=== PATIENT | female | born 1970 | race Caucasian/White ===

== ENCOUNTER 2022-08-21 11:44 | Emergency (ER) | payer BC, MEDICAID, SELFPAY ==
[2022-08-21 11:49] VITALS: BP 185/123; PULSE 115; RESP 14; TEMP 36.6; O2SAT 97; BMI 19.1
--- NOTE | 2022-08-21 12:29 | XRR_ITS ---
PROCEDURE INFORMATION: Exam: XR Abdomen Exam date and time: 08/21/2022 12:58 PM Age: 52 years old Clinical indication: Constipation; Additional info: Dyspepsia TECHNIQUE: Imaging protocol: Radiologic exam of the abdomen. Views: Frontal supine view of the abdomen. 1 View. COMPARISON: No relevant prior studies available. FINDINGS: Gastrointestinal tract: The bowel gas pattern is nonspecific. The examination is negative for significant colonic fecal stasis or bowel obstruction. Bones/joints: Unremarkable. XR/XR KUB portable [id number] IMPRESSION: No acute GI abnormality.
[2022-08-21 12:47] LABS: Basophils # 0.1 10^3/uL (0.0-0.1); Basophils % 0.6 %; Eosinophils # 0.1 10^3/uL (0.0-0.8); Eosinophils % 0.7 %; Hematocrit 46.6 % (37.0-47.0); Hemoglobin 15.7 g/dL (11.5-15.3); Lymphocytes # 3.1 10^3/uL (0.8-4.8); Lymphocytes % 30.5 %; Mean Corpuscular HGB Conc 33.7 g/dL (30.0-36.0); Mean Corpuscular Hemoglobin 30.5 pg (28.0-34.0); Mean Corpuscular Volume 90.5 fl (81-99); Mean Platelet Volume 9.2 fL (7.4-10.4); Monocytes # 0.9 10^3/uL (0.2-0.9); Monocytes % 9.2 %; Neutrophils # 5.93 10^3/uL (1.8-7.7); Neutrophils % 58.7 %; Nucleated Red Blood Cells % 0 %; Platelet Count 332 10^3/cmm (130-400); Red Blood Count 5.15 10^6/uL (4.1-5.3); Red Cell Distribution Width 13.1 % (12.1-15.1); White Blood Count 10.1 10^3/uL (4.0-10.0)
[2022-08-21] MEDS: lidocaine 2% viscous 15 ML, aluminum-mag hydrox-simethicon 30 ML, sucralfate oral liq 1 GM PO (12:53)
[2022-08-21] MEDS: pantoprazole 40 mg SDV 80 MG IVP (12:53)
[2022-08-21] MEDS: sodium chloride 0.9% 500 ML IV (12:54)
[2022-08-21 12:57] VITALS: BP 131/67; O2SAT 99
[2022-08-21 13:00] VITALS: BP 176/103; O2SAT 98
[2022-08-21 13:06] LABS: Alanine Aminotransferase 19 U/L (0-33); Albumin Level 4.5 g/dL (3.5-5.2); Alkaline Phosphatase 120 U/L (35-105); Anion Gap 17.6 (5-19); Aspartate Amino Transferase 21 U/L (0-32); Blood Urea Nitrogen 9 mg/dL (6-20); C Reactive Protein 4.9 mg/L (0.0-4.9); Calcium 9.8 mg/dL (8.5-10.5); Carbon Dioxide 26 mmol/L (22-29); Chloride 92 mmol/L (98-107); Globulin 2.9 g/dL (1.3-4.6); Glucose 84 mg/dL (65-115); Osmolality Calculated 272 mOsm/kg (285-295); Potassium 3.6 mmol/L (3.5-5.1); Sodium 132 mmol/L (136-145); Total Bilirubin 0.6 mg/dL (0.15-1.2); Total Protein 7.4 g/dL (6.6-8.7)
--- NOTE | 2022-08-21 13:10 | ED_ITS ---
HPI - Abdominal Pain General: Chief Complaint: Abdominal Pain Stated Complaint: Stomach problems Time Seen by Provider: 08/21/22 12:20 History of Present Illness: 52-year-old female presents to the emergency department chief complaint of ongoing dyspepsia and gas in her upper abdomen relieved with burping or passing gas patient reports been ongoing chronic issues been progressive getting worse over the last several months. Patient does report she had recently had her upper teeth pulled which she has had some dietary changes since that time. Patient does not recall any prior history of any obvious food allergies she reports no recent infections no illnesses reports no blood in her stools patient reports however she does not see the doctor very often. Patient presents the ER for further assessment and management Associated Symptoms: Reports belching, bloating, GI cramping, excessive flatus and nausea; Denies chills and fever(s) Review of Systems General: Reports: 10 or more systems reviewed and unremarkable except in HPI and below Const: Denies: fever(s), chills, fatigue or malaise Eyes: Denies: change in vision or blurry vision Card: Denies: chest pain or palpitations Resp: Denies: dyspnea or productive cough GI: Reports: abdominal pain, nausea, bloating, GI cramping, belching and excessive flatus : Denies: flank pain Musc: Denies: extremity pain or extremity swelling Skin/Breast: Denies: rash or pruritus Neuro: Denies: headache(s) Psych: Denies: anxiety or depression Brandon/Lymph: Denies: easy bleeding All/Imm: Denies: urticaria, throat swelling or facial swelling Physical Exam Const: COMMON NORMALS: no acute distress, patient oriented x3 and healthy appearing HENMT: COMMON NORMALS: normocephalic and atraumatic HEAD & SCALP: normocephalic and atraumatic Eye: COMMON NORMALS: Equal, round and reactive pupils present and EOMs intact bilaterally PUPIL: Yes Equal, round and reactive pupils present Neck/C-Spine: COMMON NORMALS: full ROM, supple and no JVD Lymph: LYMPHATIC: no lymphadenopathy noted Chest: COMMONS NORMALS: normal inspection of the chest and normal palpation of entire chest wall Resp: COMMON NORMALS: normal respiratory effort, No retractions and clear to auscultation bilaterally EFFORT & INSPECTION: Yes able to speak in complete sentences and Yes symmetric chest movement AUSCULTATION: clear to auscultation bilaterally Cardio: COMMON NORMALS: no JVD, regular rate and regular rhythm RATE: regular rate RHYTHM: regular rhythm GI: COMMON NORMALS: Soft to palpation and non-tender INSPECTION: Yes normal to inspection PALPATION: Yes Soft to palpation OTHER: Mild distention appreciated no obvious tenderness noted : COMMON NORMALS: Yes no CVA tenderness BLADDER/KIDNEY EXAM: Yes no CVA tenderness Back/Pelvis: COMMON NORMALS: no CVA tenderness Extremity: COMMON NORMALS: normal to inspection and full ROM Neuro: COMMON NORMALS: patient oriented x3, CN's II-XII intact bilaterally, moves all extremities and no focal motor deficits Psych: COMMON NORMALS: mental status grossly normal, Normal thought process present, cooperative and normal affect THOUGHT PROCESS: Normal thought process present Skin: COMMON NORMALS: no rashes or lesions noted GENERAL SKIN EXAM: no rashes or lesions noted Course Vital Signs: Vital signs: Vital Signs Temperature 97.8 F 08/21/22 11:49 Pulse Rate 115 H 08/21/22 11:49 Respiratory Rate 14 08/21/22 11:49 Blood Pressure 162/94 08/21/22 14:00 Pulse Oximetry 98 08/21/22 13:30 Oxygen Delivery Me thod 08/21/22 11:49 MDM - Abdominal Pain Medical Decision Making Due to the patient's symptoms and condition IV will be will be established lab work and imaging will be obtained we will continue to follow. Patient's lab work and imaging came back reassuring patient appears has some dyspepsia as well as bloating we will be treating her accordingly with medications as well as diet modification advised patient further follow-up with primary care in 3 to 5 days which patient was advised to return the interim if any of her symptoms persist or worse. Lab Data 08/21/22 12:40 08/21/22 12:40 Labs/Radiology: Radiology Impressions KUB X-Ray 08/21/22 12:29 IMPRESSION: No acute GI abnormality. Laboratory Results WBC 10.1 10^3/uL (4.0-10.0) H 08/21/22 12:40 RBC 5.15 10^6/uL (4.1-5.3) 08/21/22 12:40 Hgb 15.7 g/dL (11.5-15.3) H 08/21/22 12:40 Hct 46.6 % (37.0-47.0) 08/21/22 12:40 MCV 90.5 fl (81-99) 08/21/22 12:40 MCH 30.5 pg (28.0-34.0) 08/21/22 12:40 MCHC 33.7 g/dL (30.0-36.0) 08/21/22 12:40 RDW 13.1 % (12.1-15.1) 08/21/22 12:40 Plt Count 332 10^3/cmm (130-400) 08/21/22 12:40 MPV 9.2 fL (7.4-10.4) 08/21/22 12:40 Neut % (Auto) 58.7 % 08/21/22 12:40 Lymph % (Auto) 30.5 % 08/21/22 12:40 [place] % (Auto) 9.2 % 08/21/22 12:40 Eos % (Auto) 0.7 % 08/21/22 12:40 Baso % (Auto) 0.6 % 08/21/22 12:40 Neut # (Auto) 5.93 10^3/uL (1.8-7.7) 08/21/22 12:40 Lymph # (Auto) 3.1 10^3/uL (0.8-4.8) 08/21/22 12:40 [place] # (Auto) 0.9 10^3/uL (0.2-0.9) 08/21/22 12:40 Eos # (Auto) 0.1 10^3/uL (0.0-0.8) 08/21/22 12:40 Baso # (Auto) 0.1 10^3/uL (0.0-0.1) 08/21/22 12:40 Nucleated RBC % (auto) 0 % 08/21/22 12:40 Nucleated RBCs # 0.0 /100WBC 08/21/22 12:40 Sodium 132 mmol/L (136-145) L 08/21/22 12:40 Potassium 3.6 mmol/L (3.5-5.1) 08/21/22 12:40 Chloride 92 mmol/L (98-107) L 08/21/22 12:40 Carbon Dioxide 26 mmol/L (22-29) 08/21/22 12:40 Anion Gap 17.6 (5-19) 08/21/22 12:40 BUN 9 mg/dL (6-20) 08/21/22 12:40 Creatinine 0.8 mg/dL (0.5-0.9) 08/21/22 12:40 GFR Calculation 75.0 mL/min (90-130) L 08/21/22 12:40 Glucose 84 mg/dL (65-115) 08/21/22 12:40 Calculated Osmolality 272 mOsm/kg (285-295) L 08/21/22 12:40 Calcium 9.8 mg/dL (8.5-10.5) 08/21/22 12:40 Total Bilirubin 0.6 mg/dL (0.15-1.2) 08/21/22 12:40 AST 21 U/L (0-32) 08/21/22 12:40 ALT 19 U/L (0-33) 08/21/22 12:40 Alkaline Phosphatase 120 U/L (35-105) H 08/21/22 12:40 C-Reactive Protein 4.9 mg/L (0.0-4.9) 08/21/22 12:40 Total Protein 7.4 g/dL (6.6-8.7) 08/21/22 12:40 Albumin 4.5 g/dL (3.5-5.2) 08/21/22 12:40 Globulin 2.9 g/dL (1.3-4.6) 08/21/22 12:40 Urine Color Straw (Yellow) 08/21/22 13:35 Urine Appearance Clear (CLEAR) 08/21/22 13:35 Urine pH 7 (5-7) 08/21/22 13:35 Ur Specific [place] 1.005 (1.005-1.030) 08/21/22 13:35 Urine Protein Neg (Negative) 08/21/22 13:35 Urine Glucose (UA) Norm (Normal) 08/21/22 13:35 Urine Ketones 1+ (Negative) H 08/21/22 13:35 Urine Blood 2+ (Negative) H 08/21/22 13:35 Urine Nitrate Negative (Negative) 08/21/22 13:35 Urine Bilirubin Neg (Negative) 08/21/22 13:35 Urine Urobilinogen Norm mg/dL (Negative) 08/21/22 13:35 Ur Leukocyte Esterase Negative (Negative) 08/21/22 13:35 Urine RBC 0-4 /hpf (0-2) H 08/21/22 13:35 Urine WBC None /hpf (0-5) 08/21/22 13:35 Ur Squamous Epith Cells Rare /hpf (0-5) 08/21/22 13:35 Amorphous Sediment Not Reportable 08/21/22 13:35 Urine Bacteria Trace /hpf (NONE) 08/21/22 13:35 Discharge Plan Discharge Patient Disposition: Home Clinical Impression: Dyspepsia, Colicky abdominal pain, Abdominal bloating Condition: Stable Prescriptions: New Protonix 40 mg tablet,delayed release (DR/EC) 40 mg PO Q12H 14 Days Qty: 28 0RF Gas Relief (simethicone) 180 mg capsule 180 mg PO BID PRN (Reason: abdominal distention) Qty: 30 0RF ondansetron HCl 4 mg tablet 4 mg PO Q8H PRN (Reason: nausea and vomiting) Qty: 14 0RF Discharge Orders: Discharge ED (Routine); Ordered 08/21/22 Ordered By: Salvador Mckeon Referrals: [facility], [Staff Physician] - 4-7 days Discharge Diet: Low Cholesterol and Low Fat Discharge Activity: Increase activity as tolerated Patient Instructions: Indigestion (ED), Gas and Bloating (ED), Abdominal Pain (ED) Activity Restrictions/Additional Instructions: Please follow-up with your primary care doctor in 3 to 5 days, take medications as prescribed please refrain from eating a high fat content or high protein content diet that would contribute to your bloating type symptoms. Drink lots of water please return the interim if any of her symptoms persist or worse Coding Level of Care Code ED Worksite Wellness Practitioner for Chg Fwd Exam Comprehensive
[2022-08-21 13:30] VITALS: BP 166/110; O2SAT 98
[2022-08-21 14:00] VITALS: BP 162/94
[2022-08-21 14:08] LABS: Add Urine Microscopic? YES; Bilirubin Urine Neg (Negative); Blood Urine 2+ (Negative); Glucose Urine UA Norm (Normal); Ketones Urine 1+ (Negative); Leukocyte Esterase Urine Negative (Negative); Nitrate Urine Negative (Negative); Protein Urine Neg (Negative); Specific Gravity, Urine 1.005 (1.005-1.030); Urine Appearance Clear (CLEAR); Urine Color Straw (Yellow); Urobilinogen Urine Norm (Negative); pH Urine 7 (5-7)
[2022-08-21 14:09] LABS: Add Urine Culture? No; Bacteria Urine TRACE /hpf; RBC Urine 0-4 /hpf (0-2); Squamous Epithelial Cell Urine RARE /hpf (0-5)
== END 2022-08-21 14:55 | disposition home or self-care (01) ==
PROVIDERS: Emergency Provider Emergency Medicine
DX: R10.13 Epigastric pain (principal); R14.0 Abdominal distension (gaseous); R10.84 Generalized abdominal pain
CPT/HCPCS: 74018; 80053; 81001; 85025; 86140; 96361; 96374; 99284; C9113; J7040

== ENCOUNTER 2022-09-13 08:55 | Inpatient (IN) | payer BC, SELFPAY ==
[2022-09-13] VITALS (10 sets, daily range): BP systolic 148–165; BP diastolic 84–130; PULSE 67–114; RESP 14–20; TEMP 36.4–36.9; O2SAT 94–100; BMI 19.1
[2022-09-13] MEDS: ondansetron 2 mg/ML SDV 2 mL 4 MG IVP ×2 (09:33→10:47)
[2022-09-13] MEDS: sodium chloride 0.9% 1,000 ML 999 ML IV ×2 (09:33→10:47)
[2022-09-13 09:39] LABS: Basophils % 0.3 %; Eosinophils % 0.1 %; Hematocrit 48.2 % (37.0-47.0); Hemoglobin 16.2 g/dL (11.5-15.3); Lymphocytes # 1.7 10^3/uL (0.8-4.8); Lymphocytes % 15.6 %; Mean Corpuscular HGB Conc 33.6 g/dL (30.0-36.0); Mean Corpuscular Hemoglobin 29.6 pg (28.0-34.0); Mean Corpuscular Volume 88.1 fl (81-99); Mean Platelet Volume 9.2 fL (7.4-10.4); Neutrophils % 74.5 %; Nucleated Red Blood Cells % 0 %; Platelet Count 372 10^3/cmm (130-400); Red Blood Count 5.47 10^6/uL (4.1-5.3); Red Cell Distribution Width 13.1 % (12.1-15.1); White Blood Count 10.9 10^3/uL (4.0-10.0)
--- NOTE | 2022-09-13 09:40 | CTR_ITS ---
PROCEDURE INFORMATION: Exam: CT Abdomen And Pelvis With Contrast Exam date and time: 09/13/2022 9:59 AM Age: 52 years old Clinical indication: Nausea and vomiting; Abdominal pain; Localized; Patient HX: Lower abd pain x 2 months, n/v x 3 days TECHNIQUE: Imaging protocol: Computed tomography of the abdomen and pelvis with contrast. Radiation optimization: All CT scans at this facility use at least one of these dose optimization techniques: automated exposure control; mA and/or kV adjustment per patient size (includes targeted exams where dose is matched to clinical indication); or iterative reconstruction. Contrast material: OMNI 350; Contrast volume: 75 ml; Contrast route: INTRAVENOUS (IV); COMPARISON: CR (ABDOMEN, ) 08/21/2022 12:58 PM RADIATION DOSE METRICS: Total DLP (mGy-cm): 307.1 FINDINGS: Lungs: The visualized portions of the lung bases are normal. Anterior right middle lobe 0.8 x 0.8 cm subpleural calcified granuloma is seen. Liver: There is normal enhancement of the right liver. Multiple right and left hepatic lobe low attenuation lesions are seen, ranging from 0.5 to 4.4 cm in size (right hepatic lobe greater than left)-at least 10. This is consistent with liver metastatic disease. Gallbladder and bile ducts: No calcified stones. No biliary ductal dilatation. Pancreas: Unremarkable CT appearance of the pancreatic parenchyma. No ductal dilatation. Spleen: Normal splenic parenchymal attenuation. No splenomegaly. Adrenal glands: Prominent bilateral adrenal glands are seen with maintenance of the adrenoform shape. This is suggestive of adrenal hyperplasia. Kidneys and ureters: Normal renal contour. No mass seen. No hydronephrosis. Stomach and bowel: The non-contrast opacified stomach is not well distended with relative gastric fold prominence. Assessment is limited. The noncontrast opacified loops of small bowel in the abdomen and pelvis show moderately dilated fluid-filled loops of distal small bowel. Moderately distended fluid-filled cecum is seen. Moderately distended fluid-filled ascending and transverse colon is seen with abrupt transition in the region of the splenic flexure of the colon. There is a heterogeneous attenuation masslike region with some calcifications seen in this area (series 3, image 20, series 5, image 23 and series 6, image 17). This is consistent with a colonic obstructing malignancy. Decompressed descending colon, sigmoid colon and rectum are seen. Mild descending and sigmoid colonic diverticula are seen, without CT evidence of diverticulitis. Appendix: No evidence of appendicitis. Intraperitoneal space: No abdominal ascites. No free air. No abdominal or pelvic ascites or pneumoperitoneum. Some benign phleboliths seen in the pelvis. Vasculature: No abdominal aortic aneurysm. [id number] lower abdominal aortic atherosclerotic vascular calcifications are seen. [id number] common iliac atherosclerotic vascular calcifications are seen. Inferior vena cava and portal vein appear unremarkable. Lymph nodes: No para-aortic, aortocaval or periportal lymphadenopathy. Urinary bladder: No bladder wall thickening or debris. Reproductive: Unremarkable as visualized. Bones/joints: Severe degenerative disc disease changes with vacuum phenomenon are seen at the L4-L5 and L5-S1 levels. Mild bilateral hip degenerative changes are seen. Soft tissues: Unremarkable. CT/CT abdomen pelvis w con* [id number] IMPRESSION: 1. 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 Moderately distended fluid-filled cecum. Moderately distended fluid-filled ascending and transverse colon with abrupt transition in the region of the splenic flexure of the colon. Heterogeneous attenuation masslike region with some calcifications seen in this area (series 3, image 20, series 5, image 23 and series 6, image 17). 2. Liver metastases: Multiple right and left hepatic lobe low attenuation lesions, ranging from 0.5 to 4.4 cm in size (right hepatic lobe greater than left)-at least 10.
[2022-09-13] MEDS: iohexol 350 mg/mL 500 mL Btl (per mL) IV (10:04)
--- NOTE | 2022-09-13 10:20 | W.ED.NAVMDI ---
HPI - Nausea/Vomiting/Diarrhea General: Chief complaint: Nausea/Vomiting/Diarrhea Stated complaint: N/V Time Seen by Provider: 09/13/22 09:07 Source: patient Mode of arrival: ambulatory History of Present Illness: 52-year-old female [facility] emergency room with complaints of lower abdominal abdominal pain for months. She is here on 1210 and she has some constipation and she denies hematochezia melena hematemesis cough crampiness no dysuria urgency or frequency. MD elicited complaint: nausea and vomiting Onset (ago): minute(s) Description of vomiting: food contents and watery Associated nausea: Yes Associated abdominal pain: Yes Location of pain: Suprapubic Severity: moderate Quality: cramping Exacerbating factors: none Relieving factors: none Associated symtoms: Reports nausea; Denies altered mental status, anxiety, bloating, change in vision, chest pain, cough, diaphoresis, decreased urine output, dizziness, dysuria, epistaxis, fatigue, fecal incontinence, fevers/chills, headache(s), anorexia, malaise, myalgias, numbness, palpitations, rash, short of breath, syncope, tenesmus, tinnitus or weakness Review of Systems Const: Denies: fever(s), chills, fatigue, malaise or diaphoresis Eyes: Denies: change in vision ENMT: Denies: tinnitus or epistaxis Card: Denies: chest pain, palpitations or syncope Resp: Denies: dyspnea, productive cough or non-productive cough GI: Reports: abdominal pain, nausea and vomiting; Denies: hematemesis, coffee ground emesis, bloating, fecal incontinence or hematochezia : Denies: dysuria, urinary frequency or urinary urgency Skin/Breast: Denies: rash or pruritus Neuro: Denies: headache(s) or dizziness Psych: Denies: anxiety PFSH ED PFSH: Medical History Constipation Tobacco dependency Family History Other CAD (coronary artery disease) Social History Smoking and tobacco status: current every day smoker Alcohol intake: never Substance/Drug Use: never Physical Exam Const: EXAM LIMITATIONS: no altered mental status GENERAL APPEARANCE: cooperative and comfortable ORIENTATION/CONSCIOUSNESS: Yes awake, Yes oriented to person, Yes oriented to place and Yes oriented to time HENMT: COMMON NORMALS: normocephalic, atraumatic and hearing grossly normal bilaterally HEAD & SCALP: normocephalic and atraumatic Resp: COMMON NORMALS: normal respiratory effort, No retractions, No use of accessory muscles and clear to auscultation bilaterally AUSCULTATION: clear to auscultation bilaterally Cardio: COMMON NORMALS: regular rate, regular rhythm and No murmurs present (Cardio) RATE: regular rate RHYTHM: regular rhythm GI: COMMON NORMALS: No hepatosplenomegaly present INSPECTION: Yes abdominal distension AUSCULTATION: Yes Absent bowel sounds PALPATION: Yes Tenderness to palpation present (GI), No Guarding due to palpation present (GI) and Yes No hepatosplenomegaly present Extremity: COMMON NORMALS: normal to inspection, capillary refill normal, no clubbing, cyanosis or edema, no calf tenderness and no pedal edema Neuro: SENSORIUM/ORIENTATION: Yes oriented to person, Yes oriented to place and Yes oriented to time Skin: COMMON NORMALS: no rashes or lesions noted GENERAL SKIN EXAM: no rashes or lesions noted Course Vital Signs: Vital signs: Vital Signs Temperature 97.6 F 09/13/22 09:04 Pulse Rate 87 09/13/22 12:47 Respiratory Rate 16 09/13/22 12:47 Blood Pressure 160/130 09/13/22 10:30 Pulse Oximetry 94 09/13/22 12:47 Oxygen Delivery Me thod 09/13/22 10:30 MDM - Nausea/Vomiting/Diarrhea Medical Decision Making CT shows mass at the splenic flexure causing obstruction and dilation of the small bowel. NG placed. Surgery to admit hospitalist consulted. Medical Records I reviewed the patient's medical records. Lab Data I reviewed the patient's lab results. 09/13/22 09:30 09/13/22 09:30 Radiology Impressions Abdomen/Pelvis CT 09/13/22 09:40 IMPRESSION: 1. 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 Moderately distended fluid-filled cecum. Moderately distended fluid-filled ascending and transverse colon with abrupt transition in the region of the splenic flexure of the colon. Heterogeneous attenuation masslike region with some calcifications seen in this area (series 3, image 20, series 5, image 23 and series 6, image 17). 2. Liver metastases: Multiple right and left hepatic lobe low attenuation lesions, ranging from 0.5 to 4.4 cm in size (right hepatic lobe greater than left)-at least 10. ADDENDUM: 09/13/22 1038 THIS REPORT CONTAINS FINDINGS THAT MAY BE CRITICAL TO PATIENT CARE. The findings were verbally communicated via telephone conference at 10:36 AM DESKTOP SUPPORT ASSOCIATE on 09/13/2022 with SJ SAWYER. The findings were acknowledged and understood. Chest X-Ray 09/13/22 10:53 IMPRESSION: No significant cardiopulmonary abnormality. Laboratory Results WBC 10.9 10^3/uL (4.0-10.0) H 09/13/22 09:30 RBC 5.47 10^6/uL (4.1-5.3) H 09/13/22 09:30 Hgb 16.2 g/dL (11.5-15.3) H 09/13/22 09:30 Hct 48.2 % (37.0-47.0) H 09/13/22 09:30 MCV 88.1 fl (81-99) 09/13/22 09:30 MCH 29.6 pg (28.0-34.0) 09/13/22 09:30 MCHC 33.6 g/dL (30.0-36.0) 09/13/22 09:30 RDW 13.1 % (12.1-15.1) 09/13/22 09:30 Plt Count 372 10^3/cmm (130-400) 09/13/22 09:30 MPV 9.2 fL (7.4-10.4) 09/13/22 09:30 Neut % (Auto) 74.5 % 09/13/22 09:30 Lymph % (Auto) 15.6 % 09/13/22 09:30 [place] % (Auto) 9.0 % 09/13/22 09:30 Eos % (Auto) 0.1 % 09/13/22 09:30 Baso % (Auto) 0.3 % 09/13/22 09:30 Neut # (Auto) 8.10 10^3/uL (1.8-7.7) H 09/13/22 09:30 Lymph # (Auto) 1.7 10^3/uL (0.8-4.8) 09/13/22 09:30 [place] # (Auto) 1.0 10^3/uL (0.2-0.9) H 09/13/22 09:30 Eos # (Auto) 0.0 10^3/uL (0.0-0.8) 09/13/22 09:30 Baso # (Auto) 0.0 10^3/uL (0.0-0.1) 09/13/22 09:30 Nucleated RBC % (auto) 0 % 09/13/22 09:30 Nucleated RBCs # 0.0 /100WBC 09/13/22 09:30 PT 13.60 SECONDS (12.1-14.9) 09/13/22 09:30 INR 1.01 (0.8-1.2) 09/13/22 09:30 APTT 25.7 SECONDS (23.9-36.7) 09/13/22 09:30 Sodium 133 mmol/L (136-145) L 09/13/22 09:30 Potassium 4.7 mmol/L (3.5-5.1) 09/13/22 09:30 Chloride 94 mmol/L (98-107) L 09/13/22 09:30 Carbon Dioxide 24 mmol/L (22-29) 09/13/22 09:30 Anion Gap 19.7 (5-19) H 09/13/22 09:30 BUN 22 mg/dL (6-20) H 09/13/22 09:30 Creatinine 0.8 mg/dL (0.5-0.9) 09/13/22 09:30 GFR Calculation 75.0 mL/min (90-130) L 09/13/22 09:30 Glucose 105 mg/dL (65-115) 09/13/22 09:30 Calculated Osmolality 280 mOsm/kg (285-295) L 09/13/22 09:30 Calcium 10.1 mg/dL (8.5-10.5) 09/13/22 09:30 Total Bilirubin 0.6 mg/dL (0.15-1.2) 09/13/22 09:30 AST 18 U/L (0-32) 09/13/22 09:30 ALT 12 U/L (0-33) 09/13/22 09:30 Alkaline Phosphatase 94 U/L (35-105) 09/13/22 09:30 Total Protein 7.5 g/dL (6.6-8.7) 09/13/22 09:30 Albumin 4.7 g/dL (3.5-5.2) 09/13/22 09:30 Globulin 2.8 g/dL (1.3-4.6) 09/13/22 09:30 Carcinoembryonic Ag 487.2 ng/mL (0.0-4.7) H 09/13/22 09:30 Urine Color Yellow (Yellow) 09/13/22 10:17 Urine Appearance Clear (CLEAR) 09/13/22 10:17 Urine pH 6.5 (5-7) 09/13/22 10:17 Ur Specific [place] 1.010 (1.005-1.030) 09/13/22 10:17 Urine Protein Trace (Negative) 09/13/22 10:17 Urine Glucose (UA) Norm (Normal) 09/13/22 10:17 Urine Ketones 1+ (Negative) H 09/13/22 10:17 Urine Blood 2+ (Negative) H 09/13/22 10:17 Urine Nitrate Negative (Negative) 09/13/22 10:17 Urine Bilirubin 1+ (Negative) H 09/13/22 10:17 Urine Urobilinogen Norm mg/dL (Negative) 09/13/22 10:17 Ur Leukocyte Esterase Negative (Negative) 09/13/22 10:17 Urine RBC 0-4 /hpf (0-2) H 09/13/22 10:17 Urine WBC Rare /hpf (0-5) 09/13/22 10:17 Ur Squamous Epith Cells 0-4 /hpf (0-5) H 09/13/22 10:17 Amorphous Sediment Not Reportable 09/13/22 10:17 Urine Bacteria Trace /hpf (NONE) 09/13/22 10:17 Hyaline Casts 0-4 /lpf H 09/13/22 10:17 Urine Mucus 1+ /hpf 09/13/22 10:17 Discharge Plan Discharge Patient Disposition: Admitted As Inpatient Clinical Impression: Mass of colon, Liver nodule Condition: Stable Coding Level of Care Code ED Right Of Way Manager for Chg Fwd Exam Detailed
[2022-09-13 10:28] LABS: Alanine Aminotransferase 12 U/L (0-33); Albumin Level 4.7 g/dL (3.5-5.2); Alkaline Phosphatase 94 U/L (35-105); Anion Gap 19.7 (5-19); Aspartate Amino Transferase 18 U/L (0-32); Blood Urea Nitrogen 22 mg/dL (6-20); Calcium 10.1 mg/dL (8.5-10.5); Carbon Dioxide 24 mmol/L (22-29); Chloride 94 mmol/L (98-107); Globulin 2.8 g/dL (1.3-4.6); Glucose 105 mg/dL (65-115); Osmolality Calculated 280 mOsm/kg (285-295); Potassium 4.7 mmol/L (3.5-5.1); Sodium 133 mmol/L (136-145); Total Bilirubin 0.6 mg/dL (0.15-1.2); Total Protein 7.5 g/dL (6.6-8.7)
[2022-09-13 10:32] LABS: Add Urine Microscopic? YES; Bilirubin Urine 1+ (Negative); Blood Urine 2+ (Negative); Glucose Urine UA Norm (Normal); Ketones Urine 1+ (Negative); Leukocyte Esterase Urine Negative (Negative); Nitrate Urine Negative (Negative); Protein Urine Trace (Negative); Urine Appearance Clear (CLEAR); Urine Color Yellow (Yellow); Urobilinogen Urine Norm (Negative); pH Urine 6.5 (5-7)
[2022-09-13 10:33] LABS: Add Urine Culture? No; Bacteria Urine TRACE /hpf; Hyaline Casts Urine 0-4 /lpf; Mucus Urine 1+ /hpf; RBC Urine 0-4 /hpf (0-2); Squamous Epithelial Cell Urine 0-4 /hpf (0-5); WBC Urine RARE /hpf (0-5)
--- NOTE | 2022-09-13 10:35 | ECG_ITS ---
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 Measurements Intervals [place] Rate: 93 P: 73 MA: 150 QRS: 78 QRSD: 61 T: 69 QT: 323 QTc: 402 Interpretive Statements SINUS RHYTHM ANTEROSEPTAL MYOCARDIAL INFARCTION , OF INDETERMINATE AGE [40+ ms Q WAVE IN V1-V4] No previous ECG available for comparison Electronically Signed On 09-14-2022 9:23:17 CITY COLLECTOR by Davidson Su M.D. [id number]
[2022-09-13] MEDS: morphine 4 mg/mL SDV 1 mL IVP ×2 (10:47→18:25)
[2022-09-13 10:52] LABS: INR 1.01 (0.8-1.2); Partial Thromboplastin Time 25.7 SECONDS (23.9-36.7)
--- NOTE | 2022-09-13 10:53 | XRR_ITS ---
PROCEDURE INFORMATION: Exam: XR Chest Exam date and time: 09/13/2022 11:01 AM Age: 52 years old Clinical indication: Cough and dyspnea; Additional info: Dyspnea/cough TECHNIQUE: Imaging protocol: Radiologic exam of the chest. Views: 1 view. COMPARISON: CT abdomen pelvis w con* [id number] 09/13/2022 9:59 AM FINDINGS: Tubes, catheters and devices: A nasogastric tube is present with the tip projecting in the stomach. Lungs: Unremarkable. No consolidation. Pleural spaces: Unremarkable. No pleural effusion. No pneumothorax. Heart/Mediastinum: Unremarkable. No cardiomegaly. Bones/joints: Unremarkable. XR/XR chest 1V portable [id number] IMPRESSION: No significant cardiopulmonary abnormality.
--- NOTE | 2022-09-13 11:15 | PM.HP ---
Providers/Chief Complaint Chief Complaint: N/V History of Present Illness Chantale Wright is a 52 year old female who presented to the hospital with a 4-month history of left lower quadrant abdominal pain. The pain is dull and constant. Pain does not radiate. Palpation makes the pain worse. Nothing makes pain better. She reports that she does not go to the doctor and has never had a colonoscopy. She denies any weight loss. She reports that she gets some night sweats but has been getting them because she is going through menopause. She is passing flatus and having small nonbloody bowel movements. She has been having nausea and vomiting for the past 3 days. Her father of cancer which she thinks might of been colon cancer. She is unsure of how old he was because they were not very close. CT of the abdomen pelvis shows an obstructing splenic flexure mass with proximal colon and small bowel dilatation and distal colon decompression. CT also shows multiple masses in the liver consistent with metastases. Review of Systems General: Reports: 10 or more systems reviewed and unremarkable except in HPI and below Medications/Allergies Home Medications Medication Instructions Recorded Confirmed Last Taken Type ondansetron HCl 4 mg tablet 4 mg PO Q8H PRN nausea and 08/21/22 09/13/22 09/13/22 03:30 Rx vomiting #14 tabs THREW UP AFTER TAKIN simethicone 180 mg capsule (Gas 180 mg PO BID PRN abdominal 08/21/22 09/13/22 Unknown Rx Relief (simethicone)) distention #30 caps bisacodyl 5 mg tablet 10 mg PO .ONE TIME DOSE 09/13/22 09/13/22 09/11/22 History ibuprofen 200 mg tablet 200 mg PO Q6H PRN Pain 09/13/22 09/13/22 09/13/22 History threw up after takin pantoprazole 40 mg tablet,delayed 40 mg PO DAILY 09/13/22 09/13/22 09/09/22 History release Allergies Allergy/AdvReac Type Severity Reaction Status Date / Time No Known Allergies Allergy Verified 09/13/22 10:45 Vitals/I&O/Wt Last Vital Signs Temp 97.6 F 09/13/22 09:04 Pulse 104 H 09/13/22 10:30 Resp 19 H 09/13/22 10:47 BP 160/130 09/13/22 10:30 Pulse Ox 100 09/13/22 10:47 O2 Del Method 09/13/22 10:30 Weight last 48 hrs Weight 115 lb Physical Exam Narrative: General : Patient is well developed , no acute distress, oriented x3 Head : Normal cephalic, a-traumatic. Ears : Pinnae and external canal are normal. Hearing is normal. Eyes : PERRLA, Sclera and injection are normal. No conjunctival discharge. Nose : Mucous membranes are without erythema. Throat : buccal mucosa is normal, gums are without significant recession or hypertrophy. Lungs : Equal chest rise bilaterally, no use of accessory muscles, trachea is midline. Cor : Rate and rhythm are normal. Abdomen : Soft, mildly distended, mild left lower quadrant tenderness to palpation, no guarding rebound or masses Extremities : No edema, no cyanosis or clubbing, dorsalis pedis pulses are present bilaterally, non-tender to palpation of calves. Upper extremities are normal bilaterally. Back : non-tender to palpation, no CVA tenderness. Neuro : CN II - XII intact, Upper and lower extremities have equal and full strength Data 09/13/22 09:30 09/13/22 09:30 A&P Assessment and plan (1) Mass of colon: (2) Liver nodule: Plan IV fluids N.p.o./NG tube to low intermittent suction AM abdominal x-rays If we are able to decompress her proximal bowel, we will proceed with bowel prep and a single-stage procedure with left hemicolectomy and reconnection. I believe this is unlike Daryn however, and she will likely end up with an exploratory laparotomy with left hemicolectomy and colostomy formation. She will need an oncology consult. I explained all this to her and she is understanding. Attestations Medical Necessity Statement*: Patient requires multiple more nights in the hospital for eventual left hemicolectomy for obstructing colon mass Coding Level of Care Code Acute Acute Care Physician for Chg Fwd Diagnoses Mass of colon K63.89 Liver nodule K76.89
--- NOTE | 2022-09-13 11:46 | P.CONIM_ITS ---
Providers/Reason For Consult Consulting Physician/Specialty*: Petar Parish MD, hospitalist Reason for Consult*: Medical management Requesting Physician: Dr. Aguilar History of Present Illness History of Present Illness Had Leo Wright is a 52 year old female presenting to the emergency department with abdominal discomfort. She reports for the last 3 months she has had some abdominal pain, and some slight weight loss. She states it is mainly been around her abdomen. Improve constipation. January Millan tainted where she visited the emergency department on 21 August. She tried laxatives after this, and reports that they upset her stomach and cause vomiting and nausea. She states the pain has been rather intense and she has been vomiting for the last 3 days. She reports previously she would occasionally pass a bowel movement, and there was a little bit of blood when she wiped which she attributed to hemorrhoids. No blood in emesis. No history of colonoscopy. Father of cancer but unknown type. She reports she can exercise without chest discomfort, go up more than 2 flights of steps without difficulty. Review of Systems Const: Reports: fatigue; Denies: fever(s) or chills Eyes: Denies: change in vision ENMT: Denies: throat pain Card: Denies: chest pain or swelling of feet/ankles Resp: Denies: dyspnea GI: Reports: abdominal pain, nausea, vomiting and hematochezia : Denies: flank pain Musc: Denies: neck pain Skin/Breast: Denies: rash Neuro: Denies: headache(s) Psych: Denies: anxiety or depression Endo: Denies: polyuria Brandon/Lymph: Denies: easy bruising All/Imm: Denies: urticaria Medications/Allergies Home Medications Medication Instructions Recorded Confirmed Last Taken Type ondansetron HCl 4 mg tablet 4 mg PO Q8H PRN nausea and 08/21/22 09/13/2211/04 03:30 Rx vomiting #14 tabs THREW UP AFTER TAKIN simethicone 180 mg capsule (Gas 180 mg PO BID PRN abdominal 08/21/22 09/13/22 Unknown Rx Relief (simethicone)) distention #30 caps bisacodyl 5 mg tablet 10 mg PO .ONE TIME DOSE 09/13/22 09/13/22 09/11/22 History ibuprofen 200 mg tablet 200 mg PO Q6H PRN Pain 09/13/22 09/13/22 09/13/22 History threw up after takin pantoprazole 40 mg tablet,delayed 40 mg PO DAILY 09/13/22 09/13/22 09/09/22 History release Allergies Allergy/AdvReac Type Severity Reaction Status Date / Time No Known Allergies Allergy Verified 09/13/22 10:45 PFSH Acute PFSH: Medical History (Updated 09/13/22 @ 11:55 by Petar Parish MD) Constipation Tobacco dependency Family History (Updated 09/13/22 @ 11:49 by Petar Parish MD) Other CAD (coronary artery disease) Social History (Updated 09/13/22 @ 11:49 by Petar Parish MD) Smoking and tobacco status: current every day smoker Alcohol intake: never Substance/Drug Use: never Other PFSH information: Supplemental PFSH Information: Denies any significant surgical history. Vitals/I&O/Wt Last Vital Signs Temp 97.6 F 09/13/22 09:04 Pulse 104 H 09/13/22 10:30 Resp 19 H 09/13/22 10:47 BP 160/130 09/13/22 10:30 Pulse Ox 100 09/13/22 10:47 O2 Del Method 09/13/22 10:30 Weight last 48 hrs Weight 52.163 kg Physical Exam Narrative: General exam is a white female, with NG tube, slightly tearful, no distress HEENT: Atraumatic normocephalic. Pupils equally round. Oropharynx clear. Neck is supple no lymphadenopathy or thyromegaly Cardiovascular regular rate and rhythm without murmur, no S3 or S4 Lungs clear no wheezing or crackles. Diminished breath sounds are noted bilaterally Abdomen is soft currently. NG is to suction. I do not auscultate bowel sounds. No obvious organomegaly exam was deferred Extremities no cyanosis clubbing or edema, cap refill brisk Skin no rash Neuro no obvious focal deficits Data 09/13/22 09:30 09/13/22 09:30 Other Labs: PT and PTT are normal LFTs are normal Urinalysis with 0-4 reds rare whites Chest x-ray negative CT abdomen pelvis demonstrates what appears to be an obstructive colonic malignancy in the splenic flexure with resulting dilation of small bowel. Transition point is noted. Liver metastasis appear to be present as well. EKG demonstrates sinus rhythm, normal axis, poor R wave progression A&P Assessment and plan (1) Bowel obstruction: Presents with small bowel obstruction with transition point. Surgery is primary, planning on timing of resection of mass depending upon response to decompression with NG NG has been placed Check CEA level Continue hydration per surgery Pain control (2) Mass of colon: Surgery with plan for resection (3) Liver nodule: Concern of hepatic metastasis (4) Elevated blood pressure reading: Hydralazine as needed Reassess need for daily medicine. She has not been to a physician in some time and it is not known if she has hypertension or if elevation is secondary to her small bowel obstruction and pain resulting (5) Tobacco dependency: Encouraged abstinence. Offered patch. At this point she declines but can certainly readdress. DuoNeb as needed Plan Thank you for this consultation Heparin is being used for DVT prophylaxis per surgery Consult Attestations Medical Necessity Statement: As per primary Coding Level of Care Code Acute School Age Teacher for Susan Meehand Diagnoses Bowel obstruction K56.609 Mass of colon K63.89 Liver nodule K76.89 Elevated blood pressure reading R03.0 Tobacco dependency F17.200
[2022-09-13] MEDS: dextrose 5%-sod chloride 0.45% 1,000 ML 125 ML IV ×2 (12:26→19:36)
[2022-09-13 12:28] LABS: Carcinoembryonic Antigen 487.2 ng/mL (0.0-4.7)
[2022-09-13] MEDS: pantoprazole 40 mg SDV IVP (12:28)
[2022-09-13] MEDS: heparin 5,000 unit/mL INJ 1 mL 5000 UNIT SUBCUT (12:28)
[2022-09-14] VITALS (23 sets, daily range): BP systolic 95–154; BP diastolic 71–93; PULSE 64–92; RESP 11–18; TEMP 36–36.8; O2SAT 94–100
[2022-09-14] MEDS: heparin 5,000 unit/mL INJ 1 mL 5000 UNIT SUBCUT (00:19)
[2022-09-14] MEDS: dextrose 5%-sod chloride 0.45% 1,000 ML 125 ML IV (03:45)
[2022-09-14 04:40] LABS: Basophils % 0.5 %; Eosinophils # 0.1 10^3/uL (0.0-0.8); Eosinophils % 0.8 %; Hematocrit 43.8 % (37.0-47.0); Hemoglobin 14.6 g/dL (11.5-15.3); Lymphocytes # 3.1 10^3/uL (0.8-4.8); Lymphocytes % 34.5 %; Mean Corpuscular HGB Conc 33.3 g/dL (30.0-36.0); Mean Corpuscular Hemoglobin 30.2 pg (28.0-34.0); Mean Corpuscular Volume 90.7 fl (81-99); Mean Platelet Volume 9.5 fL (7.4-10.4); Monocytes # 0.9 10^3/uL (0.2-0.9); Monocytes % 10.4 %; Neutrophils # 4.73 10^3/uL (1.8-7.7); Neutrophils % 53.6 %; Nucleated Red Blood Cells % 0 %; Platelet Count 312 10^3/cmm (130-400); Red Blood Count 4.83 10^6/uL (4.1-5.3); Red Cell Distribution Width 13.1 % (12.1-15.1); White Blood Count 8.8 10^3/uL (4.0-10.0)
--- NOTE | 2022-09-14 05:00 | XRR_ITS ---
PROCEDURE INFORMATION: Exam: XR Abdomen Exam date and time: 09/14/2022 5:24 AM Age: 52 years old Clinical indication: Condition or disease; Intestinal condition; Obstruction; Additional info: Bowel obstruction TECHNIQUE: Imaging protocol: Radiologic exam of the abdomen. Views: 2 Views. Upright and supine views. COMPARISON: CT abdomen pelvis w con* [id number] 09/13/2022 9:59 AM FINDINGS: Gastrointestinal tract: There is a moderate colonic distention up to the splenic flexure consistent with colonic obstruction as demonstrated on recent CT exam. There is no free air. There is an NG tube whose tip projects within the body of the stomach. Intraperitoneal space: See Gastrointestinal tract finding. Bones/joints: Unremarkable for age. XR/XR acute abdomen series [id number] IMPRESSION: Bowel gas pattern consistent with colonic obstruction at the level of the splenic flexure.
[2022-09-14 05:09] LABS: Alanine Aminotransferase 9 U/L (0-33); Alkaline Phosphatase 75 U/L (35-105); Anion Gap 12.8 (5-19); Aspartate Amino Transferase 15 U/L (0-32); Blood Urea Nitrogen 8 mg/dL (6-20); Calcium 8.7 mg/dL (8.5-10.5); Carbon Dioxide 27 mmol/L (22-29); Chloride 100 mmol/L (98-107); Globulin 2.2 g/dL (1.3-4.6); Glomerular Filtration Rate 87.5 mL/min (90-130); Glucose 116 mg/dL (65-115); Magnesium 2.1 mg/dL (1.7-2.3); Osmolality Calculated 281 mOsm/kg (285-295); Phosphorus 2.9 mg/dL (2.5-4.5); Potassium 3.8 mmol/L (3.5-5.1); Sodium 136 mmol/L (136-145); Total Bilirubin 0.4 mg/dL (0.15-1.2); Total Protein 6.2 g/dL (6.6-8.7)
--- NOTE | 2022-09-14 07:47 | P.PN_ITS ---
Subjective Subjective: Chantale reports she feels quite anxious. Abdomen still hurts but perhaps is a little bit better. Has passed some air but no bowel movement. No vomiting with the NG. Medications: Reviewed: Yes Vitals/I&O/Wt Last Vital Signs Temp 96.8 F L 09/14/22 04:00 Pulse 69 09/14/22 04:00 Resp 18 09/14/22 04:00 BP 154/93 09/14/22 04:00 Pulse Ox 98 09/14/22 04:00 O2 Del Method 09/13/22 21:50 09/13/22 09/14/22 09/14/22 22:59 06:59 14:59 Intake Total 895.833 / 2895.833 1000 / 3895.833 Output Total 200 / 500 800 / 1300 Balance 695.833 / 2395.833 200 / 2595.833 Weight last 48 hrs Weight 52.163 kg Physical Exam Narrative: General exam no distress Neck is supple no lymphadenopathy or thyromegaly Cardiovascular regular rate and rhythm without murmur, no S3 or S4 Lungs clear no wheezing or crackles. Diminished breath sounds are noted bilaterally Abdomen soft. A few bowel sounds are heard. Extremities no cyanosis clubbing or edema, cap refill brisk Skin no rash Data 09/14/22 04:22 09/14/22 04:22 A&P Assessment and plan (1) Bowel obstruction: Presents with small bowel obstruction with transition point. Surgery is primary, planning on timing of resection of mass depending upon response to decompression with NG NG has been placed. 500 out the last 24 hours CEA level was checked and significantly elevated Continue hydration per surgery Pain control Secondary to situational anxiety add Ativan IV as needed (2) Mass of colon: Surgery with plan for resection (3) Liver nodule: Concern of hepatic metastasis (4) Elevated blood pressure reading: Hydralazine as needed Reassess need for daily medicine. She has not been to a physician in some time and it is not known if she has hypertension or if elevation is secondary to her small bowel obstruction and pain resulting Blood pressure has drifted down (5) Tobacco dependency: Encouraged abstinence. Offered patch. At this point she declines but can certainly readdress. DuoNeb as needed Plan Thank you for this consultation Heparin is being used for DVT prophylaxis per surgery Attestations Medical Necessity Statement*: As per primary Coding Level of Care Code Acute Inspector And Hand Packager for Chg Fwd Diagnoses Bowel obstruction K56.609 Mass of colon K63.89 Liver nodule K76.89 Elevated blood pressure reading R03.0 Tobacco dependency F17.200
[2022-09-14] MEDS: LORazepam 2 mg/mL INJ 1 mL 0.5 MG IVP (08:23)
--- NOTE | 2022-09-14 11:11 | PM.PN ---
Subjective Subjective: Patient seen and examined. She reports no new symptoms. She still having some left upper quadrant abdominal pain and nausea. She reports that she is passing gas but has not had a bowel movement Vitals/I&O/Wt Last Vital Signs Temp 97.9 F 09/14/22 07:59 Pulse 64 09/14/22 08:03 Resp 18 09/14/22 08:03 BP 144/92 09/14/22 07:59 Pulse Ox 96 09/14/22 08:03 O2 Del Method 09/14/22 08:03 09/13/22 09/14/22 09/14/22 22:59 06:59 14:59 Intake Total 895.833 / 2895.833 1000 / 3895.833 Output Total 200 / 500 800 / 1300 750 / 750 Balance 695.833 / 2395.833 200 / 2595.833 -750 / -750 Weight last 48 hrs Weight 115 lb Physical Exam Narrative: General: No acute distress, awake alert and oriented x3 Abdomen: Soft, mild distention, mild tenderness to palpation left upper quadrant, no guarding rebound or masses Data 09/14/22 04:22 09/14/22 04:22 A&P Assessment and plan (1) Mass of colon: (2) Bowel obstruction: Plan Exploratory laparotomy with left hemicolectomy and colostomy formation The risks and benefits of the procedure, including but not limited to, scar, numbness, pain, bleeding, infection, damage to surrounding structures, colostomy dysfunction, inability to ever reverse the colostomy, were explained to the patient. She is understanding of the risks and wishes to proceed Attestations Medical Necessity Statement*: Patient is going to require several more nights in the hospital as she is undergoing a laparotomy with left hemicolectomy today Coding Level of Care Code Acute Range Management Specialist for Susan Mccarthy Diagnoses Mass of colon K63.89 Bowel obstruction K56.609
--- NOTE | 2022-09-14 11:30 | PC.NURSE ---
PT TO THE OR AT APPROX. 1120
[2022-09-14] MEDS: sodium chloride 0.9% 1,000 ML 30 ML IV (11:45)
[2022-09-14] MEDS: clindamycin 600 MG/50 ML PREMIX 100 MG IV (13:02)
--- NOTE | 2022-09-14 13:04 | P.ANESASSM_ITS ---
Pre-Anesthetic Assessment Height/Weight: Height 1.65 m Weight 52.163 kg Temp Pulse Resp BP Pulse Ox O2 Del Method 97.9 F 72 16 147/90 97 09/14/22 11:36 09/14/22 11:36 09/14/22 11:36 09/14/22 11:36 09/14/22 11:36 09/14/22 11:36 Operation Date: 09/14/22 12:15 Proposed Procedures p Exploratory Laparotomy(Not Applicable) - DO jaymie Torres Hemicolectomy(Not Applicable) - DO jaymie Torres Colostomy(Not Applicable) - Mau Aguilar DO Familial anesthetic complications: none Was Beta Venessa taken within 24 hours: N/A Was Clonidine taken within 24 hours: N/A Last intake: Intake Last Liquid Date 09/13/22 Last Solid Date 09/10/22 Social Tobacco and No alcohol Exam alert, oriented x 3 and regular rate & rhythm Airway Submandibular: within normal limits Cervical ROM: within normal limits Mallampati: Class II Dentition: false Pulmonary Chronic Obstructive Pulmonary Disease GI colon mass, bowel obstruction Anesthetic Plan ASA status: 3 Anesthesia: General and Regional (specify below) (Epidural for postop pain) Medications/Allergies Home Medications Medication Instructions Recorded Confirmed Last Taken Type ondansetron HCl 4 mg tablet 4 mg PO Q8H PRN nausea and 08/21/22 09/13/22 09/13/22 03:30 Rx vomiting #14 tabs THREW UP AFTER TAKIN simethicone 180 mg capsule (Gas 180 mg PO BID PRN abdominal 08/21/22 09/13/22 Unknown Rx Relief (simethicone)) distention #30 caps bisacodyl 5 mg tablet 10 mg PO .ONE TIME DOSE 09/13/22 09/13/22 09/11/22 History ibuprofen 200 mg tablet 200 mg PO Q6H PRN Pain 09/13/22 09/13/22 09/13/22 History threw up after takin pantoprazole 40 mg tablet,delayed 40 mg PO DAILY 09/13/22 09/13/22 09/09/22 History release Allergies Allergy/AdvReac Type Severity Reaction Status Date / Time No Known Allergies Allergy Verified 09/13/22 10:45 Current Medications Generic Name Dose Route Start Last Admin Trade Name Freq PRN Reason Stop Dose Admin Heparin Sodium (Porcine) 5,000 unit 09/13/22 12:00 09/14/22 00:19 Heparin 5,000 Unit/Ml Inj 1 Ml SUBCUT 5,000 unit Q12H YURI Administration Dextrose/Sodium Chloride 1,000 mls @ 125 mls/hr 09/13/22 12:00 09/14/22 03:45 Dextrose 5%-Sod Chloride 0.45% IV 125 mls/hr .Q8H YURI Administration Sodium Chloride 1,000 mls @ 30 mls/hr 09/14/22 11:45 09/14/22 11:45 Sodium Chloride 0.9% IV 09/15/22 11:44 30 mls/hr .Q24H YURI Administration Lorazepam 0.5 mg 09/14/22 07:46 09/14/22 08:23 Lorazepam 2 Mg/Ml Inj 1 Ml IVP 0.5 mg Q4H PRN Administration ANXIETY Morphine Sulfate 4 mg 09/13/22 14:00 09/13/22 18:25 Morphine 4 Mg/Ml Sdv 1 Ml IVP 4 mg Q4H PRN Administration SEVERE PAIN Pantoprazole Sodium 40 mg 09/13/22 12:00 09/13/22 12:28 Pantoprazole 40 Mg Sdv IVP 40 mg Q24H YURI Administration [facility] Anesthesia Medical History Constipation Tobacco dependency Family History Other CAD (coronary artery disease) Social History Smoking and tobacco status: current every day smoker Alcohol intake: never Substance/Drug Use: never Supplemental [facility] Information Denies any significant surgical history. Data Anesthesia 09/14/22 04:22 09/14/22 04:22 Short CBC 09/13/22 09/14/22 Range/Units 09:30 04:22 WBC 10.9 H 8.8 (4.0-10.0) 10^3/uL Hgb 16.2 H 14.6 (11.5-15.3) g/dL Hct 48.2 H 43.8 (37.0-47.0) % MCV 88.1 90.7 (81-99) fl Plt Count 372 312 (130-400) 10^3/cmm Neut % (Auto) 74.5 53.6 % Neut # (Auto) 8.10 H 4.73 (1.8-7.7) 10^3/uL BMP 09/13/22 09/14/22 09:30 04:22 Sodium 133 L 136 Potassium 4.7 3.8 Chloride 94 L 100 Carbon Dioxide 24 27 BUN 22 H 8 Creatinine 0.8 0.7 Glucose 105 116 H Calcium 10.1 8.7 Liver Function 09/13/22 09/14/22 Range/Units 09:30 04:22 Total Bilirubin 0.6 0.4 (0.15-1.2) mg/dL AST 18 15 (0-32) U/L ALT 12 9 (0-33) U/L Alkaline Phosphatase 94 75 (35-105) U/L Albumin 4.7 4.0 (3.5-5.2) g/dL Urine 09/13/22 Range/Units 10:17 Urine Color Yellow (Yellow) Urine Appearance Clear (CLEAR) Urine pH 6.5 (5-7) Ur Specific [place] 1.010 (1.005-1.030) Urine Protein Trace (Negative) Urine Glucose (UA) Norm (Normal) Urine Ketones 1+ H (Negative) Urine Nitrate Negative (Negative) Urine Bilirubin 1+ H (Negative) Ur Leukocyte Esterase Negative (Negative) Urine RBC 0-4 H (0-2) /hpf Urine WBC Rare (0-5) /hpf Blood Bank 09/13/22 12:50 Blood Type O Positive Rho(D) Type Positive Antibody Screen Negative [place] 09/13/22 09:30 PT 13.60 INR 1.01 APTT 25.7 Cardiac Studies: No Data to Display Anesthesia Procedures Epidural Time Out Performed: Yes Consents Signed: Procedure Consent Consent: requested by attending/covering physician, from patient, risks and be nefits reviewed and patient agrees to proceed Lumbar Level: L1-L2 Epidural position: sitting Epidural procedure: sterile prep of area, 1% lidocaine to numb the area, 18 g needle, neg for paresthesia, test dose given, no systemic response and sterile dressing applied
[2022-09-14 14:22] LABS: Carcinoembryonic Antigen 352.5 ng/mL (0.0-4.7)
--- NOTE | 2022-09-14 14:44 | PM.OP ---
Operative Report Date of procedure: September 14, 2022 Pre-op diagnosis: Obstructing colon mass Post-op diagnosis: same Procedure done: Exploratory laparotomy Left hemicolectomy Colostomy formation Implants: None Specimens removed/disposition: Left colon Surgeon: Dr. Mau Aguilar DO Anesthesia: General Estimated blood loss (mL): 50 Complications: None apparent Brief History: This is a very pleasant 52-year-old female who presented to the emergency room with obstructive symptoms. CT of the abdomen pelvis revealed a splenic flexure colon mass which was obstructing the colon. It also revealed liver metastases. Exploratory laparotomy with left hemicolectomy and colostomy formation was indicated. The risks and benefits were explained and documented. Procedure: Patient was wheeled in operative room and placed on the OR table in supine position. The abdomen was inspected prepped and draped in the usual sterile fashion. A timeout was performed. All present were in agreement. A 10 blade scalpel was then used to make a midline laparotomy incision going to the right of the umbilicus. Dissection was carried down to the fascia with electrocautery. The fascia was opened with electrocautery and the peritoneum was clamped with hemostats x2. Metzenbaum scissors was then used to make a small opening in the peritoneum. Electrocautery was then used to carry this incision cephalad and caudad. There is obvious distended bowel from the right colon through the transverse colon with an abrupt transition point at the splenic flexure. There was a palpable mass here. The left white line of Toldt was taken down bluntly and with electrocautery. A small window was made in the mesentery at the rectosigmoid junction. A contour was then used to transect the colon at this location. Omentum was then from the transverse colon and stomach. There was minimal bleeding. A LUIS with a 100 mm blue load was then used to transect the transverse colon approximately 7 or 8 cm proximal to the mass. The vent was then used to transect the mesentery, ligating the left colic artery and vein. The left colon along with a portion of the transverse colon and the colon mass were then passed off. Alveolar tissue was freed using electrocautery and there was appropriate length of transverse colon to make a left lower quadrant colostomy. A kenaitze of skin was removed using Bovie cautery on cut. Bovie was then used to make a cross incision in the anterior fascia and a horizontal incision in the posterior fascia. The transverse colon was then brought up through the abdominal wall taking care not to twist it. The abdomen was then inspected. The NG tube was in the appropriate position. There was no bleeding. There were obvious masses in the liver. Attention was then brought to closing the abdomen. The laparotomy incision was closed using #1 PDS in a running fashion. Skin was closed using aroldo. The colostomy was then matured in the typical fashion and a colostomy bag was applied. Sterile dressings were applied. Patient tolerated procedure well.
--- NOTE | 2022-09-14 15:54 | ANE.PACU2 ---
Inpatient post-anesthesia follow up: Airway intact: Yes Vital signs: Temperature 97.3 F Pulse Rate 72 Respiratory Rate 16 Blood Pressure 112/75 Pulse Oximetry 97 Oxygen Delivery Me thod Room Air Oxygen Flow Rate 1 Fraction of Inspir ed Oxygen Hydration adequate: Yes Nausea and vomiting: No Pain level: 1 Mental status: Baseline
[2022-09-14] MEDS: sodium chlor 0.45% +KCl 20 mEq 20 MEQ/1,000 ML BAG 125 MEQ IV (17:19)
[2022-09-15] VITALS (13 sets, daily range): BP systolic 80–160; BP diastolic 55–88; PULSE 71–115; RESP 15–24; TEMP 36.4–37.2; O2SAT 92–98
[2022-09-15] MEDS: sodium chlor 0.45% +KCl 20 mEq 20 MEQ/1,000 ML BAG 125 MEQ IV (00:01)
[2022-09-15] MEDS: heparin 5,000 unit/mL INJ 1 mL 5000 UNIT SUBCUT ×3 (00:02→22:25)
[2022-09-15] MEDS: LORazepam 2 mg/mL INJ 1 mL 0.5 MG IVP ×3 (00:02→23:28)
[2022-09-15] MEDS: ondansetron 2 mg/ML SDV 2 mL 4 MG IVP ×2 (04:44→19:36)
[2022-09-15] MEDS: morphine 4 mg/mL SDV 1 mL IVP ×3 (04:52→23:29)
[2022-09-15 05:27] LABS: Basophils % 0.1 %; Lymphocytes # 1.7 10^3/uL (0.8-4.8); Lymphocytes % 16.3 %; Mean Corpuscular HGB Conc 33.3 g/dL (30.0-36.0); Mean Corpuscular Volume 90.1 fl (81-99); Mean Platelet Volume 10.5 fL (7.4-10.4); Monocytes # 0.7 10^3/uL (0.2-0.9); Monocytes % 6.3 %; Neutrophils # 8.15 10^3/uL (1.8-7.7); Neutrophils % 76.8 %; Nucleated Red Blood Cells % 0 %; Platelet Count 250 10^3/cmm (130-400); Red Blood Count 4.33 10^6/uL (4.1-5.3); Red Cell Distribution Width 12.5 % (12.1-15.1); White Blood Count 10.6 10^3/uL (4.0-10.0)
[2022-09-15 06:19] LABS: Blood Urea Nitrogen 6 mg/dL (6-20); Calcium 8.7 mg/dL (8.5-10.5); Carbon Dioxide 27 mmol/L (22-29); Chloride 93 mmol/L (98-107); Glomerular Filtration Rate 104.6 mL/min (90-130); Glucose 94 mg/dL (65-115); Magnesium 1.6 mg/dL (1.7-2.3); Osmolality Calculated 267 mOsm/kg (285-295); Phosphorus 3.6 mg/dL (2.5-4.5); Sodium 130 mmol/L (136-145)
[2022-09-15 06:23] LABS: Anion Gap 15.2 (5-19); Potassium 5.2 mmol/L (3.5-5.1)
[2022-09-15] MEDS: magnesium sulfate premix 4 GM/100 ML PREMIX IV (08:24)
--- NOTE | 2022-09-15 09:01 | ANE.PACU2 ---
Inpatient post-anesthesia follow up: Airway intact: Yes Vital signs: Temperature 98.8 F Pulse Rate 105 Respiratory Rate 18 Blood Pressure 113/78 Pulse Oximetry 95 Oxygen Delivery Me thod Room Air Oxygen Flow Rate 1 Fraction of Inspir ed Oxygen Hydration adequate: Yes Nausea and vomiting: No Pain level: 4 Mental status: Baseline Additional Comments: Some discomfort overnight (morphine given), epidural looks good position C/D/I, encouraged bolus use (none overnight)
--- NOTE | 2022-09-15 09:45 | P.PN_ITS ---
Subjective Subjective: Reports NG bothers her a lot. Pain under fair control. Having stool in her ostomy. Medications: Reviewed: Yes Vitals/I&O/Wt Last Vital Signs Temp 98.8 F 09/15/22 07:49 Pulse 105 H 09/15/22 08:13 Resp 18 09/15/22 08:13 BP 113/78 09/15/22 07:49 Pulse Ox 95 09/15/22 08:13 O2 Del Method 09/15/22 08:13 O2 Flow Rate 1 09/14/22 15:35 09/14/22 09/15/22 09/15/22 22:59 06:59 14:59 Intake Total 1050 / 1700 937.5 / 2637.5 Output Total 480 / 1480 1975 / 3455 500 / 500 Balance 570 / 220 -1037.5 / -817.5 -500 / -500 Physical Exam Narrative: General exam no distress Neck is supple no lymphadenopathy or thyromegaly Cardiovascular regular rate and rhythm without murmur, no S3 or S4 Lungs clear no wheezing or crackles. Diminished breath sounds are noted bilaterally Abdomen soft. Ostomy noted. Stool in bag. Extremities no cyanosis clubbing or edema, cap refill brisk Urinary Catheter Management: Marino: Cath Placed During This Visit: yes Reason for Continuing Indwelling Catheter: Perioperative Use in Selected Surgeries Urinary Catheter Date of Insertion: 09/14/22 Urinary Catheter Time of Insertion: 12:55 Data 09/15/22 04:40 09/15/22 05:58 A&P Assessment and plan (1) Bowel obstruction: Presents with small bowel obstruction with transition point. Postoperative day #1 status post left hemicolectomy with colostomy formation CEA level was checked and significantly elevated Continue hydration Continue NG per surgery Pain control Ativan as needed secondary to situational anxiety. (2) Mass of colon: Surgery with plan for resection (3) Liver nodule: Concern of hepatic metastasis (4) Elevated blood pressure reading: Hydralazine as needed Reassess need for daily medicine. She has not been to a physician in some time and it is not known if she has hypertension or if elevation is secondary to her small bowel obstruction and pain resulting Blood pressure has drifted down (5) Tobacco dependency: Encouraged abstinence. Offered patch. At this point she declines but can certainly readdress. DuoNeb as needed Plan Mild hyperkalemia. Mild hyponatremia. Fluids now normal saline with no potassium. Recheck potassium tomorrow. I have ensured the other fluids will be stopped. Hypomagnesemia, supplemented by surgery. Recheck planned for tomorrow. Thank you for this consultation Heparin is being used for DVT prophylaxis per surgery Attestations Medical Necessity Statement*: As per primary Coding Level of Care Code Acute Inpatient Care Manager Rn for [facility] Fwd Diagnoses Bowel obstruction K56.609 Mass of colon K63.89 Liver nodule K76.89 Elevated blood pressure reading R03.0 Tobacco dependency F17.200
[2022-09-15] MEDS: sodium chloride 0.9% 1,000 ML 125 ML IV ×2 (10:51→19:37)
[2022-09-15] MEDS: pantoprazole 40 mg SDV IVP (13:36)
--- NOTE | 2022-09-15 14:08 | P.PN_ITS ---
Subjective Subjective: Patient seen and examined. She is having an appropriate amount abdominal pain that is well managed by IV pain medicine and her epidural. Her colostomy bag has been emptied 3 times. NG tube still in place. Vitals/I&O/Wt Last Vital Signs Temp 97.5 F L 09/15/22 12:00 Pulse 84 09/15/22 12:00 Resp 15 09/15/22 12:00 BP 80/55 09/15/22 12:00 Pulse Ox 94 09/15/22 12:00 O2 Del Method 09/15/22 12:00 O2 Flow Rate 1 09/14/22 15:35 09/14/22 09/15/22 09/15/22 22:59 06:59 14:59 Intake Total 1050 / 1700 937.5 / 2637.5 1200 / 1200 Output Total 480 / 1480 1975 / 3455 500 / 500 Balance 570 / 220 -1037.5 / -817.5 700 / 700 Physical Exam Narrative: General: No acute distress, awake alert and oriented x3 Abdomen: Soft, nondistended, appropriately tender to palpation, no guarding rebound or masses dressings clean dry and intact Ostomy pink patent and producing Urinary Catheter Management: Marino: Cath Placed During This Visit: yes Reason for Continuing Indwelling Catheter: Perioperative Use in Selected Surgeries Urinary Catheter Date of Insertion: 09/14/22 Urinary Catheter Time of Insertion: 12:55 Data 09/15/22 04:40 09/15/22 05:58 A&P Assessment and plan (1) S/P left hemicolectomy: (2) Colostomy in place: (3) Metastatic cancer to liver: (4) Hyponatremia: (5) Hypochloremia: (6) Hypomagnesemia: Plan Pain control, including epidural management IV fluids changed to normal saline Magnesium replaced N.p.o./NG tube Likely DC NG tube tomorrow I-S use Ambulate She will need an oncology appointment upon discharge Attestations Medical Necessity Statement*: Patient requires multiple more nights in the hospital as she just underwent exploratory laparotomy with hemicolectomy and colostomy formation yesterday Coding Level of Care Code 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
[2022-09-16] VITALS (8 sets, daily range): BP systolic 126–158; BP diastolic 78–96; PULSE 87–130; RESP 15–103; TEMP 36.4–38.1; O2SAT 89–97
[2022-09-16 01:27] LABS: Basophils % 0.2 %; Eosinophils % 0.1 %; Hematocrit 37.1 % (37.0-47.0); Hemoglobin 12.3 g/dL (11.5-15.3); Lymphocytes # 0.9 10^3/uL (0.8-4.8); Lymphocytes % 7.6 %; Mean Corpuscular HGB Conc 33.2 g/dL (30.0-36.0); Mean Corpuscular Volume 90.5 fl (81-99); Mean Platelet Volume 9.8 fL (7.4-10.4); Monocytes # 0.8 10^3/uL (0.2-0.9); Monocytes % 7.1 %; Neutrophils # 9.83 10^3/uL (1.8-7.7); Neutrophils % 84.3 %; Nucleated Red Blood Cells % 0 %; Platelet Count 197 10^3/cmm (130-400); Red Cell Distribution Width 13.2 % (12.1-15.1); White Blood Count 11.7 10^3/uL (4.0-10.0)
[2022-09-16 01:54] LABS: Blood Urea Nitrogen 10 mg/dL (6-20); Calcium 8.1 mg/dL (8.5-10.5); Carbon Dioxide 23 mmol/L (22-29); Chloride 97 mmol/L (98-107); Glomerular Filtration Rate 87.5 mL/min (90-130); Glucose 87 mg/dL (65-115); Osmolality Calculated 272 mOsm/kg (285-295); Phosphorus 2.7 mg/dL (2.5-4.5); Sodium 132 mmol/L (136-145)
[2022-09-16] MEDS: sodium chloride 0.9% 1,000 ML 125 ML IV ×3 (03:00→19:51)
--- NOTE | 2022-09-16 03:51 | PC.NURSE ---
Addendum entered by Rox Lezama RN 09/16/22 04:28: 500 drained from gaffney after repositioned and advancing. Original Note: Only 250 ml from gaffney from full shift. Bladder scan shows 486 ml. Gaffney advanced.
--- NOTE | 2022-09-16 09:11 | ANE.PACU2 ---
Inpatient post-anesthesia follow up: Airway intact: Yes Vital signs: Temperature 100.6 F Pulse Rate 109 Respiratory Rate 16 Blood Pressure 138/88 Pulse Oximetry 94 Oxygen Delivery Me thod Room Air Oxygen Flow Rate 1 Fraction of Inspir ed Oxygen Hydration adequate: Yes Nausea and vomiting: No Pain level: 1 Mental status: Baseline Additional Comments: POD#2, looks much better this morning, sitting up, NG in place--will wait for PO intake and NG removal to DC epidural
--- NOTE | 2022-09-16 10:48 | PM.PN ---
Subjective Subjective: Chantale would like her NG removed. She reports her abdomen is doing okay. Pain under fair control. Medications: Reviewed: Yes Vitals/I&O/Wt Last Vital Signs Temp 100.6 F H 09/16/22 08:00 Pulse 87 09/16/22 08:00 Resp 16 09/16/22 08:00 BP 138/88 09/16/22 08:00 Pulse Ox 96 09/16/22 08:00 O2 Del Method 09/16/22 08:00 O2 Flow Rate 0 09/16/22 08:00 09/15/22 09/16/22 09/16/22 22:59 06:59 14:59 Intake Total 1100 / 2300 922.917 / 3222.917 Output Total 750 / 1250 Balance 1100 / 1800 172.917 / 1972.917 Physical Exam Narrative: General exam no distress Neck is supple no lymphadenopathy or thyromegaly Cardiovascular regular rate and rhythm without murmur, no S3 or S4 Lungs clear no wheezing or crackles. Diminished breath sounds are noted bilaterally Abdomen soft. Ostomy noted. Stool in bag. Extremities no cyanosis clubbing or edema, cap refill brisk Urinary Catheter Management: Marino: Cath Placed During This Visit: yes Reason for Continuing Indwelling Catheter: Other Urinary Catheter Date of Insertion: 09/14/22 Urinary Catheter Time of Insertion: 12:55 Data 09/16/22 01:02 09/16/22 01:02 A&P Assessment and plan (1) Bowel obstruction: Presents with small bowel obstruction with transition point. Postoperative day #2 status post left hemicolectomy with colostomy formation Probable discontinuation of NG today per surgery CEA level was checked and significantly elevated Continue hydration Pain control Ativan as needed secondary to situational anxiety. Slight temperature elevation of 100.6 likely secondary to atelectasis. Encourage incentive spirometry. (2) Mass of colon: Surgery with plan for resection (3) Liver nodule: Concern of hepatic metastasis (4) Elevated blood pressure reading: Hydralazine as needed Reassess need for daily medicine. She has not been to a physician in some time and it is not known if she has hypertension or if elevation is secondary to her small bowel obstruction and pain resulting Blood pressure has drifted down (5) Tobacco dependency: Encouraged abstinence. Offered patch. At this point she declines but can certainly readdress. DuoNeb as needed Plan Mild hyperkalemia. Mild hyponatremia. Potassium now normal. Sodium increased slightly. Hypomagnesemia, supplemented by surgery. Normal today Thank you for this consultation Heparin is being used for DVT prophylaxis per surgery Attestations Medical Necessity Statement*: Needs continued hospitalization, with close monitoring awaiting return of bowel function Coding Level of Care Code Acute Impregnator Helper for [facility] Fwd Diagnoses Bowel obstruction K56.609 Mass of colon K63.89 Liver nodule K76.89 Elevated blood pressure reading R03.0 Tobacco dependency F17.200
[2022-09-16] MEDS: pantoprazole 40 mg SDV IVP (12:08)
[2022-09-16] MEDS: heparin 5,000 unit/mL INJ 1 mL 5000 UNIT SUBCUT (12:10)
[2022-09-16] MEDS: ondansetron 2 mg/ML SDV 2 mL 4 MG IVP (12:27)
--- NOTE | 2022-09-16 13:22 | PM.PN ---
Subjective Subjective: Patient seen and examined. She is having an appropriate amount abdominal pain that is well managed by IV pain medicine and her epidural. Colostomy has significant output. Temp of 100.6 and tachycardia overnight. Vitals/I&O/Wt Last Vital Signs Temp 99.3 F 09/16/22 12:00 Pulse 103 H 09/16/22 12:00 Resp 16 09/16/22 12:00 BP 156/96 09/16/22 12:00 Pulse Ox 97 09/16/22 12:00 O2 Del Method 09/16/22 12:00 O2 Flow Rate 0 09/16/22 08:00 09/15/22 09/16/22 09/16/22 22:59 06:59 14:59 Intake Total 1100 / 2300 922.917 / 3222.917 1100 / 1100 Output Total 750 / 1250 Balance 1100 / 1800 172.917 / 5203.572 0319 / 1100 Physical Exam Narrative: General: No acute distress, awake alert and oriented x3 Abdomen: Soft, nondistended, appropriately tender to palpation, no guarding rebound or masses Incision without erythema/exudate Ostomy is producing but is dark, congested and warm Urinary Catheter Management: Marino: Cath Placed During This Visit: yes Reason for Continuing Indwelling Catheter: Other Urinary Catheter Date of Insertion: 09/14/22 Urinary Catheter Time of Insertion: 12:55 Data 09/16/22 01:02 09/16/22 01:02 A&P Assessment and plan (1) S/P left hemicolectomy: (2) Colostomy in place: (3) Metastatic cancer to liver: Plan Pain control, including epidural management IV fluids NGT removed Clear liquid diet IS use Close ostomy monitoring as it is dark and congested. 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
[2022-09-16] MEDS: morphine 4 mg/mL SDV 1 mL IVP (14:12)
[2022-09-17] VITALS (10 sets, daily range): BP systolic 129–166; BP diastolic 78–94; PULSE 77–100; RESP 16–95; TEMP 36.4–37.3; O2SAT 91–96
[2022-09-17] MEDS: heparin 5,000 unit/mL INJ 1 mL 5000 UNIT SUBCUT ×2 (00:32→13:15)
[2022-09-17] MEDS: morphine 4 mg/mL SDV 1 mL 2 MG IVP (00:40)
[2022-09-17] MEDS: LORazepam 2 mg/mL INJ 1 mL 0.5 MG IVP ×2 (00:43→13:13)
[2022-09-17] MEDS: sodium chloride 0.9% 1,000 ML 125 ML IV (03:39)
[2022-09-17 05:19] LABS: Basophils % 0.2 %; Eosinophils # 0.1 10^3/uL (0.0-0.8); Hematocrit 33.7 % (37.0-47.0); Hemoglobin 10.9 g/dL (11.5-15.3); Lymphocytes # 1.9 10^3/uL (0.8-4.8); Lymphocytes % 17.5 %; Mean Corpuscular HGB Conc 32.3 g/dL (30.0-36.0); Mean Corpuscular Hemoglobin 29.1 pg (28.0-34.0); Mean Corpuscular Volume 89.9 fl (81-99); Mean Platelet Volume 10.4 fL (7.4-10.4); Monocytes # 0.9 10^3/uL (0.2-0.9); Monocytes % 8.3 %; Neutrophils # 7.75 10^3/uL (1.8-7.7); Neutrophils % 72.6 %; Nucleated Red Blood Cells % 0 %; Platelet Count 175 10^3/cmm (130-400); Red Blood Count 3.75 10^6/uL (4.1-5.3); White Blood Count 10.7 10^3/uL (4.0-10.0)
[2022-09-17 05:41] LABS: Anion Gap 13.6 (5-19); Blood Urea Nitrogen 7 mg/dL (6-20); Carbon Dioxide 22 mmol/L (22-29); Chloride 98 mmol/L (98-107); Glomerular Filtration Rate 129.1 mL/min (90-130); Glucose 74 mg/dL (65-115); Magnesium 1.7 mg/dL (1.7-2.3); Osmolality Calculated 267 mOsm/kg (285-295); Potassium 3.6 mmol/L (3.5-5.1); Sodium 130 mmol/L (136-145)
--- NOTE | 2022-09-17 07:17 | ANE.PACU2 ---
Inpatient post-anesthesia follow up: Airway intact: Yes Vital signs: Temperature 98.3 F Pulse Rate 96 Respiratory Rate 19 Blood Pressure 129/78 Pulse Oximetry 95 Oxygen Delivery Me thod Nasal Cannula Oxygen Flow Rate 0 Fraction of Inspir ed Oxygen Hydration adequate: Yes Nausea and vomiting: No Pain level: 2 Mental status: Baseline Additional Comments: Up at bedside this morning, good pain control, NG tube out and taking clears--plan to D/C epidural at noon (spacing out for heparin inj)
--- NOTE | 2022-09-17 08:30 | PC.NURSE ---
Stoma color black, physician aware.
--- NOTE | 2022-09-17 09:40 | P.PN_ITS ---
Subjective Subjective: Chantale feels like she is doing better. Less congested. Happy to get the NG out. No vomiting. Medications: Reviewed: Yes Vitals/I&O/Wt Last Vital Signs Temp 98.3 F 09/17/22 04:00 Pulse 96 09/17/22 04:00 Resp 19 H 09/17/22 04:00 BP 129/78 09/17/22 04:00 Pulse Ox 95 09/17/22 04:00 O2 Del Method 09/17/22 04:00 O2 Flow Rate 0 09/16/22 20:00 09/16/22 09/17/22 09/17/22 22:59 06:59 14:59 Intake Total 1150 / 2250 1250 / 3500 Output Total 1825 / 1825 1400 / 3225 Balance -675 / 425 -150 / 275 Physical Exam Narrative: General exam no distress. Appears like spirits have lifted. Neck is supple no lymphadenopathy or thyromegaly Cardiovascular regular rate and rhythm without murmur, no S3 or S4 Lungs clear no wheezing or crackles. Diminished breath sounds are noted bilaterally Abdomen soft. Ostomy noted. Stool in bag. Extremities no cyanosis clubbing or edema, cap refill brisk Urinary Catheter Management: Marino: Cath Placed During This Visit: yes Reason for Continuing Indwelling Catheter: Other Urinary Catheter Date of Insertion: 09/14/22 Urinary Catheter Time of Insertion: 12:55 Data 09/17/22 04:38 09/17/22 04:38 A&P Assessment and plan (1) Bowel obstruction: Presents with small bowel obstruction with transition point. Postoperative day #3 status post left hemicolectomy with colostomy formation NG was discontinued yesterday. Clear liquid diet started. CEA level was checked and significantly elevated Continue hydration Pain control Ativan as needed secondary to situational anxiety. She is working hard with incentive spirometry to reduce atelectasis. No further temperature elevations have been noted. (2) Mass of colon: Surgery with plan for resection (3) Liver nodule: Concern of hepatic metastasis (4) Elevated blood pressure reading: Hydralazine as needed Reassess need for daily medicine. She has not been to a physician in some time and it is not known if she has hypertension or if elevation is secondary to her small bowel obstruction and pain resulting Blood pressure has drifted down (5) Tobacco dependency: Encouraged abstinence. Offered patch. At this point she declines but can certainly readdress. DuoNeb as needed Plan Mild hyperkalemia. Mild hyponatremia. Potassium now normal. Continue to follow sodium Hypomagnesemia, supplemented by surgery. Normal today Thank you for this consultation Heparin is being used for DVT prophylaxis per surgery Discontinue Marino, after epidural has been discontinued for at least 4 hours. Attestations Medical Necessity Statement*: Needs continued hospitalization for close follow-up following colon mass resection and treatment of obstruction. Coding Level of Care Code Acute Design Printer Balloon for Susan Meehand Diagnoses Bowel obstruction K56.609 Mass of colon K63.89 Liver nodule K76.89 Elevated blood pressure reading R03.0 Tobacco dependency F17.200
[2022-09-17] MEDS: oxyCODONE 5 mg IR Tab/Cap PO ×2 (09:49→15:20)
--- NOTE | 2022-09-17 10:15 | PM.PN ---
Subjective Subjective: Patient seen and examined. She is having an appropriate amount abdominal pain that is well managed by IV pain medicine and her epidural. Colostomy has significant output. Tolerating clear liquids. Now pulling 1000cc on IS (500cc yesterday). Vitals/I&O/Wt Last Vital Signs Temp 98.3 F 09/17/22 04:00 Pulse 98 09/17/22 08:00 Resp 17 09/17/22 09:49 BP 129/78 09/17/22 04:00 Pulse Ox 94 09/17/22 08:00 O2 Del Method 09/17/22 08:00 O2 Flow Rate 0 09/16/22 20:00 09/16/22 09/17/22 09/17/22 22:59 06:59 14:59 Intake Total 1150 / 2250 1250 / 3500 Output Total 1825 / 1825 1400 / 3225 Balance -675 / 425 -150 / 275 Physical Exam Narrative: General: No acute distress, awake alert and oriented x3 Abdomen: Soft, nondistended, appropriately tender to palpation, no guarding rebound or masses Incision without erythema/exudate Ostomy is producing but is dark, congested and warm- improved from yesterday Urinary Catheter Management: Marino: Cath Placed During This Visit: yes Reason for Continuing Indwelling Catheter: Other Urinary Catheter Date of Insertion: 09/14/22 Urinary Catheter Time of Insertion: 12:55 Data 09/17/22 04:38 09/17/22 04:38 A&P Assessment and plan (1) S/P left hemicolectomy: (2) Colostomy in place: (3) Metastatic cancer to liver: Plan Pain control, including epidural management IV fluids Regular diet IS use Close ostomy monitoring as it is dark and congested. 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
--- NOTE | 2022-09-17 10:35 | PC.NURSE ---
Epidural discontinued per order by Dr. Archer, catheter tip intact on removal. gauze and transparent dressing applied. No drainage noted. Orders given to remove gaffney catheter five hours post removal of epidural.
[2022-09-17] MEDS: pantoprazole 40 mg SDV IVP (13:13)
--- NOTE | 2022-09-17 14:45 | PC.NURSE ---
Education provided on colostomy care, emptying colostomy, and stoma care.
[2022-09-17] MEDS: sodium chloride 0.9% 1,000 ML 75 ML IV (17:48)
[2022-09-18] VITALS (7 sets, daily range): BP systolic 154–160; BP diastolic 84–88; PULSE 75–82; RESP 16–18; TEMP 36.3–36.9; O2SAT 94–98
[2022-09-18] MEDS: heparin 5,000 unit/mL INJ 1 mL 5000 UNIT SUBCUT (01:35)
[2022-09-18] MEDS: oxyCODONE 5 mg IR Tab/Cap PO ×2 (01:45→10:01)
[2022-09-18 05:19] LABS: Basophils % 0.4 %; Eosinophils # 0.2 10^3/uL (0.0-0.8); Eosinophils % 2.4 %; Hemoglobin 11.7 g/dL (11.5-15.3); Lymphocytes # 1.5 10^3/uL (0.8-4.8); Lymphocytes % 15.5 %; Mean Corpuscular HGB Conc 32.5 g/dL (30.0-36.0); Mean Corpuscular Hemoglobin 29.9 pg (28.0-34.0); Mean Corpuscular Volume 92.1 fl (81-99); Mean Platelet Volume 9.7 fL (7.4-10.4); Monocytes # 0.9 10^3/uL (0.2-0.9); Monocytes % 9.9 %; Neutrophils # 6.82 10^3/uL (1.8-7.7); Neutrophils % 71.5 %; Nucleated Red Blood Cells % 0 %; Platelet Count 202 10^3/cmm (130-400); Red Blood Count 3.91 10^6/uL (4.1-5.3); Red Cell Distribution Width 12.8 % (12.1-15.1); White Blood Count 9.5 10^3/uL (4.0-10.0)
[2022-09-18 05:40] LABS: Anion Gap 14.2 (5-19); Blood Urea Nitrogen 6 mg/dL (6-20); Calcium 8.4 mg/dL (8.5-10.5); Carbon Dioxide 23 mmol/L (22-29); Chloride 95 mmol/L (98-107); Glucose 96 mg/dL (65-115); Magnesium 1.6 mg/dL (1.7-2.3); Osmolality Calculated 265 mOsm/kg (285-295); Potassium 3.2 mmol/L (3.5-5.1); Sodium 129 mmol/L (136-145)
[2022-09-18] MEDS: sodium chloride 0.9% 1,000 ML 75 ML IV (06:07)
--- NOTE | 2022-09-18 08:29 | P.PN_ITS ---
Subjective Subjective: Patient seen and examined. She is having an appropriate amount abdominal pain that is well managed by pain medication despite increase overnight following ambulation. Colostomy has output. Tolerating diet without nausea. IS improved, not requiring supplemental O2. Medications: Reviewed: Yes Vitals/I&O/Wt Last Vital Signs Temp 97.4 F L 09/18/22 07:51 Pulse 75 09/18/22 07:51 Resp 16 09/18/22 07:51 BP 156/84 09/18/22 07:51 Pulse Ox 96 09/18/22 07:51 O2 Del Method 09/18/22 07:51 O2 Flow Rate 0 09/17/22 20:00 09/17/22 09/18/22 09/18/22 22:59 06:59 14:59 Intake Total 295 / 1610 1480 / 3090 Balance 295 / 1610 1480 / 3090 Physical Exam Narrative: General: No acute distress, awake alert and oriented x3 Abdomen: Soft, nondistended, appropriately tender to palpation, no guarding rebound or masses Incision without erythema/exudate Ostomy is producing but is dark, congested and warm Urinary Catheter Management: Marino: Cath Placed During This Visit: yes, but has since been removed by the nurse Reason for Continuing Indwelling Catheter: Perioperative Use in Selected Surgeries Urinary Catheter Date of Insertion: 09/14/22 Urinary Catheter Time of Insertion: 12:55 Date Urinary Catheter Removed: 09/17/22 Time Urinary Catheter Discontinued: 13:39 Data 09/18/22 05:16 09/18/22 05:16 A&P Assessment and plan (1) S/P left hemicolectomy: (2) Colostomy in place: (3) Metastatic cancer to liver: Plan Pain control PO Regular diet IS use Ostomy stable Ambulate Stable for and agreeable to discharge today She will need an oncology appointment upon discharge Attestations Medical Necessity Statement*: Plan for discharge today Coding Level of Care Code Acute Freight Team Associate for Susan Mccarthy Diagnoses S/P left hemicolectomy Z90.[address] Z93.3 Metastatic cancer to liver C78.7
--- NOTE | 2022-09-18 08:34 | P.DS_ITS ---
Discharge Providers Date of Admission: 09/13/22 13:32 Date of Discharge: September 18, 2022 Attending Provider at Admission: Mau Aguilar DO Attending Provider at Discharge: Kennedy Cárdenas MD Diagnoses at Discharge Discharge Diagnosis (1) S/P left hemicolectomy: Status: Acute (2) Colostomy in place: Status: Acute (3) Metastatic cancer to liver: Status: Acute Reason for Visit Reason for Visit: N/V Hospital Course Hospital Course Presented via ED with N/V, found by CT to have obstructing colonic mass, underwent exploratory laparotomy with left hemicolectomy and end colostomy formation. Metastatic lesions to liver. Gradual recovery postop as expected, now with productive ostomy, adequately controlled pain, and tolerating diet. Stable for discharge to home with postoperative followup with Dr. Aguilar and referral to oncology. Physical Exam Urinary Catheter Management: Marino: Cath Placed During This Visit: yes, but has since been removed by the nurse Reason for Continuing Indwelling Catheter: Perioperative Use in Selected Surgeries Urinary Catheter Date of Insertion: 09/14/22 Urinary Catheter Time of Insertion: 12:55 Date Urinary Catheter Removed: 09/17/22 Time Urinary Catheter Discontinued: 13:39 Discharge Data Studies Completed and Pending Completed Studies During Hospitalization Category Date Time Status CT abdomen pelvis w con* [id number] Stat Cat Scan 09/13/22 09:40 Completed XR acute abdomen series [id number] Routine Exams 09/14/22 05:00 Completed XR chest 1V portable [id number] Stat Exams 09/13/22 10:53 Completed Pending at discharge Category Date Time Status Pathology: Surgical [PTH] Routine Pth 09/14/22 14:12 Received Radiology Impressions Abdomen/Pelvis CT 09/13/22 09:40 IMPRESSION: 1. 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 Moderately distended fluid-filled cecum. Moderately distended fluid-filled ascending and transverse colon with abrupt transition in the region of the splenic flexure of the colon. Heterogeneous attenuation masslike region with some calcifications seen in this area (series 3, image 20, series 5, image 23 and series 6, image 17). 2. Liver metastases: Multiple right and left hepatic lobe low attenuation lesions, ranging from 0.5 to 4.4 cm in size (right hepatic lobe greater than left)-at least 10. ADDENDUM: 09/13/22 1038 THIS REPORT CONTAINS FINDINGS THAT MAY BE CRITICAL TO PATIENT CARE. The findings were verbally communicated via telephone conference at 10:36 AM DELIVERY ANALYST on 09/13/2022 with EMILEE SAWYER. The findings were acknowledged and understood. Chest X-Ray 09/13/22 10:53 IMPRESSION: No significant cardiopulmonary abnormality. Chest/Abdomen X-ray 09/14/22 05:00 IMPRESSION: Bowel gas pattern consistent with colonic obstruction at the level of the splenic flexure. Laboratory Results WBC 9.5 10^3/uL (4.0-10.0) 09/18/22 05:16 RBC 3.91 10^6/uL (4.1-5.3) L 09/18/22 05:16 Hgb 11.7 g/dL (11.5-15.3) 09/18/22 05:16 Hct 36.0 % (37.0-47.0) L 09/18/22 05:16 MCV 92.1 fl (81-99) 09/18/22 05:16 MCH 29.9 pg (28.0-34.0) 09/18/22 05:16 MCHC 32.5 g/dL (30.0-36.0) 09/18/22 05:16 RDW 12.8 % (12.1-15.1) 09/18/22 05:16 Plt Count 202 10^3/cmm (130-400) 09/18/22 05:16 MPV 9.7 fL (7.4-10.4) 09/18/22 05:16 Neut % (Auto) 71.5 % 09/18/22 05:16 Lymph % (Auto) 15.5 % 09/18/22 05:16 [place] % (Auto) 9.9 % 09/18/22 05:16 Eos % (Auto) 2.4 % 09/18/22 05:16 Baso % (Auto) 0.4 % 09/18/22 05:16 Neut # (Auto) 6.82 10^3/uL (1.8-7.7) 09/18/22 05:16 Lymph # (Auto) 1.5 10^3/uL (0.8-4.8) 09/18/22 05:16 [place] # (Auto) 0.9 10^3/uL (0.2-0.9) 09/18/22 05:16 Eos # (Auto) 0.2 10^3/uL (0.0-0.8) 09/18/22 05:16 Baso # (Auto) 0.0 10^3/uL (0.0-0.1) 09/18/22 05:16 Nucleated RBC % (auto) 0 % 09/18/22 05:16 Nucleated RBCs # 0.0 /100WBC 09/18/22 05:16 PT 13.60 SECONDS (12.1-14.9) 09/13/22 09:30 INR 1.01 (0.8-1.2) 09/13/22 09:30 APTT 25.7 SECONDS (23.9-36.7) 09/13/22 09:30 Sodium 129 mmol/L (136-145) L 09/18/22 05:16 Potassium 3.2 mmol/L (3.5-5.1) L 09/18/22 05:16 Chloride 95 mmol/L (98-107) L 09/18/22 05:16 Carbon Dioxide 23 mmol/L (22-29) 09/18/22 05:16 Anion Gap 14.2 (5-19) 09/18/22 05:16 BUN 6 mg/dL (6-20) 09/18/22 05:16 Creatinine 0.4 mg/dL (0.5-0.9) L 09/18/22 05:16 GFR Calculation 167.0 mL/min (90-130) H 09/18/22 05:16 Glucose 96 mg/dL (65-115) 09/18/22 05:16 Calculated Osmolality 265 mOsm/kg (285-295) L 09/18/22 05:16 Calcium 8.4 mg/dL (8.5-10.5) L 09/18/22 05:16 Phosphorus 2.7 mg/dL (2.5-4.5) 09/16/22 01:02 Magnesium 1.6 mg/dL (1.7-2.3) L 09/18/22 05:16 Total Bilirubin 0.4 mg/dL (0.15-1.2) 09/14/22 04:22 AST 15 U/L (0-32) 09/14/22 04:22 ALT 9 U/L (0-33) 09/14/22 04:22 Alkaline Phosphatase 75 U/L (35-105) 09/14/22 04:22 Total Protein 6.2 g/dL (6.6-8.7) L 09/14/22 04:22 Albumin 4.0 g/dL (3.5-5.2) 09/14/22 04:22 Globulin 2.2 g/dL (1.3-4.6) 09/14/22 04:22 Carcinoembryonic Ag 352.5 ng/mL (0.0-4.7) H 09/14/22 13:20 Urine Color Yellow (Yellow) 09/13/22 10:17 Urine Appearance Clear (CLEAR) 09/13/22 10:17 Urine pH 6.5 (5-7) 09/13/22 10:17 Ur Specific [place] 1.010 (1.005-1.030) 09/13/22 10:17 Urine Protein Trace (Negative) 09/13/22 10:17 Urine Glucose (UA) Norm (Normal) 09/13/22 10:17 Urine Ketones 1+ (Negative) H 09/13/22 10:17 Urine Blood 2+ (Negative) H 09/13/22 10:17 Urine Nitrate Negative (Negative) 09/13/22 10:17 Urine Bilirubin 1+ (Negative) H 09/13/22 10:17 Urine Urobilinogen Norm mg/dL (Negative) 09/13/22 10:17 Ur Leukocyte Esterase Negative (Negative) 09/13/22 10:17 Urine RBC 0-4 /hpf (0-2) H 09/13/22 10:17 Urine WBC Rare /hpf (0-5) 09/13/22 10:17 Ur Squamous Epith Cells 0-4 /hpf (0-5) H 09/13/22 10:17 Amorphous Sediment Not Reportable 09/13/22 10:17 Urine Bacteria Trace /hpf (NONE) 09/13/22 10:17 Hyaline Casts 0-4 /lpf H 09/13/22 10:17 Urine Mucus 1+ /hpf 09/13/22 10:17 Blood Type O Positive 09/13/22 12:50 Rho(D) Type Positive 09/13/22 12:50 Antibody Screen Negative 09/13/22 12:50 Vitals Last Vital Signs Temp 97.4 F L 09/18/22 07:51 Pulse 75 09/18/22 07:51 Resp 16 09/18/22 07:51 BP 156/84 09/18/22 07:51 Pulse Ox 96 09/18/22 07:51 O2 Del Method 09/18/22 07:51 O2 Flow Rate 0 09/17/22 20:00 Discharge Plan Discharge Patient Disposition: Home Condition: Stable Prescriptions: New hydrocodone-acetaminophen 7.5-325 mg tablet 1 tab PO Q6H PRN (Reason: pain) Qty: 20 0RF Continued simethicone [Gas Relief (simethicone)] 180 mg capsule 180 mg PO BID PRN (Reason: abdominal distention) Qty: 30 0RF ondansetron HCl 4 mg tablet 4 mg PO Q8H PRN (Reason: nausea and vomiting) Qty: 14 0RF pantoprazole 40 mg tablet,delayed release (DR/EC) 40 mg PO DAILY ibuprofen 200 mg Tablet 200 mg PO Q6H PRN (Reason: Pain) bisacodyl 5 mg Tablet 10 mg PO .ONE TIME DOSE Discharge Orders: Discharge Order (Routine); Ordered 09/18/22 Ordered By: Kennedy Cárdenas Other Ambulatory Orders: DME: Walker (Order) Location: None Selected Ordered By: Mau Aguilar Referrals: Mau Aguilar DO [Physician] - 2 weeks Freya Larson MD [Staff Physician] - 2 weeks Discharge Diet: Usual diet Discharge Activity: Increase activity as tolerated, Limit activity as instructed and Use walker/crutches as instructed Patient Instructions: Opioid Safety Activity Restrictions/Additional Instructions: No lifting, pushing or pulling over 15 pounds for 6 weeks. Do not soak incisions underwater for 2 weeks. Shower daily. Let the glue fall off on its own. Discharge Attestations Time Spent in Discharge Care*: greater than 30 min Specific Discharge Activities: educating patient, documenting/other paperwork and evaluating patient/reviewing data Status at Discharge: Cognitive status at discharge: cognitively intact , Behavioral status at discharge: cooperative , Functional status at discharge: uses cane/walker , Overall status at discharge: patient is progressing back to baseline Quality Metrics Clinical Quality Measures [ No reported AMI, CVA or VTE this stay] Coding Level of Care Code Acute Chg FW DC note Diagnoses S/P left hemicolectomy Z90.[address] Z93.3 Metastatic cancer to liver C78.7
[2022-11-12 08:01] LABS: Mismatch Repari Proteins-IHC See Report
[2022-11-19 10:00] LABS: BRAF V600E (BBPL) See Report; HER2 FISH/IHC (Non-Gastric) See Report
[2022-11-23 14:37] LABS: Miscellaneous Test See Scanned Lab Rpt
== END 2022-09-18 10:35 | disposition home or self-care (01) | DRG 330 ==
LOC: ER 12:47 → MEDSURG 13:33
PROVIDERS: Internal Medicine; Admitting Provider Surgery; Emergency Provider Family Medicine; Visit Provider Surgery
PROC: 0DTG0ZZ Resection of Left Large Intestine, Open Approach (ICD-10-PCS; CPT 49000; principal; 2022-09-14 12:15)
PROC: 0DTG0ZZ Resection of Left Large Intestine, Open Approach (ICD-10-PCS; 2022-09-14 12:15)
PROC: 0DTG0ZZ Resection of Left Large Intestine, Open Approach (ICD-10-PCS; CPT 44320; 2022-09-14 12:15)
DX: C18.5 Malignant neoplasm of splenic flexure (principal); C77.2 Secondary and unspecified malignant neoplasm of intra-abdominal lymph nodes; C78.7 Secondary malignant neoplasm of liver and intrahepatic bile duct; E87.1 Hypo-osmolality and hyponatremia; Z80.0 Family history of malignant neoplasm of digestive organs; F17.210 Nicotine dependence, cigarettes, uncomplicated; F41.8 Other specified anxiety disorders; E87.5 Hyperkalemia; E83.42 Hypomagnesemia; I10 Essential (primary) hypertension
CPT/HCPCS: 12345; 36415; 51702; 71045; 74022; 74177; 80048; 80053; 81001; 81210; 82378; 83735; 84100; 85025; 85610; 85730; 86850; 86900; 88104; 88309; 88341; 88342; 93005; 96361; 96372; 96374; 96375; 96376; 97161; 97530; 99285; C9113; J0330; J1100; J1170; J1200; J1644; J2060; J2250; J2270; J2370; J2405; J2704; J2710; J2795; J3010; J3475; J3480; J3490; J7030; J7799; Q9967

== ENCOUNTER → 2022-09-21 10:24 | Outpatient (BNVA) | payer BC, MEDICAID, SELFPAY | PROVIDERS: Visit Provider Family Medicine | DX: E87.1 Hypo-osmolality and hyponatremia (principal); F41.1 Generalized anxiety disorder; Z90.49 Acquired absence of other specified parts of digestive tract; B37.0 Candidal stomatitis | CPT/HCPCS: 80053 ==

== ENCOUNTER 2022-09-27 12:58 | Inpatient (IN) | payer BC, SELFPAY ==
[2022-09-27] VITALS (79 sets, daily range): BP systolic 124–175; BP diastolic 74–111; PULSE 73–106; RESP 15–19; TEMP 36.4; O2SAT 91–99; BMI 17.2
--- NOTE | 2022-09-27 13:08 | W.ED.ABDPA2 ---
Documented by User: EBONY Rios 09/27/22 16:52 HPI - Abdominal Pain General: Chief Complaint: Abdominal Pain Stated Complaint: ABDOMINAL PAIN Time Seen by Provider: 09/27/22 13:07 Source: patient and family Mode of arrival: ambulatory Limitations: no limitations History of Present Illness: Patient is a 52-year-old female who presents to ED today with a complaint of abdominal pain, nausea, vomiting. Patient was seen in our facility on 09/13/2022 and found to have a colonic mass near her splenic flexure. He was also found to have multiple masses in her liver consistent with metastasis. She underwent left hemicolectomy and colostomy by Dr. Aguilar. Patient states she was doing okay until approximately 2 to 3 days ago when she began developing fairly significant abdominal pains as well as nausea and vomiting. Has not been able to eat hardly anything. She is not running fevers. Reports output in her colostomy bag is decreased but feels this is most likely secondary to her not eating. MD elicited complaint: abdominal pain Pertinent past history: other (colon mass) Radiation: none Migration to: no migration Relieving factors: nothing Associated Symptoms: Reports nausea and vomiting; Denies chills, dysuria, fever(s) and hematemesis Review of Systems Const: Denies: fever(s), chills, body aches, fatigue or malaise Card: Denies: chest pain Resp: Denies: dyspnea GI: Reports: abdominal pain, nausea and vomiting; Denies: hematemesis : Denies: flank pain, difficulty voiding, dysuria, urinary frequency, urinary urgency or urinary hesitancy Musc: Reports: back pain (reports pain where she had her epidural); Denies: neck pain, extremity pain, extremity swelling or joint pain Skin/Breast: Denies: rash Neuro: Denies: headache(s), numbness in extremities, weakness in extremities, sensory changes or dizziness PFSH ED PFSH: Medical History Constipation Tobacco dependency Surgical History S/P left hemicolectomy Family History Other CAD (coronary artery disease) Social History Smoking and tobacco status: current every day smoker Alcohol intake: never Physical Exam Const: COMMON NORMALS: patient oriented x3, no limitations and alert GENERAL APPEARANCE: cooperative, in distress (looks uncomfortable secondary to pain) and ill appearing ORIENTATION/CONSCIOUSNESS: Yes awake, Yes oriented to person, Yes oriented to place and Yes oriented to time HENMT: COMMON NORMALS: normocephalic and atraumatic HEAD & SCALP: normal to inspection, normocephalic and atraumatic Resp: COMMON NORMALS: normal respiratory effort and clear to auscultation bilaterally AUSCULTATION: clear to auscultation bilaterally Cardio: COMMON NORMALS: regular rate and regular rhythm RATE: regular rate RHYTHM: regular rhythm GI: INSPECTION: Yes incision (large vertical stapled incision from open surgery) and Yes GI ostomy present (small amount of loose brown stool in bag) AUSCULTATION: Yes Hypoactive bowel sounds present PALPATION: Yes Tenderness to palpation present (GI) (diffuse) and Yes Guarding due to palpation present (GI) : COMMON NORMALS: Yes no CVA tenderness BLADDER/KIDNEY EXAM: Yes no CVA tenderness Back/Pelvis: COMMON NORMALS: no CVA tenderness THORACIC SPINE/UPPER BACK: Yes normal to inspection and No thoracic spinal tenderness LUMBAR SPINE/LOWER BACK: Yes normal to inspection, Yes lumbar ROM normal, Yes lumbar spinal tenderness (at side of epidural), No paraspinal muscle tenderness, No paraspinal muscle spasm and Yes straight leg raise negative bilaterally PELVIS: Yes buttocks normal SACROILIAC JOINTS: Yes SI joints normal SACRUM: no tenderness COCCYX: no tenderness Extremity: COMMON NORMALS: normal to inspection GENERAL: Yes normal exam except as noted Neuro: COMMON NORMALS: patient oriented x3, moves all extremities, no focal motor deficits and no sensory deficits noted SENSORIUM/ORIENTATION: Yes alert, Yes oriented to person, Yes oriented to place and Yes oriented to time Skin: COMMON NORMALS: no rashes or lesions noted GENERAL SKIN EXAM: no rashes or lesions noted Course Consultations: Consultation #1: Dr. Aguilar-will come assess patient in ED Vital Signs: Vital signs: Vital Signs Temperature 97.6 F 09/27/22 12:59 Pulse Rate 106 H 09/27/22 12:59 Respiratory Rate 19 H 09/27/22 12:59 Blood Pressure 136/84 09/27/22 19:30 Pulse Oximetry 95 09/27/22 19:30 Oxygen Delivery Me thod 09/27/22 12:59 MDM - Abdominal Pain Medical Decision Making Patient here for complaints of abdominal pain, nausea, vomiting. She recently underwent left hemicolectomy with colostomy by Dr. Aguilar. CT scan today showing a high-grade bowel obstruction with transition point being in her distal small bowel. She had marked luminal narrowing involving the hepatic flexure and transverse colon. CT findings were discussed with Dr. Aguilar who will come evaluate patient in the emergency department. He requested NG tube which has been placed. He did not recommend anything further at this time. Care will be discussed and transferred to Dr. Murcia at shift change. Lab Data 09/27/22 13:29 09/27/22 13:29 Labs/Radiology: Radiology Impressions Abdomen/Pelvis CT 09/27/22 13:24 IMPRESSION: 1. High-grade small bowel obstruction. Transition point distal small bowel. 2. There is marked luminal narrowing and wall thickening involving the hepatic flexure and transverse colon to the LEFT lower quadrant ostomy site. These changes can be seen with ischemic disease or infection. 3. No free air. 4. Small amount of free fluid in the pelvis and along the RIGHT paracolic gutter. 5. Patient has known numerous hepatic metastatic lesions. 6. Sigmoid sutures, unremarkable. Notified EBONY Rios at 09/27/2022 3:02 PM. Laboratory Results WBC 14.1 10^3/uL (4.0-10.0) H 09/27/22 13:29 RBC 5.26 10^6/uL (4.1-5.3) 09/27/22 13:29 Hgb 15.8 g/dL (11.5-15.3) H 09/27/22 13:29 Hct 46.1 % (37.0-47.0) 09/27/22 13:29 MCV 87.6 fl (81-99) 09/27/22 13:29 MCH 30.0 pg (28.0-34.0) 09/27/22 13:29 MCHC 34.3 g/dL (30.0-36.0) 09/27/22 13:29 RDW 12.9 % (12.1-15.1) 09/27/22 13:29 Plt Count 656 10^3/cmm (130-400) H 09/27/22 13: MPV 8.8 fL (7.4-10.4) 09/27/22 13: Neut % (Auto) 79.4 % 09/27/22 13:29 Lymph % (Auto) 11.5 % 09/27/22 13:29 [place] % (Auto) 7.8 % 09/27/22 13: Eos % (Auto) 0.1 % 09/27/22 13: Baso % (Auto) 0.4 % 09/27/22 13: Neut # (Auto) 11.21 10^3/uL (1.8-7.7) H 09/27/22 13: Lymph # (Auto) 1.6 10^3/uL (0.8-4.8) 09/27/22 13: [place] # (Auto) 1.1 10^3/uL (0.2-0.9) H 09/27/22 13: Eos # (Auto) 0.0 10^3/uL (0.0-0.8) 09/27/22 13: Baso # (Auto) 0.1 10^3/uL (0.0-0.1) 09/27/22 13: Nucleated RBC % (auto) 0 % 09/27/22 13: Nucleated RBCs # 0.0 /100WBC 09/27/22 13: Sodium 133 mmol/L (136-145) L 09/27/22 13: Potassium 4.2 mmol/L (3.5-5.1) 09/27/22 13: Chloride 89 mmol/L (98-107) L 09/27/22 13:29 Carbon Dioxide 29 mmol/L (22-29) 09/27/22 13:29 Anion Gap 19.2 (5-19) H 09/27/22 13:29 BUN 22 mg/dL (6-20) H 09/27/22 13:29 Creatinine 0.8 mg/dL (0.5-0.9) 09/27/22 13:29 GFR Calculation 75.0 mL/min (90-130) L 09/27/22 13:29 Glucose 110 mg/dL (65-115) 09/27/22 13:29 Calculated Osmolality 280 mOsm/kg (285-295) L 09/27/22 13:29 Lactic Acid 1.4 mmol/L (0.5-2.2) 09/27/22 13:29 Calcium 9.6 mg/dL (8.5-10.5) 09/27/22 13:29 Total Bilirubin 0.4 mg/dL (0.15-1.2) 09/27/22 13:29 AST 15 U/L (0-32) 09/27/22 13:29 ALT 13 U/L (0-33) 09/27/22 13:29 Alkaline Phosphatase 96 U/L (35-105) 09/27/22 13:29 Total Protein 7.0 g/dL (6.6-8.7) 09/27/22 13:29 Albumin 4.1 g/dL (3.5-5.2) 09/27/22 13:29 Globulin 2.9 g/dL (1.3-4.6) 09/27/22 13:29 Lipase 58 U/L (13-60) 09/27/22 13:29 Urine Color Yellow (Yellow) 09/27/22 14:32 Urine Appearance Hazy (CLEAR) A 09/27/22 14:32 Urine pH 6 (5-7) 09/27/22 14:32 Ur Specific [place] 1.020 (1.005-1.030) 09/27/22 14:32 Urine Protein Neg (Negative) 09/27/22 14:32 Urine Glucose (UA) Norm (Normal) 09/27/22 14:32 Urine Ketones 1+ (Negative) H 09/27/22 14:32 Urine Blood 2+ (Negative) H 09/27/22 14:32 Urine Nitrate Negative (Negative) 09/27/22 14:32 Urine Bilirubin Neg (Negative) 09/27/22 14:32 Urine Urobilinogen Norm mg/dL (Negative) 09/27/22 14:32 Ur Leukocyte Esterase Trace (Negative) H 09/27/22 14:32 Urine RBC 0-4 /hpf (0-2) H 09/27/22 14:32 Urine WBC 15-25 /hpf (0-5) H 09/27/22 14:32 Ur Squamous Epith Cells 0-4 /hpf (0-5) H 09/27/22 14:32 Amorphous Sediment 1+ /hpf 09/27/22 14:32 Urine Bacteria 3+ /hpf (NONE) H 09/27/22 14:32 Discharge Plan Discharge Patient Disposition: Admitted As Inpatient Clinical Impression: Small bowel obstruction Condition: Stable Coding Level of Care Code 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[employer] 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 Fwd 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 Comprehensive Documented by User: James Murcia MD 09/27/22 22:13 HPI - Abdominal Pain General: Chief Complaint: Abdominal Pain Stated Complaint: ABDOMINAL PAIN Time Seen by Provider: 09/27/22 13:07 [facility] ED PFSH: Medical History Constipation Tobacco dependency Surgical History S/P left hemicolectomy Family History Other CAD (coronary artery disease) Social History Smoking and tobacco status: current every day smoker Alcohol intake: never Course Vital Signs: Vital signs: Vital Signs Temperature 97.6 F 09/27/22 12:59 Pulse Rate 106 H 09/27/22 12:59 Respiratory Rate 19 H 09/27/22 12:59 Blood Pressure 136/84 09/27/22 19:30 Pulse Oximetry 95 09/27/22 19:30 Oxygen Delivery Me thod 09/27/22 12:59 MDM - Abdominal Pain Medical Decision Making Patient here for complaints of abdominal pain, nausea, vomiting. She recently underwent left hemicolectomy with colostomy by Dr. Aguilar. CT scan today showing a high-grade bowel obstruction with transition point being in her distal small bowel. She had marked luminal narrowing involving the hepatic flexure and transverse colon. CT findings were discussed with Dr. Aguilar who will come evaluate patient in the emergency department. He requested NG tube which has been placed. He did not recommend anything further at this time. Care will be discussed and transferred to Dr. Murcia at shift change. 1750hrs; Medical decision making: Dr Murcia I assumed patient care from Maria M BECK, at shift change. Dr. Aguilar evaluated patient in the ER and recommended that she be admitted for further management. Lab Data 09/27/22 13:29 09/27/22 13:29 Labs/Radiology: Radiology Impressions Abdomen/Pelvis CT 09/27/22 13:24 IMPRESSION: 1. High-grade small bowel obstruction. Transition point distal small bowel. 2. There is marked luminal narrowing and wall thickening involving the hepatic flexure and transverse colon to the LEFT lower quadrant ostomy site. These changes can be seen with ischemic disease or infection. 3. No free air. 4. Small amount of free fluid in the pelvis and along the RIGHT paracolic gutter. 5. Patient has known numerous hepatic metastatic lesions. 6. Sigmoid sutures, unremarkable. Notified EBONY Rios at 09/27/2022 3:02 PM. Laboratory Results WBC 14.1 10^3/uL (4.0-10.0) H 09/27/22 13:29 RBC 5.26 10^6/uL (4.1-5.3) 09/27/22 13:29 Hgb 15.8 g/dL (11.5-15.3) H 09/27/22 13:29 Hct 46.1 % (37.0-47.0) 09/27/22 13:29 MCV 87.6 fl (81-99) 09/27/22 13:29 MCH 30.0 pg (28.0-34.0) 09/27/22 13:29 MCHC 34.3 g/dL (30.0-36.0) 09/27/22 13:29 RDW 12.9 % (12.1-15.1) 09/27/22 13:29 Plt Count 656 10^3/cmm (130-400) H 09/27/22 13:29 MPV 8.8 fL (7.4-10.4) 09/27/22 13:29 Neut % (Auto) 79.4 % 09/27/22 13:29 Lymph % (Auto) 11.5 % 09/27/22 13:29 [place] % (Auto) 7.8 % 09/27/22 13: Eos % (Auto) 0.1 % 09/27/22 13: Baso % (Auto) 0.4 % 09/27/22 13: Neut # (Auto) 11.21 10^3/uL (1.8-7.7) H 09/27/22 13: Lymph # (Auto) 1.6 10^3/uL (0.8-4.8) 09/27/22 13: [place] # (Auto) 1.1 10^3/uL (0.2-0.9) H 09/27/22 13: Eos # (Auto) 0.0 10^3/uL (0.0-0.8) 09/27/22 13: Baso # (Auto) 0.1 10^3/uL (0.0-0.1) 09/27/22 13: Nucleated RBC % (auto) 0 % 09/27/22 13: Nucleated RBCs # 0.0 /100WBC 09/27/22 13:29 Sodium 133 mmol/L (136-145) L 09/27/22 13:29 Potassium 4.2 mmol/L (3.5-5.1) 09/27/22 13: Chloride 89 mmol/L (98-107) L 09/27/22 13:29 Carbon Dioxide 29 mmol/L (22-29) 09/27/22 13:29 Anion Gap 19.2 (5-19) H 09/27/22 13:29 BUN 22 mg/dL (6-20) H 09/27/22 13:29 Creatinine 0.8 mg/dL (0.5-0.9) 09/27/22 13:29 GFR Calculation 75.0 mL/min (90-130) L 09/27/22 13:29 Glucose 110 mg/dL (65-115) 09/27/22 13:29 Calculated Osmolality 280 mOsm/kg (285-295) L 09/27/22 13:29 Lactic Acid 1.4 mmol/L (0.5-2.2) 09/27/22 13:29 Calcium 9.6 mg/dL (8.5-10.5) 09/27/22 13:29 Total Bilirubin 0.4 mg/dL (0.15-1.2) 09/27/22 13:29 AST 15 U/L (0-32) 09/27/22 13:29 ALT 13 U/L (0-33) 09/27/22 13:29 Alkaline Phosphatase 96 U/L (35-105) 09/27/22 13:29 Total Protein 7.0 g/dL (6.6-8.7) 09/27/22 13:29 Albumin 4.1 g/dL (3.5-5.2) 09/27/22 13:29 Globulin 2.9 g/dL (1.3-4.6) 09/27/22 13:29 Lipase 58 U/L (13-60) 09/27/22 13:29 Urine Color Yellow (Yellow) 09/27/22 14:32 Urine Appearance Hazy (CLEAR) A 09/27/22 14:32 Urine pH 6 (5-7) 09/27/22 14:32 Ur Specific [place] 1.020 (1.005-1.030) 09/27/22 14:32 Urine Protein Neg (Negative) 09/27/22 14:32 Urine Glucose (UA) Norm (Normal) 09/27/22 14:32 Urine Ketones 1+ (Negative) H 09/27/22 14:32 Urine Blood 2+ (Negative) H 09/27/22 14:32 Urine Nitrate Negative (Negative) 09/27/22 14:32 Urine Bilirubin Neg (Negative) 09/27/22 14:32 Urine Urobilinogen Norm mg/dL (Negative) 09/27/22 14:32 Ur Leukocyte Esterase Trace (Negative) H 09/27/22 14:32 Urine RBC 0-4 /hpf (0-2) H 09/27/22 14:32 Urine WBC 15-25 /hpf (0-5) H 09/27/22 14:32 Ur Squamous Epith Cells 0-4 /hpf (0-5) H 09/27/22 14:32 Amorphous Sediment 1+ /hpf 09/27/22 14:32 Urine Bacteria 3+ /hpf (NONE) H 09/27/22 14:32 Discharge Plan Discharge Patient Disposition: Admitted As Inpatient Clinical Impression: Small bowel obstruction Condition: Stable Coding Level of Care Code ED 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 Fwd Exam Comprehensive
--- NOTE | 2022-09-27 13:24 | CT_ITS ---
WS: [id number] CT ABDOMEN AND PELVIS WITH CONTRAST HISTORY: Abdominal pain with nausea and vomiting., Recent LEFT hemicolectomy for cancer. TECHNIQUE: Imaging performed of the abdomen and pelvis with IV contrast. Single phase imaging of the abdomen. Coronal and sagittal reformats are submitted. All CT scans at [facility] use at [address] one of these dose optimization techniques: automated exposure control; mA and/or kV adjustment per patient size (includes targeted exams where dose is matched to clinical indication); or iterative re construction. IV CONTRAST: Omnipaque 350; 95 mL IV. Oral contrast: No DLP: 314.46 mGy.cm COMPARISON: 09/13/2022 Lower thorax: Lung bases are clear. Heart is normal size. Small hiatal hernia. Liver/biliary system: As seen on the prior study there are multiple low-attenuation masses within bot h the LEFT and RIGHT lobes of the liver consistent with metastatic disease. Most significant involvem ent in the RIGHT lobe. Portal vein remains patent. Gallbladder: Normal. No gallstones or wall thickening. No pericholecystic fluid. Pancreas: Normal size pancreas and pancreatic duct. No adjacent inflammation. Spleen: Normal size spleen. No mass or infarct. Adrenal glands: Normal. Right kidney: Normal. Left kidney: Normal. Aorta: Normal. There is extensive fluid dilatation of the stomach and small bowel. Patient is status post LEFT hemic olectomy with LEFT ostomy site. There is marked narrowing and wall thickening of the lumen proximal t o the ostomy site. Extending over a long length is luminal narrowing extending back to the hepatic fl exure. Additional enhancement within the visualized transverse colon and hepatic flexure. No pneumato sis or free air is identified. Anastomotic site in the LEFT lower quadrant and appears unremarkable. The distal colon is collapsed. Sutures extend along the anterior abdominal wall. There is a small amount of free fluid in the pelvis . Mild soft tissue anasarca and omental edema. Bones: No osteoblastic or osteolytic bone disease. There are a few small bone islands in the RIGHT pe lvis. CT/CT abdomen pelvis w con* [id number] IMPRESSION: 1. High-grade small bowel obstruction. Transition point distal small bowel. 2. There is marked luminal narrowing and wall thickening involving the hepatic flexure and transverse colon to the LEFT lower quadrant ostomy site. These florencio nges can be seen with ischemic disease or infection. 3. No free air. 4. Small amount of free fluid in the pelvis and along the RIGHT paracolic gutt er. 5. Patient has known numerous hepatic metastatic lesions. 6. Sigmoid sutures, unremarkable. Notified EBONY Rios at 09/27/2022 3:02 PM.
[2022-09-27] MEDS: morphine 4 mg/mL SDV 1 mL IVP ×3 (13:36→23:46)
[2022-09-27] MEDS: ondansetron 2 mg/ML SDV 2 mL 4 MG IVP ×3 (13:36→23:47)
[2022-09-27] MEDS: sodium chloride 0.9% 1,000 ML 999 ML IV (13:36)
[2022-09-27 13:38] LABS: Basophils # 0.1 10^3/uL (0.0-0.1); Basophils % 0.4 %; Eosinophils % 0.1 %; Hematocrit 46.1 % (37.0-47.0); Hemoglobin 15.8 g/dL (11.5-15.3); Lymphocytes # 1.6 10^3/uL (0.8-4.8); Lymphocytes % 11.5 %; Mean Corpuscular HGB Conc 34.3 g/dL (30.0-36.0); Mean Corpuscular Volume 87.6 fl (81-99); Mean Platelet Volume 8.8 fL (7.4-10.4); Monocytes # 1.1 10^3/uL (0.2-0.9); Monocytes % 7.8 %; Neutrophils # 11.21 10^3/uL (1.8-7.7); Neutrophils % 79.4 %; Nucleated Red Blood Cells % 0 %; Platelet Count 656 10^3/cmm (130-400); Red Blood Count 5.26 10^6/uL (4.1-5.3); Red Cell Distribution Width 12.9 % (12.1-15.1); White Blood Count 14.1 10^3/uL (4.0-10.0)
[2022-09-27 14:06] LABS: Lactic Sepsis W/Reflex 1.4 mmol/L (0.5-2.2)
[2022-09-27 14:07] LABS: Alanine Aminotransferase 13 U/L (0-33); Albumin Level 4.1 g/dL (3.5-5.2); Alkaline Phosphatase 96 U/L (35-105); Anion Gap 19.2 (5-19); Aspartate Amino Transferase 15 U/L (0-32); Blood Urea Nitrogen 22 mg/dL (6-20); Calcium 9.6 mg/dL (8.5-10.5); Carbon Dioxide 29 mmol/L (22-29); Chloride 89 mmol/L (98-107); Globulin 2.9 g/dL (1.3-4.6); Glucose 110 mg/dL (65-115); Lipase 58 U/L (13-60); Osmolality Calculated 280 mOsm/kg (285-295); Potassium 4.2 mmol/L (3.5-5.1); Sodium 133 mmol/L (136-145); Total Bilirubin 0.4 mg/dL (0.15-1.2)
[2022-09-27] MEDS: iohexol 350 mg/mL 500 mL Btl (per mL) IV (14:38)
[2022-09-27 14:50] LABS: Add Urine Microscopic? YES; Bilirubin Urine Neg (Negative); Blood Urine 2+ (Negative); Glucose Urine UA Norm (Normal); Ketones Urine 1+ (Negative); Leukocyte Esterase Urine Trace (Negative); Nitrate Urine Negative (Negative); Protein Urine Neg (Negative); Urine Appearance Hazy (CLEAR); Urine Color Yellow (Yellow); Urobilinogen Urine Norm (Negative); pH Urine 6 (5-7)
[2022-09-27 14:51] LABS: Add Urine Culture? Yes; Amorphous Sediment Urine 1+ /hpf; Bacteria Urine 3+ /hpf; RBC Urine 0-4 /hpf (0-2); Squamous Epithelial Cell Urine 0-4 /hpf (0-5); WBC Urine 15-25 /hpf (0-5)
[2022-09-27] MEDS: HYDROmorphone 1 mg/mL INJ 1 mL 0.5 MG IVP (15:34)
[2022-09-27] MEDS: piperacillin-tazobactam 3.375 GM in sodium chloride 0.9% (plus) 50 ML IV (19:25)
[2022-09-27] MEDS: pantoprazole 40 mg SDV IVP (19:26)
[2022-09-27] MEDS: sodium chloride 0.9% 1,000 ML 150 ML IV (19:27)
[2022-09-27] MEDS: heparin 5,000 unit/mL INJ 1 mL 5000 UNIT SUBCUT (19:27)
--- NOTE | 2022-09-27 20:33 | P.HP_ITS ---
Providers/Chief Complaint Chief Complaint: ABDOMINAL PAIN History of Present Illness This very pleasant 52-year-old female who recently underwent left hemicolectomy with end colostomy formation for obstructing stage IV colon cancer. She had been doing well at home postoperatively until she developed nausea and vomiting along with some abdominal pain. She came to the emergency room and was found to have a small bowel obstruction with transition point. CT also shows possible colitis versus ischemia of the distal colon. She reports she is having some mild diffuse abdominal pain. Nothing makes pain better or worse. She mostly has nausea and emesis. An NG tube was placed in the emergency room. She reports that she has not had any colostomy output for the last few days. Review of Systems General: Reports: 10 or more systems reviewed and unremarkable except in HPI and below Medications/Allergies Home Medications Medication Instructions Recorded Confirmed Last Taken Type ibuprofen 200 mg tablet 200 mg PO Q6H PRN Pain 09/13/22 09/27/22 09/27/22 07:00 History hydrocodone 7.5 mg-acetaminophen 1 tab PO Q6H PRN pain #20 tabs 09/17/22 09/27/22 Unknown Rx 325 mg tablet albuterol sulfate 90 mcg/actuation 2 puff inhalation 6XD PRN 09/21/22 09/27/22 Unknown Rx aerosol inhaler (Ventolin HFA) shortness of breath or wheezing #8.5 grams ondansetron HCl 8 mg tablet 8 mg PO Q8H PRN nausea and 09/24/22 09/27/22 0 09/27/22 07:00 Rx vomiting #40 tabs acetaminophen 300 mg-codeine 30 mg 0.5 - 1 tab PO BID PRN pain 09/27/22 09/27/22 Unknown History tablet citalopram 10 mg tablet 10 mg PO BEDTIME 09/27/22 09/27/22 09/21/22 History nystatin 100,000 unit/mL oral 5 ml PO Q6H 09/27/22 09/27/22 Unknown History suspension Allergies Allergy/AdvReac Type Severity Reaction Status Date / Time acetaminophen [From [place]] Allergy ADR-Nausea Verified 09/27/22 14:16 hydrocodone [From [place]] Allergy ADR-Nausea Verified 09/27/22 14:16 PFSH Acute PFSH: Medical History Constipation Tobacco dependency Surgical History S/P left hemicolectomy Family History Other CAD (coronary artery disease) Social History Smoking and tobacco status: current every day smoker Alcohol intake: never Vitals/I&O/Wt Last Vital Signs Temp 97.6 F 09/27/22 12:59 Pulse 106 H 09/27/22 12:59 Resp 19 H 09/27/22 12:59 BP 136/84 09/27/22 19:30 Pulse Ox 95 09/27/22 19:30 O2 Del Method 09/27/22 12:59 09/27/22 09/27/22 09/27/22 06:59 14:59 22:59 Intake Total 1000 / 1000 Balance 1000 / 1000 Weight last 48 hrs Weight 100 lb Physical Exam Narrative: General : Patient is well developed , no acute distress, oriented x3 Head : Normal cephalic, a-traumatic. Ears : Pinnae and external canal are normal. Hearing is normal. Eyes : PERRLA, Sclera and injection are normal. No conjunctival discharge. Nose : Mucous membranes are without erythema. Throat : buccal mucosa is normal, gums are without significant recession or hypertrophy. Lungs : Equal chest rise bilaterally, no use of accessory muscles, trachea is midline. Cor : Rate and rhythm are normal. Abdomen : Soft, ND, NT, no g/r/m, colostomy pink and patent but not producing Extremities : No edema, no cyanosis or clubbing, dorsalis pedis pulses are present bilaterally, non-tender to palpation of calves. Upper extremities are normal bilaterally. Back : non-tender to palpation, no CVA tenderness. Neuro : CN II - XII intact, Upper and lower extremities have equal and full str ength Data 09/27/22 13:29 09/27/22 13:29 A&P Assessment and plan (1) Small bowel obstruction: (2) Colitis: (3) S/P left hemicolectomy: (4) Metastatic cancer to liver: Plan Antibiotics IV fluids N.p.o./NG tube to low intermittent wall suction Ambulate Conservative management for now Attestations Medical Necessity Statement*: Patient requests and nasogastric suctioning for small bowel obstruction Coding Level of Care Code Acute Code for Chg Fwd Diagnoses Small bowel obstruction K56.609 Colitis K52.9 S/P left hemicolectomy Z90.49 Metastatic cancer to liver C78.7
--- NOTE | 2022-09-27 22:41 | PC.NURSE ---
Report called to Erlinda VALENZUELA
[2022-09-28] VITALS (10 sets, daily range): BP systolic 144–184; BP diastolic 82–103; PULSE 69–90; RESP 15–20; TEMP 36.3–37.3; O2SAT 94–96
[2022-09-28 02:40] LABS: Basophils # 0.1 10^3/uL (0.0-0.1); Basophils % 0.6 %; Eosinophils # 0.1 10^3/uL (0.0-0.8); Eosinophils % 0.5 %; Hematocrit 39.8 % (37.0-47.0); Hemoglobin 12.7 g/dL (11.5-15.3); Lymphocytes # 1.6 10^3/uL (0.8-4.8); Lymphocytes % 13.7 %; Mean Corpuscular HGB Conc 31.9 g/dL (30.0-36.0); Mean Corpuscular Hemoglobin 28.9 pg (28.0-34.0); Mean Corpuscular Volume 90.7 fl (81-99); Mean Platelet Volume 9.3 fL (7.4-10.4); Monocytes # 0.9 10^3/uL (0.2-0.9); Monocytes % 7.7 %; Neutrophils # 9.16 10^3/uL (1.8-7.7); Neutrophils % 76.7 %; Nucleated Red Blood Cells % 0 %; Platelet Count 536 10^3/cmm (130-400); Red Blood Count 4.39 10^6/uL (4.1-5.3); White Blood Count 11.9 10^3/uL (4.0-10.0)
[2022-09-28] MEDS: sodium chloride 0.9% 1,000 ML 150 ML IV ×3 (02:49→18:45)
[2022-09-28 03:03] LABS: Anion Gap 12.4 (5-19); Blood Urea Nitrogen 19 mg/dL (6-20); Calcium 8.6 mg/dL (8.5-10.5); Carbon Dioxide 30 mmol/L (22-29); Chloride 97 mmol/L (98-107); Glucose 86 mg/dL (65-115); Magnesium 2.1 mg/dL (1.7-2.3); Osmolality Calculated 284 mOsm/kg (285-295); Potassium 3.4 mmol/L (3.5-5.1); Sodium 136 mmol/L (136-145)
[2022-09-28] MEDS: heparin 5,000 unit/mL INJ 1 mL 5000 UNIT SUBCUT ×2 (05:44→18:45)
[2022-09-28] MEDS: ondansetron 2 mg/ML SDV 2 mL 4 MG IVP ×3 (06:49→19:19)
[2022-09-28] MEDS: morphine 4 mg/mL SDV 1 mL IVP ×3 (06:49→19:20)
[2022-09-28] MEDS: LORazepam 0.5 mg Tablet 0.25 MG PO (11:39)
--- NOTE | 2022-09-28 13:07 | PC.NUTR ---
Consult for TPN received. Recommend starting Clinimix 5% amino acids/20%dextrose @ 12 mls/hr and increasing 10 mls Q8H or per MD discretion until goal rate of 42 mls/hr is reached; to also include standard electrolytes, MV 10 mls/day, trace elements 5 mls/day, and fat emulsion of 25 grams/[address] Details in [address] assessment.
--- NOTE | 2022-09-28 18:38 | PM.PN ---
Subjective Subjective: Patient seen and examined. She reports some nausea and abdominal pain. Vitals/I&O/Wt Last Vital Signs Temp 99.1 F 09/28/22 16:00 Pulse 76 09/28/22 16:00 Resp 17 09/28/22 16:00 BP 162/93 09/28/22 16:00 Pulse Ox 96 09/28/22 16:00 O2 Del Method 09/28/22 16:00 09/28/22 09/28/22 09/28/22 06:59 14:59 22:59 Intake Total 1000 / 0 1000 / 1000 Output Total 150 / 150 Balance 850 / 1900 1000 / 1000 Weight last 48 hrs Weight 100 lb Physical Exam Narrative: General: No acute distress, awake alert and oriented x3 Abdomen soft, minimally tender, mildly distended, no guarding rebound or masses Incisions intact without erythema or exudate Ostomy pink and patent but no production Data 09/28/22 01:41 09/28/22 01:41 Micro: Microbiology 09/27/22 14:32 Urine Culture - Preliminary Urine,Clean Catch Gram Negative Rods A&P Assessment and plan (1) Small bowel obstruction: (2) Colitis: (3) S/P left hemicolectomy: (4) Metastatic cancer to liver: Plan Antibiotics IV fluids N.p.o./NG tube to low intermittent wall suction PICC line for TPN as she has not had a real meal since 09/20/2022 Ambulate Conservative management for now Attestations Medical Necessity Statement*: Patient requires further nights in the hospital for IV fluids and nasogastric suctioning until resolution of small bowel obstruction Coding Level of Care Code Acute Code for Chg Fwd Diagnoses Small bowel obstruction K56.609 Colitis K52.9 S/P left hemicolectomy Z90.49 Metastatic cancer to liver C78.7
[2022-09-28] MEDS: pantoprazole 40 mg SDV IVP (18:45)
[2022-09-29] VITALS (7 sets, daily range): BP systolic 142–174; BP diastolic 84–100; PULSE 74–89; RESP 16–19; TEMP 36.4–36.9; O2SAT 96–98
[2022-09-29] MEDS: sodium chloride 0.9% 1,000 ML 150 ML IV ×3 (01:23→14:15)
[2022-09-29] MEDS: morphine 4 mg/mL SDV 1 mL IVP ×2 (02:14→08:20)
[2022-09-29] MEDS: ondansetron 2 mg/ML SDV 2 mL 4 MG IVP ×3 (02:15→18:05)
[2022-09-29] MEDS: heparin 5,000 unit/mL INJ 1 mL 5000 UNIT SUBCUT ×2 (05:22→18:05)
[2022-09-29 06:24] LABS: Basophils # 0.1 10^3/uL (0.0-0.1); Basophils % 0.5 %; Eosinophils # 0.1 10^3/uL (0.0-0.8); Eosinophils % 0.5 %; Hematocrit 40.1 % (37.0-47.0); Lymphocytes # 1.5 10^3/uL (0.8-4.8); Mean Corpuscular HGB Conc 32.4 g/dL (30.0-36.0); Mean Corpuscular Hemoglobin 29.4 pg (28.0-34.0); Mean Corpuscular Volume 90.7 fl (81-99); Monocytes # 0.5 10^3/uL (0.2-0.9); Monocytes % 4.7 %; Neutrophils # 7.49 10^3/uL (1.8-7.7); Neutrophils % 77.8 %; Nucleated Red Blood Cells % 0 %; Platelet Count 483 10^3/cmm (130-400); Red Blood Count 4.42 10^6/uL (4.1-5.3); Red Cell Distribution Width 12.8 % (12.1-15.1); White Blood Count 9.6 10^3/uL (4.0-10.0)
[2022-09-29 06:43] LABS: Anion Gap 18.6 (5-19); Blood Urea Nitrogen 13 mg/dL (6-20); Calcium 8.6 mg/dL (8.5-10.5); Carbon Dioxide 25 mmol/L (22-29); Chloride 99 mmol/L (98-107); Glomerular Filtration Rate 87.5 mL/min (90-130); Glucose 82 mg/dL (65-115); Magnesium 1.9 mg/dL (1.7-2.3); Osmolality Calculated 287 mOsm/kg (285-295); Potassium 3.6 mmol/L (3.5-5.1); Sodium 139 mmol/L (136-145)
--- NOTE | 2022-09-29 14:08 | XR_ITS ---
WS: [id number] XR chest 1V portable [id number] REASON FOR EXAM: Post PICC FINDINGS: Right arm PICC line placement. The tip of the catheter is in the superior vena cava at the level of t he earl. Position is appropriate. The catheter could be advanced another 1 to 2 cm. XR/XR chest 1V portable [id number] IMPRESSION: Right arm PICC line placement as above. Position of the right arm PICC line described above was discussed over the phon e with the fastener technologist at the time of the dictation. Technologist flavio centeno that report.
[2022-09-29] MEDS: piperacillin-tazobactam 3.375 GM in sodium chloride 0.9% (plus) 50 ML IV ×2 (14:16→21:33)
--- NOTE | 2022-09-29 15:00 | PC.NURSE ---
Double lumen PICC to right brachial vein inserted without difficulty. Length of catheter inserted noted at 30 cm with external length 3 cm. Mid arm circumference noted at 21.5 cm measured 10 cm from right AC. Cath tip noted in SVC and appropriate to use per radiologist. Dressing due to be changed tomorrow 09/30/22. Report given to bedside nurse.
[2022-09-29] MEDS: AA-Dex 5%-20% w/Lytes 1,000 ML with multivitamin inj 10 ML 42 ML IV (16:11)
--- NOTE | 2022-09-29 17:22 | PM.PN ---
Subjective Subjective: Patient seen and examined. She reports no nausea or emesis and some abdominal pain. Vitals/I&O/Wt Last Vital Signs Temp 98.4 F 09/29/22 16:00 Pulse 74 09/29/22 16:00 Resp 18 09/29/22 16:00 BP 169/84 09/29/22 16:00 Pulse Ox 97 09/29/22 16:00 O2 Del Method 09/29/22 16:00 09/29/22 09/29/22 09/29/22 06:59 14:59 22:59 Intake Total 1235 / 3595 1852.5 / 1852.5 Output Total 200 / 200 600 / 600 Balance 1035 / 3395 1252.5 / 1252.5 Physical Exam Narrative: General: No acute distress, awake alert and oriented x3 Abdomen soft, minimally tender, mildly distended, no guarding rebound or masses Incisions intact without erythema or exudate Ostomy pink and patent but no production Data 09/29/22 06:07 09/29/22 06:07 Micro: Microbiology 09/27/22 14:32 Urine Culture - Final Urine,Clean Catch Escherichia coli A&P Assessment and plan (1) Small bowel obstruction: (2) Colitis: (3) S/P left hemicolectomy: (4) Metastatic cancer to liver: Plan Antibiotics IV fluids N.p.o./NG tube to Ambulate Conservative management for now Attestations Medical Necessity Statement*: Patient requires multiple more nights in the hospital for parenteral nutrition and nasogastric suctioning for small bowel obstruction Coding Level of Care Code Acute Code for [facility] Fwd Diagnoses Small bowel obstruction K56.609 Colitis K52.9 S/P left hemicolectomy Z90.49 Metastatic cancer to liver C78.7
[2022-09-29] MEDS: pantoprazole 40 mg SDV IVP (18:05)
[2022-09-29] MEDS: sodium chloride 0.9% 1,000 ML 80 ML IV (21:55)
[2022-09-30 00:03] VITALS: BP 145/77; PULSE 80; RESP 19; TEMP 36.4; O2SAT 98
[2022-09-30] MEDS: sodium chloride 0.9% 1,000 ML 80 ML IV ×3 (01:01→17:53)
[2022-09-30 01:50] LABS: Basophils % 0.2 %; Eosinophils # 0.1 10^3/uL (0.0-0.8); Eosinophils % 0.4 %; Hematocrit 37.4 % (37.0-47.0); Hemoglobin 12.7 g/dL (11.5-15.3); Lymphocytes # 1.4 10^3/uL (0.8-4.8); Lymphocytes % 12.6 %; Mean Corpuscular Hemoglobin 29.4 pg (28.0-34.0); Mean Corpuscular Volume 86.6 fl (81-99); Mean Platelet Volume 8.9 fL (7.4-10.4); Monocytes # 0.7 10^3/uL (0.2-0.9); Monocytes % 6.2 %; Neutrophils # 9.07 10^3/uL (1.8-7.7); Neutrophils % 80.2 %; Nucleated Red Blood Cells % 0 %; Platelet Count 432 10^3/cmm (130-400); Red Blood Count 4.32 10^6/uL (4.1-5.3); Red Cell Distribution Width 12.3 % (12.1-15.1); White Blood Count 11.3 10^3/uL (4.0-10.0)
[2022-09-30 02:08] LABS: Anion Gap 11.8 (5-19); Blood Urea Nitrogen 8 mg/dL (6-20); Calcium 8.2 mg/dL (8.5-10.5); Carbon Dioxide 29 mmol/L (22-29); Chloride 93 mmol/L (98-107); Glomerular Filtration Rate 129.1 mL/min (90-130); Glucose 185 mg/dL (65-115); Magnesium 1.6 mg/dL (1.7-2.3); Osmolality Calculated 275 mOsm/kg (285-295); Sodium 131 mmol/L (136-145)
[2022-09-30 02:19] LABS: Potassium 2.8 mmol/L (3.5-5.1)
[2022-09-30] MEDS: lidocaine 1% 5 ML in potassium chloride premix 100 ML 26.25 ML IV (02:40)
[2022-09-30 03:46] VITALS: BP 145/92; PULSE 80; RESP 20; TEMP 36.5; O2SAT 98
[2022-09-30] MEDS: piperacillin-tazobactam 3.375 GM in sodium chloride 0.9% (plus) 50 ML IV ×3 (05:39→22:28)
[2022-09-30] MEDS: heparin 5,000 unit/mL INJ 1 mL 5000 UNIT SUBCUT ×2 (05:39→17:47)
[2022-09-30 08:23] VITALS: BP 152/89; PULSE 83; RESP 15; TEMP 36.4
[2022-09-30] MEDS: magnesium sulfate premix 4 GM/100 ML PREMIX IV (09:05)
[2022-09-30] MEDS: ondansetron 2 mg/ML SDV 2 mL 4 MG IVP ×3 (09:05→17:47)
[2022-09-30] MEDS: potassium chloride premix 100 ML 25 MEQ IV ×2 (09:06→13:00)
[2022-09-30 12:36] VITALS: BP 158/96; PULSE 85; RESP 15; TEMP 36.4; O2SAT 98
[2022-09-30] MEDS: AA-Dex 5%-20% w/Lytes 1,000 ML with multivitamin inj 10 ML 42 ML IV (14:59)
--- NOTE | 2022-09-30 15:57 | PM.PN ---
Subjective Subjective: Patient seen and examined. She reports some abdominal pain nausea and 1 bout of emesis. Ostomy is still not feeling. Vitals/I&O/Wt Last Vital Signs Temp 97.5 F L 09/30/22 12:36 Pulse 85 09/30/22 12:36 Resp 15 09/30/22 12:36 BP 158/96 09/30/22 12:36 Pulse Ox 98 09/30/22 12:36 O2 Del Method 09/30/22 12:36 09/30/22 09/30/22 09/30/22 06:59 14:59 22:59 Intake Total 653 / 3675.5 1870.433 / 1870.433 224.27 / 2094.703 Output Total 250 / 2000 Balance 403 / 1675.5 1870.433 / 1870.433 224.27 / 2094.703 Physical Exam Narrative: General: No acute distress, awake alert and oriented x3 Abdomen soft, minimally tender, mildly distended, no guarding rebound or masses Incisions intact without erythema or exudate Ostomy pink and patent but no production Data 09/30/22 01:38 09/30/22 01:38 Micro: Microbiology 09/27/22 14:32 Urine Culture - Final Urine,Clean Catch Escherichia coli A&P Assessment and plan (1) Small bowel obstruction: (2) Colitis: (3) S/P left hemicolectomy: (4) Metastatic cancer to liver: Plan Antibiotics IV fluids N.p.o./NG tube to Ambulate Conservative management for now. Will consider surgery if bowel function does not return within the next 1 to 2 days Attestations Medical Necessity Statement*: Patient requires multiple more nights in the hospital for parenteral nutrition and nasogastric suctioning for small bowel obstruction Coding Level of Care Code Acute Code for Chg Fwd Diagnoses Small bowel obstruction K56.609 Colitis K52.9 S/P left hemicolectomy Z90.49 Metastatic cancer to liver C78.7
--- NOTE | 2022-09-30 16:22 | XRR_ITS ---
PROCEDURE INFORMATION: Exam: XR Complete Acute Abdomen Series Including Chest Exam date and time: 09/30/2022 4:48 PM Age: 52 years old Clinical indication: Device placement; Gi device; Nasogastric tube; Additional info: Ng tube placement, n/v TECHNIQUE: Imaging protocol: Radiologic exam. Complete acute abdomen series, including 2 or more views of the abdomen and a single view chest. COMPARISON: CT abdomen pelvis w con* [id number] 09/27/2022 2:33 PM FINDINGS: Lungs: Normal. No consolidation. Pleural spaces: Normal. No pleural effusions. No pneumothorax. Heart/Mediastinum: Normal. No cardiomegaly. Gastrointestinal tract: NG tube terminates in the stomach. Dilated loops of small bowel noted in the central abdomen. Intraperitoneal space: Question focal linear area of air adjacent to the inferior border of the right hepatic lobe, unclear if this is intraperitoneal. Bones/joints: Normal. No acute fracture. Soft tissues: Normal. Other findings: Right mid axillary line terminates in the distal SVC. XR/XR acute abdomen series [id number] IMPRESSION: 1. NG tube in proper positioning. Redemonstrated dilated loops of small bowel within the central abdomen. 2. There is question of some focal air adjacent to the inferior border of the right hepatic lobe, unclear if this is intraperitoneal. This can be further evaluated with CT.
[2022-09-30 16:26] VITALS: BP 163/96; PULSE 78; RESP 14; TEMP 36.4; O2SAT 98
[2022-09-30] MEDS: pantoprazole 40 mg SDV IVP (17:47)
[2022-09-30 17:59] LABS: Glucose Point of Care 129 mg/dL (70-110)
[2022-09-30 20:00] VITALS: BP 158/95; PULSE 84; RESP 18; TEMP 36.5; O2SAT 98
[2022-09-30 21:02] LABS: Glucose Point of Care 149 mg/dL (70-110)
[2022-10-01] VITALS (21 sets, daily range): BP systolic 133–181; BP diastolic 85–110; PULSE 77–109; RESP 10–22; TEMP 36.2–36.8; O2SAT 93–100
[2022-10-01] MEDS: sodium chloride 0.9% 1,000 ML 80 ML IV (00:57)
[2022-10-01] MEDS: piperacillin-tazobactam 3.375 GM in sodium chloride 0.9% (plus) 50 ML IV ×2 (05:04→21:41)
[2022-10-01] MEDS: heparin 5,000 unit/mL INJ 1 mL 5000 UNIT SUBCUT ×2 (05:04→17:20)
[2022-10-01 06:40] LABS: Glucose Point of Care 126 mg/dL (70-110)
[2022-10-01 07:23] LABS: Basophils % 0.3 %; Eosinophils # 0.2 10^3/uL (0.0-0.8); Eosinophils % 1.5 %; Hematocrit 43.6 % (37.0-47.0); Hemoglobin 14.4 g/dL (11.5-15.3); Lymphocytes # 2.2 10^3/uL (0.8-4.8); Mean Corpuscular Volume 87.9 fl (81-99); Mean Platelet Volume 9.2 fL (7.4-10.4); Monocytes # 0.8 10^3/uL (0.2-0.9); Monocytes % 6.3 %; Neutrophils # 9.56 10^3/uL (1.8-7.7); Neutrophils % 74.4 %; Nucleated Red Blood Cells % 0 %; Platelet Count 410 10^3/cmm (130-400); Red Blood Count 4.96 10^6/uL (4.1-5.3); Red Cell Distribution Width 12.4 % (12.1-15.1); White Blood Count 12.9 10^3/uL (4.0-10.0)
[2022-10-01 07:37] LABS: Anion Gap 14.3 (5-19); Blood Urea Nitrogen 6 mg/dL (6-20); Calcium 9.2 mg/dL (8.5-10.5); Carbon Dioxide 29 mmol/L (22-29); Chloride 93 mmol/L (98-107); Creatinine Clr Calc Pharmacy 77.6458; Glomerular Filtration Rate 104.6 mL/min (90-130); Glucose 122 mg/dL (65-115); Osmolality Calculated 275 mOsm/kg (285-295); Phosphorus 2.3 mg/dL (2.5-4.5); Potassium 3.3 mmol/L (3.5-5.1); Sodium 133 mmol/L (136-145)
--- NOTE | 2022-10-01 08:41 | PM.PN ---
Subjective Subjective: Still no output from her ostomy Vitals/I&O/Wt Last Vital Signs Temp 97.7 F 10/01/22 04:00 Pulse 83 10/01/22 04:00 Resp 16 10/01/22 04:00 BP 159/85 10/01/22 04:00 Pulse Ox 98 10/01/22 04:00 O2 Del Method 10/01/22 04:00 09/30/22 10/01/22 10/01/22 22:59 06:59 14:59 Intake Total 1058.27 / 2928.703 865.333 / 3794.036 Output Total 1300 / 1300 1175 / 2475 Balance -241.73 / 1628.703 -309.667 / 1319.036 Physical Exam Narrative: General: No acute distress, awake alert and oriented x3 Abdomen: Soft, mildly distended, nontender to palpation Ostomy pink and patent but not producing Data 10/01/22 07:09 10/01/22 07:09 A&P Assessment and plan (1) Small bowel obstruction: Plan To OR for diagnostic laparoscopy, possible exploratory laparotomy, possible bowel resection, possible ostomy revision The risks and benefits of the procedure, including but not limited to, bleeding, infection, scar, numbness, pain, damage to surrounding structures, anastomotic leak, need for further surgery, were explained to the patient. She is understanding the risks and wishes to proceed Attestations Medical Necessity Statement*: Patient quires multiple more nights in the hospital for recovery after diagnostic laparoscopy versus exploratory laparotomy Coding Level of Care Code Acute Code for g Fwd Diagnoses Small bowel obstruction K56.609
--- NOTE | 2022-10-01 09:13 | P.ANESASSM_ITS ---
Pre-Anesthetic Assessment Height/Weight: Height 1.63 m Weight 45.359 kg Temp Pulse Resp BP Pulse Ox O2 Del Method 97.2 F L 77 18 162/92 98 10/01/22 08:29 10/01/22 08:29 10/01/22 08:29 10/01/22 08:29 10/01/22 08:29 10/01/22 08:29 Operation Date: 10/01/22 10:10 Proposed Procedures p Laparoscopy(Not Applicable) - DO jaymie Torres Exploratory Laparotomy(Not Applicable) - DO jaymie Torres Colon Resection(Not Applicable) - DO jaymie Torres Colostomy Revision(Not Applicable) - Mau Aguilar DO Familial anesthetic complications: none Was Beta Venessa taken within 24 hours: N/A Was Clonidine taken within 24 hours: N/A Social Tobacco and No alcohol Exam alert, oriented x 3 and regular rate & rhythm NG tube Airway Submandibular: within normal limits Cervical ROM: within normal limits Mallampati: Class II Dentition: false Pulmonary Chronic Obstructive Pulmonary Disease GI SBO Neuropsych Anxiety and Depression Anesthetic Plan ASA status: 3 Anesthesia: General Medications/Allergies Home Medications Medication Instructions Recorded Confirmed Last Taken Type ibuprofen 200 mg tablet 200 mg PO Q6H PRN Pain 09/13/22 09/27/22 09/27/22 07:00 History hydrocodone 7.5 mg-acetaminophen 1 tab PO Q6H PRN pain #20 tabs 09/17/22 09/27/22 Unknown Rx 325 mg tablet albuterol sulfate 90 mcg/actuation 2 puff inhalation 6XD PRN 09/21/22 09/27/22 Unknown Rx aerosol inhaler (Ventolin HFA) shortness of breath or wheezing #8.5 grams ondansetron HCl 8 mg tablet 8 mg PO Q8H PRN nausea and 09/24/22 09/27/22 09/27/22 07:00 Rx vomiting #40 tabs acetaminophen 300 mg-codeine 30 mg 0.5 - 1 tab PO BID PRN pain 09/27/22 09/27/22 Unknown History tablet citalopram 10 mg tablet 10 mg PO BEDTIME 09/27/22 09/27/22 09/21/22 History nystatin 100,000 unit/mL oral 5 ml PO Q6H 09/27/22 09/27/22 Unknown History suspension Allergies Allergy/AdvReac Type Severity Reaction Status Date / Time acetaminophen [From [place]] Allergy ADR-Nausea Verified 09/27/22 14:16 hydrocodone [From [place]] Allergy ADR-Nausea Verified 09/27/22 14:16 Current Medications Generic Name Dose Route Start Last Admin Trade Name Freq PRN Reason Stop Dose Admin Heparin Sodium (Porcine) 5,000 unit 09/27/22 17:45 10/01/22 05:04 Heparin 5,000 Unit/Ml Inj 1 Ml SUBCUT 5,000 unit Q12H YURI Administration Sodium Chloride 1,000 mls @ 150 mls/hr 09/27/22 17:45 10/01/22 00:57 Sodium Chloride 0.9% IV 80 mls/hr .Q6H40M YURI Administration Piperacillin Sod/Tazobactam 50 mls @ 12.5 mls/hr 09/29/22 14:00 10/01/22 05:04 Sod 3.375 gm/ Sodium Chloride IV 12.5 mls/hr Q8H YURI Administration Protocol Fat Emulsion Intravenous 250 mls @ 20.833 mls/hr 09/29/22 16:00 10/01/22 03:46 Intralipid 20% IV Infused Q24H YURI Infusion Multivitamins 10 ml/ Amino 1,010 mls @ 42 mls/hr 09/29/22 15:00 09/30/22 14:59 Acids/Electrolytes IV 42 mls/hr .Q24H YURI Administration Lorazepam 0.25 mg 09/28/22 10:58 09/28/22 11:39 Lorazepam 0.5 Mg Tablet PO 0.25 mg BID PRN Administration ANXIETY Morphine Sulfate 4 mg 09/27/22 17:42 09/29/22 08:20 Morphine 4 Mg/Ml Sdv 1 Ml IVP 4 mg Q4H PRN Administration SEVERE PAIN Ondansetron HCl 4 mg 09/27/22 17:42 09/30/22 17:47 Ondansetron 2 Mg/Ml Sdv 2 Ml IVP 4 mg Q6H PRN Administration vomiting, or N/V if npo Pantoprazole Sodium 40 mg 09/27/22 17:45 09/30/22 17:47 Pantoprazole 40 Mg Sdv IVP 40 mg Q24H YURI Administration [facility] Anesthesia Medical History Constipation Tobacco dependency Surgical History S/P left hemicolectomy Family History Other CAD (coronary artery disease) Social History Smoking and tobacco status: current every day smoker Alcohol intake: never Data Anesthesia 10/01/22 07:09 10/01/22 07:09 Short CBC 09/30/22 10/01/22 Range/Units 01:38 07:09 WBC 11.3 H 12.9 H (4.0-10.0) 10^3/uL Hgb 12.7 14.4 (11.5-15.3) g/dL Hct 37.4 43.6 (37.0-47.0) % MCV 86.6 87.9 (81-99) fl Plt Count 432 H 410 H (130-400) 10^3/cmm Neut % (Auto) 80.2 74.4 % Neut # (Auto) 9.07 H 9.56 H (1.8-7.7) 10^3/uL BMP 09/30/22 10/01/22 01:38 07:09 Sodium 131 L 133 L Potassium 2.8 L* D 3.3 L Chloride 93 L 93 L Carbon Dioxide 29 29 BUN 8 6 Creatinine 0.5 0.6 Glucose 185 H 122 H Calcium 8.2 L 9.2 Cardiac Studies: No Data to Display
[2022-10-01] MEDS: diphenhydrAMINE 50 mg/mL SDV 1mL 12.5 MG IVP (09:27)
[2022-10-01] MEDS: sodium chloride 0.9% 1,000 ML 30 ML IV (09:28)
[2022-10-01] MEDS: HYDROmorphone 1 mg/mL INJ 1 mL 0.5 MG IVP ×2 (09:28→16:19)
--- NOTE | 2022-10-01 13:15 | XR_ITS ---
WS: [id number] PORTABLE CHEST HISTORY: subcutaneous emphysema COMPARISON: None available. Lungs are clear and well expanded. No pleural effusion or pneumothorax. Bilateral subcutaneous emphys eliseo over the thorax extending into the LEFT neck. There are a few very tiny lucencies over each lung which is probably subcutaneous emphysema over the lung. No definite pneumothorax is identified on thi s radiograph. There is no significant pneumothorax. Cardiac size: Normal. Mediastinum/Aorta: Normal mediastinum. No osseous abnormality seen. Nasogastric tube is present with the tip extending into the proximal duodenum. RIGHT subclavian centr al line with tip in the distal SVC. XR/XR chest 1V portable [id number] IMPRESSION: 1. New bilateral subcutaneous emphysema extending also into the LEFT neck. 2. No definite pneumothorax identified. 3. Good position of the RIGHT subclavian line. 4. Nasogastric tube with tip extending into the duodenum.
[2022-10-01] MEDS: metoprolol tartrate 1 mg/1 mL SDV 5 mL 5 MG (13:25)
--- NOTE | 2022-10-01 13:47 | PM.OP ---
Operative Report Date of procedure: October 01, 2022 Pre-op diagnosis: Small bowel obstruction Status post exploratory laparotomy and left hemicolectomy with end colostomy formation for obstructing colon cancer Post-op diagnosis: other (Small bowel obstruction due to adhesions) Procedure done: Diagnostic laparoscopy Extensive lysis of adhesions Conversion to exploratory laparotomy Implants: None Specimens removed/disposition: None Surgeon: Dr. Mau Aguilar, DO Anesthesia: General Complications: None apparent Findings: Extensive small bowel adhesions Brief History: This a very pleasant 52-year-old female who originally came into the hospital with obstructing colon cancer at the splenic flexure. She had obvious masses in her liver as well. She underwent exploratory laparotomy with left hemicolectomy and end colostomy formation. She did well postoperatively and was discharged home. She began having nausea and vomiting while at home and came back to the hospital and was diagnosed with a small bowel obstruction. Diagnostic laparoscopy, possible exploratory laparotomy was indicated. The risks and benefits were explained and documented. Procedure: Patient was wheeled in the operative room placed on the OR table in the supine position abdomen was inspected prepped and draped in usual sterile fashion. The ostomy was covered with a Tegaderm. A timeout was performed. All present were in agreement. General endotracheal intubation was achieved by department of anesthesia. A 5 mm incision was made in the left upper quadrant after localizing with lidocaine a Veress needle was used to bring intra-abdominal insufflation to 15 mmHg. A 5 mm trocar was then placed into this incision using Optiview. There was extensive adhesions throughout the abdomen. I used the camera to gently break several adhesions and make room for a second port. Ports were then placed 2 in the right lower quadrant and 2 in the left lower quadrant, for a total of 5 5 mm ports. There was extensive adhesions once again throughout the small bowel. A combination of sharp and blunt dissection was used to lyse these adhesions. Lysis was performed for over 1 hour. There was a notable area suprapubically where the small bowel was adhesed to the anterior abdominal wall. Small bowel was dilated proximally to this and decompressed distally. In order to fully run the small bowel, I converted to an exploratory laparotomy. Her previous incision was opened from the umbilicus down to just above the pubis. A 10 blade scalpel was used to do this. The fascia was then opened with electrocautery. The peritoneum was opened bluntly. I then ran the entire small bowel and confirmed that I had freed up the area of obstruction. There were 2 areas of small serosal tears that I repaired with 3-0 silk for good measure. Small bowel was then placed back into the abdomen. The abdomen was closed with #1 PDS in a running fashion. Skin was closed with aroldo. Sterile dressings were applied. Patient tolerated the procedure well.
--- NOTE | 2022-10-01 14:19 | ANE.PACU2 ---
Inpatient post-anesthesia follow up: Airway intact: Yes Vital signs: Temperature 97.1 F Pulse Rate 91 Respiratory Rate 18 Blood Pressure 151/98 Pulse Oximetry 95 Oxygen Delivery Me thod [ Room Air Current Rate & Del rodney] Oxygen Delivery Me thod Room Air Oxygen Flow Rate 6 Fraction of Inspir ed Oxygen Hydration adequate: Yes Nausea and vomiting: No Pain level: 4 Mental status: Baseline
[2022-10-01] MEDS: sodium chloride 0.9% 1,000 ML 100 ML IV (15:09)
[2022-10-01] MEDS: AA-Dex 5%-20% w/Lytes 1,000 ML with multivitamin inj 10 ML 42 ML IV (15:58)
[2022-10-01] MEDS: ondansetron 2 mg/ML SDV 2 mL 4 MG IVP ×2 (16:19→20:16)
[2022-10-01] MEDS: pantoprazole 40 mg SDV IVP (17:20)
[2022-10-01 17:34] LABS: Glucose Point of Care 136 mg/dL (70-110)
[2022-10-01] MEDS: morphine 4 mg/mL SDV 1 mL IVP (20:16)
[2022-10-01] MEDS: sodium chloride 0.9% 1,000 ML 150 ML IV (21:41)
[2022-10-01 22:24] LABS: Glucose Point of Care 119 mg/dL (70-110)
[2022-10-02] VITALS (12 sets, daily range): BP systolic 148–179; BP diastolic 84–98; PULSE 78–120; RESP 16–22; TEMP 36.6–37.1; O2SAT 95–99
--- NOTE | 2022-10-02 00:48 | PC.NURSE ---
Patient asking for Demerol by name. Patient states the Morphine doesn't help very much. Dr. Bishop notified. PRN Lynnetteid ordered.
[2022-10-02] MEDS: sodium chloride 0.9% 1,000 ML 150 ML IV ×2 (00:55→10:48)
[2022-10-02] MEDS: ondansetron 2 mg/ML SDV 2 mL 4 MG IVP (00:55)
[2022-10-02] MEDS: HYDROmorphone 1 mg/mL INJ 1 mL IVP ×3 (00:55→16:09)
[2022-10-02] MEDS: heparin 5,000 unit/mL INJ 1 mL 5000 UNIT SUBCUT ×2 (05:52→17:26)
[2022-10-02] MEDS: piperacillin-tazobactam 3.375 GM in sodium chloride 0.9% (plus) 50 ML IV ×3 (05:52→21:01)
[2022-10-02 06:37] LABS: Glucose Point of Care 106 mg/dL (70-110)
[2022-10-02 13:40] LABS: Glucose Point of Care 111 mg/dL (70-110)
[2022-10-02] MEDS: AA-Dex 5%-20% w/Lytes 1,000 ML with multivitamin inj 10 ML 42 ML IV (16:04)
[2022-10-02 16:27] LABS: Basophils # 0.1 10^3/uL (0.0-0.1); Basophils % 0.5 %; Eosinophils # 0.3 10^3/uL (0.0-0.8); Eosinophils % 2.5 %; Hematocrit 37.2 % (37.0-47.0); Hemoglobin 12.2 g/dL (11.5-15.3); Lymphocytes # 1.9 10^3/uL (0.8-4.8); Lymphocytes % 14.8 %; Mean Corpuscular HGB Conc 32.8 g/dL (30.0-36.0); Mean Corpuscular Hemoglobin 28.8 pg (28.0-34.0); Mean Corpuscular Volume 87.7 fl (81-99); Mean Platelet Volume 9.6 fL (7.4-10.4); Monocytes # 0.9 10^3/uL (0.2-0.9); Monocytes % 6.9 %; Neutrophils # 9.65 10^3/uL (1.8-7.7); Neutrophils % 74.3 %; Nucleated Red Blood Cells % 0 %; Platelet Count 286 10^3/cmm (130-400); Red Blood Count 4.24 10^6/uL (4.1-5.3); Red Cell Distribution Width 12.9 % (12.1-15.1)
[2022-10-02 16:37] LABS: Glucose Point of Care 111 mg/dL (70-110)
[2022-10-02 16:56] LABS: Blood Urea Nitrogen 9 mg/dL (6-20); Calcium 7.7 mg/dL (8.5-10.5); Carbon Dioxide 28 mmol/L (22-29); Chloride 97 mmol/L (98-107); Glomerular Filtration Rate 129.1 mL/min (90-130); Glucose 104 mg/dL (65-115); Magnesium 1.7 mg/dL (1.7-2.3); Osmolality Calculated 275 mOsm/kg (285-295); Phosphorus 2.3 mg/dL (2.5-4.5); Sodium 133 mmol/L (136-145)
[2022-10-02 17:17] LABS: Anion Gap 11.7 (5-19); Potassium 3.7 mmol/L (3.5-5.1)
--- NOTE | 2022-10-02 17:18 | PM.PN ---
Subjective Subjective: Patient seen and examined. Denies any nausea or emesis. Colostomy bag not yet producing Vitals/I&O/Wt Last Vital Signs Temp 97.9 F 10/02/22 16:00 Pulse 102 H 10/02/22 16:00 Resp 20 H 10/02/22 16:09 BP 164/98 10/02/22 16:00 Pulse Ox 99 10/02/22 16:00 O2 Del Method 10/02/22 16:00 O2 Flow Rate 6 10/01/22 13:25 10/02/22 10/02/22 10/02/22 06:59 14:59 22:59 Intake Total 894.0909 / 5047.5909 1165 / 1165 1010 / 2175 Output Total 1000 / 2075 950 / 950 Balance -105.9091 / 2972.5909 215 / 215 1010 / 1225 Physical Exam Narrative: General: No acute distress, awake alert and oriented x3 Abdomen: Soft, mildly distended, appropriately tender to palpation, no guarding rebound or masses Incisions intact without erythema or exudate Ostomy pink patent and not producing Urinary Catheter Management: Marino: Cath Placed During This Visit: yes, but has since been removed by the nurse Reason for Continuing Indwelling Catheter: Decision to DC Catheter Urinary Catheter Date of Insertion: 10/01/22 Urinary Catheter Time of Insertion: 11:10 Date Urinary Catheter Removed: 10/02/22 Time Urinary Catheter Discontinued: 12:15 Data 10/02/22 16:14 10/02/22 16:14 A&P Assessment and plan (1) Small bowel obstruction: Plan Postop day #1 status post diagnostic laparoscopy with extensive lysis of adhesions for small bowel obstruction TPN/IV fluids Electrolyte replacements Await return of bowel function Attestations Medical Necessity Statement*: Patient requires multiple more nights in the hospital for return of bowel function following diagnostic laparoscopy Coding Level of Care Code Acute Code for Chg Fwd Diagnoses Small bowel obstruction K56.609
[2022-10-02] MEDS: pantoprazole 40 mg SDV IVP (17:26)
[2022-10-02] MEDS: sodium chloride 0.9% 1,000 ML 108 ML IV (19:25)
[2022-10-02 21:16] LABS: Glucose Point of Care 111 mg/dL (70-110)
--- NOTE | 2022-10-02 22:58 | PC.NURSE ---
Unable to hang IV Mag at this time due to incompatibility of multiple IVs currently running. Will run when IV potassium is completed.
[2022-10-03] VITALS (11 sets, daily range): BP systolic 147–168; BP diastolic 80–90; PULSE 64–90; RESP 17–18; TEMP 36.4–36.8; O2SAT 97–99
[2022-10-03] MEDS: magnesium sulfate premix 4 GM/100 ML PREMIX IV (01:02)
[2022-10-03 03:57] LABS: Basophils # 0.1 10^3/uL (0.0-0.1); Basophils % 0.5 %; Eosinophils # 0.4 10^3/uL (0.0-0.8); Hematocrit 36.7 % (37.0-47.0); Hemoglobin 12.3 g/dL (11.5-15.3); Lymphocytes # 1.6 10^3/uL (0.8-4.8); Lymphocytes % 13.4 %; Mean Corpuscular HGB Conc 33.5 g/dL (30.0-36.0); Mean Corpuscular Hemoglobin 29.5 pg (28.0-34.0); Mean Platelet Volume 9.5 fL (7.4-10.4); Monocytes # 0.9 10^3/uL (0.2-0.9); Monocytes % 7.3 %; Neutrophils # 9.08 10^3/uL (1.8-7.7); Neutrophils % 74.9 %; Nucleated Red Blood Cells % 0 %; Platelet Count 269 10^3/cmm (130-400); Red Blood Count 4.17 10^6/uL (4.1-5.3); Red Cell Distribution Width 12.9 % (12.1-15.1); White Blood Count 12.1 10^3/uL (4.0-10.0)
[2022-10-03 04:18] LABS: Anion Gap 11.1 (5-19); Blood Urea Nitrogen 7 mg/dL (6-20); Calcium 8.2 mg/dL (8.5-10.5); Carbon Dioxide 28 mmol/L (22-29); Chloride 95 mmol/L (98-107); Glomerular Filtration Rate 129.1 mL/min (90-130); Glucose 138 mg/dL (65-115); Magnesium 2.6 mg/dL (1.7-2.3); Osmolality Calculated 272 mOsm/kg (285-295); Phosphorus 2.8 mg/dL (2.5-4.5); Potassium 3.1 mmol/L (3.5-5.1); Sodium 131 mmol/L (136-145)
[2022-10-03] MEDS: heparin 5,000 unit/mL INJ 1 mL 5000 UNIT SUBCUT ×2 (05:02→16:45)
[2022-10-03] MEDS: piperacillin-tazobactam 3.375 GM in sodium chloride 0.9% (plus) 50 ML IV ×3 (05:02→21:20)
[2022-10-03] MEDS: HYDROmorphone 1 mg/mL INJ 1 mL IVP (05:03)
[2022-10-03 06:47] LABS: Glucose Point of Care 137 mg/dL (70-110)
[2022-10-03] MEDS: sodium chloride 0.9% 1,000 ML 108 ML IV (08:05)
[2022-10-03 12:07] LABS: Glucose Point of Care 100 mg/dL (70-110)
[2022-10-03] MEDS: morphine 4 mg/mL SDV 1 mL IVP (15:02)
[2022-10-03] MEDS: LORazepam 0.5 mg Tablet 0.25 MG PO ×2 (15:19→23:30)
[2022-10-03] MEDS: pantoprazole 40 mg SDV IVP (16:45)
[2022-10-03 17:04] LABS: Glucose Point of Care 97 mg/dL (70-110)
--- NOTE | 2022-10-03 17:09 | P.PN_ITS ---
Subjective Subjective: Patient seen and examined. Denies any nausea or emesis. Colostomy bag producing Vitals/I&O/Wt Last Vital Signs Temp 97.5 F L 10/03/22 12:00 Pulse 90 10/03/22 14:00 Resp 18 10/03/22 15:02 BP 155/90 10/03/22 12:00 Pulse Ox 98 10/03/22 12:00 O2 Del Method 10/03/22 12:00 O2 Flow Rate 6 10/01/22 13:25 10/03/22 10/03/22 10/03/22 06:59 14:59 22:59 Intake Total 1509.0909 / 4581.8909 50 / 50 1010 / 1060 Output Total 1400 / 2750 150 / 150 Balance 109.0909 / 1831.8909 -100 / -100 1010 / 910 Physical Exam Narrative: General: No acute distress, awake alert and oriented x3 Abdomen: Soft, mildly distended, appropriately tender to palpation, no guarding rebound or masses Incisions intact without erythema or exudate Ostomy pink patent and producing Urinary Catheter Management: Marino: Cath Placed During This Visit: yes, but has since been removed by the nurse Reason for Continuing Indwelling Catheter: Decision to DC Catheter Urinary Catheter Date of Insertion: 10/01/22 Urinary Catheter Time of Insertion: 11:10 Date Urinary Catheter Removed: 10/02/22 Time Urinary Catheter Discontinued: 12:15 Data 10/03/22 03:30 10/03/22 03:30 A&P Assessment and plan (1) Small bowel obstruction: Plan Postop day #2 status post diagnostic laparoscopy with extensive lysis of adhesions for small bowel obstruction Previously tolerated clear liquids, advance to full liquids Electrolyte replacements Anticipate discharge home tomorrow Attestations Medical Necessity Statement*: Anticipate discharge home tomorrow following diagnostic laparoscopy and extensive lysis of adhesions for small bowel obstru ction 2 days ago Coding Level of Care Code Acute Code for Chg Fwd Diagnoses Small bowel obstruction K56.609
[2022-10-03] MEDS: potassium chloride premix 100 ML 25 MEQ IV ×2 (18:15→22:25)
[2022-10-03 21:06] LABS: Glucose Point of Care 90 mg/dL (70-110)
[2022-10-03] MEDS: TRAMadol 50 mg Tablet 100 MG PO (21:21)
[2022-10-04] VITALS: BP 133/85; PULSE 79; RESP 17; TEMP 36.7; O2SAT 97
[2022-10-04 04:00] VITALS: BP 149/89; PULSE 82; RESP 17; TEMP 36.6; O2SAT 98
[2022-10-04 05:50] LABS: Basophils # 0.1 10^3/uL (0.0-0.1); Basophils % 0.8 %; Eosinophils # 0.6 10^3/uL (0.0-0.8); Hematocrit 34.8 % (37.0-47.0); Hemoglobin 11.5 g/dL (11.5-15.3); Lymphocytes # 2.2 10^3/uL (0.8-4.8); Lymphocytes % 25.6 %; Mean Corpuscular Hemoglobin 29.8 pg (28.0-34.0); Mean Corpuscular Volume 90.2 fl (81-99); Monocytes # 0.9 10^3/uL (0.2-0.9); Monocytes % 10.5 %; Neutrophils # 4.73 10^3/uL (1.8-7.7); Neutrophils % 54.7 %; Nucleated Red Blood Cells % 0 %; Platelet Count 269 10^3/cmm (130-400); Red Blood Count 3.86 10^6/uL (4.1-5.3); Red Cell Distribution Width 13.2 % (12.1-15.1); White Blood Count 8.7 10^3/uL (4.0-10.0)
[2022-10-04 06:10] LABS: Anion Gap 12.8 (5-19); Blood Urea Nitrogen 5 mg/dL (6-20); Calcium 8.6 mg/dL (8.5-10.5); Carbon Dioxide 25 mmol/L (22-29); Chloride 98 mmol/L (98-107); Glomerular Filtration Rate 129.1 mL/min (90-130); Glucose 89 mg/dL (65-115); Osmolality Calculated 271 mOsm/kg (285-295); Phosphorus 3.1 mg/dL (2.5-4.5); Potassium 3.8 mmol/L (3.5-5.1); Sodium 132 mmol/L (136-145)
[2022-10-04] MEDS: piperacillin-tazobactam 3.375 GM in sodium chloride 0.9% (plus) 50 ML IV (06:10)
[2022-10-04] MEDS: heparin 5,000 unit/mL INJ 1 mL 5000 UNIT SUBCUT (06:11)
[2022-10-04 06:48] LABS: Glucose Point of Care 91 mg/dL (70-110)
[2022-10-04 07:23] VITALS: BP 152/86; PULSE 81; RESP 16; TEMP 36.7; O2SAT 98
[2022-10-04 08:32] VITALS: PULSE 87; O2SAT 97
--- NOTE | 2022-10-04 12:39 | P.DS_ITS ---
Discharge Providers Date of Admission: 09/27/22 22:33 Date of Discharge: October 04, 2022 Attending Provider at Admission: Mua Aguilar DO Attending Provider at Discharge: Mau Aguilar DO Diagnoses at Discharge Discharge Diagnosis (1) Small bowel obstruction: Status: Acute Reason for Visit Reason for Visit: ABDOMINAL PAIN Hospital Course Hospital Course This very pleasant 52-year-old female who had previously undergone exploratory laparotomy with left hemicolectomy and colostomy formation for obstructing colon cancer. During surgery she was found to have multiple liver masses. Postoperatively she was discharged home in good condition. She came back to the hospital with a small bowel obstruction which required diagnostic laparoscopy and extensive lysis of adhesions. She is tolerating a diet and having good ostomy output before discharge home. Physical Exam Narrative: General : Patient is well developed , no acute distress, oriented x3 Head : Normal cephalic, a-traumatic. Ears : Pinnae and external canal are normal. Hearing is normal. Eyes : PERRLA, Sclera and injection are normal. No conjunctival discharge. Nose : Mucous membranes are without erythema. Throat : buccal mucosa is normal, gums are without significant recession or hypertrophy. Lungs : Equal chest rise bilaterally, no use of accessory muscles, trachea is midline. Cor : Rate and rhythm are normal. Abdomen : Soft, ND, appropriately tender, no g/r/m Incisions intact without erythema or exudate Ostomy pink patent and producing Extremities : No edema, no cyanosis or clubbing, dorsalis pedis pulses are present bilaterally, non-tender to palpation of calves. Upper extremities are normal bilaterally. Back : non-tender to palpation, no CVA tenderness. Neuro : CN II - XII intact, Upper and lower extremities have equal and full strength Urinary Catheter Management: Marino: Cath Placed During This Visit: yes, but has since been removed by the nurse Reason for Continuing Indwelling Catheter: Decision to DC Catheter Urinary Catheter Date of Insertion: 10/01/22 Urinary Catheter Time of Insertion: 11:10 Date Urinary Catheter Removed: 10/02/22 Time Urinary Catheter Discontinued: 12:15 Discharge Data Studies Completed and Pending Completed Studies During Hospitalization Category Date Time Status CT abdomen pelvis w con* [id number] Stat Cat Scan 09/27/22 13:24 Completed XR acute abdomen series [id number] Routine Exams 09/30/22 16:22 Completed XR chest 1V portable [id number] Routine Exams 09/29/22 14:08 Completed XR chest 1V portable [id number] Urgent Exams 10/01/22 13:15 Completed Radiology Impressions Abdomen/Pelvis CT 09/27/22 13:24 IMPRESSION: 1. High-grade small bowel obstruction. Transition point distal small bowel. 2. There is marked luminal narrowing and wall thickening involving the hepatic flexure and transverse colon to the LEFT lower quadrant ostomy site. These changes can be seen with ischemic disease or infection. 3. No free air. 4. Small amount of free fluid in the pelvis and along the RIGHT paracolic gutter. 5. Patient has known numerous hepatic metastatic lesions. 6. Sigmoid sutures, unremarkable. Notified EBONY Rios at 09/27/2022 3:02 PM. Chest/Abdomen X-ray 09/30/22 16:22 IMPRESSION: 1. NG tube in proper positioning. Redemonstrated dilated loops of small bowel within the central abdomen. 2. There is question of some focal air adjacent to the inferior border of the right hepatic lobe, unclear if this is intraperitoneal. This can be further evaluated with CT. Chest X-Ray 10/01/22 13:15 IMPRESSION: 1. New bilateral subcutaneous emphysema extending also into the LEFT neck. 2. No definite pneumothorax identified. 3. Good position of the RIGHT subclavian line. 4. Nasogastric tube with tip extending into the duodenum. Laboratory Results WBC 8.7 10^3/uL (4.0-10.0) 10/04/22 05:38 RBC 3.86 10^6/uL (4.1-5.3) L 10/04/22 05:38 Hgb 11.5 g/dL (11.5-15.3) 10/04/22 05:38 Hct 34.8 % (37.0-47.0) L 10/04/22 05:38 MCV 90.2 fl (81-99) 10/04/22 05:38 MCH 29.8 pg (28.0-34.0) 10/04/22 05:38 MCHC 33.0 g/dL (30.0-36.0) 10/04/22 05:38 RDW 13.2 % (12.1-15.1) 10/04/22 05:38 Plt Count 269 10^3/cmm (130-400) 10/04/22 05:38 MPV 10.0 fL (7.4-10.4) 10/04/22 05:38 Neut % (Auto) 54.7 % 10/04/22 05:38 Lymph % (Auto) 25.6 % 10/04/22 05:38 [place] % (Auto) 10.5 % 10/04/22 05:38 Eos % (Auto) 7.0 % 10/04/22 05:38 Baso % (Auto) 0.8 % 10/04/22 05:38 Neut # (Auto) 4.73 10^3/uL (1.8-7.7) 10/04/22 05:38 Lymph # (Auto) 2.2 10^3/uL (0.8-4.8) 10/04/22 05:38 [place] # (Auto) 0.9 10^3/uL (0.2-0.9) 10/04/22 05:38 Eos # (Auto) 0.6 10^3/uL (0.0-0.8) 10/04/22 05:38 Baso # (Auto) 0.1 10^3/uL (0.0-0.1) 10/04/22 05:38 Nucleated RBC % (auto) 0 % 10/04/22 05:38 Nucleated RBCs # 0.0 /100WBC 10/04/22 05:38 Sodium 132 mmol/L (136-145) L 10/04/22 05:38 Potassium 3.8 mmol/L (3.5-5.1) 10/04/22 05:38 Chloride 98 mmol/L (98-107) 10/04/22 05:38 Carbon Dioxide 25 mmol/L (22-29) 10/04/22 05:38 Anion Gap 12.8 (5-19) 10/04/22 05:38 BUN 5 mg/dL (6-20) L 10/04/22 05:38 Creatinine 0.5 mg/dL (0.5-0.9) 10/04/22 05:38 GFR Calculation 129.1 mL/min (90-130) 10/04/22 05:38 Glucose 89 mg/dL (65-115) 10/04/22 05:38 POC Glucose 91 mg/dL (70-110) 10/04/22 06:24 Calculated Osmolality 271 mOsm/kg (285-295) L 10/04/22 05:38 Lactic Acid 1.4 mmol/L (0.5-2.2) 09/27/22 13:29 Calcium 8.6 mg/dL (8.5-10.5) 10/04/22 05:38 Phosphorus 3.1 mg/dL (2.5-4.5) 10/04/22 05:38 Magnesium 2.0 mg/dL (1.7-2.3) 10/04/22 05:38 Total Bilirubin 0.4 mg/dL (0.15-1.2) 09/27/22 13:29 AST 15 U/L (0-32) 09/27/22 13:29 ALT 13 U/L (0-33) 09/27/22 13:29 Alkaline Phosphatase 96 U/L (35-105) 09/27/22 13:29 Total Protein 7.0 g/dL (6.6-8.7) 09/27/22 13:29 Albumin 4.1 g/dL (3.5-5.2) 09/27/22 13:29 Globulin 2.9 g/dL (1.3-4.6) 09/27/22 13:29 Lipase 58 U/L (13-60) 09/27/22 13:29 Urine Color Yellow (Yellow) 09/27/22 14:32 Urine Appearance Hazy (CLEAR) A 09/27/22 14:32 Urine pH 6 (5-7) 09/27/22 14:32 Ur Specific [place] 1.020 (1.005-1.030) 09/27/22 14:32 Urine Protein Neg (Negative) 09/27/22 14:32 Urine Glucose (UA) Norm (Normal) 09/27/22 14:32 Urine Ketones 1+ (Negative) H 09/27/22 14:32 Urine Blood 2+ (Negative) H 09/27/22 14:32 Urine Nitrate Negative (Negative) 09/27/22 14:32 Urine Bilirubin Neg (Negative) 09/27/22 14:32 Urine Urobilinogen Norm mg/dL (Negative) 09/27/22 14:32 Ur Leukocyte Esterase Trace (Negative) H 09/27/22 14:32 Urine RBC 0-4 /hpf (0-2) H 09/27/22 14:32 Urine WBC 15-25 /hpf (0-5) H 09/27/22 14:32 Ur Squamous Epith Cells 0-4 /hpf (0-5) H 09/27/22 14:32 Amorphous Sediment 1+ /hpf 09/27/22 14:32 Urine Bacteria 3+ /hpf (NONE) H 09/27/22 14:32 Procedures Performed Diagnostic laparoscopy with extensive lysis of adhesions Vitals Last Vital Signs Temp 98.0 F 10/04/22 07:23 Pulse 87 10/04/22 08:32 Resp 16 10/04/22 07:23 BP 152/86 10/04/22 07:23 Pulse Ox 97 10/04/22 08:32 O2 Del Method 10/04/22 08:32 O2 Flow Rate 6 10/01/22 13:25 Discharge Plan Discharge Patient Disposition: Home Condition: Stable Prescriptions: Continued albuterol sulfate [Ventolin HFA] 90 mcg/actuation HFA aerosol inhaler 2 puff inhalation 6XD PRN (Reason: shortness of breath or wheezing) Qty: 8.5 0RF ondansetron HCl 8 mg tablet 8 mg PO Q8H PRN (Reason: nausea and vomiting) Qty: 40 1RF nystatin 100,000 unit/mL suspension 5 ml PO Q6H Rx Instructions: administer 1/2 of dose in each side of the mouth citalopram 10 mg tablet 10 mg PO BEDTIME acetaminophen-codeine 300-30 mg tablet 0.5 - 1 tab PO BID PRN (Reason: pain) ibuprofen 200 mg Tablet 200 mg PO Q6H PRN (Reason: Pain) hydrocodone-acetaminophen 7.5-325 mg tablet 1 tab PO Q6H PRN (Reason: pain) Qty: 20 0RF Discharge Orders: Discharge Order (Routine); Ordered 10/04/22 Ordered By: Mau Aguilar Referrals: Mau Aguilar DO [Physician] - 10/19/22 8:15 am Discharge Diet: Advance as tolerated Discharge Activity: Limit activity as instructed Patient Instructions: Bowel Obstruction (GEN), Colitis (ED), Opioid Safety Activity Restrictions/Additional Instructions: No lifting, pushing or pulling over 15 pounds for 6 weeks. Do not soak incisions underwater for 2 weeks. Shower daily. Let the glue fall off on its own. Discharge Attestations Time Spent in Discharge Care*: less than 30 min Status at Discharge: Cognitive status at discharge: cognitively intact , Behavioral status at discharge: cooperative , Quality Metrics Clinical Quality Measures [ No reported AMI, CVA or VTE this stay] Coding Level of Care Code Acute Chg [facility] note Diagnoses Small bowel obstruction K56.609
== END 2022-10-04 12:08 | disposition home or self-care (01) | DRG 336 ==
LOC: ER 22:17 → MEDSURG 22:34
PROVIDERS: Physician Assistant; Admitting Provider Surgery; Emergency Provider Family Medicine; Visit Provider Surgery
PROC: 0DN80ZZ Release Small Intestine, Open Approach (ICD-10-PCS; CPT 49320; principal; 2022-10-01 10:10)
PROC: 0DN80ZZ Release Small Intestine, Open Approach (ICD-10-PCS; CPT 49000; 2022-10-01 10:10)
PROC: 0DN80ZZ Release Small Intestine, Open Approach (ICD-10-PCS; CPT 44140; 2022-10-01 10:10)
DX: K56.50 Intestinal adhesions [bands], unspecified as to partial versus complete obstruction (principal); C18.5 Malignant neoplasm of splenic flexure; C78.7 Secondary malignant neoplasm of liver and intrahepatic bile duct; Z90.49 Acquired absence of other specified parts of digestive tract; Z93.3 Colostomy status; Z79.51 Long term (current) use of inhaled steroids; Z79.891 Long term (current) use of opiate analgesic; F17.200 Nicotine dependence, unspecified, uncomplicated; K52.9 Noninfective gastroenteritis and colitis, unspecified
CPT/HCPCS: 36415; 36416; 36569; 36592; 51702; 71045; 74022; 74177; 80048; 80053; 81001; 82962; 83605; 83690; 83735; 84100; 85025; 87077; 87086; 87186; 96365; 96372; 96375; 99285; C9113; J1100; J1170; J1200; J1644; J2270; J2405; J2543; J2704; J3010; J3475; J3480; J3490; J7030; Q9967

== ENCOUNTER 2022-10-05 12:50 | Oncology outpatient (recurring) (ONCR) | payer BC, MEDICAID, SELFPAY | END 2022-10-12 23:59 | disposition home or self-care (01) | PROVIDERS: PCP Family Medicine; Visit Provider Internal Medicine Hematology & Oncology | DX: C18.5 Malignant neoplasm of splenic flexure (principal) ==

== ENCOUNTER 2022-11-17 10:20 | Day surgery (SDC) | payer BC, MEDICAID, SELFPAY ==
[2022-11-16 10:46] VITALS: BMI 16.6
[2022-11-17] VITALS (10 sets, daily range): BP systolic 107–154; BP diastolic 63–115; PULSE 89–120; RESP 15–20; TEMP 36.6–37; O2SAT 95–100
[2022-11-17] MEDS: sodium chloride 0.9% 1,000 ML 30 ML IV (11:01)
--- NOTE | 2022-11-17 12:03 | ANES.PREANE2 ---
Pre-Anesthetic Assessment Height/Weight: Height 1.65 m Weight 45.359 kg Temp Pulse Resp BP Pulse Ox O2 Del Method 98.6 F 120 H 18 154/115 98 11/17/22 10:38 11/17/22 10:38 11/17/22 10:38 11/17/22 10:38 11/17/22 10:38 11/17/22 10:38 Preop Diagnosis: Colon cancer Operation Date: 11/17/22 12:00 Proposed Procedures p Portacath Placement 85192 C 18.9(Not Applicable) - Mau Aguilar DO Familial anesthetic complications: None Was Beta Venessa taken within 24 hours: N/A Was Clonidine taken within 24 hours: N/A Last intake: Intake Last Liquid Date 11/16/22 Last Solid Date 11/16/22 Social No alcohol and No tobacco Exam alert, oriented x 3, clear to auscultation bilaterally and regular rate & rhythm Airway Mallampati: Class II Dentition: false Pulmonary COPD GI Colostomy Anesthetic Plan ASA status: 3 Anesthesia: MAC Risk of > 500 ml blood loss (7ml/kg in children): No Medications/Allergies Home Medications Medication Instructions Recorded Confirmed Last Taken Type albuterol sulfate 90 mcg/actuation 2 puff inhalation 6XD PRN 09/21/22 11/16/22 11/16/22 Rx aerosol inhaler (Ventolin HFA) shortness of breath or wheezing #8.5 grams ondansetron HCl 8 mg tablet 8 mg PO Q8H PRN nausea and 09/24/22 11/16/22 09/27/22 07:00 Rx vomiting #40 tabs nystatin 100,000 unit/mL oral 5 ml PO Q6H 10/05/22 11/16/22 Unknown History suspension acetaminophen 500 mg tablet 500 mg PO DAILY PRN Pain 11/16/22 11/16/22 11/16/22 History Allergies Allergy/AdvReac Type Severity Reaction Status Date / Time hydrocodone [From [place]] Allergy ADR-Nausea Verified 11/09/22 08:04 Current Medications Generic Name Dose Route Start Last Admin Trade Name Freq PRN Reason Stop Dose Admin Sodium Chloride 1,000 mls @ 30 mls/hr 11/17/22 10:45 11/17/22 11:01 Sodium Chloride 0.9% IV 11/18/22 10:44 30 mls/hr .Q24H YURI Administration PFSH Anesthesia Medical History Colon cancer Constipation Metastatic cancer to liver Tobacco dependency Surgical History History of colostomy S/P left hemicolectomy Family History Other CAD (coronary artery disease) Social History (Updated 11/09/22 @ 08:07 by Breanna Villegas LPN) Smoking and tobacco status: former smoker Quit status (tobacco): has quit using tobacco Year quit tobacco: 09/2022 Former quit date comment: Smoked x 39 years Alcohol intake: never Data Anesthesia Cardiac Studies: No Data to Display
[2022-11-17] MEDS: midazolam 1 mg/mL INJ 2 mL 2 MG IVP (12:15)
--- NOTE | 2022-11-17 12:26 | W.PM.OPSUD ---
Surgery/Procedure H&P Update DATE OF PROCEDURE: November 17, 2022 DATE H&P PERFORMED: 10/19/22 H&P UPDATE INFORMATION: I have reviewed H&P completed within last 30 days, I have examined patient prior to procedure and Changes to prior documentation as noted here (Mediport insertion -risks and benefits of the procedure, including but not limited to, bleeding, infection, infection requiring Mediport removal antibiotic therapy and repeat surgery, damage to surrounding structures, scar, numbness, pain, pneumothorax requiring thoracostomy tube, were explained ) PREOP DIAGNOSIS: Colon cancer PLANNED PROCEDURE: Operation Date: 11/17/22 12:00 Proposed Procedures p Portacath Placement 08863 C 18.9(Not Applicable) - Mau Aguilar DO
[2022-11-17] MEDS: ceFAZolin 2,000 MG in sodium chloride 0.9% (plus) 50 ML 100 MG IV (13:53)
[2022-11-17] MEDS: sodium chloride 0.9% 100 mL Bag XX (14:09)
[2022-11-17] MEDS: heparin, porcine 1,000 unit/mL INJ 10 mL 10000 UNIT INJECTION (14:09)
[2022-11-17] MEDS: lidocaine-epi 2% 20 mL INJ INJECTION (14:10)
--- NOTE | 2022-11-17 14:28 | PM.OP ---
Operative Report Date of procedure: November 17, 2022 Pre-op diagnosis: Preop Diagnosis Colon cancer Post-op diagnosis: same Procedure done: Mediport insertion Implants: PowerPort Surgeon: Dr. Mau Aguilar, DO Anesthesia: MAC Estimated blood loss (mL): 5 Complications: None apparent Brief History: Is a very pleasant 52-year-old female with metastatic colon cancer. Mediport access was requested for chemotherapy. The risks and benefits were explained and documented. Procedure: They put another order I will do right now things the patient was taken to the operating room and placed supine on the operating room table. All bony prominences were padded. She was given IV sedation and monitored throughout the case by the anesthesia personnel. SCDs were placed and turned on. The arms were tucked to the side. Patient received Ancef 2 g preoperatively IV. The bilateral chest wall was prepped and draped in usual sterile fashion using chlorhexidine base prep. Sterile drapes were applied. We did procedure pause prior to beginning. An 18 gauge needle was placed in the left subclavian vein. Dark, nonpulsatile blood was aspirated. A guidewire was placed through the needle centrally toward the atrial/vena caval junction. Fluoroscopy visualized good placement. The needle was removed and the guidewire was clipped to the drape with a hemostat. Further local anesthetic was infiltrated in the soft tissues of the left chest wall and a #15 blade was used to make a horizontal skin incision. A subcutaneous Mediport pocket was created using Bovie cautery, dissecting down through the skin and subcutaneous tissues. Meticulous hemostasis was achieved. The Mediport was sutured in position using 3-0 vicryl suture x2 stitches. A #15 blade was used to make a small skin mary around the guidewire insertion area. The Mediport tubing was tunneled through the subcutaneous tissues up to the needle insertion location. A dilator with a peel-away sheath was placed over the guidewire and placed centrally. After measuring the Mediport tubing was cut to length so that the tip would end at the atrial/vena caval junction. The inner cannula and the guidewire were removed, leaving the dilator sheath in place. The Mediport was flushed. The tip of the catheter was inserted through the peel-away sheath and the peel-away sheath removed in the standard fashion. The Mediport was accessed with a straight [place] needle and dark, nonpulsatile blood was aspirated and flushed using heparinized saline to hep-lock the Mediport. Final fluoroscopy visualization showed no kink in the catheter and the tip of the Mediport tubing near the atrial/vena caval junction. Both skin incisions were thoroughly irrigated and suctioned dry. Meticulous hemostasis noted. The dermis was approximated with 3-0 Vicryl in an interrupted fashion. Skin was closed with Dermabond. Patient was awakened from anesthesia and transferred via her cart to the recovery room in stable condition. All needle, sponge, and instrument counts were correct per the operating personnel x2 counts.
--- NOTE | 2022-11-17 14:47 | PC.NURSE ---
Ice to incision
--- NOTE | 2022-11-17 14:52 | ANE.PACU2 ---
Inpatient post-anesthesia follow up: Airway intact: Yes Vital signs: Temperature 98 F Pulse Rate 98 Respiratory Rate 20 Blood Pressure 116/77 Pulse Oximetry 95 Oxygen Delivery Me thod Room Air Oxygen Flow Rate Fraction of Inspir ed Oxygen Hydration adequate: Yes Nausea and vomiting: No Pain level: 1 Mental status: Baseline
--- NOTE | 2022-11-17 14:53 | XR_ITS ---
WS: [id number] Portable AP upright chest, 11/17/2022 Clinical Data: port placement Comparison: Portable chest, 10/01/2022 Findings: No nodules, masses or effusions are seen. The heart is normal. The pulmonary vascularity is not increased. No pneumonia or pneumothorax is seen. There is a left infusion catheter which enters the subclavian vein and ends in the superior vena cava. Monitor leads are on the chest wall. XR/XR chest 1V portable [id number] Impression: Satisfactory placement of left infusion catheter.
== END 2022-11-17 15:35 | disposition home or self-care (01) ==
PROVIDERS: PCP Family Medicine; Visit Provider Surgery
PROC: (CPT 36561; principal; 2022-11-17 11:50)
DX: C18.9 Malignant neoplasm of colon, unspecified (principal); C78.7 Secondary malignant neoplasm of liver and intrahepatic bile duct; J44.9 Chronic obstructive pulmonary disease, unspecified; Z87.891 Personal history of nicotine dependence; Z93.3 Colostomy status
CPT/HCPCS: 36561; 96416; 71045; 76000; C1788; J0690; J1644; J2250; J2704; J3010; J7030

== ENCOUNTER 2022-11-27 05:38 | Outpatient (CLI) | payer BC, MEDICAID, SELFPAY ==
--- NOTE | 2022-11-27 | PETR_ITS ---
PROCEDURE INFORMATION: Exam: PET/CT Skull Base to Mid-thigh Exam date and time: 11/27/2022 9:30 AM Age: 52 years old Clinical indication: Condition or disease; Primary cancer: Malignant neoplasm of colon; Initial oncological staging assessment; Patient HX: Secondary malignant neoplasm of liver and intrahepatic bile duct LABS AND CLINICAL REPORTS: Glucose: 116 mg/dl Treatment strategy for malignancy (PET staging): Initial Staging (PI) TECHNIQUE: Imaging protocol: Following at least four-hour fasting and following the injection of F-18-FDG, low dose CT images were obtained. Then, PET images were obtained. Attenuation corrected images were constructed using the CT scan. Fused images of PET and CT were reviewed. The standardized uptake values (SUV) reported below are maximum values within a region of interest, expressed in gm/ml. Exam includes orbital meatal line to mid-thigh. Radiopharmaceutical: 14.7 mCi F-18 FDG (Fluorodeoxyglucose), IV. Time of imaging post radiopharmaceutical administration: 54.6 minutes. Injection site: Left antecubital vein. COMPARISON: 1. CT abdomen pelvis with contrast 09/27/2022. 2. CT abdomen pelvis with contrast 09/13/2022. FINDINGS: Tubes, catheters and devices: A left chest port is in good position with its tip near the SVC/RA junction. Brain: Visualized brain has normal physiologic uptake. Pharynx: No abnormal uptake. Larynx: No abnormal uptake. Lungs, pleura and trachea: The lung bases are clear. Mild centrilobular emphysema. No pulmonary nodules. There is a 6 mm calcified granuloma in the right middle lobe. Heart: Heart size is normal. Mediastinal space: No abnormal uptake. Diaphragm: There is a small hiatal hernia. Liver: 10 hepatic metastases throughout the liver have increased in size, number and FDG avidity since the last CT on 09/27/2022. The largest metastasis, in hepatic segment 7, is 4.1 x 3.4 cm (previously 3.6 x 2.8 cm). Its SUVmax is 6.9 (image 82). A metastasis in hepatic segment 4b is 3.7 x 2.1 cm (previously 2.9 x 1.9 cm). Its SUVmax is 7.8 (image 90). A metastasis in the lateral aspect of hepatic segment 3 is 2.3 x 1.7 cm (previously 1.9 x 0.8 cm. Its SUVmax is 5.1 (image 88). Most of the hepatic metastases have increasing central calcifications due to tumor necrosis. Gallbladder and bile ducts: No abnormal uptake. Pancreas: No abnormal uptake. Spleen: No abnormal uptake. Adrenal glands: No abnormal uptake. Kidneys and ureters: Normal physiologic uptake. Stomach and bowel: Status post left hemicolectomy. The left lower quadrant ostomy is uncomplicated. Small-bowel obstruction has resolved since the last CT. Intraperitoneal and retroperitoneal spaces: No free air or free fluid in the abdomen or pelvis. Vasculature: There is severe calcific atherosclerosis of the abdominal aorta and iliac arteries. There is no aneurysm. Lymph nodes: No abnormal uptake. No lymphadenopathy in the head, neck, chest, abdomen, pelvis or extremities. Bones/joints: No osteolytic or osteoblastic bone lesions. Soft tissues: No metabolically active areas. Worsening cachexia. [facility] [id number] IMPRESSION: 1. 10 hepatic metastases throughout the liver have increased in size, number and FDG avidity since the last CT on 09/27/2022. See measurements above. 2. Status post left hemicolectomy. 3. The left lower quadrant ostomy is uncomplicated. 4. The small-bowel obstruction has resolved since the last CT.
== END 2022-11-27 05:39 | disposition home or self-care (01) ==
LOC: RAD 11-29 05:39
PROVIDERS: PCP Family Medicine; Visit Provider Internal Medicine Hematology & Oncology
DX: C18.9 Malignant neoplasm of colon, unspecified (principal)
CPT/HCPCS: 78815; A9552

== ENCOUNTER 2022-12-03 07:03 | Oncology outpatient (recurring) (ONCR) | payer BC, MEDICAID, SELFPAY ==
[2022-12-03 07:35] LABS: Basophils # 0.1 10^3/uL (0.0-0.1); Basophils % 0.5 %; Eosinophils # 0.1 10^3/uL (0.0-0.8); Eosinophils % 1.2 %; Hematocrit 41.8 % (37.0-47.0); Hemoglobin 13.5 g/dL (11.5-15.3); Lymphocytes # 2.1 10^3/uL (0.8-4.8); Lymphocytes % 22.2 %; Mean Corpuscular HGB Conc 32.3 g/dL (30.0-36.0); Mean Corpuscular Hemoglobin 29.6 pg (28.0-34.0); Mean Corpuscular Volume 91.7 fl (81-99); Mean Platelet Volume 9.2 fL (7.4-10.4); Monocytes # 0.7 10^3/uL (0.2-0.9); Monocytes % 7.1 %; Neutrophils # 6.33 10^3/uL (1.8-7.7); Neutrophils % 68.5 %; Nucleated Red Blood Cells % 0 %; Platelet Count 371 10^3/cmm (130-400); Red Blood Count 4.56 10^6/uL (4.1-5.3); Red Cell Distribution Width 13.6 % (12.1-15.1); White Blood Count 9.3 10^3/uL (4.0-10.0)
[2022-12-03 08:02] LABS: Carcinoembryonic Antigen 498.3 ng/mL (0.0-4.7)
[2022-12-03 08:13] LABS: Alanine Aminotransferase 25 U/L (0-33); Albumin Level 3.8 g/dL (3.5-5.2); Alkaline Phosphatase 144 U/L (35-105); Anion Gap 16.4 (5-19); Aspartate Amino Transferase 29 U/L (0-32); Blood Urea Nitrogen 9 mg/dL (6-20); Calcium 9.6 mg/dL (8.5-10.5); Carbon Dioxide 27 mmol/L (22-29); Chloride 97 mmol/L (98-107); Globulin 3.2 g/dL (1.3-4.6); Glomerular Filtration Rate 104.6 mL/min (90-130); Glucose 93 mg/dL (65-115); Osmolality Calculated 280 mOsm/kg (285-295); Potassium 4.4 mmol/L (3.5-5.1); Sodium 136 mmol/L (136-145); Total Bilirubin 0.4 mg/dL (0.15-1.2)
== END 2022-12-10 23:59 | disposition home or self-care (01) ==
PROVIDERS: PCP Family Medicine; Visit Provider Internal Medicine Hematology & Oncology
DX: C18.5 Malignant neoplasm of splenic flexure (principal); C78.7 Secondary malignant neoplasm of liver and intrahepatic bile duct
CPT/HCPCS: 36415; 80053; 82378; 85025

== ENCOUNTER 2022-12-29 12:00 | Oncology outpatient (recurring) (ONCR) | payer BC, MEDICAID, SELFPAY ==
[2022-12-13 08:29] VITALS: BP 115/83; PULSE 107; RESP 18; TEMP 36.6; O2SAT 99
[2022-12-13 08:32] LABS: Basophils % 0.5 %; Eosinophils # 0.1 10^3/uL (0.0-0.8); Hematocrit 42.8 % (37.0-47.0); Hemoglobin 13.8 g/dL (11.5-15.3); Lymphocytes # 2.1 10^3/uL (0.8-4.8); Lymphocytes % 26.1 %; Mean Corpuscular HGB Conc 32.2 g/dL (30.0-36.0); Mean Corpuscular Volume 89.9 fl (81-99); Monocytes # 0.5 10^3/uL (0.2-0.9); Neutrophils # 5.36 10^3/uL (1.8-7.7); Nucleated Red Blood Cells % 0 %; Platelet Count 407 10^3/cmm (130-400); Red Blood Count 4.76 10^6/uL (4.1-5.3); Red Cell Distribution Width 13.3 % (12.1-15.1); White Blood Count 8.1 10^3/uL (4.0-10.0)
[2022-12-13 09:17] LABS: Alanine Aminotransferase 24 U/L (0-33); Albumin Level 4.2 g/dL (3.5-5.2); Alkaline Phosphatase 156 U/L (35-105); Anion Gap 14.9 (5-19); Aspartate Amino Transferase 28 U/L (0-32); Blood Urea Nitrogen 11 mg/dL (6-20); Calcium 9.7 mg/dL (8.5-10.5); Carbon Dioxide 26 mmol/L (22-29); Carcinoembryonic Antigen 384.9 ng/mL (0.0-4.7); Chloride 95 mmol/L (98-107); Globulin 2.8 g/dL (1.3-4.6); Glomerular Filtration Rate 104.6 mL/min (90-130); Glucose 129 mg/dL (65-115); Immunoglobulin IGG 794 mg/dL (700-1600); Osmolality Calculated 275 mOsm/kg (285-295); Potassium 3.9 mmol/L (3.5-5.1); Sodium 132 mmol/L (136-145); Total Bilirubin 0.2 mg/dL (0.15-1.2)
[2022-12-13 09:51] LABS: Hepatitis A Antibody IgM Non-Reactive (Nonreactive); Hepatitis B Core AB, Total Non-Reactive (Nonreactive); Hepatitis B Surface Antigen Non-Reactive (Nonreactive); Hepatitis C Virus Antibody Non-Reactive (Nonreactive)
[2022-12-13 09:52] LABS: Hepatitis B Surface AB < 3.5 (11.5-1000)
[2022-12-13] MEDS: sodium chloride 0.9% 250 ML 75 ML IV (10:12)
[2022-12-13] MEDS: palonosetron 0.25 mg/5 mL SDV IVP (10:12)
[2022-12-13] MEDS: dextrose 5% 250 ML 75 ML IV (12:27)
[2022-12-13] MEDS: oxaliplatin 100 MG, oxaliplatin 30 MG in dextrose 5% 250 ML 69 MG IV (12:29)
[2022-12-13] MEDS: fluorouraciL 3,550 MG, elastomeric pump 1 PUMP in sodium chloride 0.9% (100 ml) 21 ML IV (15:44)
[2022-12-13 15:53] VITALS: BP 122/88; PULSE 83; RESP 18; TEMP 36.6; O2SAT 97
[2022-12-15 13:26] VITALS: BP 131/88; PULSE 97; RESP 18; TEMP 36.8; O2SAT 100
[2022-12-21 08:06] VITALS: BP 134/87; PULSE 96; RESP 16; TEMP 36.6; O2SAT 99
[2022-12-21 08:22] LABS: Basophils # 0.1 10^3/uL (0.0-0.1); Basophils % 0.8 %; Eosinophils # 0.2 10^3/uL (0.0-0.8); Eosinophils % 3.5 %; Hemoglobin 14.2 g/dL (11.5-15.3); Lymphocytes # 2.1 10^3/uL (0.8-4.8); Lymphocytes % 33.9 %; Mean Corpuscular Hemoglobin 29.6 pg (28.0-34.0); Mean Corpuscular Volume 89.8 fl (81-99); Mean Platelet Volume 9.3 fL (7.4-10.4); Monocytes # 0.4 10^3/uL (0.2-0.9); Monocytes % 5.8 %; Neutrophils # 3.48 10^3/uL (1.8-7.7); Neutrophils % 55.7 %; Nucleated Red Blood Cells % 0 %; Platelet Count 270 10^3/cmm (130-400); Red Blood Count 4.79 10^6/uL (4.1-5.3); Red Cell Distribution Width 13.1 % (12.1-15.1); White Blood Count 6.3 10^3/uL (4.0-10.0)
[2022-12-21 08:46] LABS: Alanine Aminotransferase 19 U/L (0-33); Albumin Level 4.2 g/dL (3.5-5.2); Alkaline Phosphatase 141 U/L (35-105); Anion Gap 15.2 (5-19); Aspartate Amino Transferase 27 U/L (0-32); Blood Urea Nitrogen 8 mg/dL (6-20); Calcium 9.4 mg/dL (8.5-10.5); Carbon Dioxide 26 mmol/L (22-29); Chloride 98 mmol/L (98-107); Globulin 2.8 g/dL (1.3-4.6); Glomerular Filtration Rate 129.1 mL/min (90-130); Glucose 124 mg/dL (65-115); Osmolality Calculated 280 mOsm/kg (285-295); Potassium 4.2 mmol/L (3.5-5.1); Sodium 135 mmol/L (136-145); Total Bilirubin 0.2 mg/dL (0.15-1.2)
[2022-12-27 08:23] LABS: Add Urine Microscopic? NO; Charge for UA Resulting for Rev
[2022-12-27 08:27] LABS: Basophils % 0.7 %; Eosinophils # 0.1 10^3/uL (0.0-0.8); Eosinophils % 1.5 %; Hematocrit 43.8 % (37.0-47.0); Hemoglobin 14.2 g/dL (11.5-15.3); Lymphocytes # 2.3 10^3/uL (0.8-4.8); Lymphocytes % 39.2 %; Mean Corpuscular HGB Conc 32.4 g/dL (30.0-36.0); Mean Corpuscular Hemoglobin 29.2 pg (28.0-34.0); Mean Corpuscular Volume 90.1 fl (81-99); Mean Platelet Volume 9.4 fL (7.4-10.4); Monocytes # 0.5 10^3/uL (0.2-0.9); Monocytes % 7.7 %; Neutrophils # 2.97 10^3/uL (1.8-7.7); Neutrophils % 50.7 %; Nucleated Red Blood Cells % 0 %; Platelet Count 236 10^3/cmm (130-400); Red Blood Count 4.86 10^6/uL (4.1-5.3); Red Cell Distribution Width 13.9 % (12.1-15.1); White Blood Count 5.9 10^3/uL (4.0-10.0)
[2022-12-27 08:30] LABS: Bilirubin Urine Neg (Negative); Blood Urine Neg (Negative); Glucose Urine UA Norm (Normal); Ketones Urine Negative (Negative); Leukocyte Esterase Urine Negative (Negative); Nitrate Urine Negative (Negative); Protein Urine Neg (Negative); Urine Appearance Clear (CLEAR); Urine Color Yellow (Yellow); Urobilinogen Urine Norm (Negative); pH Urine 7 (5-7)
[2022-12-27 08:31] VITALS: BMI 16.2
[2022-12-27 08:41] LABS: Alanine Aminotransferase 11 U/L (0-33); Albumin Level 4.4 g/dL (3.5-5.2); Alkaline Phosphatase 123 U/L (35-105); Anion Gap 17.3 (5-19); Aspartate Amino Transferase 23 U/L (0-32); Blood Urea Nitrogen 7 mg/dL (6-20); Calcium 9.5 mg/dL (8.5-10.5); Carbon Dioxide 25 mmol/L (22-29); Chloride 93 mmol/L (98-107); Creatinine Clr Calc Pharmacy 75.5591; Globulin 2.9 g/dL (1.3-4.6); Glomerular Filtration Rate 104.6 mL/min (90-130); Glucose 102 mg/dL (65-115); Osmolality Calculated 270 mOsm/kg (285-295); Potassium 4.3 mmol/L (3.5-5.1); Sodium 131 mmol/L (136-145); Total Bilirubin 0.2 mg/dL (0.15-1.2); Total Protein 7.3 g/dL (6.6-8.7)
[2022-12-27] MEDS: palonosetron 0.25 mg/5 mL SDV IVP (11:08)
[2022-12-27] MEDS: sodium chloride 0.9% 250 ML 100 ML IV (11:08)
[2022-12-27] MEDS: dextrose 5% 250 ML 100 ML IV (12:53)
[2022-12-27] MEDS: oxaliplatin 100 MG, oxaliplatin 30 MG in dextrose 5% 250 ML 69 MG IV (12:56)
[2022-12-27] MEDS: fluorouraciL 3,550 MG, elastomeric pump 1 PUMP in sodium chloride 0.9% (100 ml) 21 ML IV (15:44)
[2022-12-27 15:58] VITALS: BP 121/83; PULSE 76; TEMP 36.8; O2SAT 99
[2022-12-29 14:15] VITALS: BP 118/78; PULSE 84; RESP 18; TEMP 36.8; O2SAT 96
== END 2023-01-09 23:59 | disposition home or self-care (01) ==
PROVIDERS: Nurse Practitioner Family; PCP Family Medicine; Visit Provider Internal Medicine Hematology & Oncology
DX: C18.5 Malignant neoplasm of splenic flexure (principal); C78.7 Secondary malignant neoplasm of liver and intrahepatic bile duct
CPT/HCPCS: 80053; 81003; 82378; 82784; 85025; 86705; 86706; 86709; 86803; 87340; 96366; 96367; 96368; 96375; 96413; 96415; 96416; 96417; 96523; J0640; J1100; J2469; J7050; J7060; J9190; J9263; Q5107

== ENCOUNTER 2023-02-09 08:00 | Oncology outpatient (recurring) (ONCR) | payer BC, MEDICAID, SELFPAY ==
[2023-01-10 08:05] VITALS: BP 123/92; PULSE 112; RESP 18; TEMP 37.1; O2SAT 98
[2023-01-10 08:21] LABS: Add Urine Microscopic? NO; Charge for UA Resulting for Rev
[2023-01-10 08:24] LABS: Basophils % 0.6 %; Eosinophils # 0.1 10^3/uL (0.0-0.8); Eosinophils % 2.2 %; Hemoglobin 14.5 g/dL (11.5-15.3); Lymphocytes # 2.1 10^3/uL (0.8-4.8); Lymphocytes % 39.2 %; Mean Corpuscular Hemoglobin 29.3 pg (28.0-34.0); Mean Corpuscular Volume 88.9 fl (81-99); Mean Platelet Volume 9.2 fL (7.4-10.4); Monocytes # 0.7 10^3/uL (0.2-0.9); Neutrophils # 2.48 10^3/uL (1.8-7.7); Neutrophils % 45.8 %; Nucleated Red Blood Cells % 0 %; Platelet Count 179 10^3/cmm (130-400); Red Blood Count 4.95 10^6/uL (4.1-5.3); Red Cell Distribution Width 14.8 % (12.1-15.1); White Blood Count 5.4 10^3/uL (4.0-10.0)
[2023-01-10 08:48] LABS: Alanine Aminotransferase 29 U/L (0-33); Albumin Level 4.3 g/dL (3.5-5.2); Alkaline Phosphatase 112 U/L (35-105); Anion Gap 15.5 (5-19); Aspartate Amino Transferase 27 U/L (0-32); Blood Urea Nitrogen 9 mg/dL (6-20); Calcium 9.5 mg/dL (8.5-10.5); Carbon Dioxide 26 mmol/L (22-29); Chloride 99 mmol/L (98-107); Globulin 2.8 g/dL (1.3-4.6); Glomerular Filtration Rate 104.6 mL/min (90-130); Glucose 103 mg/dL (65-115); Osmolality Calculated 281 mOsm/kg (285-295); Potassium 4.5 mmol/L (3.5-5.1); Sodium 136 mmol/L (136-145); Total Bilirubin 0.2 mg/dL (0.15-1.2); Total Protein 7.1 g/dL (6.6-8.7)
[2023-01-10 09:03] LABS: Bilirubin Urine Neg (Negative); Blood Urine Neg (Negative); Glucose Urine UA Norm (Normal); Ketones Urine Negative (Negative); Leukocyte Esterase Urine Negative (Negative); Nitrate Urine Negative (Negative); Protein Urine Neg (Negative); Urine Appearance Clear (CLEAR); Urine Color Yellow (Yellow); Urobilinogen Urine Norm (Negative); pH Urine 7 (5-7)
[2023-01-10] MEDS: palonosetron 0.25 mg/5 mL SDV IVP (10:20)
[2023-01-10] MEDS: sodium chloride 0.9% 250 ML 75 ML IV (10:20)
[2023-01-10] MEDS: dextrose 5% 250 ML 75 ML IV (11:34)
[2023-01-10] MEDS: oxaliplatin 100 MG, oxaliplatin 30 MG in dextrose 5% 250 ML 69 MG IV (11:34)
[2023-01-10] MEDS: fluorouraciL 3,550 MG, elastomeric pump 1 PUMP in sodium chloride 0.9% (100 ml) 21 ML IV (14:21)
[2023-01-10 14:45] VITALS: BP 137/97; PULSE 80; RESP 18; TEMP 36.4; O2SAT 98
[2023-01-12 14:32] VITALS: BP 113/81; PULSE 76; RESP 16; TEMP 37.1; O2SAT 96
[2023-01-24 08:23] LABS: Basophils % 0.7 %; Eosinophils % 0.7 %; Hematocrit 42.8 % (37.0-47.0); Hemoglobin 14.2 g/dL (11.5-15.3); Lymphocytes # 1.8 10^3/uL (0.8-4.8); Lymphocytes % 33.7 %; Mean Corpuscular HGB Conc 33.2 g/dL (30.0-36.0); Mean Corpuscular Hemoglobin 29.8 pg (28.0-34.0); Mean Corpuscular Volume 89.9 fl (81-99); Mean Platelet Volume 9.4 fL (7.4-10.4); Monocytes # 0.8 10^3/uL (0.2-0.9); Monocytes % 14.2 %; Neutrophils % 50.3 %; Nucleated Red Blood Cells % 0 %; Platelet Count 150 10^3/cmm (130-400); Red Blood Count 4.76 10^6/uL (4.1-5.3); Red Cell Distribution Width 15.2 % (12.1-15.1); White Blood Count 5.4 10^3/uL (4.0-10.0)
[2023-01-24 08:58] LABS: Carcinoembryonic Antigen 183.3 ng/mL (0.0-4.7)
[2023-01-24 09:09] LABS: Alanine Aminotransferase 19 U/L (0-33); Albumin Level 4.2 g/dL (3.5-5.2); Alkaline Phosphatase 97 U/L (35-105); Anion Gap 15.3 (5-19); Aspartate Amino Transferase 23 U/L (0-32); Blood Urea Nitrogen 8 mg/dL (6-20); Carbon Dioxide 24 mmol/L (22-29); Chloride 95 mmol/L (98-107); Globulin 2.7 g/dL (1.3-4.6); Glomerular Filtration Rate 129.1 mL/min (90-130); Glucose 106 mg/dL (65-115); Osmolality Calculated 269 mOsm/kg (285-295); Potassium 4.3 mmol/L (3.5-5.1); Sodium 130 mmol/L (136-145); Total Bilirubin 0.2 mg/dL (0.15-1.2); Total Protein 6.9 g/dL (6.6-8.7)
[2023-01-24] MEDS: dextrose 5% 250 ML 75 ML IV (11:49)
[2023-01-24] MEDS: palonosetron 0.25 mg/5 mL SDV IVP (11:50)
[2023-01-24] MEDS: sodium chloride 0.9% (100 ml) 100 ML 75 ML (12:05)
[2023-01-24] MEDS: oxaliplatin 100 MG, oxaliplatin 30 MG in dextrose 5% 250 ML 69 MG IV (12:42)
[2023-01-24 16:15] VITALS: BP 163/94; PULSE 72; RESP 16; TEMP 36.4; O2SAT 99
[2023-01-24] MEDS: fluorouraciL 3,550 MG, elastomeric pump 1 PUMP in sodium chloride 0.9% (100 ml) 21 ML IV (16:15)
[2023-01-26 13:45] VITALS: BP 139/100; PULSE 108; RESP 18; TEMP 36.5; O2SAT 99
--- NOTE | 2023-01-31 10:05 | PC.NURSE ---
LE - 01/12/23 - 5fu pump completed over 46hours. removed, disposed and PAc flushed and deaccessed per protocol.
--- NOTE | 2023-01-31 10:07 | PC.NURSE ---
LE - 01/26/23 - 46 hour 5fu pump completed and disconnected. Patient PAC flushed and removed per protocol.
[2023-02-09 08:22] VITALS: BP 139/89; PULSE 100; RESP 18; TEMP 36.9; O2SAT 98
[2023-02-09 08:34] LABS: Eosinophils # 0.1 10^3/uL (0.0-0.8); Eosinophils % 2.4 %; Hematocrit 42.4 % (37.0-47.0); Hemoglobin 13.9 g/dL (11.5-15.3); Lymphocytes # 2.1 10^3/uL (0.8-4.8); Lymphocytes % 50.5 %; Mean Corpuscular HGB Conc 32.8 g/dL (30.0-36.0); Mean Corpuscular Hemoglobin 29.4 pg (28.0-34.0); Mean Corpuscular Volume 89.6 fl (81-99); Mean Platelet Volume 9.4 fL (7.4-10.4); Monocytes # 0.7 10^3/uL (0.2-0.9); Monocytes % 16.9 %; Neutrophils # 1.21 10^3/uL (1.8-7.7); Neutrophils % 28.7 %; Nucleated Red Blood Cells % 0 %; Platelet Count 143 10^3/cmm (130-400); Red Blood Count 4.73 10^6/uL (4.1-5.3); White Blood Count 4.2 10^3/uL (4.0-10.0)
[2023-02-09 08:52] LABS: Alanine Aminotransferase 62 U/L (0-33); Albumin Level 4.2 g/dL (3.5-5.2); Alkaline Phosphatase 115 U/L (35-105); Aspartate Amino Transferase 51 U/L (0-32); Blood Urea Nitrogen 8 mg/dL (6-20); Calcium 9.1 mg/dL (8.5-10.5); Carbon Dioxide 27 mmol/L (22-29); Chloride 100 mmol/L (98-107); Creatinine Clr Calc Pharmacy 76.3363; Globulin 2.7 g/dL (1.3-4.6); Glomerular Filtration Rate 104.6 mL/min (90-130); Glucose 95 mg/dL (65-115); Osmolality Calculated 280 mOsm/kg (285-295); Sodium 136 mmol/L (136-145); Total Bilirubin 0.2 mg/dL (0.15-1.2); Total Protein 6.9 g/dL (6.6-8.7)
[2023-02-09 09:00] LABS: Anion Gap 13.3 (5-19); Potassium 4.3 mmol/L (3.5-5.1)
[2023-02-09] MEDS: sodium chloride 0.9% 250 ML 75 ML IV (10:27)
[2023-02-09] MEDS: palonosetron 0.25 mg/5 mL SDV IVP (10:27)
[2023-02-09] MEDS: oxaliplatin 100 MG, oxaliplatin 30 MG in dextrose 5% 250 ML 69 MG IV (11:43)
[2023-02-09 14:34] VITALS: BP 158/94; PULSE 65; RESP 16; TEMP 36.4; O2SAT 98
[2023-02-09] MEDS: fluorouraciL 3,500 MG, elastomeric pump 1 PUMP in sodium chloride 0.9% (100 ml) 22 ML IV (14:47)
[2023-02-09 21:56] LABS: Carcinoembryonic Antigen 88.9 ng/mL (0.0-4.7)
== END 2023-02-09 23:59 | disposition home or self-care (01) ==
PROVIDERS: Nurse Practitioner Family; PCP Family Medicine; Visit Provider Internal Medicine Hematology & Oncology
DX: Z51.11 Encounter for antineoplastic chemotherapy (principal); C18.9 Malignant neoplasm of colon, unspecified
CPT/HCPCS: 80053; 81003; 82378; 85025; 96367; 96368; 96375; 96413; 96415; 96416; 96417; 96523; J0640; J1100; J2469; J7050; J7060; J9190; J9263; Q5107

== ENCOUNTER 2023-03-11 11:30 | Oncology outpatient (recurring) (ONCR) | payer BC, MEDICAID, SELFPAY ==
[2023-02-11 11:10] VITALS: BP 134/93; PULSE 79; TEMP 37.1; O2SAT 96
[2023-02-16 11:39] VITALS: BP 134/89; PULSE 87; RESP 16; TEMP 36.7; O2SAT 98
[2023-02-16 12:00] LABS: Basophils # 0.1 10^3/uL (0.0-0.1); Basophils % 1.1 %; Eosinophils # 0.1 10^3/uL (0.0-0.8); Eosinophils % 2.2 %; Hematocrit 39.4 % (37.0-47.0); Hemoglobin 13.3 g/dL (11.5-15.3); Lymphocytes # 2.2 10^3/uL (0.8-4.8); Lymphocytes % 48.1 %; Mean Corpuscular HGB Conc 33.8 g/dL (30.0-36.0); Mean Corpuscular Hemoglobin 30.2 pg (28.0-34.0); Mean Corpuscular Volume 89.3 fl (81-99); Mean Platelet Volume 9.6 fL (7.4-10.4); Monocytes # 0.4 10^3/uL (0.2-0.9); Monocytes % 8.5 %; Neutrophils # 1.75 10^3/uL (1.8-7.7); Nucleated Red Blood Cells % 0 %; Platelet Count 148 10^3/cmm (130-400); Red Blood Count 4.41 10^6/uL (4.1-5.3); Red Cell Distribution Width 16.2 % (12.1-15.1); White Blood Count 4.5 10^3/uL (4.0-10.0)
[2023-02-16 12:26] LABS: Carcinoembryonic Antigen 65.4 ng/mL (0.0-4.7)
[2023-02-16 12:38] LABS: Alanine Aminotransferase 60 U/L (0-33); Albumin Level 4.2 g/dL (3.5-5.2); Alkaline Phosphatase 111 U/L (35-105); Anion Gap 15.9 (5-19); Aspartate Amino Transferase 35 U/L (0-32); Blood Urea Nitrogen 7 mg/dL (6-20); Calcium 9.5 mg/dL (8.5-10.5); Carbon Dioxide 24 mmol/L (22-29); Chloride 98 mmol/L (98-107); Globulin 2.5 g/dL (1.3-4.6); Glomerular Filtration Rate 129.1 mL/min (90-130); Glucose 81 mg/dL (65-115); Osmolality Calculated 275 mOsm/kg (285-295); Potassium 3.9 mmol/L (3.5-5.1); Sodium 134 mmol/L (136-145); Total Bilirubin 0.4 mg/dL (0.15-1.2); Total Protein 6.7 g/dL (6.6-8.7)
[2023-02-23 08:11] VITALS: BP 142/94; PULSE 94; RESP 18; TEMP 36.7
[2023-02-23 08:22] LABS: Basophils % 0.6 %; Eosinophils # 0.1 10^3/uL (0.0-0.8); Eosinophils % 1.9 %; Hematocrit 40.3 % (37.0-47.0); Hemoglobin 13.1 g/dL (11.5-15.3); Lymphocytes # 1.9 10^3/uL (0.8-4.8); Lymphocytes % 41.2 %; Mean Corpuscular HGB Conc 32.5 g/dL (30.0-36.0); Mean Corpuscular Hemoglobin 29.5 pg (28.0-34.0); Mean Corpuscular Volume 90.8 fl (81-99); Mean Platelet Volume 9.8 fL (7.4-10.4); Monocytes # 0.6 10^3/uL (0.2-0.9); Monocytes % 12.6 %; Neutrophils # 2.03 10^3/uL (1.8-7.7); Neutrophils % 43.5 %; Nucleated Red Blood Cells % 0 %; Platelet Count 133 10^3/cmm (130-400); Red Blood Count 4.44 10^6/uL (4.1-5.3); Red Cell Distribution Width 17.3 % (12.1-15.1); White Blood Count 4.7 10^3/uL (4.0-10.0)
[2023-02-23 08:53] LABS: Alanine Aminotransferase 48 U/L (0-33); Albumin Level 4.3 g/dL (3.5-5.2); Alkaline Phosphatase 117 U/L (35-105); Anion Gap 14.4 (5-19); Aspartate Amino Transferase 40 U/L (0-32); Blood Urea Nitrogen 8 mg/dL (6-20); Calcium 8.9 mg/dL (8.5-10.5); Carbon Dioxide 25 mmol/L (22-29); Chloride 100 mmol/L (98-107); Creatinine Clr Calc Pharmacy 77.6458; Globulin 2.5 g/dL (1.3-4.6); Glomerular Filtration Rate 104.6 mL/min (90-130); Glucose 92 mg/dL (65-115); Osmolality Calculated 278 mOsm/kg (285-295); Potassium 4.4 mmol/L (3.5-5.1); Sodium 135 mmol/L (136-145); Total Bilirubin 0.2 mg/dL (0.15-1.2); Total Protein 6.8 g/dL (6.6-8.7)
[2023-02-23] MEDS: sodium chloride 0.9% 250 ML 75 ML IV (10:14)
[2023-02-23] MEDS: palonosetron 0.25 mg/5 mL SDV IVP (10:14)
[2023-02-23] MEDS: dextrose 5% 250 ML 75 ML IV (11:24)
[2023-02-23] MEDS: oxaliplatin 100 MG, oxaliplatin 30 MG in dextrose 5% 250 ML 69 MG IV (11:25)
[2023-02-23] MEDS: fluorouraciL 3,500 MG, elastomeric pump 1 PUMP in sodium chloride 0.9% (100 ml) 22 ML IV (14:32)
[2023-02-23 14:37] VITALS: BP 149/96; PULSE 64; RESP 16; TEMP 36.6; O2SAT 98
[2023-02-25 11:20] VITALS: BP 129/82; PULSE 82; RESP 16; TEMP 37.1; O2SAT 99
[2023-03-09 09:09] VITALS: BP 171/107; PULSE 118; RESP 18; TEMP 36.4; O2SAT 98
[2023-03-09 09:40] LABS: Basophils % 0.8 %; Eosinophils # 0.1 10^3/uL (0.0-0.8); Eosinophils % 1.6 %; Hematocrit 39.6 % (37.0-47.0); Hemoglobin 12.9 g/dL (11.5-15.3); Lymphocytes % 39.2 %; Mean Corpuscular HGB Conc 32.6 g/dL (30.0-36.0); Mean Corpuscular Hemoglobin 29.5 pg (28.0-34.0); Mean Corpuscular Volume 90.6 fl (81-99); Mean Platelet Volume 10.2 fL (7.4-10.4); Monocytes # 0.8 10^3/uL (0.2-0.9); Monocytes % 15.2 %; Neutrophils # 2.18 10^3/uL (1.8-7.7); Neutrophils % 42.8 %; Nucleated Red Blood Cells % 0 %; Platelet Count 128 10^3/cmm (130-400); Red Blood Count 4.37 10^6/uL (4.1-5.3); Red Cell Distribution Width 18.7 % (12.1-15.1); White Blood Count 5.1 10^3/uL (4.0-10.0)
[2023-03-09 09:44] LABS: Alanine Aminotransferase 50 U/L (0-33); Albumin Level 4.3 g/dL (3.5-5.2); Alkaline Phosphatase 139 U/L (35-105); Anion Gap 13.3 (5-19); Aspartate Amino Transferase 41 U/L (0-32); Blood Urea Nitrogen 8 mg/dL (6-20); Calcium 9.3 mg/dL (8.5-10.5); Carbon Dioxide 25 mmol/L (22-29); Chloride 98 mmol/L (98-107); Globulin 2.8 g/dL (1.3-4.6); Glomerular Filtration Rate 129.1 mL/min (90-130); Glucose 103 mg/dL (65-115); Osmolality Calculated 273 mOsm/kg (285-295); Potassium 4.3 mmol/L (3.5-5.1); Sodium 132 mmol/L (136-145); Total Bilirubin 0.3 mg/dL (0.15-1.2); Total Protein 7.1 g/dL (6.6-8.7)
[2023-03-09] MEDS: sodium chloride 0.9% 250 ML 100 ML IV (11:35)
[2023-03-09] MEDS: palonosetron 0.25 mg/5 mL SDV IVP (11:37)
[2023-03-09] MEDS: dextrose 5% 250 ML 100 ML IV (13:05)
[2023-03-09] MEDS: oxaliplatin 100 MG, oxaliplatin 30 MG in dextrose 5% 250 ML 69 MG IV (13:06)
[2023-03-09] MEDS: fluorouraciL 3,500 MG, elastomeric pump 1 PUMP in sodium chloride 0.9% (100 ml) 22 ML IV (15:53)
[2023-03-09 16:10] VITALS: BP 168/99; PULSE 86; TEMP 36.6; O2SAT 96
[2023-03-11 11:26] VITALS: BP 158/96; PULSE 85; RESP 16; TEMP 36.7; O2SAT 98
== END 2023-03-11 23:59 | disposition home or self-care (01) ==
PROVIDERS: Nurse Practitioner Family; PCP Family Medicine; Visit Provider Internal Medicine Hematology & Oncology
DX: C18.5 Malignant neoplasm of splenic flexure (principal); Z90.49 Acquired absence of other specified parts of digestive tract; C78.7 Secondary malignant neoplasm of liver and intrahepatic bile duct; C77.8 Secondary and unspecified malignant neoplasm of lymph nodes of multiple regions
CPT/HCPCS: 36591; 80053; 82378; 85025; 96367; 96368; 96375; 96413; 96415; 96416; 96417; 96523; J0640; J1100; J1642; J2469; J7050; J7060; J9190; J9263; Q5107

== ENCOUNTER 2023-03-24 09:44 | Outpatient (CLI) | payer BC, MEDICAID, SELFPAY ==
--- NOTE | 2023-03-24 09:51 | US_ITS ---
WS: [id number] Abdomen ultrasound, 03/24/2023 Clinical Data: elevated liver enzymes Comparison: CT abdomen pelvis, 09/27/2022. Findings: The pancreas shows no cyst, pseudocyst or evidence of pancreatitis. The liver shows multiple echogenic masses consistent with metastatic disease from colon cancer. The l argest mass measured 2.17 x 2.35 x 2.38 cm. The gallbladder has no stones or sludge. The wall measures 0.1 cm with no pericholecystic fluid. The common bile duct is 0.3 cm and no intraductal abnormalities are noted. The right kidney is 9.1 cm. No cysts, masses or hydronephrosis is seen. The left kidney is 9.5 cm. No cysts, masses or hydronephrosis is seen. The abdominal aorta is not dilated and the inferior vena cava has normal flow. No vascular abnormalit ies are seen. The spleen measures 8.1 cm and there are no intrasplenic masses or capsular abnormalities. US/US abdomen complete* [id number] Impression: Multiple echogenic masses in liver consistent with metastatic disease.
== END 2023-03-24 09:45 | disposition home or self-care (01) ==
PROVIDERS: PCP Family Medicine; Visit Provider Nurse Practitioner Family
DX: C18.9 Malignant neoplasm of colon, unspecified (principal); R74.8 Abnormal levels of other serum enzymes; R16.0 Hepatomegaly, not elsewhere classified
CPT/HCPCS: 76700

== ENCOUNTER 2023-04-06 08:30 | Oncology outpatient (recurring) (ONCR) | payer BC, MEDICAID, SELFPAY ==
[2023-03-23 08:03] VITALS: BP 153/97; PULSE 95; RESP 18; TEMP 36.3; O2SAT 99
[2023-03-23 08:15] LABS: Basophils % 0.6 %; Eosinophils # 0.1 10^3/uL (0.0-0.8); Eosinophils % 1.9 %; Hematocrit 40.2 % (37.0-47.0); Hemoglobin 13.2 g/dL (11.5-15.3); Lymphocytes # 1.7 10^3/uL (0.8-4.8); Lymphocytes % 26.9 %; Mean Corpuscular HGB Conc 32.8 g/dL (30.0-36.0); Mean Corpuscular Hemoglobin 30.4 pg (28.0-34.0); Mean Corpuscular Volume 92.6 fl (81-99); Mean Platelet Volume 10.3 fL (7.4-10.4); Monocytes # 0.9 10^3/uL (0.2-0.9); Neutrophils # 3.47 10^3/uL (1.8-7.7); Neutrophils % 55.3 %; Nucleated Red Blood Cells % 0 %; Platelet Count 134 10^3/cmm (130-400); Red Blood Count 4.34 10^6/uL (4.1-5.3); Red Cell Distribution Width 19.7 % (12.1-15.1); White Blood Count 6.3 10^3/uL (4.0-10.0)
[2023-03-23 08:44] LABS: Alanine Aminotransferase 91 U/L (0-33); Albumin Level 4.3 g/dL (3.5-5.2); Alkaline Phosphatase 156 U/L (35-105); Aspartate Amino Transferase 60 U/L (0-32); Blood Urea Nitrogen 9 mg/dL (6-20); Calcium 9.2 mg/dL (8.5-10.5); Carbon Dioxide 24 mmol/L (22-29); Chloride 99 mmol/L (98-107); Globulin 2.8 g/dL (1.3-4.6); Glomerular Filtration Rate 104.6 mL/min (90-130); Glucose 100 mg/dL (65-115); Osmolality Calculated 279 mOsm/kg (285-295); Sodium 135 mmol/L (136-145); Total Bilirubin 0.3 mg/dL (0.15-1.2); Total Protein 7.1 g/dL (6.6-8.7)
[2023-03-23 08:49] LABS: Anion Gap 16.5 (5-19); Potassium 4.5 mmol/L (3.5-5.1)
[2023-03-28 08:44] VITALS: BP 159/93; PULSE 68; RESP 18; TEMP 36.6; O2SAT 97
[2023-03-28 08:55] LABS: Basophils % 1.1 %; Eosinophils # 0.1 10^3/uL (0.0-0.8); Eosinophils % 1.9 %; Hematocrit 40.7 % (37.0-47.0); Hemoglobin 13.3 g/dL (11.5-15.3); Lymphocytes # 1.6 10^3/uL (0.8-4.8); Lymphocytes % 43.2 %; Mean Corpuscular HGB Conc 32.7 g/dL (30.0-36.0); Mean Corpuscular Hemoglobin 31.1 pg (28.0-34.0); Mean Corpuscular Volume 95.1 fl (81-99); Mean Platelet Volume 9.7 fL (7.4-10.4); Monocytes # 0.9 10^3/uL (0.2-0.9); Monocytes % 23.6 %; Neutrophils # 1.09 10^3/uL (1.8-7.7); Neutrophils % 29.1 %; Nucleated Red Blood Cells % 0 %; Platelet Count 164 10^3/cmm (130-400); Red Blood Count 4.28 10^6/uL (4.1-5.3); Red Cell Distribution Width 19.9 % (12.1-15.1); White Blood Count 3.7 10^3/uL (4.0-10.0)
[2023-03-28 09:16] LABS: Alanine Aminotransferase 144 U/L (0-33); Albumin Level 4.1 g/dL (3.5-5.2); Alkaline Phosphatase 166 U/L (35-105); Aspartate Amino Transferase 99 U/L (0-32); Blood Urea Nitrogen 8 mg/dL (6-20); Calcium 9.3 mg/dL (8.5-10.5); Carbon Dioxide 25 mmol/L (22-29); Chloride 98 mmol/L (98-107); Globulin 2.8 g/dL (1.3-4.6); Glomerular Filtration Rate 129.1 mL/min (90-130); Glucose 93 mg/dL (65-115); Osmolality Calculated 272 mOsm/kg (285-295); Sodium 132 mmol/L (136-145); Total Bilirubin 0.3 mg/dL (0.15-1.2); Total Protein 6.9 g/dL (6.6-8.7)
[2023-03-28 09:21] LABS: Anion Gap 13.3 (5-19); Potassium 4.3 mmol/L (3.5-5.1)
[2023-03-28 09:45] LABS: Carcinoembryonic Antigen 19.2 ng/mL (0.0-4.7)
[2023-03-28 11:35] VITALS: BP 140/92; PULSE 96; RESP 18; TEMP 36.6; O2SAT 97
[2023-03-28 12:22] LABS: Hepatitis A Antibody IgM Non-Reactive (Nonreactive); Hepatitis B Core AB, Total Non-Reactive (Nonreactive); Hepatitis B Surface Antigen Non-Reactive (Nonreactive); Hepatitis C Virus Antibody Non-Reactive (Nonreactive)
[2023-03-28 12:27] LABS: Hepatitis B Surface AB < 3.5 (11.5-1000)
[2023-04-04 07:35] VITALS: BMI 16.6
[2023-04-04 07:36] VITALS: BP 146/93; PULSE 100; RESP 18; TEMP 36.2; O2SAT 94
[2023-04-04 07:48] LABS: Basophils % 0.7 %; Eosinophils # 0.1 10^3/uL (0.0-0.8); Eosinophils % 1.9 %; Hematocrit 41.8 % (37.0-47.0); Hemoglobin 13.8 g/dL (11.5-15.3); Lymphocytes # 2.4 10^3/uL (0.8-4.8); Lymphocytes % 41.3 %; Mean Corpuscular Hemoglobin 30.9 pg (28.0-34.0); Mean Corpuscular Volume 93.7 fl (81-99); Mean Platelet Volume 9.1 fL (7.4-10.4); Monocytes # 0.9 10^3/uL (0.2-0.9); Neutrophils # 2.26 10^3/uL (1.8-7.7); Neutrophils % 39.5 %; Nucleated Red Blood Cells % 0 %; Platelet Count 177 10^3/cmm (130-400); Red Blood Count 4.46 10^6/uL (4.1-5.3); Red Cell Distribution Width 18.6 % (12.1-15.1); White Blood Count 5.7 10^3/uL (4.0-10.0)
[2023-04-04 08:39] LABS: Alanine Aminotransferase 198 U/L (0-33); Albumin Level 4.5 g/dL (3.5-5.2); Alkaline Phosphatase 182 U/L (35-105); Anion Gap 15.5 (5-19); Aspartate Amino Transferase 114 U/L (0-32); Blood Urea Nitrogen 8 mg/dL (6-20); Calcium 9.2 mg/dL (8.5-10.5); Carbon Dioxide 25 mmol/L (22-29); Chloride 92 mmol/L (98-107); Globulin 2.4 g/dL (1.3-4.6); Glomerular Filtration Rate 129.1 mL/min (90-130); Glucose 95 mg/dL (65-115); Osmolality Calculated 264 mOsm/kg (285-295); Potassium 4.5 mmol/L (3.5-5.1); Sodium 128 mmol/L (136-145); Total Bilirubin 0.4 mg/dL (0.15-1.2); Total Protein 6.9 g/dL (6.6-8.7)
[2023-04-06 08:34] VITALS: BMI 16.5
[2023-04-06 08:35] VITALS: BP 147/96; PULSE 93; RESP 18; TEMP 36.5; O2SAT 100
[2023-04-06 09:10] LABS: Alanine Aminotransferase 193 U/L (0-33); Albumin Level 4.4 g/dL (3.5-5.2); Alkaline Phosphatase 177 U/L (35-105); Anion Gap 15.6 (5-19); Aspartate Amino Transferase 114 U/L (0-32); Blood Urea Nitrogen 9 mg/dL (6-20); Calcium 9.3 mg/dL (8.5-10.5); Carbon Dioxide 24 mmol/L (22-29); Chloride 98 mmol/L (98-107); Globulin 2.5 g/dL (1.3-4.6); Glomerular Filtration Rate 129.1 mL/min (90-130); Glucose 106 mg/dL (65-115); Osmolality Calculated 275 mOsm/kg (285-295); Potassium 4.6 mmol/L (3.5-5.1); Sodium 133 mmol/L (136-145); Total Bilirubin 0.5 mg/dL (0.15-1.2); Total Protein 6.9 g/dL (6.6-8.7)
== END 2023-04-11 23:59 | disposition home or self-care (01) ==
PROVIDERS: Nurse Practitioner Family; PCP Family Medicine; Visit Provider Internal Medicine Hematology & Oncology
DX: C18.9 Malignant neoplasm of colon, unspecified (principal)
CPT/HCPCS: 80053; 82378; 85025; 86705; 86706; 86709; 86803; 87340; J1642

== ENCOUNTER 2023-04-09 05:48 | Outpatient (CLI) | payer BC, MEDICAID, SELFPAY ==
--- NOTE | 2023-04-09 10:30 | PETR_ITS ---
PROCEDURE INFORMATION: Exam: PET/CT Skull Base to Mid-thigh Exam date and time: 04/09/2023 11:24 AM Age: 52 years old Clinical indication: Condition or disease; Primary cancer: Malignant neoplasm of colon; Additional info: Restaging LABS AND CLINICAL REPORTS: Glucose: 90 mg/dl Treatment strategy for malignancy (PET staging): Restaging (PS) TECHNIQUE: Imaging protocol: Following at least four-hour fasting and following the injection of radiopharmaceutical, low dose CT images were obtained. Then, PET images were obtained. Attenuation corrected images were constructed using the CT scan. Fused images of PET and CT were reviewed. The standardized uptake values (SUV) reported below are maximum values within a region of interest, expressed in gm/ml. Exam includes orbital meatal line to mid-thigh. Radiopharmaceutical: 11.66 mCi F-18 FDG (Fluorodeoxyglucose), IV. Time of imaging post radiopharmaceutical administration: 1 hour Injection site: Right antecubital COMPARISON: PET [facility] INITIAL [id number] 11/27/2022 9:30 AM FINDINGS: Tubes, catheters and devices: A left subclavian central venous port catheter terminates in the distal SVC. Brain: Visualized brain has normal physiologic uptake. Pharynx: No abnormal uptake. Larynx: No abnormal uptake. Lungs, pleura and trachea: No abnormal uptake. A right middle lobe calcified granuloma is noted. Mild bilateral centrilobular emphysematous changes. Heart: Normal physiologic uptake. Mediastinal space: No abnormal uptake. Liver: No abnormal uptake. There are approximately 10 rounded an ovoid calcified lesions throughout the liver corresponding to the previously noted radiotracer avid lesions on the prior PET-CT. Currently, these lesions demonstrate significantly decreased uptake. For example, a previously noted posterosuperior right liver lobe lesion currently demonstrates an SUV max 2.8 on series 3, image 83 in a region measuring approximately 1.9 cm in diameter (previous SUV max 6.9 in a region measuring approximately 4.8 x 3.6 cm). The greatest uptake is in the medial superior right liver lobe on series 3, image 81 demonstrates an SUV max 3.1 in a region measuring approximately 1.3 cm in diameter (previous SUV max 4.5 in a region measuring approximately 1.8 cm in diameter. No new radiotracer avid liver lesions are identified compared with the prior PET-CT. Gallbladder and bile ducts: No abnormal uptake. Pancreas: No abnormal uptake. Spleen: No abnormal uptake. Adrenal glands: Non radiotracer avid similar mild thickening of the bilateral adrenal glands is noted without elevated uptake. Kidneys and ureters: Normal physiologic uptake. Stomach and bowel: A colostomy site in the left lower quadrant is noted. Vasculature: No abnormal uptake. There are diffuse atherosclerotic changes, including within the coronary arteries. Lymph nodes: No abnormal uptake. No lymphadenopathy in the head, neck, chest, abdomen, pelvis, and extremities. Bones/joints: No abnormal uptake in the visualized axial and appendicular skeleton. There is mild diffuse vertebral body spondylosis. Non radiotracer avid approximately 5 mm diameter sclerotic densities in the right femoral head and the anterior right acetabulum are noted, compatible with benign bone islands. Soft tissues: No abnormal uptake in the visualized head, neck, chest, abdomen, pelvis, and extremities. METRICS: Mediastinal blood pool: SUV max 1.6 Liver uptake: SUV max 2.4 PET/PET [facility] SUBSEQ [id number] IMPRESSION: 1. Interval decrease in size of numerous partially calcified metastatic lesions in the liver, with significant interval decrease in uptake consistent with an interval response to therapy. Residual mild uptake may represent post treatment inflammatory changes or residual neoplastic involvement. 2. Additional nonurgent findings as detailed above.
== END 2023-04-09 05:49 | disposition home or self-care (01) ==
LOC: RAD 04-11 05:50
PROVIDERS: PCP Family Medicine; Visit Provider Nurse Practitioner Family
DX: C18.9 Malignant neoplasm of colon, unspecified (principal)
CPT/HCPCS: 78815; A9552

== ENCOUNTER 2023-05-06 11:00 | Oncology outpatient (recurring) (ONCR) | payer BC, MEDICAID, SELFPAY ==
[2023-04-13 08:32] VITALS: BMI 16.8
[2023-04-13 08:33] VITALS: BP 150/98; PULSE 98; RESP 17; TEMP 36.2; O2SAT 97
[2023-04-13 08:51] LABS: Basophils # 0.1 10^3/uL (0.0-0.1); Basophils % 0.7 %; Eosinophils # 0.1 10^3/uL (0.0-0.8); Eosinophils % 1.9 %; Hematocrit 42.1 % (37.0-47.0); Hemoglobin 13.9 g/dL (11.5-15.3); Lymphocytes # 2.3 10^3/uL (0.8-4.8); Lymphocytes % 33.4 %; Mean Corpuscular Hemoglobin 31.7 pg (28.0-34.0); Mean Corpuscular Volume 96.1 fl (81-99); Mean Platelet Volume 9.9 fL (7.4-10.4); Monocytes # 0.7 10^3/uL (0.2-0.9); Monocytes % 10.5 %; Neutrophils # 3.52 10^3/uL (1.8-7.7); Neutrophils % 52.3 %; Nucleated Red Blood Cells % 0 %; Platelet Count 215 10^3/cmm (130-400); Red Blood Count 4.38 10^6/uL (4.1-5.3); Red Cell Distribution Width 17.6 % (12.1-15.1); White Blood Count 6.7 10^3/uL (4.0-10.0)
[2023-04-13 09:19] LABS: Alanine Aminotransferase 122 U/L (0-33); Albumin Level 4.6 g/dL (3.5-5.2); Alkaline Phosphatase 173 U/L (35-105); Anion Gap 14.8 (5-19); Aspartate Amino Transferase 64 U/L (0-32); Blood Urea Nitrogen 13 mg/dL (6-20); Calcium 9.8 mg/dL (8.5-10.5); Carbon Dioxide 27 mmol/L (22-29); Chloride 96 mmol/L (98-107); Globulin 2.6 g/dL (1.3-4.6); Glomerular Filtration Rate 104.6 mL/min (90-130); Glucose 97 mg/dL (65-115); Osmolality Calculated 276 mOsm/kg (285-295); Potassium 4.8 mmol/L (3.5-5.1); Sodium 133 mmol/L (136-145); Total Bilirubin 0.4 mg/dL (0.15-1.2); Total Protein 7.2 g/dL (6.6-8.7)
[2023-04-13] MEDS: palonosetron 0.25 mg/5 mL SDV IVP (10:24)
[2023-04-13] MEDS: sodium chloride 0.9% 250 ML 75 ML IV (10:24)
[2023-04-13] MEDS: dextrose 5% 250 ML 75 ML IV (11:45)
[2023-04-13 15:01] VITALS: BP 145/93; PULSE 71; RESP 16; TEMP 36.2; O2SAT 100
[2023-04-13] MEDS: fluorouraciL 3,500 MG, elastomeric pump 1 PUMP in sodium chloride 0.9% (100 ml) 22 ML IV (15:02)
[2023-04-15 08:32] VITALS: BP 111/75; PULSE 76; RESP 17; TEMP 36.6; O2SAT 95
[2023-04-27 07:49] VITALS: BMI 17.1
[2023-04-27 07:50] VITALS: BP 152/92; PULSE 90; RESP 18; TEMP 36; O2SAT 100
[2023-04-27 08:01] LABS: Basophils # 0.1 10^3/uL (0.0-0.1); Basophils % 0.8 %; Eosinophils # 0.3 10^3/uL (0.0-0.8); Eosinophils % 3.5 %; Hematocrit 39.1 % (37.0-47.0); Hemoglobin 12.8 g/dL (11.5-15.3); Lymphocytes # 2.4 10^3/uL (0.8-4.8); Lymphocytes % 32.7 %; Mean Corpuscular HGB Conc 32.7 g/dL (30.0-36.0); Mean Corpuscular Hemoglobin 31.9 pg (28.0-34.0); Mean Corpuscular Volume 97.5 fl (81-99); Monocytes # 0.8 10^3/uL (0.2-0.9); Monocytes % 11.4 %; Neutrophils # 3.69 10^3/uL (1.8-7.7); Neutrophils % 51.3 %; Nucleated Red Blood Cells % 0 %; Platelet Count 216 10^3/cmm (130-400); Red Blood Count 4.01 10^6/uL (4.1-5.3); Red Cell Distribution Width 15.9 % (12.1-15.1); White Blood Count 7.2 10^3/uL (4.0-10.0)
[2023-04-27 08:23] LABS: Alanine Aminotransferase 128 U/L (0-33); Albumin Level 4.1 g/dL (3.5-5.2); Alkaline Phosphatase 197 U/L (35-105); Anion Gap 15.4 (5-19); Aspartate Amino Transferase 75 U/L (0-32); Blood Urea Nitrogen 9 mg/dL (6-20); Calcium 9.2 mg/dL (8.5-10.5); Carbon Dioxide 26 mmol/L (22-29); Chloride 96 mmol/L (98-107); Globulin 2.8 g/dL (1.3-4.6); Glomerular Filtration Rate 104.6 mL/min (90-130); Glucose 113 mg/dL (65-115); Osmolality Calculated 275 mOsm/kg (285-295); Potassium 4.4 mmol/L (3.5-5.1); Sodium 133 mmol/L (136-145); Total Bilirubin 0.3 mg/dL (0.15-1.2); Total Protein 6.9 g/dL (6.6-8.7)
[2023-05-04 08:34] VITALS: BP 145/83; PULSE 82; RESP 17; TEMP 36.2; O2SAT 97; BMI 17.3
[2023-05-04 08:45] LABS: Basophils # 0.1 10^3/uL (0.0-0.1); Basophils % 1.1 %; Eosinophils # 0.1 10^3/uL (0.0-0.8); Eosinophils % 2.5 %; Hematocrit 40.8 % (36-47); Lymphocytes # 1.9 10^3/uL (0.8-4.8); Lymphocytes % 43.7 %; Mean Corpuscular HGB Conc 32.8 g/dL (30-55); Mean Corpuscular Hemoglobin 31.9 pg (27-33); Mean Corpuscular Volume 97.1 fl (85-98); Mean Platelet Volume 8.9 fL (7.4-10.4); Monocytes # 0.6 10^3/uL (0.2-0.9); Monocytes % 14.5 %; Neutrophils # 1.59 10^3/uL (1.8-7.7); Neutrophils % 36.6 %; Nucleated Red Blood Cells % 0 %; Platelet Count 267 10^3/cmm (157-399); Red Cell Distribution Width 15.5 % (12.1-15.1); White Blood Count 4.35 10^3/uL (3.29-11.43)
[2023-05-04 08:57] LABS: Alanine Aminotransferase 58 U/L (0-33); Albumin Level 4.4 g/dL (3.5-5.2); Alkaline Phosphatase 197 U/L (35-105); Anion Gap 13.7 (5-19); Aspartate Amino Transferase 35 U/L (0-32); Blood Urea Nitrogen 9 mg/dL (6-20); Calcium 9.4 mg/dL (8.5-10.5); Carbon Dioxide 28 mmol/L (22-29); Chloride 98 mmol/L (98-107); Creatinine Clr Calc Pharmacy 96.9033; Globulin 2.8 g/dL (1.3-4.6); Glomerular Filtration Rate 129.1 mL/min (90-130); Glucose 90 mg/dL (65-115); Osmolality Calculated 278 mOsm/kg (285-295); Potassium 4.7 mmol/L (3.5-5.1); Sodium 135 mmol/L (136-145); Total Bilirubin 0.3 mg/dL (0.15-1.2); Total Protein 7.2 g/dL (6.6-8.7)
[2023-05-04] MEDS: sodium chloride 0.9% 250 ML 75 ML IV (10:36)
[2023-05-04] MEDS: palonosetron 0.25 mg/5 mL SDV IVP (10:38)
[2023-05-04] MEDS: dextrose 5% 250 ML 75 ML IV (11:54)
[2023-05-04] MEDS: fluorouraciL 2,850 MG, elastomeric pump 1 PUMP in sodium chloride 0.9% (100 ml) 35 ML IV (14:02)
[2023-05-06 10:48] VITALS: BP 136/78; PULSE 87; RESP 16; TEMP 36.8; O2SAT 98
== END 2023-05-12 23:59 | disposition home or self-care (01) ==
PROVIDERS: Internal Medicine Medical Oncology; PCP Family Medicine; Visit Provider Internal Medicine Medical Oncology
DX: Z45.2 Encounter for adjustment and management of vascular access device (principal)
CPT/HCPCS: 80053; 85025; 96367; 96368; 96375; 96413; 96415; 96416; 96417; 96523; J0640; J1100; J1642; J2469; J7050; J7060; J9190; J9263; Q5107

== ENCOUNTER 2023-06-03 11:00 | Oncology outpatient (recurring) (ONCR) | payer BC, MEDICAID, SELFPAY ==
[2023-05-18 08:25] VITALS: BP 153/100; PULSE 83; RESP 16; TEMP 36.4; O2SAT 99; BMI 17.3
[2023-05-18 08:42] LABS: Basophils # 0.1 10^3/uL (0.0-0.1); Basophils % 0.9 %; Eosinophils # 0.1 10^3/uL (0.0-0.8); Eosinophils % 2.2 %; Hematocrit 42.6 % (36-47); Lymphocytes # 2.4 10^3/uL (0.8-4.8); Lymphocytes % 40.6 %; Mean Corpuscular HGB Conc 33.3 g/dL (30-55); Mean Corpuscular Hemoglobin 32.5 pg (27-33); Mean Corpuscular Volume 97.5 fl (85-98); Mean Platelet Volume 9.4 fL (7.4-10.4); Monocytes # 0.8 10^3/uL (0.2-0.9); Neutrophils # 2.52 10^3/uL (1.8-7.7); Nucleated Red Blood Cells % 0 %; Platelet Count 167 10^3/cmm (157-399); Red Blood Count 4.37 10^6/uL (3.85-5.65); Red Cell Distribution Width 15.1 % (12.1-15.1); White Blood Count 5.86 10^3/uL (3.29-11.43)
[2023-05-18 09:05] LABS: Carcinoembryonic Antigen 18.8 ng/mL (0.0-4.7)
[2023-05-18 09:16] LABS: Alanine Aminotransferase 59 U/L (0-33); Albumin Level 4.6 g/dL (3.5-5.2); Alkaline Phosphatase 143 U/L (35-105); Blood Urea Nitrogen 10 mg/dL (6-20); Calcium 9.6 mg/dL (8.5-10.5); Carbon Dioxide 26 mmol/L (22-29); Chloride 97 mmol/L (98-107); Creatinine Clr Calc Pharmacy 96.9033; Globulin 2.6 g/dL (1.3-4.6); Glomerular Filtration Rate 129.1 mL/min (90-130); Glucose 93 mg/dL (65-115); Osmolality Calculated 275 mOsm/kg (285-295); Sodium 133 mmol/L (136-145); Total Bilirubin 0.3 mg/dL (0.15-1.2); Total Protein 7.2 g/dL (6.6-8.7)
[2023-05-18 09:20] LABS: Anion Gap 14.8 (5-19); Aspartate Amino Transferase 57 U/L (0-32); Potassium 4.8 mmol/L (3.5-5.1)
[2023-05-18] MEDS: sodium chloride 0.9% 250 ML 75 ML IV (11:02)
[2023-05-18] MEDS: palonosetron 0.25 mg/5 mL SDV IVP (11:31)
[2023-05-18] MEDS: dextrose 5% 250 ML 50 ML IV (12:40)
[2023-05-18 15:27] VITALS: BP 150/91; PULSE 71; RESP 18; TEMP 36.6; O2SAT 98
[2023-05-18] MEDS: fluorouraciL 2,850 MG, elastomeric pump 1 PUMP in sodium chloride 0.9% (100 ml) 35 ML IV (15:29)
[2023-05-20 11:07] VITALS: BP 114/81; PULSE 101; RESP 17; TEMP 36.6; O2SAT 96; O2SAT 97; BMI 17.1
[2023-06-01 08:18] VITALS: BP 137/84; PULSE 77; TEMP 36.5; O2SAT 99
[2023-06-01 08:18] LABS: Basophils # 0.1 10^3/uL (0.0-0.1); Basophils % 0.8 %; Eosinophils # 0.2 10^3/uL (0.0-0.8); Eosinophils % 2.6 %; Hematocrit 42.3 % (36-47); Lymphocytes % 32.8 %; Mean Corpuscular HGB Conc 33.3 g/dL (30-55); Mean Corpuscular Hemoglobin 32.3 pg (27-33); Mean Corpuscular Volume 96.8 fl (85-98); Mean Platelet Volume 9.2 fL (7.4-10.4); Monocytes # 0.8 10^3/uL (0.2-0.9); Monocytes % 12.9 %; Neutrophils # 3.11 10^3/uL (1.8-7.7); Neutrophils % 50.4 %; Nucleated Red Blood Cells % 0 %; Platelet Count 168 10^3/cmm (157-399); Red Blood Count 4.37 10^6/uL (3.85-5.65); White Blood Count 6.18 10^3/uL (3.29-11.43)
[2023-06-01 08:49] LABS: Alanine Aminotransferase 163 U/L (0-33); Albumin Level 4.6 g/dL (3.5-5.2); Alkaline Phosphatase 154 U/L (35-105); Anion Gap 13.4 (5-19); Aspartate Amino Transferase 136 U/L (0-32); Blood Urea Nitrogen 11 mg/dL (6-20); Calcium 9.4 mg/dL (8.5-10.5); Carbon Dioxide 27 mmol/L (22-29); Chloride 96 mmol/L (98-107); Globulin 2.5 g/dL (1.3-4.6); Glomerular Filtration Rate 104.6 mL/min (90-130); Glucose 91 mg/dL (65-115); Osmolality Calculated 273 mOsm/kg (285-295); Potassium 4.4 mmol/L (3.5-5.1); Sodium 132 mmol/L (136-145); Total Bilirubin 0.2 mg/dL (0.15-1.2); Total Protein 7.1 g/dL (6.6-8.7)
[2023-06-01] MEDS: sodium chloride 0.9% 250 ML 75 ML IV (10:19)
[2023-06-01] MEDS: palonosetron 0.25 mg/5 mL SDV IVP (10:24)
[2023-06-01] MEDS: dextrose 5% 250 ML 75 ML IV (11:58)
[2023-06-01] MEDS: leucovorin 610 MG in dextrose 5% 250 ML 62.5 MG IV (11:58)
[2023-06-01] MEDS: FLUOROURACIL IV (14:09)
[2023-06-01] MEDS: ELASTOMERIC PUMP PUMP IV (14:09)
[2023-06-01] MEDS: SODIUM CHLORIDE IV (14:09)
== END 2023-06-11 23:59 | disposition home or self-care (01) ==
PROVIDERS: PCP Family Medicine; Visit Provider Internal Medicine Medical Oncology
DX: Z45.2 Encounter for adjustment and management of vascular access device (principal)
CPT/HCPCS: 80053; 82378; 85025; 96365; 96367; 96368; 96375; 96413; 96415; 96416; 96417; 96523; J0640; J1100; J1642; J2469; J7050; J7060; J9190; J9263; Q5107

== ENCOUNTER 2023-07-01 07:38 | Outpatient (CLI) | payer BC, MEDICAID, SELFPAY ==
[2023-07-01] MEDS: iohexol 350 mg/mL 500 mL Btl (per mL) PO (08:28)
[2023-07-01] MEDS: iohexol 350 mg/mL 500 mL Btl (per mL) IV (08:28)
--- NOTE | 2023-07-01 09:00 | CT_ITS ---
WS: [id number] CT CHEST, ABDOMEN, AND PELVIS TECHNIQUE: Contrast-enhanced CT of the chest, abdomen, and pelvis with coronal and sagittal reformatt ed images. CLINICAL INFORMATION: restaging COMPARISON: PET/CT 04/09/[address] 09/27/2022 DLP: 529.[address] scans at [facility] use at least one of these dose optimization techniques: automated e xposure control; mA and/or kV adjustment per patient size (includes targeted exams where dose is matc hed to clinical indication); or iterative reconstruction. CT CHEST: Mild chronic emphysematous changes. No acute pulmonary infiltrates. No focal pneumonia or pleural flu id. Calcified granuloma RIGHT middle lobe. Normal caliber thoracic aorta. Proximal main pulmonary art eries are normal caliber. No mediastinal or hilar lymphadenopathy. No axillary lymphadenopathy. CT ABDOMEN AND PELVIS: Multiple calcified previously treated hepatic metastasis appear improved nikunj red to 09/27/2022 and unchanged compared to the recent PET/CT. No evidence of progressive metastatic d isease in the liver. Mild diffuse fatty infiltration of the liver. Normal portal vein and splenic vei n. Normal spleen. Normal GE junction. Fat-containing umbilical hernia. Adrenal glands are normal. Normal renal parenchymal enhancement. No hydronephrosis. Normal caliber abdominal aorta. No abdominal or pelvic lymphadenopathy. No inguinal lymphadenopathy. Disc space narrowing worse at L5 -S1 with vacuum disc phenomenon. Prior postoperative changes LEFT colectomy. Colostomy LEFT lower quadrant appears patent. No evidence of bowel obstruction. IMPRESSION: 1. No evidence of progressive metastatic disease in the chest. 2. Multiple previously treated and calcified hepatic lesions are unchanged in appearance since the r ecent PET/CT and improved in appearance since 09/27/2022 contrast-enhanced CT. No new or progressed le sions. 3. Diffuse fatty filtration of the liver. 4. Normal portal vein and splenic vein. 5. Normal renal parenchymal enhancement. No hydronephrosis. 6. No adenopathy in the abdomen or pelvis. 7. Prior postoperative changes of LEFT colectomy. Colostomy LEFT lower quadrant appears patent. No e vidence of bowel obstruction 8. No other significant changes.
== END 2023-07-01 07:39 | disposition home or self-care (01) ==
LOC: RAD 07:39
PROVIDERS: PCP Family Medicine; Visit Provider Nurse Practitioner Family
DX: C18.9 Malignant neoplasm of colon, unspecified (principal); K76.0 Fatty (change of) liver, not elsewhere classified
CPT/HCPCS: 71260; 74177; Q9967

== ENCOUNTER 2023-07-07 09:30 | Oncology outpatient (recurring) (ONCR) | payer BC, MEDICAID, SELFPAY ==
[2023-06-15 07:59] VITALS: BP 137/94; PULSE 97; RESP 16; TEMP 36.6; O2SAT 97
[2023-06-15 08:13] LABS: Basophils % 0.7 %; Eosinophils # 0.2 10^3/uL (0.0-0.8); Eosinophils % 3.5 %; Hematocrit 45.1 % (36-47); Lymphocytes # 2.1 10^3/uL (0.8-4.8); Lymphocytes % 39.3 %; Mean Corpuscular Hemoglobin 31.9 pg (27-33); Mean Corpuscular Volume 96.6 fl (85-98); Monocytes # 0.8 10^3/uL (0.2-0.9); Monocytes % 15.1 %; Neutrophils # 2.22 10^3/uL (1.8-7.7); Nucleated Red Blood Cells % 0 %; Platelet Count 188 10^3/cmm (157-399); Red Blood Count 4.67 10^6/uL (3.85-5.65); Red Cell Distribution Width 15.3 % (12.1-15.1); White Blood Count 5.42 10^3/uL (3.29-11.43)
[2023-06-15 08:41] LABS: Carcinoembryonic Antigen 20.5 ng/mL (0.0-4.7)
[2023-06-15 08:53] LABS: Alanine Aminotransferase 115 U/L (0-33); Albumin Level 4.4 g/dL (3.5-5.2); Alkaline Phosphatase 208 U/L (35-105); Anion Gap 16.4 (5-19); Aspartate Amino Transferase 74 U/L (0-32); Blood Urea Nitrogen 9 mg/dL (6-20); Calcium 9.6 mg/dL (8.5-10.5); Carbon Dioxide 25 mmol/L (22-29); Chloride 97 mmol/L (98-107); Globulin 2.8 g/dL (1.3-4.6); Glomerular Filtration Rate 104.6 mL/min (90-130); Glucose 92 mg/dL (65-115); Osmolality Calculated 276 mOsm/kg (285-295); Potassium 4.4 mmol/L (3.5-5.1); Sodium 134 mmol/L (136-145); Total Bilirubin 0.3 mg/dL (0.15-1.2); Total Protein 7.2 g/dL (6.6-8.7)
[2023-06-15] MEDS: palonosetron 0.25 mg/5 mL SDV IVP (10:58)
[2023-06-15] MEDS: sodium chloride 0.9% 250 ML 75 ML IV (10:58)
[2023-06-15 12:55] VITALS: BP 140/86; PULSE 89; RESP 18; TEMP 36.7; O2SAT 96
[2023-06-15 13:00] VITALS: BP 140/86; PULSE 69; RESP 18; TEMP 36.7; O2SAT 98
[2023-06-17 10:48] VITALS: BP 156/94; PULSE 77; TEMP 36.6; O2SAT 97
[2023-07-07 09:42] VITALS: BP 144/99; PULSE 106; RESP 17; TEMP 37.2; O2SAT 96
[2023-07-07 09:59] LABS: Basophils % 0.5 %; Eosinophils # 0.1 10^3/uL (0.0-0.8); Eosinophils % 1.3 %; Hematocrit 44.2 % (36-47); Lymphocytes # 1.9 10^3/uL (0.8-4.8); Lymphocytes % 24.4 %; Mean Corpuscular HGB Conc 33.7 g/dL (30-55); Mean Corpuscular Volume 94.8 fl (85-98); Mean Platelet Volume 9.3 fL (7.4-10.4); Monocytes # 1.3 10^3/uL (0.2-0.9); Neutrophils # 4.34 10^3/uL (1.8-7.7); Neutrophils % 56.2 %; Nucleated Red Blood Cells % 0 %; Platelet Count 194 10^3/cmm (157-399); Red Blood Count 4.66 10^6/uL (3.85-5.65); Red Cell Distribution Width 15.1 % (12.1-15.1); White Blood Count 7.72 10^3/uL (3.29-11.43)
[2023-07-07 10:16] LABS: Alanine Aminotransferase 64 U/L (0-33); Albumin Level 4.7 g/dL (3.5-5.2); Alkaline Phosphatase 159 U/L (35-105); Anion Gap 14.1 (5-19); Aspartate Amino Transferase 46 U/L (0-32); Blood Urea Nitrogen 9 mg/dL (6-20); Calcium 9.8 mg/dL (8.5-10.5); Carbon Dioxide 26 mmol/L (22-29); Chloride 96 mmol/L (98-107); Globulin 2.8 g/dL (1.3-4.6); Glomerular Filtration Rate 104.6 mL/min (90-130); Glucose 116 mg/dL (65-115); Osmolality Calculated 274 mOsm/kg (285-295); Potassium 4.1 mmol/L (3.5-5.1); Sodium 132 mmol/L (136-145); Total Bilirubin 0.6 mg/dL (0.15-1.2); Total Protein 7.5 g/dL (6.6-8.7)
== END 2023-07-12 23:59 | disposition home or self-care (01) ==
PROVIDERS: PCP Family Medicine; Visit Provider Internal Medicine Medical Oncology
DX: C18.9 Malignant neoplasm of colon, unspecified (principal)
CPT/HCPCS: 36591; 80053; 82378; 85025; 96367; 96375; 96413; 96416; 96417; 96523; J0640; J1100; J1642; J2469; J7050; J7060; J9190; Q5107

== ENCOUNTER 2023-08-01 07:45 | Oncology outpatient (recurring) (ONCR) | payer BC, MEDICAID, SELFPAY ==
[2023-07-18 10:05] VITALS: BP 133/94; PULSE 89; TEMP 36.9; O2SAT 98
[2023-07-18 10:16] LABS: Basophils # 0.1 10^3/uL (0.0-0.1); Basophils % 0.8 %; Eosinophils # 0.1 10^3/uL (0.0-0.8); Eosinophils % 1.6 %; Hematocrit 45.8 % (36-47); Lymphocytes % 34.2 %; Mean Corpuscular HGB Conc 33.6 g/dL (30-55); Mean Corpuscular Hemoglobin 31.8 pg (27-33); Mean Corpuscular Volume 94.4 fl (85-98); Monocytes # 0.8 10^3/uL (0.2-0.9); Monocytes % 8.9 %; Neutrophils # 4.72 10^3/uL (1.8-7.7); Neutrophils % 53.9 %; Nucleated Red Blood Cells % 0 %; Platelet Count 230 10^3/cmm (157-399); Red Blood Count 4.85 10^6/uL (3.85-5.65); Red Cell Distribution Width 14.6 % (12.1-15.1); White Blood Count 8.76 10^3/uL (3.29-11.43)
[2023-07-18 11:22] LABS: Carcinoembryonic Antigen 31.5 ng/mL (0.0-4.7)
[2023-07-18 11:34] LABS: Alanine Aminotransferase 46 U/L (0-33); Albumin Level 4.7 g/dL (3.5-5.2); Alkaline Phosphatase 141 U/L (35-105); Anion Gap 17.5 (5-19); Aspartate Amino Transferase 38 U/L (0-32); Blood Urea Nitrogen 11 mg/dL (6-20); Calcium 9.9 mg/dL (8.5-10.5); Carbon Dioxide 25 mmol/L (22-29); Chloride 96 mmol/L (98-107); Globulin 2.6 g/dL (1.3-4.6); Glomerular Filtration Rate 104.2 mL/min (90-130); Glucose 92 mg/dL (65-115); Osmolality Calculated 277 mOsm/kg (285-295); Potassium 4.5 mmol/L (3.5-5.1); Sodium 134 mmol/L (136-145); Total Bilirubin 0.3 mg/dL (0.15-1.2); Total Protein 7.3 g/dL (6.6-8.7)
[2023-07-18] MEDS: sodium chloride 0.9% 250 ML 75 ML IV (13:38)
[2023-07-18] MEDS: palonosetron 0.25 mg/5 mL SDV IVP (13:40)
[2023-07-18 14:20] VITALS: BP 146/102; PULSE 92; RESP 17; TEMP 36.6; O2SAT 95
[2023-07-18] MEDS: BEVACIZUMAB AWWB IV (14:36)
[2023-07-18] MEDS: SODIUM CHLORIDE 0.9% IV (14:36)
[2023-07-18] MEDS: leucovorin 610 MG in dextrose 5% 250 ML 62.5 MG IV (15:19)
[2023-07-18] MEDS: FLUOROURACIL IV (15:58)
[2023-07-18] MEDS: ELASTOMERIC PUMP PUMP IV (15:58)
[2023-07-18] MEDS: SODIUM CHLORIDE IV (15:58)
[2023-07-20 12:53] VITALS: BP 117/81; PULSE 92; RESP 16; TEMP 36.4; O2SAT 98
[2023-08-01 07:37] VITALS: BP 153/99; PULSE 90; RESP 16; TEMP 36.3; O2SAT 97
[2023-08-01 07:55] LABS: Add Urine Microscopic? NO; Charge for UA Resulting for Rev
[2023-08-01 07:57] LABS: Basophils # 0.1 10^3/uL (0.0-0.1); Basophils % 0.8 %; Eosinophils # 0.2 10^3/uL (0.0-0.8); Eosinophils % 2.6 %; Hematocrit 46.4 % (36-47); Lymphocytes # 2.5 10^3/uL (0.8-4.8); Lymphocytes % 34.3 %; Mean Corpuscular HGB Conc 33.4 g/dL (30-55); Mean Corpuscular Hemoglobin 31.9 pg (27-33); Mean Corpuscular Volume 95.5 fl (85-98); Mean Platelet Volume 8.9 fL (7.4-10.4); Monocytes # 0.7 10^3/uL (0.2-0.9); Monocytes % 9.2 %; Neutrophils % 52.7 %; Nucleated Red Blood Cells % 0 %; Platelet Count 217 10^3/cmm (157-399); Red Blood Count 4.86 10^6/uL (3.85-5.65); Red Cell Distribution Width 14.9 % (12.1-15.1); White Blood Count 7.21 10^3/uL (3.29-11.43)
[2023-08-01 08:14] LABS: Alanine Aminotransferase 68 U/L (0-33); Albumin Level 4.6 g/dL (3.5-5.2); Alkaline Phosphatase 129 U/L (35-105); Anion Gap 15.4 (5-19); Aspartate Amino Transferase 55 U/L (0-32); Blood Urea Nitrogen 14 mg/dL (6-20); Calcium 9.5 mg/dL (8.5-10.5); Carbon Dioxide 27 mmol/L (22-29); Chloride 97 mmol/L (98-107); Globulin 2.8 g/dL (1.3-4.6); Glomerular Filtration Rate 87.2 mL/min (90-130); Glucose 105 mg/dL (65-115); Osmolality Calculated 281 mOsm/kg (285-295); Potassium 4.4 mmol/L (3.5-5.1); Sodium 135 mmol/L (136-145); Total Bilirubin 0.6 mg/dL (0.15-1.2); Total Protein 7.4 g/dL (6.6-8.7)
[2023-08-01 08:17] LABS: Bilirubin Urine Neg (Negative); Blood Urine Neg (Negative); Glucose Urine UA Norm (Normal); Ketones Urine Negative (Negative); Leukocyte Esterase Urine Negative (Negative); Nitrate Urine Negative (Negative); Protein Urine Neg (Negative); Specific Gravity, Urine 1.015 (1.005-1.030); Urine Appearance Clear (CLEAR); Urine Color Dark Yellow (Yellow); Urobilinogen Urine Norm (Negative); pH Urine 7 (5-7)
== END 2023-08-11 23:59 | disposition home or self-care (01) ==
PROVIDERS: Internal Medicine; PCP Family Medicine; Visit Provider Specialist
DX: Z45.1 Encounter for adjustment and management of infusion pump (principal); C18.9 Malignant neoplasm of colon, unspecified; Z79.899 Other long term (current) drug therapy
CPT/HCPCS: 36591; 80053; 81003; 82378; 85025; 96367; 96375; 96413; 96416; 96417; 96523; J0640; J1100; J1642; J2469; J7050; J7060; J9190; Q5107

== ENCOUNTER 2023-08-10 08:52 | Outpatient (CLI) | payer BC, MEDICAID, SELFPAY ==
--- NOTE | 2023-08-10 10:00 | CT_ITS ---
WS: [id number] CT CHEST, ABDOMEN, AND PELVIS TECHNIQUE: Contrast-enhanced CT of the chest, abdomen, and pelvis with coronal and sagittal reformatt ed images. CLINICAL INFORMATION: restaging, increasing CEA COMPARISON: None. DLP: 442.[address] scans at [facility] use at least one of these dose optimization techniques: automated e xposure control; mA and/or kV adjustment per patient size (includes targeted exams where dose is matc hed to clinical indication); or iterative reconstruction. CT CHEST: Mild chronic emphysematous changes. No acute pulmonary infiltrates. No focal pneumonia or pleural f luid. Calcified granuloma RIGHT middle lobe. No new suspicious pulmonary parenchymal normalities. Normal caliber thoracic aorta. Proximal main pulmonary arteries are normal. No mediastinal or hilar l ymphadenopathy. No axillary lymphadenopathy. CT ABDOMEN AND PELVIS: Multiple calcified previously treated hepatic metastasis unchanged compared to 07/01/2023. No eviden ce of progressive metastatic disease in the liver. Mild diffuse fatty infiltration of the liver. Norm al portal vein and splenic vein. Normal spleen. Normal GE junction. Fat-containing umbilical hernia. Adrenal glands are normal. Normal renal parenchy mal enhancement. No hydronephrosis. Normal caliber abdominal aorta. No abdominal or pelvic lymphadeno fidel. No inguinal lymphadenopathy. Disc space narrowing worse at L5-S1 with vacuum disc phenomenon. Prior postoperative changes LEFT col ectomy. Colostomy LEFT lower quadrant appears patent. No evidence of bowel obstruction. Retroverted u terus. IMPRESSION: 1. No evidence of progressive metastatic disease in the chest abdomen or pelvis. 2. Lungs are well aerated. 3. No adenopathy in the chest abdomen or pelvis. 4. Stable calcified treated hepatic metastasis. 5. Prior postoperative changes LEFT colectomy. Stable colostomy LEFT lower quadrant. No evidence of obstruction.
[2023-08-10] MEDS: iohexol 350 mg/mL 500 mL Btl (per mL) IV (10:24)
[2023-08-10] MEDS: iohexol 350 mg/mL 500 mL Btl (per mL) PO (10:24)
== END 2023-08-10 08:53 | disposition home or self-care (01) ==
LOC: RAD 08:53
PROVIDERS: PCP Family Medicine; Visit Provider Nurse Practitioner Family
DX: C18.9 Malignant neoplasm of colon, unspecified (principal); R97.0 Elevated carcinoembryonic antigen [CEA]; C78.7 Secondary malignant neoplasm of liver and intrahepatic bile duct; Z90.49 Acquired absence of other specified parts of digestive tract; Z93.3 Colostomy status
CPT/HCPCS: 71260; 74177; Q9967

== ENCOUNTER 2023-09-02 11:00 | Oncology outpatient (recurring) (ONCR) | payer BC, MEDICAID, SELFPAY ==
[2023-08-17 08:52] LABS: Basophils # 0.1 10^3/uL (0.0-0.1); Basophils % 0.9 %; Eosinophils # 0.1 10^3/uL (0.0-0.8); Eosinophils % 1.8 %; Lymphocytes # 3.1 10^3/uL (0.8-4.8); Lymphocytes % 40.2 %; Mean Corpuscular HGB Conc 33.2 g/dL (30-55); Mean Corpuscular Hemoglobin 31.6 pg (27-33); Mean Corpuscular Volume 95.3 fl (85-98); Mean Platelet Volume 8.8 fL (7.4-10.4); Monocytes # 0.7 10^3/uL (0.2-0.9); Monocytes % 9.3 %; Neutrophils # 3.66 10^3/uL (1.8-7.7); Neutrophils % 47.3 %; Nucleated Red Blood Cells % 0 %; Platelet Count 219 10^3/cmm (157-399); Red Blood Count 4.93 10^6/uL (3.85-5.65); Red Cell Distribution Width 14.4 % (12.1-15.1); White Blood Count 7.74 10^3/uL (3.29-11.43)
[2023-08-17 09:13] LABS: Alanine Aminotransferase 28 U/L (0-33); Albumin Level 4.7 g/dL (3.5-5.2); Alkaline Phosphatase 107 U/L (35-105); Anion Gap 16.5 (5-19); Aspartate Amino Transferase 30 U/L (0-32); Blood Urea Nitrogen 10 mg/dL (6-20); Carbon Dioxide 27 mmol/L (22-29); Chloride 96 mmol/L (98-107); Globulin 2.8 g/dL (1.3-4.6); Glomerular Filtration Rate 87.2 mL/min (90-130); Glucose 100 mg/dL (65-115); Osmolality Calculated 279 mOsm/kg (285-295); Potassium 4.5 mmol/L (3.5-5.1); Sodium 135 mmol/L (136-145); Total Bilirubin 0.4 mg/dL (0.15-1.2); Total Protein 7.5 g/dL (6.6-8.7)
[2023-08-17] MEDS: palonosetron 0.25 mg/5 mL SDV IVP (11:04)
[2023-08-17] MEDS: sodium chloride 0.9% (100 ml) 100 ML 50 ML (11:04)
[2023-08-17] MEDS: leucovorin 620 MG in dextrose 5% 250 ML 62.5 MG IV (12:20)
[2023-08-17 13:11] VITALS: BP 152/103; PULSE 78; TEMP 36.3; O2SAT 98
[2023-08-19 11:21] VITALS: BP 123/80; PULSE 80; O2SAT 96
[2023-08-31 09:38] VITALS: BP 154/98; PULSE 87; RESP 16; TEMP 36.4; O2SAT 97
[2023-08-31 10:03] LABS: Add Urine Microscopic? NO; Charge for UA Resulting for Rev
[2023-08-31 10:06] LABS: Basophils # 0.1 10^3/uL (0.0-0.1); Basophils % 0.6 %; Eosinophils # 0.1 10^3/uL (0.0-0.8); Eosinophils % 1.2 %; Lymphocytes # 2.7 10^3/uL (0.8-4.8); Lymphocytes % 31.4 %; Mean Corpuscular HGB Conc 33.5 g/dL (30-55); Mean Corpuscular Volume 95.4 fl (85-98); Monocytes # 0.7 10^3/uL (0.2-0.9); Monocytes % 8.5 %; Neutrophils # 5.05 10^3/uL (1.8-7.7); Neutrophils % 58.1 %; Nucleated Red Blood Cells % 0 %; Platelet Count 241 10^3/cmm (157-399); Red Blood Count 4.82 10^6/uL (3.85-5.65); Red Cell Distribution Width 14.3 % (12.1-15.1); White Blood Count 8.69 10^3/uL (3.29-11.43)
[2023-08-31 10:20] LABS: Bilirubin Urine Neg (Negative); Blood Urine Neg (Negative); Glucose Urine UA Norm (Normal); Ketones Urine Negative (Negative); Leukocyte Esterase Urine Negative (Negative); Nitrate Urine Negative (Negative); Protein Urine Neg (Negative); Urine Appearance Clear (CLEAR); Urine Color Yellow (Yellow); Urobilinogen Urine Norm (Negative); pH Urine 7 (5-7)
[2023-08-31 10:24] LABS: Alanine Aminotransferase 33 U/L (0-33); Albumin Level 4.6 g/dL (3.5-5.2); Alkaline Phosphatase 92 U/L (35-105); Anion Gap 13.5 (5-19); Aspartate Amino Transferase 30 U/L (0-32); Blood Urea Nitrogen 10 mg/dL (6-20); Calcium 9.7 mg/dL (8.5-10.5); Carbon Dioxide 28 mmol/L (22-29); Chloride 99 mmol/L (98-107); Globulin 2.7 g/dL (1.3-4.6); Glomerular Filtration Rate 87.2 mL/min (90-130); Glucose 93 mg/dL (65-115); Osmolality Calculated 281 mOsm/kg (285-295); Potassium 4.5 mmol/L (3.5-5.1); Sodium 136 mmol/L (136-145); Total Bilirubin 0.5 mg/dL (0.15-1.2); Total Protein 7.3 g/dL (6.6-8.7)
[2023-08-31] MEDS: OLANZapine 5 mg TABLET PO (12:17)
[2023-08-31] MEDS: dextrose 5% 250 ML 75 ML IV (12:18)
[2023-08-31] MEDS: palonosetron 0.25 mg/5 mL SDV IVP (12:18)
[2023-08-31] MEDS: sodium chloride 0.9% 250 ML 75 ML IV (13:05)
[2023-08-31] MEDS: SODIUM CHLORIDE 0.9% IV (13:06)
[2023-08-31] MEDS: BEVACIZUMAB AWWB IV (13:06)
[2023-08-31 13:20] LABS: Carcinoembryonic Antigen 78.8 ng/mL (0.0-4.7)
[2023-08-31] MEDS: leucovorin 610 MG in dextrose 5% 250 ML 62.5 MG IV (13:49)
[2023-08-31] MEDS: fluorouraciL 50 mg/ml MDV 100 mL 300 MG IVP (16:06)
[2023-08-31] MEDS: SODIUM CHLORIDE IV (16:07)
[2023-08-31] MEDS: FLUOROURACIL IV (16:07)
[2023-08-31] MEDS: ELASTOMERIC PUMP PUMP IV (16:07)
[2023-08-31 16:20] VITALS: BP 134/74; PULSE 74; RESP 18; TEMP 36.4; O2SAT 98
[2023-09-02 10:50] VITALS: BP 129/86; PULSE 65; RESP 17; TEMP 36.9; O2SAT 97
== END 2023-09-11 23:59 | disposition home or self-care (01) ==
PROVIDERS: Internal Medicine; Nurse Practitioner Family; PCP Family Medicine; Visit Provider Specialist
DX: Z45.1 Encounter for adjustment and management of infusion pump (principal); Z53.9 Procedure and treatment not carried out, unspecified reason
CPT/HCPCS: 80053; 81003; 82378; 85025; 96365; 96366; 96367; 96375; 96411; 96413; 96415; 96416; 96417; 96523; J0640; J1100; J1642; J2469; J7050; J7060; J9190; J9263; Q5107

== ENCOUNTER 2023-10-12 09:30 | Oncology outpatient (recurring) (ONCR) | payer BC, MEDICAID, SELFPAY ==
[2023-09-14 09:34] VITALS: BP 134/94; PULSE 97; RESP 18; TEMP 36.4; O2SAT 98
[2023-09-14 09:56] LABS: Basophils % 0.6 %; Eosinophils # 0.1 10^3/uL (0.0-0.8); Eosinophils % 1.5 %; Hematocrit 45.9 % (36-47); Lymphocytes # 2.9 10^3/uL (0.8-4.8); Lymphocytes % 39.5 %; Mean Corpuscular Hemoglobin 32.5 pg (27-33); Mean Corpuscular Volume 95.6 fl (85-98); Mean Platelet Volume 8.7 fL (7.4-10.4); Monocytes # 0.8 10^3/uL (0.2-0.9); Monocytes % 10.6 %; Neutrophils # 3.44 10^3/uL (1.8-7.7); Neutrophils % 47.4 %; Nucleated Red Blood Cells % 0 %; Platelet Count 209 10^3/cmm (157-399); Red Cell Distribution Width 14.1 % (12.1-15.1); White Blood Count 7.26 10^3/uL (3.29-11.43)
[2023-09-14 10:14] LABS: Alanine Aminotransferase 44 U/L (0-33); Albumin Level 4.3 g/dL (3.5-5.2); Alkaline Phosphatase 111 U/L (35-105); Anion Gap 17.3 (5-19); Aspartate Amino Transferase 36 U/L (0-32); Blood Urea Nitrogen 8 mg/dL (6-20); Calcium 9.7 mg/dL (8.5-10.5); Carbon Dioxide 24 mmol/L (22-29); Chloride 97 mmol/L (98-107); Globulin 3.1 g/dL (1.3-4.6); Glomerular Filtration Rate 104.2 mL/min (90-130); Glucose 95 mg/dL (65-115); Osmolality Calculated 276 mOsm/kg (285-295); Potassium 4.3 mmol/L (3.5-5.1); Sodium 134 mmol/L (136-145); Total Bilirubin 0.7 mg/dL (0.15-1.2); Total Protein 7.4 g/dL (6.6-8.7)
[2023-09-14] MEDS: OLANZapine 5 mg TABLET PO (11:58)
[2023-09-14] MEDS: sodium chloride 0.9% 250 ML 75 ML IV (11:58)
[2023-09-14] MEDS: palonosetron 0.25 mg/5 mL SDV IVP (11:58)
[2023-09-14] MEDS: BEVACIZUMAB AWWB IV (12:32)
[2023-09-14] MEDS: SODIUM CHLORIDE 0.9% IV (12:32)
[2023-09-14] MEDS: dextrose 5% 250 ML 75 ML IV (13:40)
[2023-09-14] MEDS: leucovorin 610 MG in dextrose 5% 250 ML 77.75 MG IV (13:40)
[2023-09-14] MEDS: fluorouraciL 50 mg/ml MDV 100 mL 300 MG IVP (15:40)
[2023-09-14] MEDS: ELASTOMERIC PUMP PUMP IV (15:41)
[2023-09-14] MEDS: FLUOROURACIL IV (15:41)
[2023-09-14] MEDS: SODIUM CHLORIDE IV (15:41)
[2023-09-28 09:20] VITALS: BP 134/88; PULSE 92; RESP 17; TEMP 36.3; O2SAT 99
[2023-09-28 09:21] LABS: Basophils # 0.1 10^3/uL (0.0-0.1); Basophils % 0.6 %; Eosinophils # 0.1 10^3/uL (0.0-0.8); Lymphocytes # 2.3 10^3/uL (0.8-4.8); Lymphocytes % 30.4 %; Mean Corpuscular HGB Conc 33.8 g/dL (30-55); Mean Corpuscular Hemoglobin 32.3 pg (27-33); Mean Corpuscular Volume 95.3 fl (85-98); Mean Platelet Volume 8.9 fL (7.4-10.4); Monocytes # 0.9 10^3/uL (0.2-0.9); Monocytes % 11.8 %; Neutrophils # 4.31 10^3/uL (1.8-7.7); Neutrophils % 55.9 %; Nucleated Red Blood Cells % 0 %; Platelet Count 187 10^3/cmm (157-399); Red Blood Count 4.93 10^6/uL (3.85-5.65); Red Cell Distribution Width 14.2 % (12.1-15.1); White Blood Count 7.71 10^3/uL (3.29-11.43)
[2023-09-28 09:46] LABS: Carcinoembryonic Antigen 66.8 ng/mL (0.0-4.7)
[2023-09-28 09:57] LABS: Alanine Aminotransferase 27 U/L (0-33); Albumin Level 4.3 g/dL (3.5-5.2); Alkaline Phosphatase 96 U/L (35-105); Anion Gap 15.2 (5-19); Aspartate Amino Transferase 27 U/L (0-32); Blood Urea Nitrogen 10 mg/dL (6-20); Carbon Dioxide 27 mmol/L (22-29); Chloride 96 mmol/L (98-107); Globulin 3.1 g/dL (1.3-4.6); Glomerular Filtration Rate 104.2 mL/min (90-130); Glucose 99 mg/dL (65-115); Osmolality Calculated 277 mOsm/kg (285-295); Potassium 4.2 mmol/L (3.5-5.1); Sodium 134 mmol/L (136-145); Total Bilirubin 0.5 mg/dL (0.15-1.2); Total Protein 7.4 g/dL (6.6-8.7)
[2023-09-28] MEDS: OLANZapine 5 mg TABLET PO (11:06)
[2023-09-28] MEDS: sodium chloride 0.9% (100 ml) 100 ML 75 ML (11:11)
[2023-09-28] MEDS: palonosetron 0.25 mg/5 mL SDV IVP (11:42)
[2023-09-28] MEDS: SODIUM CHLORIDE 0.9% IV (12:00)
[2023-09-28] MEDS: BEVACIZUMAB AWWB IV (12:00)
[2023-09-28] MEDS: dextrose 5% 250 ML 75 ML IV (12:50)
[2023-09-28] MEDS: leucovorin 610 MG in dextrose 5% 250 ML 77.75 MG IV (12:51)
[2023-09-28] MEDS: fluorouraciL 50 mg/ml MDV 100 mL 300 MG IVP (13:45)
[2023-09-28] MEDS: ELASTOMERIC PUMP PUMP IV (13:46)
[2023-09-28] MEDS: FLUOROURACIL IV (13:46)
[2023-09-28] MEDS: SODIUM CHLORIDE IV (13:46)
[2023-09-28 13:51] VITALS: BP 126/90; PULSE 91; RESP 18; TEMP 36.6; O2SAT 98
[2023-09-30 11:39] VITALS: BP 123/85; PULSE 71; RESP 18; TEMP 36.6; O2SAT 99
[2023-10-12 09:52] LABS: Add Urine Microscopic? NO; Charge for UA Resulting for Rev
[2023-10-12 09:53] LABS: Basophils # 0.1 10^3/uL (0.0-0.1); Basophils % 0.9 %; Eosinophils # 0.1 10^3/uL (0.0-0.8); Eosinophils % 1.1 %; Hematocrit 48.1 % (36-47); Lymphocytes # 2.5 10^3/uL (0.8-4.8); Lymphocytes % 32.5 %; Mean Corpuscular HGB Conc 33.1 g/dL (30-55); Mean Corpuscular Hemoglobin 31.9 pg (27-33); Mean Corpuscular Volume 96.6 fl (85-98); Mean Platelet Volume 9.2 fL (7.4-10.4); Monocytes # 0.8 10^3/uL (0.2-0.9); Neutrophils % 54.2 %; Nucleated Red Blood Cells % 0 %; Platelet Count 187 10^3/cmm (157-399); Red Blood Count 4.98 10^6/uL (3.85-5.65); Red Cell Distribution Width 14.9 % (12.1-15.1); White Blood Count 7.56 10^3/uL (3.29-11.43)
[2023-10-12 10:07] LABS: Bilirubin Urine Neg (Negative); Blood Urine Neg (Negative); Glucose Urine UA Norm (Normal); Ketones Urine Negative (Negative); Leukocyte Esterase Urine Negative (Negative); Nitrate Urine Negative (Negative); Protein Urine Neg (Negative); Specific Gravity, Urine 1.015 (1.005-1.030); Urine Appearance Clear (CLEAR); Urine Color Yellow (Yellow); Urobilinogen Urine Norm (Negative); pH Urine 6 (5-7)
[2023-10-12 10:20] LABS: Carcinoembryonic Antigen 62.3 ng/mL (0.0-4.7)
[2023-10-12 10:32] LABS: Alanine Aminotransferase 34 U/L (0-33); Albumin Level 4.5 g/dL (3.5-5.2); Alkaline Phosphatase 93 U/L (35-105); Anion Gap 17.3 (5-19); Aspartate Amino Transferase 34 U/L (0-32); Blood Urea Nitrogen 11 mg/dL (6-20); Carbon Dioxide 25 mmol/L (22-29); Chloride 98 mmol/L (98-107); Glomerular Filtration Rate 87.2 mL/min (90-130); Glucose 96 mg/dL (65-115); Osmolality Calculated 281 mOsm/kg (285-295); Potassium 4.3 mmol/L (3.5-5.1); Sodium 136 mmol/L (136-145); Total Bilirubin 0.5 mg/dL (0.15-1.2); Total Protein 7.5 g/dL (6.6-8.7)
[2023-10-12] MEDS: sodium chloride 0.9% 250 ML 75 ML IV (12:13)
[2023-10-12] MEDS: OLANZapine 5 mg TABLET PO (12:13)
[2023-10-12] MEDS: palonosetron 0.25 mg/5 mL SDV IVP (12:16)
[2023-10-12] MEDS: SODIUM CHLORIDE 0.9% IV (12:51)
[2023-10-12] MEDS: BEVACIZUMAB AWWB IV (12:51)
[2023-10-12] MEDS: dextrose 5% 250 ML 75 ML IV (13:30)
[2023-10-12] MEDS: leucovorin 610 MG in dextrose 5% 250 ML 77.75 MG IV (13:35)
[2023-10-12 15:20] VITALS: BP 120/74; PULSE 78; RESP 18; TEMP 36.1; O2SAT 98
[2023-10-12] MEDS: FLUOROURACIL IV (15:20)
[2023-10-12] MEDS: ELASTOMERIC PUMP PUMP IV (15:20)
[2023-10-12] MEDS: SODIUM CHLORIDE IV (15:20)
[2023-10-12] MEDS: fluorouraciL 50 mg/ml MDV 100 mL 300 MG IVP (15:20)
== END 2023-10-12 23:59 | disposition home or self-care (01) ==
PROVIDERS: Nurse Practitioner Family; PCP Family Medicine; Visit Provider Specialist
DX: Z51.11 Encounter for antineoplastic chemotherapy (principal); Z53.9 Procedure and treatment not carried out, unspecified reason; C18.9 Malignant neoplasm of colon, unspecified
CPT/HCPCS: 80053; 81003; 82378; 85025; 96365; 96366; 96367; 96368; 96374; 96375; 96409; 96411; 96413; 96415; 96416; 96417; 96523; J0640; J1100; J1642; J2469; J7050; J7060; J9190; J9263; Q5107

== ENCOUNTER 2023-11-09 08:30 | Oncology outpatient (recurring) (ONCR) | payer BC, MEDICAID, SELFPAY ==
[2023-10-14 11:33] VITALS: BP 121/85; PULSE 17; RESP 82; TEMP 36.7; O2SAT 96
[2023-10-26 09:06] LABS: Basophils % 0.6 %; Eosinophils # 0.1 10^3/uL (0.0-0.8); Eosinophils % 1.4 %; Hematocrit 46.3 % (36-47); Lymphocytes # 2.5 10^3/uL (0.8-4.8); Lymphocytes % 38.9 %; Mean Corpuscular HGB Conc 33.9 g/dL (30-55); Mean Corpuscular Hemoglobin 32.8 pg (27-33); Mean Corpuscular Volume 96.9 fl (85-98); Mean Platelet Volume 8.6 fL (7.4-10.4); Monocytes # 0.9 10^3/uL (0.2-0.9); Monocytes % 13.3 %; Neutrophils # 2.95 10^3/uL (1.8-7.7); Neutrophils % 45.5 %; Nucleated Red Blood Cells % 0 %; Platelet Count 151 10^3/cmm (157-399); Red Blood Count 4.78 10^6/uL (3.85-5.65); Red Cell Distribution Width 14.8 % (12.1-15.1); White Blood Count 6.48 10^3/uL (3.29-11.43)
[2023-10-26 09:31] LABS: Carcinoembryonic Antigen 59.9 ng/mL (0.0-4.7)
[2023-10-26 09:42] LABS: Alanine Aminotransferase 29 U/L (0-33); Albumin Level 4.4 g/dL (3.5-5.2); Alkaline Phosphatase 83 U/L (35-105); Anion Gap 16.1 (5-19); Aspartate Amino Transferase 35 U/L (0-32); Blood Urea Nitrogen 12 mg/dL (6-20); Calcium 9.4 mg/dL (8.5-10.5); Carbon Dioxide 25 mmol/L (22-29); Chloride 99 mmol/L (98-107); Globulin 2.8 g/dL (1.3-4.6); Glomerular Filtration Rate 74.7 mL/min (90-130); Glucose 105 mg/dL (65-115); Osmolality Calculated 282 mOsm/kg (285-295); Potassium 4.1 mmol/L (3.5-5.1); Sodium 136 mmol/L (136-145); Total Bilirubin 0.3 mg/dL (0.15-1.2); Total Protein 7.2 g/dL (6.6-8.7)
[2023-10-26 11:05] VITALS: BP 126/87; PULSE 99; RESP 16; TEMP 36.7; O2SAT 97
[2023-10-26] MEDS: OLANZapine 5 mg TABLET PO (11:22)
[2023-10-26] MEDS: sodium chloride 0.9% 250 ML 75 ML IV (11:22)
[2023-10-26] MEDS: palonosetron 0.25 mg/5 mL SDV IVP (11:27)
[2023-10-26] MEDS: SODIUM CHLORIDE 0.9% IV (12:02)
[2023-10-26] MEDS: BEVACIZUMAB AWWB IV (12:02)
[2023-10-26] MEDS: dextrose 5% 250 ML 75 ML IV (12:57)
[2023-10-26] MEDS: leucovorin 610 MG in dextrose 5% 250 ML 62.5 MG IV (12:58)
[2023-10-26] MEDS: fluorouraciL 50 mg/ml MDV 100 mL 300 MG IVP (15:13)
[2023-10-26] MEDS: SODIUM CHLORIDE IV (15:14)
[2023-10-26] MEDS: ELASTOMERIC PUMP PUMP IV (15:14)
[2023-10-26] MEDS: FLUOROURACIL IV (15:14)
[2023-10-26 15:30] VITALS: BP 129/94; PULSE 90; RESP 17; O2SAT 97
[2023-10-28 11:23] VITALS: BP 130/86; PULSE 87; RESP 16; TEMP 36.8; O2SAT 95
[2023-11-09 08:24] VITALS: BP 139/93; PULSE 92; RESP 18; TEMP 36.5; O2SAT 96
[2023-11-09 09:03] LABS: Basophils % 0.9 %; Eosinophils # 0.1 10^3/uL (0.0-0.8); Eosinophils % 1.5 %; Hematocrit 43.5 % (36-47); Lymphocytes # 1.8 10^3/uL (0.8-4.8); Lymphocytes % 39.3 %; Mean Corpuscular HGB Conc 33.1 g/dL (30-55); Mean Corpuscular Hemoglobin 32.1 pg (27-33); Mean Corpuscular Volume 96.9 fl (85-98); Mean Platelet Volume 9.7 fL (7.4-10.4); Monocytes # 0.5 10^3/uL (0.2-0.9); Monocytes % 10.3 %; Neutrophils # 2.22 10^3/uL (1.8-7.7); Neutrophils % 47.6 %; Nucleated Red Blood Cells % 0 %; Platelet Count 134 10^3/cmm (157-399); Red Blood Count 4.49 10^6/uL (3.85-5.65); Red Cell Distribution Width 15.1 % (12.1-15.1); White Blood Count 4.66 10^3/uL (3.29-11.43)
[2023-11-09 09:16] LABS: Alanine Aminotransferase 31 U/L (0-33); Albumin Level 4.1 g/dL (3.5-5.2); Alkaline Phosphatase 79 U/L (35-105); Anion Gap 13.3 (5-19); Aspartate Amino Transferase 29 U/L (0-32); Blood Urea Nitrogen 12 mg/dL (6-20); Calcium 9.3 mg/dL (8.5-10.5); Carbon Dioxide 27 mmol/L (22-29); Chloride 104 mmol/L (98-107); Creatinine Clr Calc Pharmacy 67.0956; Globulin 2.3 g/dL (1.3-4.6); Glomerular Filtration Rate 74.7 mL/min (90-130); Glucose 146 mg/dL (65-115); Osmolality Calculated 292 mOsm/kg (285-295); Potassium 4.3 mmol/L (3.5-5.1); Sodium 140 mmol/L (136-145); Total Bilirubin 0.4 mg/dL (0.15-1.2); Total Protein 6.4 g/dL (6.6-8.7)
[2023-11-09] MEDS: OLANZapine 5 mg TABLET PO (11:34)
[2023-11-09] MEDS: sodium chloride 0.9% 250 ML 35 ML IV (11:34)
[2023-11-09] MEDS: palonosetron 0.25 mg/5 mL SDV IVP (11:37)
[2023-11-09] MEDS: BEVACIZUMAB AWWB IV (11:51)
[2023-11-09] MEDS: SODIUM CHLORIDE 0.9% IV (11:51)
[2023-11-09] MEDS: dextrose 5% 250 ML 45 ML IV (12:56)
[2023-11-09] MEDS: leucovorin 610 MG in dextrose 5% 250 ML 62.5 MG IV (13:39)
[2023-11-09] MEDS: SODIUM CHLORIDE IV (15:53)
[2023-11-09] MEDS: ELASTOMERIC PUMP PUMP IV (15:53)
[2023-11-09] MEDS: fluorouraciL 50 mg/ml MDV 100 mL 300 MG IVP (15:53)
[2023-11-09] MEDS: FLUOROURACIL IV (15:53)
[2023-11-09 16:06] VITALS: BP 117/81; PULSE 77; RESP 18; TEMP 36.6; O2SAT 92
== END 2023-11-10 23:59 | disposition home or self-care (01) ==
PROVIDERS: Internal Medicine Hematology & Oncology; PCP Family Medicine; Visit Provider Internal Medicine
DX: Z51.11 Encounter for antineoplastic chemotherapy (principal); Z53.9 Procedure and treatment not carried out, unspecified reason; C18.9 Malignant neoplasm of colon, unspecified
CPT/HCPCS: 80053; 82378; 85025; 96365; 96366; 96367; 96368; 96375; 96409; 96413; 96415; 96416; 96417; 96523; J0640; J1100; J1642; J2469; J7050; J7060; J9190; J9263; Q5107

== ENCOUNTER 2023-11-17 16:17 | Outpatient (CLI) | payer BC, MEDICAID, SELFPAY ==
[2023-11-17] MEDS: iohexol 350 mg/mL 500 mL Btl (per mL) PO (16:40)
[2023-11-17] MEDS: iohexol 350 mg/mL 500 mL Btl (per mL) IV (17:18)
--- NOTE | 2023-11-17 17:30 | CT_ITS ---
WS: [id number] CT CHEST, ABDOMEN AND PELVIS WITH CONTRAST HISTORY: restaging TECHNIQUE: Contiguous 5 mm axial imaging performed through the chest, abdomen and pelvis with IV cont rast, oral contrast has been provided. Coronal and sagittal reformats chest. Coronal and sagittal ref ormats through the abdomen and pelvis. All CT scans at [facility] use at least one of these d ose optimization techniques: automated exposure control; mA and/or kV adjustment per patient size (in cludes targeted exams where dose is matched to clinical indication); or iterative reconstruction. CONTRAST: Omnipaque 350; 100 mL IV. DLP: 452.78 mGy.cm COMPARISON: Prior PET/CT 04/09/2023, CT chest, abdomen and pelvis 08/10/[address]: Hyperexpanded lungs. Benign granuloma RIGHT middle lobe. No mass, nodule or pneumonia. No e vidence for metastatic disease. No pericardial or pleural effusions. No mediastinal or hilar adenopat hy. LEFT subclavian Mediport. Abdomen CT: Reidentified are multiple partially calcified hepatic masses which have been previously d escribed consistent with treated disease. Some of these nodules have decreased in size. No new noncal cified mass identified. Normal portal vein. No bile duct dilatation. Normal gallbladder and pancreas. Spleen with granulomata. No adrenal mass. Normal kidneys. Moderate calcification abdominal aorta. Stomach is markedly distended with oral contrast. There is mild thickening of the antrum but this may be due to peristalsis. No small bowel obstruction. The appendix is not identified. LEFT lower quadra nt colostomy. Prior LEFT colectomy. No adenopathy or ascites. Pelvic CT: No free fluid in the pelvis. No osteoblastic or osteolytic bone lesions are identified. IMPRESSION: 1. Stable calcified masses in the liver consistent with treated metastatic disease. No new hepatic m etastasis. 2. No pulmonary nodules or metastasis in the lungs. No adenopathy. 3. LEFT lower quadrant colostomy. 4. No abdominal or pelvic ascites. 5. Stomach is markedly distended and there is mild thickening involving the antrum which is probably due to peristalsis. No GI tract obstruction.
== END 2023-11-17 16:18 | disposition home or self-care (01) ==
LOC: RAD 16:17
PROVIDERS: PCP Family Medicine; Visit Provider Nurse Practitioner Family
DX: C18.9 Malignant neoplasm of colon, unspecified (principal); C78.7 Secondary malignant neoplasm of liver and intrahepatic bile duct; Z93.3 Colostomy status
CPT/HCPCS: 71260; 74177; Q9967

== ENCOUNTER 2023-12-09 11:00 | Oncology outpatient (recurring) (ONCR) | payer BC, MEDICAID, SELFPAY ==
[2023-11-11 10:51] VITALS: BP 146/96; PULSE 82; RESP 17; TEMP 36.9; O2SAT 97
[2023-11-23 09:23] LABS: Basophils % 0.6 %; Eosinophils # 0.1 10^3/uL (0.0-0.8); Eosinophils % 1.4 %; Hematocrit 45.8 % (36-47); Lymphocytes # 2.2 10^3/uL (0.8-4.8); Lymphocytes % 34.9 %; Mean Corpuscular HGB Conc 33.4 g/dL (30-55); Mean Corpuscular Hemoglobin 32.7 pg (27-33); Mean Corpuscular Volume 97.9 fl (85-98); Mean Platelet Volume 9.8 fL (7.4-10.4); Monocytes # 0.8 10^3/uL (0.2-0.9); Monocytes % 12.7 %; Neutrophils % 50.1 %; Nucleated Red Blood Cells % 0 %; Platelet Count 142 10^3/cmm (157-399); Red Blood Count 4.68 10^6/uL (3.85-5.65); Red Cell Distribution Width 15.9 % (12.1-15.1); White Blood Count 6.21 10^3/uL (3.29-11.43)
[2023-11-23 10:00] LABS: Carcinoembryonic Antigen 43.4 ng/mL (0.0-4.7)
[2023-11-23 10:24] LABS: Alanine Aminotransferase 101 U/L (0-33); Albumin Level 4.3 g/dL (3.5-5.2); Alkaline Phosphatase 135 U/L (35-105); Anion Gap 18.3 (5-19); Aspartate Amino Transferase 71 U/L (0-32); Blood Urea Nitrogen 11 mg/dL (6-20); Calcium 9.6 mg/dL (8.5-10.5); Carbon Dioxide 24 mmol/L (22-29); Chloride 99 mmol/L (98-107); Globulin 2.9 g/dL (1.3-4.6); Glomerular Filtration Rate 104.2 mL/min (90-130); Glucose 97 mg/dL (65-115); Osmolality Calculated 283 mOsm/kg (285-295); Potassium 4.3 mmol/L (3.5-5.1); Sodium 137 mmol/L (136-145); Total Bilirubin 0.6 mg/dL (0.15-1.2); Total Protein 7.2 g/dL (6.6-8.7)
[2023-11-23 11:14] LABS: Add Urine Microscopic? NO; Charge for UA Resulting for Rev
[2023-11-23 11:18] LABS: Bilirubin Urine Neg (Negative); Blood Urine Neg (Negative); Glucose Urine UA Norm (Normal); Ketones Urine Negative (Negative); Leukocyte Esterase Urine Negative (Negative); Nitrate Urine Negative (Negative); Protein Urine Neg (Negative); Urine Appearance Clear (CLEAR); Urine Color Yellow (Yellow); Urobilinogen Urine Norm (Negative); pH Urine 5 (5-7)
[2023-11-23] MEDS: sodium chloride 0.9% 250 ML 75 ML IV (12:29)
[2023-11-23] MEDS: palonosetron 0.25 mg/5 mL SDV IVP (12:30)
[2023-11-23] MEDS: OLANZapine 5 mg TABLET PO (12:32)
[2023-11-23] MEDS: SODIUM CHLORIDE 0.9% IV (12:55)
[2023-11-23] MEDS: BEVACIZUMAB AWWB IV (12:55)
[2023-11-23] MEDS: leucovorin 610 MG in dextrose 5% 250 ML 62.5 MG IV (14:28)
[2023-11-23] MEDS: dextrose 5% 250 ML 75 ML IV (14:28)
[2023-11-23 16:57] VITALS: BP 132/88; PULSE 83; RESP 16; TEMP 36.6; O2SAT 99
[2023-11-23] MEDS: ELASTOMERIC PUMP PUMP IV (16:59)
[2023-11-23] MEDS: FLUOROURACIL IV (16:59)
[2023-11-23] MEDS: SODIUM CHLORIDE IV (16:59)
[2023-11-25 10:46] VITALS: BP 146/94; PULSE 87; RESP 16; TEMP 36.8; O2SAT 95
[2023-12-07 09:07] LABS: Basophils % 0.7 %; Eosinophils # 0.1 10^3/uL (0.0-0.8); Eosinophils % 1.5 %; Hematocrit 44.1 % (36-47); Lymphocytes # 2.5 10^3/uL (0.8-4.8); Lymphocytes % 42.6 %; Mean Corpuscular HGB Conc 32.9 g/dL (30-55); Mean Corpuscular Hemoglobin 32.3 pg (27-33); Mean Corpuscular Volume 98.2 fl (85-98); Mean Platelet Volume 9.9 fL (7.4-10.4); Monocytes # 0.8 10^3/uL (0.2-0.9); Monocytes % 14.3 %; Neutrophils # 2.38 10^3/uL (1.8-7.7); Neutrophils % 40.9 %; Nucleated Red Blood Cells % 0 %; Platelet Count 146 10^3/cmm (157-399); Red Blood Count 4.49 10^6/uL (3.85-5.65); Red Cell Distribution Width 15.7 % (12.1-15.1); White Blood Count 5.82 10^3/uL (3.29-11.43)
[2023-12-07 09:30] LABS: Carcinoembryonic Antigen 33.9 ng/mL (0.0-4.7)
[2023-12-07 09:41] LABS: Alanine Aminotransferase 40 U/L (0-33); Albumin Level 4.4 g/dL (3.5-5.2); Alkaline Phosphatase 110 U/L (35-105); Anion Gap 15.8 (5-19); Aspartate Amino Transferase 35 U/L (0-32); Blood Urea Nitrogen 13 mg/dL (6-20); Calcium 9.4 mg/dL (8.5-10.5); Carbon Dioxide 25 mmol/L (22-29); Chloride 103 mmol/L (98-107); Globulin 2.6 g/dL (1.3-4.6); Glomerular Filtration Rate 87.2 mL/min (90-130); Glucose 96 mg/dL (65-115); Osmolality Calculated 290 mOsm/kg (285-295); Potassium 3.8 mmol/L (3.5-5.1); Sodium 140 mmol/L (136-145); Total Bilirubin 0.6 mg/dL (0.15-1.2)
[2023-12-07] MEDS: sodium chloride 0.9% 250 ML 75 ML IV (11:28)
[2023-12-07] MEDS: palonosetron 0.25 mg/5 mL SDV IVP (11:31)
[2023-12-07] MEDS: OLANZapine 5 mg TABLET PO (11:31)
[2023-12-07] MEDS: BEVACIZUMAB AWWB IV (12:10)
[2023-12-07] MEDS: SODIUM CHLORIDE 0.9% IV (12:10)
[2023-12-07] MEDS: dextrose 5% 250 ML 75 ML IV (12:57)
[2023-12-07] MEDS: leucovorin 610 MG in dextrose 5% 250 ML 62.5 MG IV (13:05)
[2023-12-07] MEDS: fluorouraciL 50 mg/ml MDV 100 mL 300 MG IVP (15:27)
[2023-12-07] MEDS: ELASTOMERIC PUMP PUMP IV (15:34)
[2023-12-07] MEDS: SODIUM CHLORIDE IV (15:34)
[2023-12-07] MEDS: FLUOROURACIL IV (15:34)
[2023-12-07 15:45] VITALS: BP 126/86; PULSE 71; RESP 16; O2SAT 95
[2023-12-09 10:46] VITALS: BP 124/84; PULSE 96; RESP 18; TEMP 37.1; O2SAT 94
== END 2023-12-11 23:59 | disposition home or self-care (01) ==
PROVIDERS: Nurse Practitioner Family; PCP Family Medicine; Visit Provider Internal Medicine
DX: Z53.9 Procedure and treatment not carried out, unspecified reason (principal); Z45.1 Encounter for adjustment and management of infusion pump
CPT/HCPCS: 80053; 81003; 82378; 85025; 96365; 96366; 96367; 96368; 96375; 96409; 96413; 96415; 96416; 96417; 96523; J0640; J1100; J1642; J2469; J7050; J7060; J9190; J9263; Q5107

== ENCOUNTER 2024-01-06 11:00 | Oncology outpatient (recurring) (ONCR) | payer BC, MEDICAID, SELFPAY ==
[2023-12-21 09:03] LABS: Add Urine Microscopic? NO; Charge for UA Resulting for Rev
[2023-12-21 09:07] LABS: Basophils # 0.1 10^3/uL (0.0-0.1); Eosinophils # 0.1 10^3/uL (0.0-0.8); Eosinophils % 1.5 %; Hematocrit 42.7 % (36-47); Lymphocytes # 2.4 10^3/uL (0.8-4.8); Lymphocytes % 41.3 %; Mean Corpuscular HGB Conc 33.7 g/dL (30-55); Mean Corpuscular Hemoglobin 33.3 pg (27-33); Mean Corpuscular Volume 98.6 fl (85-98); Monocytes # 0.9 10^3/uL (0.2-0.9); Neutrophils # 2.32 10^3/uL (1.8-7.7); Nucleated Red Blood Cells % 0 %; Platelet Count 146 10^3/cmm (157-399); Red Blood Count 4.33 10^6/uL (3.85-5.65); Red Cell Distribution Width 15.1 % (12.1-15.1); White Blood Count 5.81 10^3/uL (3.29-11.43)
[2023-12-21 09:30] LABS: Alanine Aminotransferase 84 U/L (0-33); Albumin Level 4.2 g/dL (3.5-5.2); Alkaline Phosphatase 177 U/L (35-105); Anion Gap 16.4 (5-19); Aspartate Amino Transferase 50 U/L (0-32); Blood Urea Nitrogen 11 mg/dL (6-20); Calcium 9.6 mg/dL (8.5-10.5); Carbon Dioxide 25 mmol/L (22-29); Chloride 102 mmol/L (98-107); Glomerular Filtration Rate 87.2 mL/min (90-130); Glucose 110 mg/dL (65-115); Osmolality Calculated 288 mOsm/kg (285-295); Potassium 4.4 mmol/L (3.5-5.1); Sodium 139 mmol/L (136-145); Total Bilirubin 0.5 mg/dL (0.15-1.2); Total Protein 7.2 g/dL (6.6-8.7)
[2023-12-21 09:41] LABS: Bilirubin Urine Neg (Negative); Blood Urine Neg (Negative); Glucose Urine UA Norm (Normal); Ketones Urine Negative (Negative); Leukocyte Esterase Urine Negative (Negative); Nitrate Urine Negative (Negative); Protein Urine Neg (Negative); Urine Appearance Clear (CLEAR); Urine Color Yellow (Yellow); Urobilinogen Urine Norm (Negative); pH Urine 6 (5-7)
[2023-12-21] MEDS: sodium chloride 0.9% 250 ML 75 ML IV (11:00)
[2023-12-21] MEDS: OLANZapine 5 mg TABLET PO (11:01)
[2023-12-21] MEDS: palonosetron 0.25 mg/5 mL SDV IVP (11:01)
[2023-12-21] MEDS: SODIUM CHLORIDE 0.9% IV (11:31)
[2023-12-21] MEDS: BEVACIZUMAB AWWB IV (11:31)
[2023-12-21] MEDS: dextrose 5% 250 ML 75 ML IV (12:11)
[2023-12-21] MEDS: leucovorin 610 MG in dextrose 5% 250 ML 62.5 MG IV (12:15)
[2023-12-21] MEDS: SODIUM CHLORIDE IV (14:21)
[2023-12-21] MEDS: fluorouraciL 50 mg/ml MDV 100 mL 300 MG IVP (14:21)
[2023-12-21] MEDS: FLUOROURACIL IV (14:21)
[2023-12-21] MEDS: ELASTOMERIC PUMP PUMP IV (14:21)
[2023-12-21 14:33] VITALS: BP 137/91; PULSE 92; RESP 18; TEMP 36.6; O2SAT 99
[2023-12-23 10:58] VITALS: BP 155/98; PULSE 91; RESP 16; TEMP 36.2; O2SAT 97
[2024-01-04 09:16] LABS: Basophils % 0.6 %; Eosinophils # 0.1 10^3/uL (0.0-0.8); Eosinophils % 1.6 %; Hematocrit 41.9 % (36-47); Lymphocytes # 2.7 10^3/uL (0.8-4.8); Lymphocytes % 42.9 %; Mean Corpuscular HGB Conc 33.4 g/dL (30-55); Mean Corpuscular Hemoglobin 32.9 pg (27-33); Mean Corpuscular Volume 98.4 fl (85-98); Mean Platelet Volume 10.3 fL (7.4-10.4); Monocytes # 0.8 10^3/uL (0.2-0.9); Monocytes % 12.9 %; Neutrophils # 2.67 10^3/uL (1.8-7.7); Neutrophils % 41.8 %; Nucleated Red Blood Cells % 0 %; Platelet Count 133 10^3/cmm (157-399); Red Blood Count 4.26 10^6/uL (3.85-5.65); Red Cell Distribution Width 15.3 % (12.1-15.1); White Blood Count 6.37 10^3/uL (3.29-11.43)
[2024-01-04 09:40] LABS: Carcinoembryonic Antigen 34.8 ng/mL (0.0-4.7)
[2024-01-04 09:51] LABS: Alanine Aminotransferase 45 U/L (0-33); Albumin Level 4.2 g/dL (3.5-5.2); Alkaline Phosphatase 134 U/L (35-105); Aspartate Amino Transferase 43 U/L (0-32); Blood Urea Nitrogen 15 mg/dL (6-20); Calcium 9.5 mg/dL (8.5-10.5); Carbon Dioxide 25 mmol/L (22-29); Chloride 100 mmol/L (98-107); Creatinine Clr Calc Pharmacy 71.7564; Globulin 2.8 g/dL (1.3-4.6); Glomerular Filtration Rate 87.2 mL/min (90-130); Glucose 100 mg/dL (65-115); Osmolality Calculated 285 mOsm/kg (285-295); Sodium 137 mmol/L (136-145); Total Bilirubin 0.3 mg/dL (0.15-1.2)
[2024-01-04 09:54] LABS: Anion Gap 16.2 (5-19); Potassium 4.2 mmol/L (3.5-5.1)
[2024-01-04] MEDS: sodium chloride 0.9% 250 ML 75 ML IV (12:06)
[2024-01-04] MEDS: palonosetron 0.25 mg/5 mL SDV IVP (12:07)
[2024-01-04] MEDS: OLANZapine 5 mg TABLET PO (12:08)
[2024-01-04] MEDS: BEVACIZUMAB AWWB IV (12:29)
[2024-01-04] MEDS: SODIUM CHLORIDE 0.9% IV (12:29)
[2024-01-04] MEDS: leucovorin 610 MG in dextrose 5% 250 ML 62.5 MG IV (13:02)
[2024-01-04] MEDS: dextrose 5% 250 ML 75 ML IV (13:05)
[2024-01-04] MEDS: fluorouraciL 50 mg/ml MDV 100 mL 300 MG IVP (15:19)
[2024-01-04] MEDS: SODIUM CHLORIDE IV (15:28)
[2024-01-04] MEDS: ELASTOMERIC PUMP PUMP IV (15:28)
[2024-01-04] MEDS: FLUOROURACIL IV (15:28)
[2024-01-04 15:38] VITALS: BP 121/82; PULSE 76; RESP 16; TEMP 36.3; O2SAT 98
[2024-01-06 10:40] VITALS: BP 107/70; PULSE 92; O2SAT 96
== END 2024-01-10 23:59 | disposition home or self-care (01) ==
PROVIDERS: Nurse Practitioner Family; PCP Family Medicine; Visit Provider Internal Medicine
DX: Z45.1 Encounter for adjustment and management of infusion pump (principal); Z53.9 Procedure and treatment not carried out, unspecified reason
CPT/HCPCS: 80053; 81003; 82378; 85025; 96365; 96367; 96368; 96374; 96375; 96409; 96411; 96413; 96415; 96416; 96417; 96523; J0640; J1100; J2469; J7050; J7060; J9190; J9263; Q5107

== ENCOUNTER 2024-07-10 10:11 | Oncology outpatient (recurring) (ONCR) | payer BC, MEDICAID, SELFPAY | END 2024-07-12 23:59 | disposition home or self-care (01) | PROVIDERS: PCP Family Medicine; Visit Provider Internal Medicine | DX: C18.9 Malignant neoplasm of colon, unspecified (principal); C78.7 Secondary malignant neoplasm of liver and intrahepatic bile duct ==

== ENCOUNTER 2024-07-23 09:30 | Inpatient (IN) | payer BC, SELFPAY ==
[2024-07-23] VITALS (37 sets, daily range): BP systolic 88–134; BP diastolic 51–97; PULSE 100–127; RESP 15–29; TEMP 36.6; O2SAT 95–100; BMI 17.2; BMI 16.9
--- NOTE | 2024-07-23 09:31 | XRR_ITS ---
PROCEDURE INFORMATION: Exam: XR Chest Exam date and time: 07/23/2024 9:38 AM Age: 54 years old Clinical indication: Pain; Angina pectoris; Additional info: Chest pain TECHNIQUE: Imaging protocol: Radiologic exam of the chest. Views: 1 view. COMPARISON: CT chest abdpel w/*[id number] 11/17/2023 5:13 PM FINDINGS: Tubes, catheters and devices: Left-sided central venous chest port noted with the distal tip in the mid SVC. Lungs: Calcified granuloma in the right lower lobe near the diaphragmatic margin again noted. Pleural spaces: No pneumothorax. No large pleural effusion. Heart/Mediastinum: The cardiomediastinal silhouette is within normal limits. Bones/joints: Unremarkable. Organs: Dense branching outlines in the partially visualized liver may be the within the vascular system possibly related to prior liver treatments. XR/XR chest 1V portable [id number] IMPRESSION: No acute cardiopulmonary abnormality identified.
--- NOTE | 2024-07-23 09:45 | ECG_ITS ---
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 Measurements Intervals [place] Rate: 112 P: 82 IN: 144 QRS: 241 QRSD: 92 T: 93 QT: 299 QTc: 409 Interpretive Statements SINUS TACHYCARDIA ANTEROLATERAL MYOCARDIAL INFARCTION , PROBABLY RECENT [40+ ms Q WAVE IN I/aVL/V3-V6] ACUTE CT Compared to ECG 09/13/2022 10:48:54 Sinus rhythm no longer present Myocardial infarct finding still present Electronically Signed On 07-28-2024 15:58:47 [employer] by Davidson Su M.D. [email or web address]
[2024-07-23] MEDS: aspirin 325 mg Tablet PO (09:56)
[2024-07-23] MEDS: heparin 5,000 unit/mL INJ 1 mL 4000 UNIT IVP (09:56)
[2024-07-23] MEDS: clopidogrel 300 mg Tablet 600 MG PO (09:56)
[2024-07-23 09:57] LABS: Basophils % 0.2 %; Hematocrit 45.8 % (36-47); Lymphocytes # 1.9 10^3/uL (0.8-4.8); Lymphocytes % 11.2 %; Mean Corpuscular HGB Conc 32.3 g/dL (30-55); Mean Corpuscular Hemoglobin 31.6 pg (27-33); Mean Corpuscular Volume 97.9 fl (85-98); Mean Platelet Volume 9.8 fL (7.4-10.4); Monocytes # 0.2 10^3/uL (0.2-0.9); Monocytes % 1.2 %; Neutrophils # 14.46 10^3/uL (1.8-7.7); Neutrophils % 85.9 %; Nucleated Red Blood Cells % 0 %; Platelet Count 295 10^3/cmm (157-399); Red Blood Count 4.68 10^6/uL (3.85-5.65); Red Cell Distribution Width 13.9 % (12.1-15.1); White Blood Count 16.85 10^3/uL (3.29-11.43)
--- NOTE | 2024-07-23 09:57 | XACV_ITS ---
Exam Room: [facility] Ht: 157 cm Wt: 45 kg BSA: 1.40 m2 Gender: Female : 1970 Any Known Allergies: Hydrocodone Exam Priority: Routine Procedure(s): Procedure Description: Diagnostic procedure Procedure Description: PCI procedure Procedure Description: Left Heart Catheterization Procedure Description: Left ventriculography Procedure Description: Drug Eluting Coronary Stent Procedure Description: PTCA Procedure Description: Miscellaneous Procedure Description: ACT Procedure Description: Coronary Angiography Alvin DILLARD; Diagnostic Cath Status: Emergency Diagnostic Findings * Circumflex has 100% ostial occlusion. AGNES 0 Flow. * Left Main: total occlusion, AGNES: 0 flow. * Proximal Left Anterior Descending: total occlusion, AGNES: 0 flow. * Mid Right Coronary Artery: mild 40% stenosis, AGNES: 3 flow. * Coronary angiography shows right dominance. PCI Status: Emergency PCI Indication: STEMI - Immediate PCI for STEMI Interventional Findings * Left Main: 100% stenosis treated with a Drug Eluting Stent. 0% residual stenosis, AGNES: 3 flow. Successful intervention using single VINCENT from LM into LCx.It was treated with Balloon angioplasty followed by VINCENT placed from LM into LCx. * Proximal Left Anterior Descendin% stenosis treated with a AB MINI TREK 2.00X6 RX BALLOON, and LILIAN Salazar MEÑO 2.5X12 VINCENT. 0% residual stenosis, AGNES: 3 flow. Conclusions 1. There is total occlusion coronary artery disease with three vessel disease. 2. The basal posterior, basal septum, inferobasal, mid inferior [place] are hypokinetic. 3. The apex, mid posterior, mid septum, anterolateral [place] are dyskinetic. 4. Severe left ventricular systolic dysfunction. Ejection fraction of 10%. 5. Left Main was treated with a Drug Eluting Stent. 6. Proximal Left Anterior Descending was treated with a Balloon, and Drug Eluting Stent. 7. 54-year-old female past medical history significant for continues tobacco abuse metastatic liver cancer cachexia muscle vesting presented with chest pain going on for more than 24 hours, twelve-lead EKG showed ST elevation in anteroseptal and high lateral leads, patient was taken to the Paradichlorobenzene Machine Operator noted to have 100% occluded left main LAD and circumflex. After little difficulty we were able to cross from left main into circumflex, balloon angioplasty revealed occlusion of LAD as well. Immediate direct stenting of left main into circumflex was performed to restore the flow. Good angiographic result was achieved, LAD was noted to be occluded in the ostium, we were unable to cross through the left main stent into LAD. Balloon angioplasty followed by drug-eluting stent was placed from left main into LAD. Patient being cachectic muscle wasting and underweight with BMI less than 18 with metastatic liver cancer may not be a good candidate for Impella due to high risk for bleeding and limb ischemia, since blood pressure improved therefore we decided against mechanical device. Please see for detailed drug-eluting stent from left main to circumflex and left main to LAD.. Recommendations * Continue current medical management and risk factor modification. * 1-Return to inpatient ICU for close monitoring and post STEMI PCI care. 2-Risk factor modification for secondary prevention 3-Statin and aspirin 81 mg life-long, if tolerated 4-Patient was pre-loaded with 600 mg of Plavix, continue Plavix 75mg p.o. daily for at least one year. We will assess at the end of one year again to continue if further or not 5-Continue optimal medical management 6-Follow up with Dr. Esquivel in four weeks and your primary care in 10 days. Interventional RX Recommendation: PCI w/o planned CABG Diagnostic RX Recommendation: PCI w/o planned CABG LV EDP: 29 mmHg Ventriculography Ejection Fraction: 10.0 % Pressures Phase:Rest AO : 99 / 83 ( 91 ) @ 10:21:00 AM 96 / 77 ( 86 ) @ 10:24:00 AM 83 / 49 ( 63 ) @ 10:47:00 AM 117 / 77 ( 92 ) @ 10:51:00 AM 112 / 83 ( 96 ) @ 10:57:00 AM 112 / 82 ( 95 ) @ 10:57:00 AM LV : 131 / 2 / 29 @ 10:55:00 AM 124 / 3 / 29 @ 10:57:00 AM 126 / 2 / 29 @ 10:57:00 AM Valves Phase:DefaultPhase AV : 14.0 @ 11:09:00 AM 14.0 @ 11:09:00 AM AV Mean Gradient: 10.0 @ 11:09:00 AM Clinical Evaluation EBL: 5mL-10mL Procedural Details Procedure Consent Obtained. Pre-Procedure Time Out. Identified patient by full name and date of as verbalized by the patient/guarantor. Does the consent match the physician's order: N/A Emergent. Accurate & Complete Informed Consent: N/A Emergent. Inpatient/Outpatient History & Physical on Chart: N/A Emergent. If H&P is completed, is and addenduem needed: N/A Emergent; If yes, is the addendum complete: N/A Emergent. Visualize and Verify Site with Patient/Guarantor: N/A. Relevant Radiology Images available: N/A Emergent. Pre-op teaching completed and patient verbalized understanding. The risks, benefits, and alternatives of sedation and/or procedure were discussed by physician. The patient agrees to continue. Equipment: 6F - Radial. Cardiac Cath Pack. ACIST Manifold Kit Model BT 2000. Heparinized Saline (2 units/mL), 1000 mL bag. Procedure started. [facility] Clinical Fraility Score: 6: Moderately Frail. Paradichlorobenzene Machine Operator Indications: ACS > 24 hours. Chest Pain Symptom Assessment: Atypical Angina. Cardiovascular Instability: No. Correct patient, site and procedure confirmed by cath team. PERRLA. Strong, equal hand epic cadence analyst bilaterally. Lungs clear x 5 lobes. IV Site on Arrival: 18 gauge in the right anticubital. IV Fluids: 0.9% NaCl at KVO. 0 mL infused prior to laboratory assistant. Oxygen started at 2liters/min via nasal canula. right groin was prepped with chloroprep then draped in the usual sterile fashion. right radial was prepped with chloroprep then draped in the usual sterile fashion. Baseline sample Acquired. HR: 117 BPM. Physician arrived. Physician scrubbed in. Immediate Pre-Procedure Time Out. Correct Patient: N/A Emergent; Correct Procedure: N/A Emergent; Correct Site: N/A Emergent; Correct Patient Position: N/A Emergent; Correct Supplies: N/A Emergent; Dried Flammable Prep: N/A Emergent; Blood Products Available: N/A Emergent;. Lidocaine 1% infiltrated to the right radial. Arterial access obtained. Critical trop [address] Esquivel. 6 macedonian XB 3 guide catheter was inserted over the wire. PT arrived with AP pads on. Runthrough guidewire was advanced through the guide catheter to lesion in the prox Circ. Runthrough guidewire was advanced through the guide catheter to lesion in the mid Circ. Inflation number : 1 A AB MINI TREK 2.00X12 RX BALLOON was prepped and advanced across the LMCA , then inflated to 12 KAUSHIK for 0:08 seconds. ACT drawn. Results 231 seconds. Therapeutic limits - pre-heparin administration 90-150 seconds and monitoring heparin during a vascular procedure >250 seconds. Balloon out. Results checked. Inflation Number : 2 A MDT R MEÑO 2.5X15 VINCENT -Lot Number# [id number] exp date 03/31/2026 was prepped and advanced across the LMCA. The stent was deployed at 12 KAUSHIK for 0:10 seconds. Stent balloon out over wire. Results checked. Runthrough wire out. Runthrough guidewire was advanced through the guide catheter to lesion in the prox LAD. Inflation number : 1 A AB MINI TREK 2.00X6 RX BALLOON was prepped and advanced across the Prox LAD , then inflated to 14 KAUSHIK for 0:11 seconds. Inflation number: 2 The AB MINI TREK 2.00X6 RX BALLOON was reinflated across the Prox LAD, to 12 KAUSHIK for 0:09 seconds. Balloon out. Inflation Number : 3 A MDT R MEÑO 2.5X12 VINCENT -Lot Number# [id number] exp date 08/11/2026 was prepped and advanced across the Prox LAD. The stent was deployed at 12 KAUSHIK for 0:10 seconds. Stent balloon out over wire. Results checked. Wires out. A 5 macedonian JR4 catheter in over wire. Guide catheter out. Multiple views taken of left coronary artery. Catheter removed over the exchange wire. A 5 macedonian Angled Pig catheter in over wire. EDP Sample taken: LV 131/2,29; HR: 108 BPM; SpO2: 100%. Hand [id number] for LV gram. ACT drawn. Results out of range high. seconds. Therapeutic limits - pre-heparin administration 90-150 seconds and monitoring heparin during a vascular procedure >250 seconds. EDP Sample taken: LV 124/3,29; HR: 106 BPM; SpO2: Off%. Pullback taken: LV 126/2,29; AO 112/83(96); Mean: 10mmHg, Peak to Peak: 14mmHg, SEP: 20sec/min; HR: 103 BPM; SpO2: 100%. Catheter removed over the exchange wire. Physician scrubbed out. A TR Band was successful obtaining hemostatsis at the Right Radial artery insertion site. TR band placed. Hemostasis obtained. Post Procedure: Pulses reassessed and unchanged. PERRLA. Strong, equal hand epic cadence analyst bilaterally. No VTE prophylaxis required. Current diagnosis: STEMI. ACT drawn. Results 370 seconds. Therapeutic limits - pre-heparin administration 90-150 seconds and monitoring heparin during a vascular procedure >250 seconds. Contrast type used: Omnipaque 300 mgI/mL, 500 mL bottle. Post-op diagnosis: stemi. PCI Indication: STEMI. Complications: none. Estimated blood loss: 5mL-10mL. Medication's Wasted: Lidocaine 1% = 18 mL. Medication's Wasted: Nitro = 50 mg. Medication's Wasted: Heparin = 2000 units. Medication's Wasted: Other = versed 1 mg. Medication's Wasted: Other = fentanyl 100 mcg. Total IV fluids: 65 mL. Responsiveness - Normal response to verbal stimuli; alert and oriented, PERRLA. Airway - Unaffected, no intervention required; spontaneous ventilation. Circulation: W/N/L, pulses unchanged. Nausea/Vomiting: Yes. Procedure completed. Patient transferred by bed to ICU. Access Site Site: Right Radial artery Sheath Size: 6 Fr Hemostasis Method: TR Band Hemostasis Success: Successful Procedure Medications Start: 10:21 AM Stop: 10:21 AM Medication: Versed Amount: 1 mg Route: I.V. Start: 10:33 AM Stop: 10:33 AM Medication: Levophed (norepinephrine) Amount: 8 mcg/min Route: I.V. drip Start: 10:33 AM Stop: 10:33 AM Medication: Heparin Amount: 4000 units Route: I.V. I, the attending physician, have reviewed and verified all procedure medications. Yes, all medications given per verbal order History/Risk Factors Hypertension: No Dyslipidemia: No Peripheral Arterial Disease (PAD): No Myocardial Infarction (ID): No Obesity: No Renal Disease: No Prior Interventions PCI: No CABG: No Valve Surgery: No Report Signatures Finalized by Cristin Esquivel MD on 08/10/2024 02:57 AM
--- NOTE | 2024-07-23 09:59 | ECG_ITS ---
[facility]24[facility]23 Pat Name: Chantale Wright Department: Room: Gender: Female Business Test Analyst: RICHIE: 1970 Requested By: Maria M Bryant Order Number: [id number] Blanca MD: Davidson Su M.D. Measurements Intervals [place] Rate: 113 P: 87 WV: 145 QRS: 239 QRSD: 89 T: 91 QT: 303 QTc: 416 Interpretive Statements SINUS TACHYCARDIA ANTEROLATERAL MYOCARDIAL INFARCTION , PROBABLY RECENT [40+ ms Q WAVE IN I/aVL/V3-V6] ST depressions in inferior leads, suggestive of ischemia ACUTE SC INTERPRETATION BASED ON A DEFAULT AGE OF 40 YEARS Compared to ECG 07/23/2024 09:45:51 No significant changes Electronically Signed On 07-28-2024 15:59:42 PEOPLESOFT DEVELOPER by Davidson Su M.D. [email or web address]
--- NOTE | 2024-07-23 10:01 | ED_ITS ---
HPI - Chest Pain 2 General: Chief Complaint: Chest Pain Stated Complaint: n,v,chest pain, shoulder pain Time Seen by Provider: 07/23/24 09:49 History of Present Illness: 54-year-old female who presents to the e mergency room with complaints of chest pain. States it began yesterday afternoon around 8 AM she is presenting 26 hours after onset of symptoms pain radiates to her neck and into her back initial EKG shows ST elevation anterior lateral with reciprocal changes patient is still actively having symptoms at this time Timing of current episode: constant Onset: during rest Pain location: substernal Pain radiation: left arm, neck, jaw/teeth, left shoulder and left scapula Severity: severe Associated symptoms: Reports dyspnea; Deny abdominal pain or fever(s) Related Data Previous Rx's Medication Instructions Recorded lisinopril 10 mg tablet 10 mg PO DAILY #30 tabs 02/14/24 ondansetron HCl 8 mg tablet 8 mg PO Q8H PRN nausea and 04/17/24 vomiting #30 tabs diazepam 5 mg tablet (Valium) 5 mg PO Q8H PRN anxiety #30 tabs 05/22/24 diphenoxylate-atropine 2.5 2 tab PO QID PRN diarrhea #60 tabs 07/12/24 mg-0.025 mg tablet (Lomotil) lidocaine-prilocaine 2.5 %-2.5 % 1 applic topical .COMPLEX #30 grams 07/12/24 topical cream lorazepam 1 mg tablet 0.5 - 1 mg (0.5 - 1 x 1 mg) PO Q6H 07/12/24 PRN severe nausea #30 tabs ondansetron HCl 4 mg tablet 4 mg PO Q6H PRN nausea and 07/12/24 vomiting #30 tabs prochlorperazine maleate 10 mg 10 mg PO Q4H PRN mild nausea #30 07/12/24 tablet (Compazine) tabs megestrol 400 mg/10 mL (10 mL) 400 mg (10 mL) PO DAILY #300 mL 07/18/24 oral suspension Allergies Allergy/AdvReac Type Severity Reaction Status Date / Time hydrocodone [From [place]] Allergy ADR-Nausea Verified 07/18/24 08:54 Review of Systems 2 Const: Denies: fever(s) or chills Card: Reports: chest pain Resp: Reports: dyspnea GI: Denies: abdominal pain : Denies: dysuria, urinary frequency or urinary urgency Musc: Reports: neck pain and back pain Skin/Breast: Denies: rash PFSH ED 2 PFSH: Medical History Tobacco use disorder Chemotherapy induced neutropenia Port-A-Cath in place left Colon cancer Metastatic cancer to liver Constipation Tobacco dependency Surgical History History of colostomy S/P left hemicolectomy Family History Other CAD (coronary artery disease) Social History Smoking and tobacco/nicotine status: current some day tobacco/nicotine user cigarettes Packs smoked per day: 0.05 Years cigarettes smoked: 40 Alcohol intake: never Substance/Drug Use: never Physical Exam 2 Const: GENERAL APPEARANCE: cooperative ORIENTATION/CONSCIOUSNESS: Yes awake, Yes oriented to person, Yes oriented to place and Yes oriented to time HENMT: COMMON NORMALS: normocephalic, atraumatic and hearing grossly normal bilaterally HEAD & SCALP: normocephalic and atraumatic Resp: COMMON NORMALS: normal respiratory effort, No retractions, No use of accessory muscles and clear to auscultation bilaterally AUSCULTATION: clear to auscultation bilaterally Cardio: COMMON NORMALS: regular rate, regular rhythm and No murmurs present (Cardio) RATE: regular rate RHYTHM: regular rhythm GI: COMMON NORMALS: Soft to palpation and No hepatosplenomegaly present A USCULTATION: Yes normoactive bowel sounds PALPATION: Yes Soft to palpation, No Tenderness to palpation present (GI), No Guarding due to palpation present (GI) and Yes No hepatosplenomegaly present Extremity: COMMON NORMALS: normal to inspection, capillary refill normal, no clubbing, cyanosis or edema, no calf tenderness and no pedal edema Neuro: SENSORIUM/ORIENTATION: Yes oriented to person, Yes oriented to place and Yes oriented to time Skin: COMMON NORMALS: no rashes or lesions noted GENERAL SKIN EXAM: no rashes or lesions noted Course 2 Vital Signs: Vital signs: Vital Signs Pulse Rate 125 H 07/23/24 09:51 Respiratory Rate 24 H 07/23/24 09:51 Blood Pressure 127/97 07/23/24 09:51 Pulse Oximetry 100 07/23/24 09:51 Oxygen Delivery Me thod Nasal Cannula 07/23/24 09:51 Oxygen Flow Rate 2 07/23/24 09:51 MDM - Chest Pain Medical Decision Making ST elevation IL called immediately upon presentation of EKG from triage. Patient taken to the room I evaluated her she is still actively having pain Dr. Esquivel arrived almost simultaneously. Patient does have a known history of colon cancer with metastasis that she does still wish to proceed. She has not been having any recent GI bleed issues. She was given heparin aspirin and Plavix Dr. Esquivel is taking patient directly to the Senior Billing Consultant Lab Data 07/23/24 09:47 07/23/24 09:47 Laboratory Results WBC 16.85 10^3/uL (3.29-11.43) H 07/23/24 09:47 RBC 4.68 10^6/uL (3.85-5.65) 07/23/24 09:47 Hgb 14.80 g/dL (11.27-16.99) 07/23/24 09:47 Hct 45.8 % (36-47) 07/23/24 09:47 MCV 97.9 fl (85-98) 07/23/24 09:47 MCH 31.6 pg (27-33) 07/23/24 09:47 MCHC 32.3 g/dL (30-55) 07/23/24 09:47 RDW 13.9 % (12.1-15.1) 07/23/24 09:47 Plt Count 295 10^3/cmm (157-399) 07/23/24 09:47 MPV 9.8 fL (7.4-10.4) 07/23/24 09:47 Neut % (Auto) 85.9 % 07/23/24 09:47 Lymph % (Auto) 11.2 % 07/23/24 09:47 [place] % (Auto) 1.2 % 07/23/24 09:47 Eos % (Auto) 0.0 % 07/23/24 09:47 Baso % (Auto) 0.2 % 07/23/24 09:47 Neut # (Auto) 14.46 10^3/uL (1.8-7.7) H 07/23/24 09:47 Lymph # (Auto) 1.9 10^3/uL (0.8-4.8) 07/23/24 09:47 [place] # (Auto) 0.2 10^3/uL (0.2-0.9) 07/23/24 09:47 Eos # (Auto) 0.0 10^3/uL (0.0-0.8) 07/23/24 09:47 Baso # (Auto) 0.0 10^3/uL (0.0-0.1) 07/23/24 09:47 Nucleated RBC % (auto) 0 % 07/23/24 09:47 Nucleated RBCs # 0.0 /100WBC 07/23/24 09:47 All radiology interpretation(s) finalized by discharge Discharge Plan Discharge Patient Disposition: Admitted As Inpatient Clinical Impression: ST elevation myocardial infarction (STEMI), Metastatic cancer to liver, Colostomy in place Condition: Stable Prescriptions: No Action lisinopril 10 mg tablet 10 mg PO DAILY Qty: 30 3RF diazepam [Valium] 5 mg tablet 5 mg PO Q8H PRN (Reason: anxiety) Qty: 30 0RF megestrol 400 mg/10 mL (10 mL) suspension 400 mg PO DAILY Qty: 300 2RF ondansetron HCl 8 mg tablet 8 mg PO Q8H PRN (Reason: nausea and vomiting) Qty: 30 3RF lorazepam 1 mg tablet 0.5 - 1 mg PO Q6H PRN (Reason: severe nausea) Qty: 30 3RF prochlorperazine maleate [Compazine] 10 mg tablet 10 mg PO Q4H PRN (Reason: mild nausea) Qty: 30 3RF ondansetron HCl 4 mg tablet 4 mg PO Q6H PRN (Reason: nausea and vomiting) Qty: 30 3RF diphenoxylate-atropine [Lomotil] 2.5-0.025 mg tablet 2 tab PO QID MDD 8 tab PRN (Reason: diarrhea) Qty: 60 3RF Rx Instructions: 2 tabs orally 4xdaily until control of diarrhea lidocaine-prilocaine 2.5-2.5 % cream 1 applic topical .COMPLEX Qty: 30 3RF Rx Instructions: Apply quarter size amount 30-45 minutes prior to port access, cover with cellophane Referrals: Kym Stearns DO [Primary Care Provider] - Coding Level of Care Code ED Petroleum Refinery Operator for Trenag Shari
--- NOTE | 2024-07-23 10:04 | P.HP_ITS ---
Providers/Chief Complaint 2 Admitting Physician: Cristin Esquivel MD Primary Care Provider: Kym Stearns DO Chief Complaint: n,v,chest pain, shoulder pain History of Present Illness Chantale Wright is a 54 year old female past medical history significant for continuous tobacco abuse history of colon cancer metastasis to liver patient is following up at [facility] cancer center at [facility], history of chemotherapy Port-A-Cath / colostomy in place presented with chest pain of more than 24-hour duration, since it did not get better in fact it gotten worse therefore she decided to come to the ER. Twelve-lead EKG was suggestive of sinus tachycardia left axis deviation anterolateral subtle ST elevation with high lateral lead involvement 1 and aVL with some inferior reciprocal changes suggestive of possible lesion in mid LAD. Medications/Allergies Home Medications Medication Instructions Recorded Confirmed Last Taken Type lisinopril 10 mg tablet 10 mg PO DAILY #30 tabs 02/14/24 07/18/24 Unknown Rx ondansetron HCl 8 mg tablet 8 mg PO Q8H PRN nausea and 04/17/24 07/18/24 Unknown Rx vomiting #30 tabs diazepam 5 mg tablet (Valium) 5 mg PO Q8H PRN anxiety #30 tabs 05/22/24 07/18/24 Unknown Rx diphenoxylate-atropine 2.5 2 tab PO QID PRN diarrhea #60 tabs 07/12/24 07/18/24 Unknown Rx mg-0.025 mg tablet (Lomotil) lidocaine-prilocaine 2.5 %-2.5 % 1 applic topical .COMPLEX #30 grams 07/12/24 07/18/24 Unknown Rx topical cream lorazepam 1 mg tablet 0.5 - 1 mg (0.5 - 1 x 1 mg) PO Q6H 07/12/24 07/18/24 Unknown Rx PRN severe nausea #30 tabs ondansetron HCl 4 mg tablet 4 mg PO Q6H PRN nausea and 07/12/24 07/18/24 Unknown Rx vomiting #30 tabs prochlorperazine maleate 10 mg 10 mg PO Q4H PRN mild nausea #30 07/12/24 07/18/24 Unknown Rx tablet (Compazine) tabs megestrol 400 mg/10 mL (10 mL) 400 mg (10 mL) PO DAILY #300 mL 07/18/24 07/18/24 Unknown Rx oral suspension Allergies Allergy/AdvReac Type Severity Reaction Status Date / Time hydrocodone [From [place]] Allergy ADR-Nausea Verified 07/18/24 08:54 PFSH Acute 2 PFSH: Medical History Tobacco use disorder Chemotherapy induced neutropenia Port-A-Cath in place left Colon cancer Metastatic cancer to liver Constipation Tobacco dependency Surgical History History of colostomy S/P left hemicolectomy Family History Other CAD (coronary artery disease) Social History Smoking and tobacco/nicotine status: current some day tobacco/nicotine user cigarettes Packs smoked per day: 0.05 Years cigarettes smoked: 40 Alcohol intake: never Substance/Drug Use: never Vitals/I&O/Wt Last Vital Signs Pulse 125 H 07/23/24 09:51 Resp 24 H 07/23/24 09:51 BP 127/97 07/23/24 09:51 Pulse Ox 100 07/23/24 09:51 O2 Del Method Nasal Cannula 07/23/24 09:51 O2 Flow Rate 2 07/23/24 09:51 Weight last 48 hrs Weight 100 lb Physical Exam 2 Const: OTHER: GENERAL: Patient is alert, awake and oriented x3. Mild distress HEART: Regular S1 and S2. No murmur, rub or gallop. LUNGS: Clear to auscultate bilaterally. CENTRAL NERVOUS SYSTEM: Grossly nonfocal. EXTREMITIES: Lower extremities with out edema bilaterally. Data 07/23/24 09:47 07/23/24 09:47 A&P Assessment and plan (1) ST elevation myocardial infarction (STEMI): Will proceed with urgent left heart cath/PCI if indicated patient has been loaded with 60 mg of Plavix and aspirin. Will give statin. Further plan will be devised as per progress of the patient. Qualifiers: Involved coronary artery: other anterior wall coronary artery Qualified Code(s): I21.09 - ST elevation (STEMI) myocardial infarction involving other coronary artery of anterior wall (2) Tobacco abuse counseling: Advised quitting smoking. (3) Benign essential HTN: Currently patient is mildly hypotensive (4) Metastatic cancer to liver: Status postchemotherapy and planning for surgical resection in the near future. She will follow-up with oncology. Attestations 2 Medical Necessity Statement*: I am expecting her stay to cross more than 2 midnights due to above defined problem. Coding Level of Care Code Acute Code for [facility] Fwd Diagnoses ST elevation myocardial infarction (STEMI) involving other coronary artery of anterior wall I21.09 Involved coronary artery: other anterior wall coronary artery Tobacco abuse counseling Z71.6 Benign essential HTN I10 Metastatic cancer to liver C78.7
[2024-07-23 10:19] LABS: Alanine Aminotransferase 138 U/L (0-33); Albumin Level 4.3 g/dL (3.5-5.2); Alkaline Phosphatase 183 U/L (35-105); Aspartate Amino Transferase 460 U/L (0-32); Blood Urea Nitrogen 38 mg/dL (6-20); Calcium 9.7 mg/dL (8.5-10.5); Carbon Dioxide 20 mmol/L (22-29); Chloride 91 mmol/L (98-107); Creatinine Clr Calc Pharmacy 35.0127; Globulin 1.6 g/dL (1.3-4.6); Glomerular Filtration Rate 42.5 mL/min (90-130); Glucose 124 mg/dL (65-115); Lipase 14 U/L (13-60); Osmolality Calculated 278 mOsm/kg (285-295); Sodium 129 mmol/L (136-145); Total Bilirubin 0.7 mg/dL (0.15-1.2); Total Protein 5.9 g/dL (6.6-8.7); Troponin(5th) Baseline 8410 ng/L (0-10)
[2024-07-23 10:22] LABS: Anion Gap 23.3 (5-19); Potassium 5.3 mmol/L (3.5-5.1)
--- NOTE | 2024-07-23 11:19 | USCV_ITS ---
Chantale Wright Age: 54 Gender: F : 1970 Exam Date: 07/23/2024 22:19 Ordering Phys: Cristin Esquivel MD ([email or web address]) Technologist: GOSIA Exam Location: [facility] [place] Indication: stemi s/p cardiac catheterization BP: 100 / 81 HR: 105 Rhythm: Sinus Technical Quality: Adequate MEASUREMENTS (Male / Female) Normal Values 2D ECHO LV Diastolic Diameter PLAX 4.3 cm 4.2 - 5.9 / 3.9 - 5.3 cm IVS Diastolic Thickness 0.9 cm 0.6 - 1.0 / 0.6 - 0.9 cm IVS Systolic Thickness 1.1 cm LVPW Diastolic Thickness 1.3 cm 0.6 - 1.0 / 0.6 - 0.9 cm LVPW Systolic Thickness 1.1 cm LVOT Diameter 1.6 cm LV Ejection Fraction 2D Teich 20.9 % LV Ejection Fraction MOD 4C 22.7 % LV Ejection Fraction MOD 2C 19.7 % LV Ejection Fraction 2C AL 19.3 % IVC Diameter 2.4 cm M-MODE LA Ao Ratio MM 0.9 AV Cusp Separation MM 1.5 cm DOPPLER AV Peak Velocity 55.0 cm/s LVOT Peak Velocity 38.0 cm/s AV Area Cont Eq vti 1.3 cm squared AV Area Cont Eq pk 1.4 cm squared MV Peak Velocity 87.0 cm/s MV Area PHT 6.4 cm squared Mitral E to A Ratio 1.5 TV Peak Velocity 247.0 cm/s TR Peak Velocity 251.0 cm/s TR Peak Gradient 25.2 mmHg TV Peak E Velocity 36.0 cm/s Right Atrial Pressure 3.0 mmHg Pulmonary Artery Systolic Pressu 28.2 mmHg PV Peak Velocity 66.0 cm/s FINDINGS Left Ventricle Moderately increased left ventricular cavity size. Severely decreased left ventricular systolic function. Left ventricular ejection fraction is estimated at 10-15 %. There appeared to be slight mid to distal anterior septal apical and mid to distal lateral wall akinesis, there is basal septal severe hypokinesis.Grade III/IV diastolic dysfunction (restrictive filling pattern), severely elevated filling pressures. Right Ventricle The right ventricle is normal in size and function. Right Atrium The right atrium is normal in size. Left Atrium The left atrium is normal in size. Mitral Valve Moderately thickened mitral valve. Mild mitral annular calcification. Moderate mitral valve regurgitation. Aortic Valve Mild aortic valve calcification. Mild to moderate aortic valve stenosis, mean gradient 0.59 mmHg, SALMA 1.3 cm squared. Mild aortic valve regurgitation. Cannot rule out pseudo aortic valve stenosis. Tricuspid Valve [id number] tricuspid valve regurgitation. Pulmonic Valve Structurally normal pulmonic valve without significant stenosis. There is no pulmonic regurgitation. Pericardium Normal pericardium without effusion. Aorta Normal ascending aorta dimension. IVC Dilated IVC with decreased respiratory variation. CONCLUSIONS Moderately increased left ventricular cavity size. Severely decreased left ventricular systolic function. Left ventricular ejection fraction is estimated at 10-15 %. There appeared to be slight mid to distal anterior septal apical and mid to distal lateral wall akinesis, there is basal septal severe hypokinesis.Grade III/IV diastolic dysfunction (restrictive filling pattern), severely elevated filling pressures. Moderately thickened mitral valve. Mild mitral annular calcification. Moderate mitral valve regurgitation. Mild aortic valve calcification. Mild to moderate aortic valve stenosis, mean gradient 0.59 mmHg, SALMA 1.3 cm squared. Mild aortic valve regurgitation. Cannot rule out pseudo aortic valve stenosis. [id number] tricuspid valve regurgitation. There is no pericardial effusion. Right atrial pressure is around 20 mm of mercury. Cristin Esquivel MD (Electronically Signed) Final Date: 24 July 2024 20:13 S
--- NOTE | 2024-07-23 11:31 | ECG_ITS ---
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1970 Requested By: Maria M Bryant Order Number: [id number] Reading MD: CHEYENNE MORELOS Measurements Intervals [place] Rate: 119 P: 86 MN: 134 QRS: 218 QRSD: 89 T: 105 QT: 311 QTc: 438 Interpretive Statements SINUS TACHYCARDIA INDETERMINATE AXIS LOW QRS VOLTAGE IN PRECORDIAL LEADS [QRS DEFLECTION < 1.0 mV IN CHEST LEADS] POSSIBLE RIGHT VENTRICULAR CONDUCTION DELAY [RSR (QR) IN V1/V2] ANTEROLATERAL MYOCARDIAL INFARCTION , OF INDETERMINATE AGE [40+ ms Q WAVE IN I/aVL/V3-V6] Compared to ECG 07/23/2024 09:59:20 Indeterminate axis now present Low QRS voltage now present Myocardial infarct finding still present Electronically Signed On 08-01-2024 18:19:16 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
[2024-07-23] MEDS: norepinephrine 4 MG/250 ML BAG 30 MG IV ×2 (12:00→18:13)
[2024-07-23] MEDS: morphine 4 mg/mL SDV 1 mL 1 MG IVP (12:01)
--- NOTE | 2024-07-23 12:06 | P.CONIM_ITS ---
Providers/Reason For Consult 2 Consulting Physician/Specialty*: Petar Parish MD, Hospitalist. Reason for Consult*: Medical management Requesting Physician: Dr. Esquivel Attending Physician: Cristin Esquivel MD Primary Care Provider: Kym Stearns DO History of Present Illness History of Present Illness Chantale Wright is a 54 year old female with history of metastatic colon cancer, recently receiving chemotherapy consisting of a Avastin, Camptosar, 5- fluorouracil, with leucovorin, who presented to the emergency department with chest discomfort radiating to her left neck and jaw for the last 24 hours. She was found to have an ST elevation myocardial infarction. She was taken immediately to the angiogram lab, where a stent was placed from the left main into the circumflex and then the left main into the LAD. These were drug- eluting stents. She was brought to the ICU following the procedure, hypotensive. Ejection fraction was thought to be around 10 to 15% at time of procedure. She currently reports a little bit of residual left neck discomfort, but denies any shortness of breath. She denies any recent fever. No prior history of heart disease. Recently at [place], wearing abdominal liver procedure was aborted secondary to findings of carcinomatosis in the abdomen. Review of Systems 2 General: Reports: 10 or more systems reviewed and unremarkable except in HPI and below Medications/Allergies Home Medications Medication Instructions Recorded Confirmed Last Taken Type lisinopril 10 mg tablet 10 mg PO DAILY #30 tabs 02/14/24 07/18/24 Unknown Rx ondansetron HCl 8 mg tablet 8 mg PO Q8H PRN nausea and 04/17/24 07/18/24 Unknown Rx vomiting #30 tabs diazepam 5 mg tablet (Valium) 5 mg PO Q8H PRN anxiety #30 tabs 05/22/24 07/18/24 Unknown Rx diphenoxylate-atropine 2.5 2 tab PO QID PRN diarrhea #60 tabs 07/12/24 07/18/24 Unknown Rx mg-0.025 mg tablet (Lomotil) lidocaine-prilocaine 2.5 %-2.5 % 1 applic topical .COMPLEX #30 grams 07/12/24 07/18/24 Unknown Rx topical cream lorazepam 1 mg tablet 0.5 - 1 mg (0.5 - 1 x 1 mg) PO Q6H 07/12/24 07/18/24 Unknown Rx PRN severe nausea #30 tabs ondansetron HCl 4 mg tablet 4 mg PO Q6H PRN nausea and 07/12/24 07/18/24 Unknown Rx vomiting #30 tabs prochlorperazine maleate 10 mg 10 mg PO Q4H PRN mild nausea #30 07/12/24 07/18/24 Unknown Rx tablet (Compazine) tabs megestrol 400 mg/10 mL (10 mL) 400 mg (10 mL) PO DAILY #300 mL 07/18/24 07/18/24 Unknown Rx oral suspension Allergies Allergy/AdvReac Type Severity Reaction Status Date / Time hydrocodone [From [place]] Allergy ADR-Nausea Verified 07/18/24 08:54 Current Medications Generic Name Dose Route Start Last Admin Trade Name Freq PRN Reason Stop Dose Admin Norepinephrine Bitartrate 4 mg in 250 mls @ 0 mls/hr 07/23/24 12:00 07/23/24 12:00 Levophed IV 8 mcg/min .Q0M YURI 30 mls/hr Administration Protocol Per Protocol Morphine Sulfate 1 mg 07/23/24 11:51 07/23/24 12:01 Morphine 4 Mg/Ml Sdv 1 Ml IVP 1 mg Q2H PRN Administration SEVERE PAIN PFSH Acute 2 PFSH: Medical History Tobacco use disorder Chemotherapy induced neutropenia Port-A-Cath in place left Colon cancer Metastatic cancer to liver Constipation Tobacco dependency Surgical History History of colostomy S/P left hemicolectomy Family History Other CAD (coronary artery disease) Social History Smoking and tobacco/nicotine status: current some day tobacco/nicotine user cigarettes Packs smoked per day: 0.05 Years cigarettes smoked: 40 Alcohol intake: never Substance/Drug Use: never Vitals/I&O/Wt Last Vital Signs Temp 97.8 F 07/23/24 11:20 Pulse 110 H 07/23/24 11:55 Resp 20 H 07/23/24 12:01 BP 93/51 07/23/24 11:39 Pulse Ox 100 07/23/24 12:01 O2 Del Method Nasal Cannula 07/23/24 11:45 O2 Flow Rate 1 07/23/24 11:39 Weight last 48 hrs Weight 44.906 kg Weight 45.359 kg Physical Exam 2 Narrative: General exam is a thin appearing white female, reporting she has a little residual left neck discomfort. HEENT: Atraumatic and normocephalic. Oropharynx clear Neck is supple Cardiovascular regular rate and rhythm, no murmur. No S3 or S4 Lungs clear Abdomen is soft. Ostomy is noted with stool in the bag exam is deferred Extremities no cyanosis clubbing or edema, with the exception of her right hand which has a band on the wrist following angiogram. It is slightly cyanotic and nurses following closely to arrange for reduction of air in the band to soon as possible Skin see findings above Neuro no focal deficits. Data 07/23/24 09:47 07/23/24 09:47 Other Labs: LFTs are reviewed. Total bilirubin is normal, AST 460, ALT 138, alk phos 183, troponin 8400. Albumin, calcium is normal. I have ordered a random cortisol which is 55, and a TSH was just 2.78 Urinalysis is ordered but pending Chest x-ray by my read demonstrated a left-sided port, no infiltrate, calcified nodule right lower lobe, possible COPD EKG per my read demonstrates ST elevation laterally and in the leads V2 through V5. A&P Assessment and plan (1) ST elevation myocardial infarction (STEMI): Patient received 2 drug-eluting stents, 1 left main to circumflex and 1 left main to LAD EF significantly low Placed on norepinephrine during or after procedure Wean norepinephrine off as tolerated Consider echocardiogram, will defer to cardiology timing on this whether it should be done near end of hospital course or as an outpatient Aspirin, statin, Plavix. Secondary to hypotension hold off on beta-octaviano currently. She was on an RADHA inhibitor at home, holding this secondary to hyperkalemia and hypotension. Qualifiers: Involved coronary artery: other anterior wall coronary artery Qualified Code(s): I21.09 - ST elevation (STEMI) myocardial infarction involving other coronary artery of anterior wall (2) Hypotension: Patient with hypotension, following the procedure Continue norepinephrine, titrate as possible IV fluids NS at 75 an hour CBC and BMP in the morning Associated with metabolic acidosis. (3) Hyperkalemia: Hold lisinopril Recheck potassium in the morning (4) Hyponatremia: Hyponatremia Monitor closely Fluids as noted (5) Cardiomyopathy: Patient with ischemic cardiomyopathy EF during angiogram around 15% Monitor for fluid overload Will need repeat echo in the future to see if EF improves Defer to cardiology whether external defibrillator/LifeVest would be needed at discharge. (6) Acute kidney injury: Patient with acute kidney injury IV fluids Recheck tomorrow (7) Metastatic colon cancer to liver: Patient with metastatic colon cancer, with carcinomatosis Recent chemotherapy, as noted in HPI consisting of all Avastin with Folfiri Plan Leukocytosis. Possible demargination secondary to stress. Await urinalysis. Continue to monitor closely Failure to thrive, with severe protein calorie malnutrition. Encourage nutritional supplements. Other medical problems as outlined in past medical history Thank you for this consultation. Consult Attestations 2 Medical Necessity Statement: As per primary Critical Care Time: The high probability of a clinically significant, sudden or life threatening deterioration of the patient's [cardiac, oncologic, renal] system(s) required my full and direct attention, intervention and personal management. The critical care time is as shown. This time is in addition to time spent performing any reported procedures but includes the following: [x] Data and vital sign review and interpretation [x] Patient assessment, examination and intervention [x] Documentation [x] Medication orders and management Critical Care Time (min): 65 Coding Level of Care Code Critical Care >/= 30 minutes Critical care time (in minutes): 65 The high probability of a clinically significant, sudden or life threatening deterioration, as referenced in this documentation, required my full and direct attention, intervention and personal management. The critical care time shown is in addition to time spent performing any reported separately billable procedures and includes the following: [x] Data and vital sign review and interpretation [x ] Patient assessment, examination and intervention [x] Medication orders and management [x] Patient/Family updates as able [x] Care Coordination and Documentation. Diagnoses ST elevation myocardial infarction (STEMI) involving other coronary artery of anterior wall I21.09 Involved coronary artery: other anterior wall coronary artery Hypotension I95.9 Hyperkalemia E87.5 Hyponatremia E87.1 Cardiomyopathy I42.9 Acute kidney injury N17.9 Metastatic colon cancer to liver C18.9; C78.7
--- NOTE | 2024-07-23 12:15 | PC.NURSE ---
Norepinephrine running at 8mcg/min upon arriving from [place].
[2024-07-23 12:37] LABS: Cortisol Random 54.46 ug/dL (2.47-19.5); Thyroid Stimulating Hormone 2.78 uIU/mL (0.27-4.20)
[2024-07-23] MEDS: sodium chloride 0.9% 1,000 ML 75 ML IV ×2 (12:57→23:06)
--- NOTE | 2024-07-23 13:01 | PC.PHAR ---
Addendum entered by Coretta Smith 07/23/24 13:03: Pt has a port and is currently undergoing treatment.. Original Note: Pt states only med taken today was Compazine. Pt also has lisinopril 10mg tablet last fill 05/07/24 30ds-she states still takes this medication. Pt has not started lorazepam 1mg or Megestrol 400mg/10ml.
--- NOTE | 2024-07-23 13:08 | PC.NURSE ---
Called Dr. Esquivel regarding troponin series. Verbal order to cancel.
--- NOTE | 2024-07-23 16:55 | PC.NURSE ---
1630 TR band removed, pulses present, no hemotoma, no bleeding, dressing in place is dry and intact. Patient reports her hand is feeling normal as before it was numb and tingling.
[2024-07-23 17:16] LABS: Bilirubin Urine Negative (Negative); Blood Urine 1+ (Negative); Glucose Urine UA Negative (Normal); Ketones Urine Negative (Negative); Leukocyte Esterase Urine Negative (Negative); Nitrate Urine Negative (Negative); Protein Urine 1+ (Negative); Urine Appearance Clear (CLEAR); Urine Color Yellow (Yellow); pH Urine 5.5 (5-7)
[2024-07-23 17:22] LABS: Add Urine Microscopic? YES; Bacteria Urine None Seen /hpf; RBC Urine 0-2 /hpf (0-2); Squamous Epithelial Cell Urine 0-5 /hpf (0-5); WBC Urine 0-5 /hpf (0-5)
--- NOTE | 2024-07-23 17:30 | ECG_ITS ---
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1970 Requested By: Maria M Bryant Order Number: [id number] Reading MD: CHEYENNE MORELOS Measurements Intervals [place] Rate: 116 P: 78 CO: 141 QRS: 221 QRSD: 89 T: 99 QT: 290 QTc: 403 Interpretive Statements SINUS TACHYCARDIA LOW QRS VOLTAGE IN PRECORDIAL LEADS [QRS DEFLECTION < 1.0 mV IN CHEST LEADS] POSSIBLE RIGHT VENTRICULAR CONDUCTION DELAY [RSR (QR) IN V1/V2] SEPTAL MYOCARDIAL INFARCTION , OF INDETERMINATE AGE [40+ ms Q WAVE IN V1/V2] LATERAL MYOCARDIAL INFARCTION , OF INDETERMINATE AGE [40+ ms Q WAVE AND/OR ST/T ABNORMALITY IN I/aVL/V5/V6] Compared to ECG 07/23/2024 13:31:07 Indeterminate axis no longer present Myocardial infarct finding still present Electronically Signed On 08-01-2024 18:19:12 MAINTENANCE JOB TITLES by CHEYENNE MORELOS [email or web address]
[2024-07-23 17:58] LABS: Specific Gravity, Urine >= 1.099 (1.005-1.030); UA Slide Review UA Slide Review Perf
[2024-07-23] MEDS: acetaminophen 325 mg Tablet 650 MG PO (20:08)
[2024-07-23] MEDS: atorvastatin 40 mg Tablet PO (20:09)
[2024-07-24] VITALS (58 sets, daily range): BP systolic 76–111; BP diastolic 56–91; PULSE 104–131; RESP 19–32; TEMP 36.4–37.1; O2SAT 92–100
[2024-07-24] MEDS: norepinephrine 4 MG/250 ML BAG 30 MG IV (02:13)
[2024-07-24 04:38] LABS: Basophils # 0.1 10^3/uL (0.0-0.1); Basophils % 0.3 %; Eosinophils % 0.1 %; Hematocrit 38.8 % (36-47); Lymphocytes # 2.4 10^3/uL (0.8-4.8); Lymphocytes % 14.8 %; Mean Corpuscular HGB Conc 33.5 g/dL (30-55); Mean Corpuscular Volume 95.6 fl (85-98); Monocytes # 0.3 10^3/uL (0.2-0.9); Monocytes % 1.9 %; Neutrophils # 13.16 10^3/uL (1.8-7.7); Neutrophils % 80.9 %; Nucleated Red Blood Cells % 0 %; Platelet Count 239 10^3/cmm (157-399); Red Blood Count 4.06 10^6/uL (3.85-5.65); Red Cell Distribution Width 13.9 % (12.1-15.1); White Blood Count 16.25 10^3/uL (3.29-11.43)
[2024-07-24 05:14] LABS: Alanine Aminotransferase 118 U/L (0-33); Albumin Level 3.3 g/dL (3.5-5.2); Alkaline Phosphatase 141 U/L (35-105); Anion Gap 15.6 (5-19); Aspartate Amino Transferase 373 U/L (0-32); Blood Urea Nitrogen 36 mg/dL (6-20); Calcium 8.4 mg/dL (8.5-10.5); Carbon Dioxide 22 mmol/L (22-29); Chloride 97 mmol/L (98-107); Creatinine Clr Calc Pharmacy 56.3274; Globulin 2.5 g/dL (1.3-4.6); Glomerular Filtration Rate 74.5 mL/min (90-130); Glucose 106 mg/dL (65-115); Magnesium 1.9 mg/dL (1.7-2.3); Osmolality Calculated 279 mOsm/kg (285-295); Potassium 4.6 mmol/L (3.5-5.1); Sodium 130 mmol/L (136-145); Total Bilirubin 0.6 mg/dL (0.15-1.2); Total Protein 5.8 g/dL (6.6-8.7)
--- NOTE | 2024-07-24 08:08 | P.PN_ITS ---
Documented by User: Reed De Leon 07/24/24 08:58 Subjective 2 Subjective: Patient is a 54 y.o. female admitted with STEMI and BETH. Two drug eluting stents were placed in lab rep yesterday. Her residual neck pain continues to decrease. Right wrist TR band has been replaced with a simple dressing over site of catheterization. She does endorse some nausea this morning. Has not had much of an appetite, which is consistent with her experience since surgery. Endorses some SOB. She has remained afebrile. Medications: Reviewed: Yes Vitals/I&O/Wt Last Vital Signs Temp 98.7 F 07/24/24 06:00 Pulse 120 H 07/24/24 06:00 Resp 20 H 07/24/24 06:00 BP 96/76 07/24/24 06:00 Pulse Ox 98 07/24/24 06:00 O2 Del Method Room Air 07/23/24 16:30 O2 Flow Rate 1 07/23/24 13:30 07/23/24 07/24/24 07/24/24 22:59 06:59 14:59 Intake Total 862.25 / 1062.25 547.5 / 1609.75 Output Total 100 / 100 250 / 350 Balance 762.25 / 962.25 297.5 / 1259.75 Weight last 48 hrs Weight 98 lb 1.691 oz Weight 99 lb Weight 100 lb Physical Exam 2 Narrative: General: Thin appearing. Alert and oriented. In minimal discomfort. HEENT: Atraumatic and normocephalic. Cardiovascular: RRR. No murmur. No S3 or S4. Lungs: Clear to auscultation bilaterally. Abdomen: Soft, nontender. Ostomy is noted with stool in the bag Extremities: No cyanosis. No edema. Right wrist TR band has been replaced with simple dressing which appears intact with minimal blood saturation. Data 07/24/24 04:01 07/24/24 04:01 A&P Assessment and plan (1) ST elevation myocardial infarction (STEMI): Patient received 2 drug-eluting stents, 1 left main to circumflex and 1 left main to LAD EF significantly low On norepinephrine, continue to titrate down. Maintain MAP >65 Consider echocardiogram, will defer to cardiology timing on this whether it should be done near end of hospital course or as an outpatient Aspirin, statin, Plavix. Secondary to hypotension hold off on beta-octaviano and RADHA inhibitor for now. Her residual neck pain continues to improve Qualifiers: Involved coronary artery: other anterior wall coronary artery Qualified Code(s): I21.09 - ST elevation (STEMI) myocardial infarction involving other coronary artery of anterior wall (2) Hyperkalemia: Potassium down to 4.6 today from 5.3 yesterday Will still hold lisinopril on the basis of hypotension (3) Hyponatremia: Continues to be hyponatremic on labs today. Up to 130 today from 129 yesterday. Monitor closely Fluids as noted (4) Cardiomyopathy: Patient with ischemic cardiomyopathy EF during angiogram around 15% Monitor for fluid overload Will need repeat echo in the future to see if EF improves Defer to cardiology whether external defibrillator/LifeVest would be needed at discharge. (5) Acute kidney injury: Patient with acute kidney injury Labs show notable improvement. Creatinine down to 0.8 today from 1.3 yesterday. Continue IV fluids Continue to monitor with labs (6) Metastatic colon cancer to liver: Patient with metastatic colon cancer, with carcinomatosis Recent chemotherapy, as noted in HPI Colostomy in place Plan Leukocytosis still present but improving. Possible demargination secondary to stress. Urinalysis not suggestive of infection. Will continue to monitor closely. Failure to thrive, with severe protein calorie malnutrition. Encourage nutritional supplements. Other medical problems as outlined in past medical history. Full code Coding Level of Care Code Acute Code for [facility] Diagnoses ST elevation myocardial infarction (STEMI) involving other coronary artery of anterior wall I21.09 Involved coronary artery: other anterior wall coronary artery Hyperkalemia E87.5 Hyponatremia E87.1 Cardiomyopathy I42.9 Acute kidney injury N17.9 Metastatic colon cancer to liver C18.9; C78.7 Time Spent (min) 31 Documented by User: Petar Parish MD 07/24/24 09:03 Data 07/24/24 04:01 07/24/24 04:01 A&P Assessment and plan (1) ST elevation myocardial infarction (STEMI): Patient received 2 drug-eluting stents, 1 left main to circumflex and 1 left main to LAD EF significantly low On norepinephrine, continue to titrate down. Maintain MAP >65 Consider echocardiogram, will defer to cardiology timing on this whether it should be done near end of hospital course or as an outpatient Aspirin, statin, Plavix. Secondary to hypotension hold off on beta-octaviano and RADHA inhibitor for now. Her residual neck pain has essentially resolved Qualifiers: Involved coronary artery: other anterior wall coronary artery Qualified Code(s): I21.09 - ST elevation (STEMI) myocardial infarction involving other coronary artery of anterior wall (2) Hyperkalemia: (3) Hyponatremia: Continues to be hyponatremic on labs today. Up to 130 today from 129 yesterday. Monitor closely Fluids as noted, reduced to 50 cc an hour (4) Cardiomyopathy: (5) Acute kidney injury: Patient with acute kidney injury Labs show notable improvement. Creatinine down to 0.8 today from 1.3 yesterday. Fluids reduced Continue to monitor with labs (6) Metastatic colon cancer to liver: Patient with metastatic colon cancer, with carcinomatosis Recent chemotherapy, as noted in HPI Colostomy in place Reverse isolation secondary to recent chemo Attestations 2 Medical Necessity Statement*: Needs continued hospitalization secondary to hypotension, following ST elevation myocardial infarction cardiogenic shock, still requiring norepinephrine. Critical Care Time: The high probability of a clinically significant, sudden or life threatening deterioration of the patient's [cardiovascular, renal, electrolyte, oncologic] s ystem(s) required my full and direct attention, intervention and personal management. The critical care time is as shown. This time is in addition to time spent performing any reported procedures but includes the following: [x] Data and vital sign review and interpretation [x] Patient assessment, examination and intervention [x] Documentation [x] Medication orders and management Critical Care Time (min): 31 Coding Level of Care Code Acute Code for [facility] Fwd Diagnoses ST elevation myocardial infarction (STEMI) involving other coronary artery of anterior wall I21.09 Involved coronary artery: other anterior wall coronary artery Hyperkalemia E87.5 Hyponatremia E87.1 Cardiomyopathy I42.9 Acute kidney injury N17.9 Metastatic colon cancer to liver C18.9; C78.7 Time Spent (min) 31
[2024-07-24] MEDS: aspirin 81 mg EC Tablet PO (08:47)
[2024-07-24] MEDS: clopidogrel 75 mg Tablet PO (08:47)
[2024-07-24] MEDS: ondansetron 2 mg/ML SDV 2 mL 4 MG IVP ×2 (09:33→17:00)
[2024-07-24] MEDS: enoxaparin 30 mg/0.3 mL Syringe SUBCUT (11:14)
[2024-07-24] MEDS: norepinephrine 4 MG/250 ML BAG 18.75 MG IV (11:14)
[2024-07-24] MEDS: sodium chloride 0.9% 1,000 ML 75 ML IV (12:33)
[2024-07-24] MEDS: atorvastatin 40 mg Tablet PO (20:47)
[2024-07-24] MEDS: LORazepam 0.5 mg Tablet 0.25 MG PO (22:06)
--- NOTE | 2024-07-24 22:11 | P.PN_ITS ---
Subjective 2 Subjective: Patient denies any chest pain she is status post PCI for ST elevation [place] to left main into circumflex and left main to ostial LAD for 100% occlusion, she is also noted to have severely depressed left ventricular ejection fraction 10 to 15% with anterior septal apical akinesis. Overnight patient had episode of sinus tachycardia she was weaned off pressor state low-dose Levophed this morning Medications: Reviewed: Yes Vitals/I&O/Wt Last Vital Signs Temp 97.8 F 07/24/24 19:00 Pulse 124 H 07/24/24 22:00 Resp 30 H 07/24/24 22:00 BP 98/78 07/24/24 22:00 Pulse Ox 94 07/24/24 22:00 O2 Del Method Room Air 07/23/24 16:30 O2 Flow Rate 1 07/23/24 13:30 07/24/24 07/24/24 07/24/24 06:59 14:59 22:59 Intake Total 547.5 / 1609.75 1344.375 / 1344.375 109.703 / 1454.078 Output Total 250 / 350 550 / 550 Balance 297.5 / 1259.75 1344.375 / 1344.375 -440.297 / 904.078 Weight last 48 hrs Weight 98 lb 1.691 oz Weight 99 lb Weight 100 lb Physical Exam 2 Const: OTHER: GENERAL: Patient is alert, awake and oriented x3. She is not in distress HEART: Regular S1 and S2. No murmur, rub or gallop. LUNGS: Decreased breath sound but clear bilaterally. CENTRAL NERVOUS SYSTEM: Grossly nonfocal. EXTREMITIES: Lower extremities with out edema bilaterally. Right wrist wound looks good. Data 07/24/24 04:01 07/24/24 04:01 A&P Assessment and plan (1) ST elevation myocardial infarction (STEMI): Status post drug-eluting stent to left main circumflex and proximal LAD. Continue statin and dual antiplatelet therapy. Will add beta-octaviano once blood pressure more stable. Qualifiers: Involved coronary artery: other anterior wall coronary artery Qualified Code(s): I21.09 - ST elevation (STEMI) myocardial infarction involving other coronary artery of anterior wall (2) Tobacco abuse counseling: Advised quitting smoking. (3) Benign essential HTN: Patient appeared to be hypotensive (4) Metastatic cancer to liver: Will continue following with oncology. (5) CHF (NYHA class III, ACC/AHA stage C): Appear to be compensated we will add diuretics due to high left ventricular end- diastolic pressure and high right atrial pressure as evident by echocardiogram (6) Cachexia: Dietary consult appreciated will add Jorge Alberto Wallace 2 Medical Necessity Statement*: Patient condition is guarded she is critical requiring continuation hospitalization in ICU post ST elevation [place] with history of metastatic cancer cachexia and underlying other comorbidities Coding Level of Care Code Acute Code for [facility] Diagnoses ST elevation myocardial infarction (STEMI) involving other coronary artery of anterior wall I21.09 Involved coronary artery: other anterior wall coronary artery Tobacco abuse counseling Z71.6 Benign essential HTN I10 Metastatic cancer to liver C78.7 CHF (NYHA class III, ACC/AHA stage C) I50.9 Cachexia R64
[2024-07-24] MEDS: FUROsemide 10 mg/mL SDV 2mL 20 MG IVP (22:55)
[2024-07-25] VITALS (47 sets, daily range): BP systolic 81–112; BP diastolic 63–88; PULSE 102–127; RESP 19–32; TEMP 36.3–36.8; O2SAT 92–99
[2024-07-25] MEDS: sodium chloride 0.9% 1,000 ML 50 ML IV (01:46)
[2024-07-25 04:56] LABS: Basophils % 0.2 %; Eosinophils % 0.1 %; Hematocrit 39.3 % (36-47); Lymphocytes # 3.1 10^3/uL (0.8-4.8); Lymphocytes % 25.2 %; Mean Corpuscular HGB Conc 33.1 g/dL (30-55); Mean Corpuscular Hemoglobin 31.3 pg (27-33); Mean Corpuscular Volume 94.5 fl (85-98); Mean Platelet Volume 10.3 fL (7.4-10.4); Monocytes # 0.2 10^3/uL (0.2-0.9); Monocytes % 1.9 %; Neutrophils # 8.72 10^3/uL (1.8-7.7); Neutrophils % 71.8 %; Nucleated Red Blood Cells % 0 %; Platelet Count 194 10^3/cmm (157-399); Red Blood Count 4.16 10^6/uL (3.85-5.65); Red Cell Distribution Width 13.8 % (12.1-15.1); White Blood Count 12.14 10^3/uL (3.29-11.43)
[2024-07-25 05:14] LABS: Alanine Aminotransferase 101 U/L (0-33); Alkaline Phosphatase 180 U/L (35-105); Anion Gap 14.3 (5-19); Aspartate Amino Transferase 137 U/L (0-32); Blood Urea Nitrogen 28 mg/dL (6-20); Calcium 7.9 mg/dL (8.5-10.5); Carbon Dioxide 23 mmol/L (22-29); Chloride 98 mmol/L (98-107); Creatinine Clr Calc Pharmacy 63.7922; Globulin 2.4 g/dL (1.3-4.6); Glomerular Filtration Rate 86.9 mL/min (90-130); Glucose 95 mg/dL (65-115); Magnesium 1.8 mg/dL (1.7-2.3); Osmolality Calculated 277 mOsm/kg (285-295); Potassium 4.3 mmol/L (3.5-5.1); Sodium 131 mmol/L (136-145); Total Bilirubin 0.4 mg/dL (0.15-1.2); Total Protein 5.4 g/dL (6.6-8.7)
[2024-07-25] MEDS: ondansetron 2 mg/ML SDV 2 mL 4 MG IVP ×2 (08:18→17:44)
[2024-07-25] MEDS: potassium chloride ER 20 mEq Tablet PO (08:50)
[2024-07-25] MEDS: megestrol 400 mg/10 mL UDC PO (08:50)
[2024-07-25] MEDS: aspirin 81 mg EC Tablet PO (08:50)
[2024-07-25] MEDS: clopidogrel 75 mg Tablet PO (08:50)
--- NOTE | 2024-07-25 10:10 | P.PN_ITS ---
Documented by User: Maria M Moralez NP 07/25/24 10:16 Subjective 2 Subjective: Patient is doing okay today. Patient has a little bit of shortness of breath but no lower extremity edema. EF is very low at 10 to 15%. She is off of Levophed at this time. Blood pressure 109/70. Patient is still tachycardic at 123 which is her baseline. Vitals/I&O/Wt Last Vital Signs Temp 98.2 F 07/25/24 07:30 Pulse 127 H 07/25/24 09:00 Resp 27 H 07/25/24 09:00 BP 98/75 07/25/24 09:00 Pulse Ox 96 07/25/24 09:00 O2 Del Method Room Air 07/25/24 07:30 O2 Flow Rate 1 07/23/24 13:30 07/24/24 07/25/24 07/25/24 22:59 06:59 14:59 Intake Total 593.453 / 1937.828 501.25 / 2439.078 631.667 / 631.667 Output Total 550 / 550 500 / 1050 Balance 43.453 / 1387.828 1.25 / 1389.078 631.667 / 631.667 Weight last 48 hrs Weight 100 lb 1.6 oz Weight 98 lb 1.691 oz Weight 99 lb Physical Exam 2 Narrative: General: Cachectic Neck: No carotid bruit bilaterally Muskuloskeletal: Full ROM Lymphatic: no lymphedema noted Respiratory: Normal respiratory effort, bilateral lower lobes fine crackles present, no use of accessory muscles Cardio: No JVD, regular rate, regular rhythm, S1 S2 normal, no murmurs, peripheral pulses 2+ throughout Extremities: Full ROM, normal, normal capillary refill, no cyanosis or edema Neuro: Alert and oriented x4, no focal motor deficits Psych: Affect normal, denies suicidal ideation, mental status grossly normal Skin: No rashes or lesions noted, no wounds Data 07/25/24 04:44 07/25/24 04:44 A&P Assessment and plan (1) ST elevation myocardial infarction (STEMI): Status post drug-eluting stent to left main circumflex and proximal LAD. Continue statin and dual antiplatelet therapy. Will add beta-octaviano today to see how she tolerates. . Qualifiers: Involved coronary artery: other anterior wall coronary artery Qualified Code(s): I21.09 - ST elevation (STEMI) myocardial infarction involving other coronary artery of anterior wall (2) Tobacco abuse counseling: Advised quitting smoking. (3) Benign essential HTN: Patient appeared to be hypotensive (4) Metastatic cancer to liver: Will continue following with oncology. (5) CHF (NYHA class III, ACC/AHA stage C): Patient has high left ventricular end-diastolic pressure and high right atrial pressure. Will continue lasix IV. She will need a life vest. This has been ordered. (6) Cachexia: Dietary consult appreciated will add Megace Plan Patient will continue current care. May be transferred to stepdown. Initiate lifevest for heart failure and low EF of 10-15%. Will add beta octaviano today and see how she tolerates. Attestations 2 Medical Necessity Statement*: Patient condition is guarded but improved. ST elevation [place] with history of metastatic cancer cachexia and underlying other comorbidities Coding Level of Care Code Acute Code for [facility] Diagnoses ST elevation myocardial infarction (STEMI) involving other coronary artery of anterior wall I21.09 Involved coronary artery: other anterior wall coronary artery Tobacco abuse counseling Z71.6 Benign essential HTN I10 Metastatic cancer to liver C78.7 CHF (NYHA class III, ACC/AHA stage C) I50.9 Cachexia R64 Documented by User: Cristin Esquivel MD 07/25/24 21:32 Subjective 2 Subjective: Patient was evaluated and cared for in conjunction with an advanced practice practitioner. I personally examined the patient and reviewed the chart and all pertinent data including imaging, telemetry, and laboratory results. I discussed the patient in detail with the advanced practice practitioner. Please see their note for complete H&P testing result and agreed upon plan of care for the patient. Continues to improve and feeling better still cachectic nauseated has reduced intake, patient appeared to be volume overloaded we will high left ventricular end-diastolic pressure as evident by severely reduced left ventricular ejection fraction and dilated IVC on echocardiogram GENERAL: Patient is alert, awake and oriented x3. HEART: Regular S1 and S2. No murmur, rub or gallop. LUNGS: Clear to auscultate bilaterally. CENTRAL NERVOUS SYSTEM: Grossly nonfocal. EXTREMITIES: Lower extremities with out edema bilaterally. Assessment and plan Ischemic cardiomyopathy status post drug-eluting stent to left main circumflex and acute LAD for left main ST elevation [place] severely depressed left ventricular ejection fraction 10 to 15% Acute decompensated systolic heart failure Metastatic CA to liver Will add low-dose beta-octaviano Increase Lasix to 20 mg IV 3 times daily Will try to add Entresto once blood pressure more stable LifeVest advised due to severely depressed left ventricular ejection fraction secondary to ischemic cardiomyopathy EF less than 35% by echocardiogram and LV gram Continue dual antiplatelet therapy Patient can move to CSU Patient is doing okay today. Patient has a little bit of shortness of breath but no lower extremity edema. EF is very low at 10 to 15%. She is off of Levophed at this time. Blood pressure 109/70. Patient is still tachycardic at 123 which is her baseline. Data 07/25/24 04:44 07/25/24 04:44 A&P Assessment and plan (1) ST elevation myocardial infarction (STEMI): Qualifiers: Involved coronary artery: other anterior wall coronary artery Qualified Code(s): I21.09 - ST elevation (STEMI) myocardial infarction involving other coronary artery of anterior wall (2) Tobacco abuse counseling: (3) Benign essential HTN: (4) Metastatic cancer to liver: (5) CHF (NYHA class III, ACC/AHA stage C): (6) Cachexia: Coding Level of Care Code Acute Code for [facility] Diagnoses ST elevation myocardial infarction (STEMI) involving other coronary artery of anterior wall I21.09 Involved coronary artery: other anterior wall coronary artery Tobacco abuse counseling Z71.6 Benign essential HTN I10 Metastatic cancer to liver C78.7 CHF (NYHA class III, ACC/AHA stage C) I50.9 Cachexia R64
[2024-07-25] MEDS: FUROsemide 10 mg/mL SDV 2mL 20 MG IVP ×2 (10:36→15:37)
--- NOTE | 2024-07-25 11:30 | P.PN_ITS ---
Subjective 2 Subjective: Chantale reports no chest discomfort. She is short of breath with minimal exertion. She is off norepinephrine. Medications: Reviewed: Yes Vitals/I&O/Wt Last Vital Signs Temp 98.2 F 07/25/24 07:30 Pulse 127 H 07/25/24 09:00 Resp 27 H 07/25/24 09:00 BP 98/75 07/25/24 09:00 Pulse Ox 96 07/25/24 09:00 O2 Del Method Room Air 07/25/24 07:30 O2 Flow Rate 1 07/23/24 13:30 07/24/24 07/25/24 07/25/24 22:59 06:59 14:59 Intake Total 593.453 / 1937.828 501.25 / 2439.078 631.667 / 631.667 Output Total 550 / 550 500 / 1050 375 / 375 Balance 43.453 / 1387.828 1.25 / 1389.078 256.667 / 256.667 Weight last 48 hrs Weight 45.405 kg Weight 44.5 kg Weight 44.906 kg Physical Exam 2 Narrative: General exam no distress Neck is supple Cardiovascular regular rate and rhythm, no murmur. No S3 or S4 Lungs clear Abdomen is soft. Ostomy is noted with stool in the bag Extremities no cyanosis clubbing or edema Data 07/25/24 04:44 07/25/24 04:44 A&P Assessment and plan (1) ST elevation myocardial infarction (STEMI): Patient received 2 drug-eluting stents, 1 left main to circumflex and 1 left main to LAD EF significantly low Now off norepinephrine Consider echocardiogram, will defer to cardiology timing on this whether it should be done near end of hospital course or as an outpatient Aspirin, statin, Plavix. Secondary to hypotension hold off on beta-octaviano and RADHA inhibitor for now. Her residual neck pain has essentially resolved Qualifiers: Involved coronary artery: other anterior wall coronary artery Qualified Code(s): I21.09 - ST elevation (STEMI) myocardial infarction involving other coronary artery of anterior wall (2) Hyperkalemia: Potassium now normal (3) Hyponatremia: Continues to be hyponatremic on labs today. Discontinue IV fluids Start gentle diuresis Check BMP tomorrow (4) Cardiomyopathy: Patient with ischemic cardiomyopathy EF during angiogram around 15% Monitor for fluid overload Will need repeat echo in the future to see if EF improves Defer to cardiology whether external defibrillator/LifeVest would be needed at discharge. Lasix 20 mg IV every 12 hours per cardiology Discontinue IV fluids BMP tomorrow (5) Acute kidney injury: Patient with acute kidney injury Now resolved (6) Metastatic colon cancer to liver: Patient with metastatic colon cancer, with carcinomatosis Recent chemotherapy, as noted in HPI Colostomy in place Reverse isolation secondary to recent chemo Plan Leukocytosis improved. Possible demargination secondary to stress. Urinalysis not suggestive of infection. Will continue to monitor closely. Failure to thrive, with severe protein calorie malnutrition. Encourage nutritional supplements. Other medical problems as outlined in past medical history. Full code May transfer out of ICU Lovenox for DVT prophylaxis Attestations 2 Medical Necessity Statement*: Needs continued hospital stay, for medication adjustment secondary to myocardial infarction with severely low EF. Diagnoses ST elevation myocardial infarction (STEMI) involving other coronary artery of anterior wall I21.09 Involved coronary artery: other anterior wall coronary artery Hyperkalemia E87.5 Hyponatremia E87.1 Cardiomyopathy I42.9 Acute kidney injury N17.9 Metastatic colon cancer to liver C18.9; C78.7 Time Spent (min) 24
[2024-07-25] MEDS: enoxaparin 30 mg/0.3 mL Syringe SUBCUT (12:29)
--- NOTE | 2024-07-25 14:31 | PC.NURSE ---
Addendum entered by Doug Garcia RN 07/25/24 14:32: Faxed echocardiogram report to [facility] at [phone]. Attention Scotty. Needed for life vest Original Note: Faxed echocardopgram report to [facility] at [phone]. Attention Scotty. Needed for life vest.
--- NOTE | 2024-07-25 19:14 | PC.NURSE ---
Shift SUmmary: Was up to a chair for most of the day, worked with physical therapy, though she does get tired/winded easily. IV fluids stopped, lasix increased to 3 times a day and Blood pressure remained stable despite increase, usually 90-105 systolic. Patient has tolerated food a little better if zofran given before meals. Digoxin ordered for tommorow. CSU overflow.
[2024-07-25] MEDS: atorvastatin 40 mg Tablet PO (21:24)
[2024-07-26] VITALS (41 sets, daily range): BP systolic 73–106; BP diastolic 57–80; PULSE 100–126; RESP 13–29; TEMP 36.6–37; O2SAT 88–99; BMI 17.6
[2024-07-26] MEDS: ondansetron 2 mg/ML SDV 2 mL 4 MG IVP (07:15)
--- NOTE | 2024-07-26 07:25 | PC.NURSE ---
up to bsc voided small amt at this time , some nausea given zofran at this time
[2024-07-26] MEDS: clopidogrel 75 mg Tablet PO (09:02)
[2024-07-26] MEDS: megestrol 400 mg/10 mL UDC PO (09:02)
[2024-07-26] MEDS: potassium chloride ER 20 mEq Tablet PO (09:03)
[2024-07-26] MEDS: digoxin 125 mcg Tablet PO (09:03)
[2024-07-26] MEDS: aspirin 81 mg EC Tablet PO (09:03)
[2024-07-26 09:07] LABS: Basophils % 0.1 %; Eosinophils % 0.3 %; Hematocrit 42.9 % (36-47); Lymphocytes # 2.6 10^3/uL (0.8-4.8); Lymphocytes % 29.5 %; Mean Corpuscular HGB Conc 32.6 g/dL (30-55); Mean Corpuscular Hemoglobin 30.7 pg (27-33); Mean Corpuscular Volume 94.1 fl (85-98); Mean Platelet Volume 10.6 fL (7.4-10.4); Monocytes # 0.3 10^3/uL (0.2-0.9); Monocytes % 2.8 %; Neutrophils # 5.86 10^3/uL (1.8-7.7); Neutrophils % 66.5 %; Nucleated Red Blood Cells % 0 %; Platelet Count 232 10^3/cmm (157-399); Red Blood Count 4.56 10^6/uL (3.85-5.65); Red Cell Distribution Width 13.7 % (12.1-15.1); White Blood Count 8.82 10^3/uL (3.29-11.43)
--- NOTE | 2024-07-26 09:10 | P.PN_ITS ---
Subjective 2 Subjective: Chantale reports no chest discomfort. She is still pretty short of breath, when she gets up to do anything. Had orders to go to CSU yesterday, but no beds. Digoxin added today per cardiology. Medications: Reviewed: Yes Vitals/I&O/Wt Last Vital Signs Temp 97.9 F 07/26/24 04:00 Pulse 120 H 07/26/24 09:03 Resp 23 H 07/26/24 08:00 BP 95/77 07/26/24 08:00 Pulse Ox 97 07/26/24 08:00 O2 Del Method Room Air 07/26/24 06:00 O2 Flow Rate 1 07/23/24 13:30 07/25/24 07/26/24 07/26/24 22:59 06:59 14:59 Intake Total 30 / 661.667 0 / 661.667 Output Total 600 / 1425 200 / 1625 200 / 200 Balance -570 / -763.333 -200 / -963.333 -200 / -200 Weight last 48 hrs Weight 46.7 kg Weight 45.405 kg Physical Exam 2 Narrative: General exam no distress. Still somewhat tachycardic. 1700 cc negative yesterday. Neck is supple Cardiovascular regular rate and rhythm, no murmur. No S3 or S4 Lungs clear Abdomen is soft. Ostomy is noted with stool in the bag Extremities no cyanosis clubbing or edema Data 07/26/24 08:36 07/25/24 04:44 A&P Assessment and plan (1) ST elevation myocardial infarction (STEMI): Patient received 2 drug-eluting stents, 1 left main to circumflex and 1 left main to LAD EF significantly low Not requiring any pressors Consider echocardiogram, will defer to cardiology timing on this whether it should be done near end of hospital course or as an outpatient Aspirin, statin, Plavix. Secondary to hypotension hold off on beta-octaviano and RADHA inhibitor for now. Her residual neck pain has essentially resolved Qualifiers: Involved coronary artery: other anterior wall coronary artery Qualified Code(s): I21.09 - ST elevation (STEMI) myocardial infarction involving other coronary artery of anterior wall (2) Hyperkalemia: Potassium now normal (3) Hyponatremia: Awaiting lab today Gentle diuresis started yesterday She appears to be compensated. Defer to cardiology when p.o. is initiated (4) Cardiomyopathy: Patient with ischemic cardiomyopathy EF during angiogram around 15% Monitor for fluid overload Will need repeat echo in the future to see if EF improves Defer to cardiology whether external defibrillator/LifeVest would be needed at discharge. Lasix 20 mg IV every 12 hours per cardiology. Possible conversion to p.o. today Await today's BMP Digoxin started yesterday per cardiology secondary to persistent tachycardia in the face of very low ejection fraction. (5) Acute kidney injury: Patient with acute kidney injury Now resolved (6) Metastatic colon cancer to liver: Patient with metastatic colon cancer, with carcinomatosis Recent chemotherapy, as noted in HPI Colostomy in place Reverse isolation secondary to recent chemo Plan Leukocytosis resolved. No evidence of infection. Failure to thrive, with severe protein calorie malnutrition. Encourage nutritional supplements. Other medical problems as outlined in past medical history. Full code May transfer out of ICU Lovenox for DVT prophylaxis Attestations 2 Medical Necessity Statement*: As per primary Diagnoses ST elevation myocardial infarction (STEMI) involving other coronary artery of anterior wall I21.09 Involved coronary artery: other anterior wall coronary artery Hyperkalemia E87.5 Hyponatremia E87.1 Cardiomyopathy I42.9 Acute kidney injury N17.9 Metastatic colon cancer to liver C18.9; C78.7 Time Spent (min) 25
[2024-07-26 09:20] LABS: Anion Gap 16.1 (5-19); Blood Urea Nitrogen 32 mg/dL (6-20); Calcium 8.3 mg/dL (8.5-10.5); Carbon Dioxide 23 mmol/L (22-29); Chloride 96 mmol/L (98-107); Creatinine Clr Calc Pharmacy 57.4209; Glucose 123 mg/dL (65-115); Osmolality Calculated 280 mOsm/kg (285-295); Potassium 4.1 mmol/L (3.5-5.1); Sodium 131 mmol/L (136-145)
[2024-07-26] MEDS: enoxaparin 30 mg/0.3 mL Syringe SUBCUT (14:06)
--- NOTE | 2024-07-26 15:37 | P.PN_ITS ---
Documented by User: Maria M Moralez NP 07/26/24 15:45 Subjective 2 Subjective: Patient doing well this morning. She is sitting up and eating. Blood pressure is still pretty soft in the 90s systolic. Overall doing well without any complaints. Denies chest pain or shortness of breath. Appears euvolemic. LifeVest has been discussed with the patient. Medications: Reviewed: Yes Vitals/I&O/Wt Last Vital Signs Temp 97.9 F 07/26/24 04:00 Pulse 117 H 07/26/24 13:30 Resp 27 H 07/26/24 13:30 BP 106/79 07/26/24 14:00 Pulse Ox 96 07/26/24 14:00 O2 Del Method Room Air 07/26/24 06:00 O2 Flow Rate 1 07/23/24 13:30 07/26/24 07/26/24 07/26/24 06:59 14:59 22:59 Intake Total 0 / 661.667 600 / 600 Output Total 200 / 1625 400 / 400 Balance -200 / -963.333 200 / 200 Weight last 48 hrs Weight 102 lb 15.294 oz Weight 100 lb 1.6 oz Physical Exam 2 Narrative: General: No apparent distress, healthy appearing, well nourished Neck: No carotid bruit bilaterally Muskuloskeletal: Full ROM Respiratory: Normal respiratory effort, clear to auscultation bilaterally throughout all lung grissom, no use of accessory muscles Cardio: No JVD, regular rate, regular rhythm, S1 S2 normal, no murmurs, peripheral pulses 2+ throughout GI: Normal to inspection, nondistended Extremities: Full ROM, normal, normal capillary refill, no cyanosis or edema Neuro: Alert and oriented x4, no focal motor deficits Psych: Affect normal, denies suicidal ideation, mental status grossly normal Skin: No rashes or lesions noted, no wounds Data 07/26/24 08:36 07/27/24 04:05 A&P Assessment and plan (1) ST elevation myocardial infarction (STEMI): Status post drug-eluting stent to left main circumflex and proximal LAD. Continue statin and dual antiplatelet therapy. Digoxin has been added for tachycardiac. Will check level in the AM. Will add midodrine to see if that can improve BP. If bp improves, will add beta octaviano at that time. Qualifiers: Involved coronary artery: other anterior wall coronary artery Qualified Code(s): I21.09 - ST elevation (STEMI) myocardial infarction involving other coronary artery of anterior wall (2) Tobacco abuse counseling: Advised quitting smoking. (3) Benign essential HTN: Patient appeared to be hypotensive. Initiating midodrine. (4) Metastatic cancer to liver: Will continue following with oncology. (5) CHF (NYHA class III, ACC/AHA stage C): Patient has high left ventricular end-diastolic pressure and high right atrial pressure. Will continue lasix IV. She has a life vest. (6) Cachexia: Dietary consult appreciated. Megace has been added. Plan Patient will continue current care. May be transferred to stepdown. Initiate lifevest for heart failure and low EF of 10-15%. Will add midodrine today to see if she can be started on a beta octaviano. Hopefully discharge tomorrow if she has no chest pain and blood pressure imroves. Attestations 2 Medical Necessity Statement*: Patient condition is guarded but improved. ST elevation [place] with history of metastatic cancer cachexia and underlying other comorbidities Coding Level of Care Code Acute Code for [facility] Diagnoses ST elevation myocardial infarction (STEMI) involving other coronary artery of anterior wall I21.09 Involved coronary artery: other anterior wall coronary artery Tobacco abuse counseling Z71.6 Benign essential HTN I10 Metastatic cancer to liver C78.7 CHF (NYHA class III, ACC/AHA stage C) I50.9 Cachexia R64 Documented by User: Cristin Esquivel MD 07/27/24 16:21 Subjective 2 Subjective: Patient was evaluated and cared for in conjunction with an advanced practice practitioner. I personally examined the patient and reviewed the chart and all pertinent data including imaging, telemetry, and laboratory results. I discussed the patient in detail with the advanced practice practitioner. Please see their note for complete H&P testing result and agreed upon plan of care for the patient. Patient denies any complaint, blood pressure remains on the softer side patient has severely depressed left ventricular ejection fraction not tolerating guideline medical therapy for heart failure due to low ejection fraction and being cachectic with baseline low blood pressure. GENERAL: Patient is alert, awake and oriented x3. HEART: Regular S1 and S2. No murmur, rub or gallop. LUNGS: Clear to auscultate bilaterally. CENTRAL NERVOUS SYSTEM: Grossly nonfocal. EXTREMITIES: Lower extremities with out edema bilaterally. Assessment and plan #[address] elevation [place] involving left main LAD and circumflex treated with 2 drug-eluting stent left main into circumflex and left main into LAD with excellent angiographic result and congregation of AGNES-3 flow. #2 Newly onset of heart failure with severely depressed left ventricular ejection fraction. #3 Hypotension #4 History of metastatic liver cancer with poor prognosis #5 Cachexia Patient appeared to be in compensated state of heart failure now she was diuresed effectively, her systolic blood pressure remains on the lower side into the 90s. She was started on midodrine 3 times a day. Patient is not tolerating guideline medical therapy for heart failure due to low blood pressure. We do not have any [place] on the formulary, we will try to start guideline medical therapy as an outpatient. For now we will discharge patient on aspirin and statin low-dose beta-octaviano 12.5 mg of metoprolol to tartrate twice daily ER succinate and 20 mg of Lasix. Patient is being discharged on LifeVest for primary prevention for ischemic cardiomyopathy with severely depressed left ventricular ejection fraction less than 20%. Will plan to follow-up patient in the cardiology clinic in 1 week. Advised in case of worsening of symptoms shortness of breath PND orthopnea lower extreme edema she should call us and go to the ER. Patient doing well this morning. She is sitting up and eating. Blood pressure is still pretty soft in the 90s systolic. Overall doing well without any complaints. Denies chest pain or shortness of breath. Appears euvolemic. LifeVest has been discussed with the patient. Data 07/26/24 08:36 07/27/24 04:05 A&P Assessment and plan (1) ST elevation myocardial infarction (STEMI): Qualifiers: Involved coronary artery: other anterior wall coronary artery Qualified Code(s): I21.09 - ST elevation (STEMI) myocardial infarction involving other coronary artery of anterior wall (2) Tobacco abuse counseling: (3) Benign essential HTN: (4) Metastatic cancer to liver: (5) CHF (NYHA class III, ACC/AHA stage C): (6) Cachexia: Coding Level of Care Code Acute Code for [facility] Fwd Diagnoses ST elevation myocardial infarction (STEMI) involving other coronary artery of anterior wall I21.09 Involved coronary artery: other anterior wall coronary artery Tobacco abuse counseling Z71.6 Benign essential HTN I10 Metastatic cancer to liver C78.7 CHF (NYHA class III, ACC/AHA stage C) I50.9 Cachexia R64
[2024-07-26] MEDS: midodrine 5 mg TABLET 10 MG PO ×2 (16:57→20:25)
--- NOTE | 2024-07-26 17:37 | PC.NURSE ---
report called and transfer to [facility] room 104
--- NOTE | 2024-07-26 18:18 | PC.NURSE ---
received from [facility] in to room 104,via bed at 1730.report received.pt is alert and awake and oriented x 4.st on monitor.denies pain at present.oriented to room environment.instructed to notify staff for any pain,sob,bleeding,or for any concerns at all.pt verb understanding of instructions
[2024-07-26] MEDS: atorvastatin 40 mg Tablet PO (20:26)
[2024-07-27] VITALS (7 sets, daily range): BP systolic 94–106; BP diastolic 70–83; PULSE 99–109; RESP 22–27; TEMP 36.3–36.6; O2SAT 95–98
[2024-07-27 05:35] LABS: Anion Gap 14.1 (5-19); Blood Urea Nitrogen 32 mg/dL (6-20); Calcium 7.8 mg/dL (8.5-10.5); Carbon Dioxide 24 mmol/L (22-29); Chloride 95 mmol/L (98-107); Creatinine Clr Calc Pharmacy 58.0569; Glucose 89 mg/dL (65-115); Magnesium 1.9 mg/dL (1.7-2.3); Osmolality Calculated 274 mOsm/kg (285-295); Potassium 4.1 mmol/L (3.5-5.1); Sodium 129 mmol/L (136-145)
--- NOTE | 2024-07-27 08:36 | P.PN_ITS ---
Documented by User: Reed De Leon 07/27/24 09:49 Subjective 2 Subjective: Patient reports no significant chest discomfort this morning. Still having shortness of breath when she gets up out of bed. Endorses difficulty getting rest secondary to life vest being uncomfortable. Tolerating PO food and drink but says she doesn't have much appetite. Denies any other new concerns. Medications: Reviewed: Yes Vitals/I&O/Wt Last Vital Signs Temp 97.4 F L 07/27/24 07:41 Pulse 109 H 07/27/24 07:41 Resp 27 H 07/27/24 07:41 BP 94/70 07/27/24 07:41 Pulse Ox 96 07/27/24 07:41 O2 Del Method Room Air 07/27/24 07:41 O2 Flow Rate 1 07/23/24 13:30 07/26/24 07/27/24 07/27/24 22:59 06:59 14:59 Intake Total 150 / 750 200 / 950 240 / 240 Output Total 550 / 950 Balance -400 / -200 200 / 0 240 / 240 Weight last 48 hrs Weight 106 lb 1.6 oz Weight 102 lb 15.294 oz Physical Exam 2 Narrative: General: Awake, alert, and oriented. No acute distress. Cardiovascular: Regular rhythm. Slightly tachycardic. No murmur. No S3 or S4. Lungs: Clear to auscultation bilaterally. Abdomen: Soft. Ostomy noted, recently emptied. Extremities: No cyanosis, clubbing, or edema. Data 07/26/24 08:36 07/27/24 04:05 A&P Assessment and plan (1) ST elevation myocardial infarction (STEMI): Patient received 2 drug-eluting stents; 1 left main to circumflex and 1 left main to LAD. EF significantly low. Not requiring any pressors. Consider echocardiogram, will defer to cardiology timing on this whether it should be done near end of hospital course or as an outpatient. Aspirin, statin, Plavix. Secondary to hypotension hold off on beta-octaviano and RADHA inhibitor for now. Associated neck pain has essentially resolved. Qualifiers: Involved coronary artery: other anterior wall coronary artery Qualified Code(s): I21.09 - ST elevation (STEMI) myocardial infarction involving other coronary artery of anterior wall (2) Cardiomyopathy: Patient with ischemic cardiomyopathy EF during angiogram around 15% Monitor for fluid overload Will need repeat echo in the future to see if EF improves LifeVest currentlyin place Lasix has been held since 07/25 Digoxin and midodrine started yesterday per cardiology secondary to persistent tachycardia in the face of very low ejection fraction. (3) Metastatic colon cancer to liver: Patient with metastatic colon cancer with carcinomatosis Recent chemotherapy Colostomy in place Reverse isolation secondary to recent chemo (4) Hyperkalemia: Potassium currently maintaining at normal level. (5) Hyponatremia: Sodium level at 129 today, down from 131 yesterday. She appears to be compensated. Defer to cardiology when p.o. is initiated. (6) Acute kidney injury: Resolved. Plan Leukocytosis resolved. No evidence of infection. Failure to thrive, with severe protein calorie malnutrition. Encourage nutritional supplements. Other medical problems as outlined in past medical history. Full code May transfer out of ICU [facility] for DVT prophylaxis Coding Level of Care Code [address] elevation myocardial infarction (STEMI) involving other coronary artery of anterior wall I21.09 Involved coronary artery: other anterior wall coronary artery Cardiomyopathy I42.9 Metastatic colon cancer to liver C18.9; C78.7 Hyperkalemia E87.5 Hyponatremia E87.1 Acute kidney injury N17.9 Time Spent (min) 21 Documented by User: Petar Parish MD 07/27/24 09:55 Data 07/26/24 08:36 07/27/24 04:05 A&P Assessment and plan (1) ST elevation myocardial infarction (STEMI): Qualifiers: Involved coronary artery: other anterior wall coronary artery Qualified Code(s): I21.09 - ST elevation (STEMI) myocardial infarction involving other coronary artery of anterior wall (2) Cardiomyopathy: Patient with ischemic cardiomyopathy EF during angiogram around 15% Monitor for fluid overload Will need repeat echo in the future to see if EF improves LifeVest currentlyin place Lasix has been held since 07/25 Digoxin and midodrine started yesterday per cardiology secondary to persistent tachycardia in the face of very low ejection fraction. Probable discharge today, possibly on oral Lasix. (3) Metastatic colon cancer to liver: (4) Hyperkalemia: (5) Hyponatremia: (6) Acute kidney injury: Plan Leukocytosis resolved. No evidence of infection. Hyponatremia. Chronically low but stable. May come up with oral diuretic. Failure to thrive, with severe protein calorie malnutrition. Encourage nutritional supplements. Other medical problems as outlined in past medical history. Full code Lovenox for DVT prophylaxis Attestations 2 Medical Necessity Statement*: As per primary Diagnoses ST elevation myocardial infarction (STEMI) involving other coronary artery of anterior wall I21.09 Involved coronary artery: other anterior wall coronary artery Cardiomyopathy I42.9 Metastatic colon cancer to liver C18.9; C78.7 Hyperkalemia E87.5 Hyponatremia E87.1 Acute kidney injury N17.9 Time Spent (min) 21
--- NOTE | 2024-07-27 08:50 | PC.NURSE ---
Informed Maria M Moralez NP of persistent decreased BPs. Received order to hold this am dose of lasix. RBVO
[2024-07-27] MEDS: megestrol 400 mg/10 mL UDC PO (08:58)
[2024-07-27] MEDS: clopidogrel 75 mg Tablet PO (08:58)
[2024-07-27] MEDS: aspirin 81 mg EC Tablet PO (08:58)
[2024-07-27] MEDS: midodrine 5 mg TABLET 10 MG PO (08:58)
[2024-07-27] MEDS: digoxin 125 mcg Tablet PO (08:58)
--- NOTE | 2024-07-27 10:41 | PM.DCS ---
Discharge Providers Date of Admission: 07/23/24 10:24 Date of Discharge: July 27, 2024 Attending Provider at Admission: Cristin Esquivel MD Attending Provider at Discharge: Cristin Esquivel MD Consults: Dr. Parish Primary Care Provider: Kym Stearns DO Diagnoses at Discharge Discharge Diagnosis (1) ST elevation myocardial infarction (STEMI): Details from hospital stay: Status post drug-eluting stent to left main circumflex and acute LAD for left main ST elevation [place] severely depressed left ventricular ejection fraction 10 to 15%. Continue dual antiplatelet therapy including aspirin and plavix x1 year Status: Acute Qualifiers: Involved coronary artery: other anterior wall coronary artery Qualified Code(s): I21.09 - ST elevation (STEMI) myocardial infarction involving other coronary artery of anterior wall (2) Cardiomyopathy: Details from hospital stay: Patient has been fitted with lifevest. Patient's blood pressure is too soft to add metoprolol. We have initiated Midodrine at this time to attempt to raise her bp. Still soft in the 90s systolic. Will need repeat echo in 3 months. Status: Acute Qualifiers: Cardiomyopathy type: ischemic Qualified Code(s): I25.5 - Ischemic cardiomyopathy (3) Metastatic colon cancer to liver: Details from hospital stay: Per oncology. Status: Acute (4) Hyperkalemia: Details from hospital stay: Resolved. Patient had BETH that resolved. Status: Acute (5) Hyponatremia: Details from hospital stay: chronically low. Could be due to CHF/malnutrition. Will give lasix 20 mg daily. Status: Acute (6) Acute kidney injury: Details from hospital stay: Resolved. Status: Acute Reason for Visit Reason for Visit: n,v,chest pain, shoulder pain Brief History: Chantale Wright is a 54 year old female past medical history significant for continuous tobacco abuse history of colon cancer metastasis to liver patient is following up at [facility] [place] [facility], history of chemotherapy Port-A-Cath / colostomy in place presented with chest pain of more than 24-hour duration, since it did not get better in fact it gotten worse therefore she decided to come to the ER. Twelve-lead EKG was suggestive of sinus tachycardia left axis deviation anterolateral subtle ST elevation with high lateral lead involvement 1 and aVL with some inferior reciprocal changes suggestive of possible lesion in mid LAD. Hospital Course Hospital Course Patient was taken back for a left heart cath. She had a drug-eluting stent placed to left main circumflex and acute LAD for left main ST elevation [place] severely depressed left ventricular ejection fraction 10 to 15%. She was fitted for a life vest. She will need this for at least 3 months with repeat echo. Continue dual antiplatelet therapy including aspirin and plavix x1 year. Physical Exam Narrative: General: Cachectic no apparent distress Neck: No carotid bruit bilaterally Muskuloskeletal: Full ROM Lymphatic: no lymphedema noted Respiratory: Normal respiratory effort, clear to auscultation bilaterally throughout all lung grissom, no use of accessory muscles Cardio: No JVD, regular rate, regular rhythm, S1 S2 normal, no murmurs, peripheral pulses 2+ radial palpated bilaterally GI: colostomy in place Extremities: Full ROM, normal, normal capillary refill, no cyanosis or edema Neuro: Alert and oriented x4, no focal motor deficits Psych: Affect normal, denies suicidal ideation, mental status grossly normal Skin: radial puncture site clean, dry, intact w/o s/s of hematoma or pseudoaneurysm Discharge Data Studies Completed and Pending Completed Studies During Hospitalization Category Date Time Status XR chest 1V portable [id number] Urgent Exams 07/23/24 09:31 Completed CV. echo complete* [id number] Routine Ultrasound 07/23/24 11:19 Completed Pending at discharge Category Date Time Status [employer] request for service Stat Exams 07/23/24 09:57 Taken Radiology Impressions Chest X-Ray 07/23/24 09:31 IMPRESSION: No acute cardiopulmonary abnormality identified. Laboratory Results WBC 8.82 10^3/uL (3.29-11.43) 07/26/24 08:36 RBC 4.56 10^6/uL (3.85-5.65) 07/26/24 08:36 Hgb 14.00 g/dL (11.27-16.99) 07/26/24 08:36 Hct 42.9 % (36-47) 07/26/24 08:36 MCV 94.1 fl (85-98) 07/26/24 08:36 MCH 30.7 pg (27-33) 07/26/24 08:36 MCHC 32.6 g/dL (30-55) 07/26/24 08:36 RDW 13.7 % (12.1-15.1) 07/26/24 08:36 Plt Count 232 10^3/cmm (157-399) 07/26/24 08:36 MPV 10.6 fL (7.4-10.4) H 07/26/24 08:36 Neut % (Auto) 66.5 % 07/26/24 08:36 Lymph % (Auto) 29.5 % 07/26/24 08:36 [place] % (Auto) 2.8 % 07/26/24 08:36 Eos % (Auto) 0.3 % 07/26/24 08:36 Baso % (Auto) 0.1 % 07/26/24 08:36 Neut # (Auto) 5.86 10^3/uL (1.8-7.7) 07/26/24 08:36 Lymph # (Auto) 2.6 10^3/uL (0.8-4.8) 07/26/24 08:36 [place] # (Auto) 0.3 10^3/uL (0.2-0.9) 07/26/24 08:36 Eos # (Auto) 0.0 10^3/uL (0.0-0.8) 07/26/24 08:36 Baso # (Auto) 0.0 10^3/uL (0.0-0.1) 07/26/24 08:36 Nucleated RBC % (auto) 0 % 07/26/24 08:36 Nucleated RBCs # 0.0 /100WBC 07/26/24 08:36 Sodium 129 mmol/L (136-145) L 07/27/24 04:05 Potassium 4.1 mmol/L (3.5-5.1) 07/27/24 04:05 Chloride 95 mmol/L (98-107) L 07/27/24 04:05 Carbon Dioxide 24 mmol/L (22-29) 07/27/24 04:05 Anion Gap 14.1 (5-19) 07/27/24 04:05 BUN 32 mg/dL (6-20) H 07/27/24 04:05 Creatinine 0.9 mg/dL (0.5-0.9) 07/27/24 04:05 GFR Calculation 65.0 mL/min (90-130) L 07/27/24 04:05 Glucose 89 mg/dL (65-115) 07/27/24 04:05 Calculated Osmolality 274 mOsm/kg (285-295) L 07/27/24 04:05 Calcium 7.8 mg/dL (8.5-10.5) L 07/27/24 04:05 Magnesium 1.9 mg/dL (1.7-2.3) 07/27/24 04:05 Total Bilirubin 0.4 mg/dL (0.15-1.2) 07/25/24 04:44 AST 137 U/L (0-32) H 07/25/24 04:44 ALT 101 U/L (0-33) H 07/25/24 04:44 Alkaline Phosphatase 180 U/L (35-105) H 07/25/24 04:44 Troponin T Baseline 8410 ng/L (0-10) H* 07/23/24 09:47 Total Protein 5.4 g/dL (6.6-8.7) L 07/25/24 04:44 Albumin 3.0 g/dL (3.5-5.2) L 07/25/24 04:44 Globulin 2.4 g/dL (1.3-4.6) 07/25/24 04:44 Lipase 14 U/L (13-60) 07/23/24 09:47 TSH 2.78 uIU/mL (0.27-4.20) 07/23/24 09:55 Random Cortisol 54.46 ug/dL (2.47-19.5) H 07/23/24 09:55 Urine Color Yellow (Yellow) 07/23/24 17:03 Urine Appearance Clear (CLEAR) 07/23/24 17:03 Urine pH 5.5 (5-7) 07/23/24 17:03 Ur Specific [place] >= 1.099 (1.005-1.030) H 07/23/24 17:03 Urine Protein 1+ (Negative) A 07/23/24 17:03 Urine Glucose (UA) Negative (Normal) 07/23/24 17:03 Urine Ketones Negative (Negative) 07/23/24 17:03 Urine Blood 1+ (Negative) A 07/23/24 17:03 Urine Nitrate Negative (Negative) 07/23/24 17:03 Urine Bilirubin Negative (Negative) 07/23/24 17:03 Urine Urobilinogen 1.0 mg/dL (Negative) 07/23/24 17:03 Ur Leukocyte Esterase Negative (Negative) 07/23/24 17:03 Urine RBC 0-2 /hpf (0-2) 07/23/24 17:03 Urine WBC 0-5 /hpf (0-5) 07/23/24 17:03 Ur Squamous Epith Cells 0-5 /hpf (0-5) 07/23/24 17:03 Amorphous Sediment Not Reportable 07/23/24 17:03 Urine Bacteria None seen /hpf (NONE) 07/23/24 17:03 Hyaline Casts 0.40 /lpf 07/23/24 17:03 Digoxin 1.0 ng/mL (0.6-1.2) 07/27/24 04:05 Procedures Performed Left heart catheterization with coronary angiogram, drug-eluting stent to left main circumflex and acute LAD for left main ST elevation OK severely depressed left ventricular ejection fraction 10 to 15%. Vitals Last Vital Signs Temp 97.4 F L 07/27/24 07:41 Pulse 108 H 07/27/24 08:58 Resp 27 H 07/27/24 07:41 BP 94/70 07/27/24 07:41 Pulse Ox 96 07/27/24 07:41 O2 Del Method Room Air 07/27/24 07:41 O2 Flow Rate 1 07/23/24 13:30 Discharge Plan Discharge Patient Disposition: Home Condition: Stable Prescriptions: No Action lisinopril 10 mg tablet 10 mg PO DAILY Qty: 30 3RF diazepam [Valium] 5 mg tablet 5 mg PO Q8H PRN (Reason: anxiety) Qty: 30 0RF megestrol 400 mg/10 mL (10 mL) suspension 400 mg PO DAILY Qty: 300 2RF ondansetron HCl 8 mg tablet 8 mg PO Q8H PRN (Reason: nausea and vomiting) Qty: 30 3RF lorazepam 1 mg tablet 0.5 - 1 mg PO Q6H PRN (Reason: severe nausea) Qty: 30 3RF prochlorperazine maleate [Compazine] 10 mg tablet 10 mg PO Q4H PRN (Reason: mild nausea) Qty: 30 3RF ondansetron HCl 4 mg tablet 4 mg PO Q6H PRN (Reason: nausea and vomiting) Qty: 30 3RF diphenoxylate-atropine [Lomotil] 2.5-0.025 mg tablet 2 tab PO QID MDD 8 tab PRN (Reason: diarrhea) Qty: 60 3RF Rx Instructions: Take 2 tablets by mouth 4 times daily until control of diarrhea. lidocaine-prilocaine 2.5-2.5 % cream 1 applic topical .COMPLEX Qty: 30 3RF Rx Instructions: Apply quarter size amount 30-45 minutes prior to port access, cover with cellophane Referrals: Maria M Moralez, [employer] [Nurse Practitioner] - 08/06/24 2:30 pm Kym Stearns DO [Primary Care Provider] - (We have notified your physician's clinic of the need for a follow-up appointment to be scheduled. If you have not heard from them within the next 2 business days, please call them directly. ) Patient Instructions: Heart Attack (DC), Heart Failure (DC), Coronary Angioplasty (DC), Acute Kidney Injury (DC), Syncope (DC), Opioid Safety, Post Angiogram Home Care Instructions Discharge Attestations Status at Discharge: Cognitive status at discharge: cognitively intact, Behavioral status at discharge: cooperative, Coding Level of Care Code Acute Code for [facility] Fwd Diagnoses ST elevation myocardial infarction (STEMI) involving other coronary artery of anterior wall I21.09 Involved coronary artery: other anterior wall coronary artery Ischemic cardiomyopathy I25.5 Cardiomyopathy type: ischemic Metastatic colon cancer to liver C18.9; C78.7 Hyperkalemia E87.5 Hyponatremia E87.1 Acute kidney injury N17.9
--- NOTE | 2024-07-27 15:15 | P.DS_ITS ---
Documented by User: Maria M Moralez NP 07/27/24 15:28 Discharge Providers Date of Admission: 07/23/24 10:24 Date of Discharge: July 27, 2024 Attending Provider at Admission: Cristin Esquivel MD Attending Provider at Discharge: Cristin Esquivel MD Consults: Dr. Parish Primary Care Provider: Kym Stearns DO Diagnoses at Discharge Discharge Diagnosis (1) ST elevation myocardial infarction (STEMI): Details from hospital stay: Patient status post drug-eluting stent to left main circumflex and proximal LAD. Continue statin and dual antiplatelet therapy. Continue dual antiplatelet therapy aspirin and Plavix for at least 1 year. Unable to add beta-octaviano or RADHA inhibitor due to hypotension. Status: Acute Qualifiers: Involved coronary artery: other anterior wall coronary artery Qualified Code(s): I21.09 - ST elevation (STEMI) myocardial infarction involving other coronary artery of anterior wall (2) Cardiomyopathy: Details from hospital stay: Patient fitted with a LifeVest. EF is severely diminished at 10-15%. Will recheck echo at 3 months. Will add GDMT as tolerated. She will have Lasix as needed weight gain of 3 pounds in a day or 5 pounds in a week/increased edema. Instructions were given to patient to hold if blood pressure less than 100 mm 5/60 Status: Acute Qualifiers: Cardiomyopathy type: ischemic Qualified Code(s): I25.5 - Ischemic cardiomyopathy (3) Metastatic colon cancer to liver: Details from hospital stay: Per oncology. Status: Acute (4) Hyperkalemia: Details from hospital stay: Resolved. Status: Acute (5) Hyponatremia: Details from hospital stay: Chronic. May be secondary to malnutrition/CHF. Status: Acute (6) Acute kidney injury: Details from hospital stay: Resolved. Status: Acute Reason for Visit Reason for Visit: n,v,chest pain, shoulder pain Brief History: Is a very pleasant 54-year-old female who came in with ongoing chest pain that has been going on for over 24 hours. EKG indicative of STEMI in the lateral leads with reciprocal changes in the inferior leads. Hospital Course Hospital Course Patient was taken back for a left heart cath. She had a drug-eluting stent placed to left main circumflex and acute LAD for left main ST elevation NE severely depressed left ventricular ejection fraction 10 to 15%. She was fitted for a life vest. She will need this for at least 3 months with repeat echo. Continue dual antiplatelet therapy including aspirin and plavix x1 year. She was placed on digoxin as well for heart rate control. She will need another well check at her next visit. Physical Exam Narrative: General: No apparent distress, healthy appearing, well nourished Muskuloskeletal: Full ROM Lymphatic: no lymphedema noted Respiratory: Normal respiratory effort, clear to auscultation bilaterally throughout all lung grissom, no use of accessory muscles Cardio: No JVD, regular rate, regular rhythm, S1 S2 normal, no murmurs, peripheral pulses 2+ throughout GI: Normal to inspection, nondistended Extremities: Full ROM, normal, normal capillary refill, no cyanosis or edema Neuro: Alert and oriented x4, no focal motor deficits Psych: Affect normal, denies suicidal ideation, mental status grossly normal Skin: No rashes or lesions noted, no wounds, heart cath site clean dry intact without signs or symptoms of pseudoaneurysm 2+ radial pulses bilaterally Discharge Data Studies Completed and Pending Completed Studies During Hospitalization Category Date Time Status XR chest 1V portable [id number] Urgent Exams 07/23/24 09:31 Completed CV. echo complete* [id number] Routine Ultrasound 07/23/24 11:19 Completed Pending at discharge Category Date Time Status BULK STATION OPERATOR request for service Stat Exams 07/23/24 09:57 Taken Radiology Impressions Chest X-Ray 07/23/24 09:31 IMPRESSION: No acute cardiopulmonary abnormality identified. Laboratory Results WBC 8.82 10^3/uL (3.29-11.43) 07/26/24 08:36 RBC 4.56 10^6/uL (3.85-5.65) 07/26/24 08:36 Hgb 14.00 g/dL (11.27-16.99) 07/26/24 08:36 Hct 42.9 % (36-47) 07/26/24 08:36 MCV 94.1 fl (85-98) 07/26/24 08:36 MCH 30.7 pg (27-33) 07/26/24 08:36 MCHC 32.6 g/dL (30-55) 07/26/24 08:36 RDW 13.7 % (12.1-15.1) 07/26/24 08:36 Plt Count 232 10^3/cmm (157-399) 07/26/24 08:36 MPV 10.6 fL (7.4-10.4) H 07/26/24 08:36 Neut % (Auto) 66.5 % 07/26/24 08:36 Lymph % (Auto) 29.5 % 07/26/24 08:36 [place] % (Auto) 2.8 % 07/26/24 08:36 Eos % (Auto) 0.3 % 07/26/24 08:36 Baso % (Auto) 0.1 % 07/26/24 08:36 Neut # (Auto) 5.86 10^3/uL (1.8-7.7) 07/26/24 08:36 Lymph # (Auto) 2.6 10^3/uL (0.8-4.8) 07/26/24 08:36 [place] # (Auto) 0.3 10^3/uL (0.2-0.9) 07/26/24 08:36 Eos # (Auto) 0.0 10^3/uL (0.0-0.8) 07/26/24 08:36 Baso # (Auto) 0.0 10^3/uL (0.0-0.1) 07/26/24 08:36 Nucleated RBC % (auto) 0 % 07/26/24 08:36 Nucleated RBCs # 0.0 /100WBC 07/26/24 08:36 Sodium 129 mmol/L (136-145) L 07/27/24 04:05 Potassium 4.1 mmol/L (3.5-5.1) 07/27/24 04:05 Chloride 95 mmol/L (98-107) L 07/27/24 04:05 Carbon Dioxide 24 mmol/L (22-29) 07/27/24 04:05 Anion Gap 14.1 (5-19) 07/27/24 04:05 BUN 32 mg/dL (6-20) H 07/27/24 04:05 Creatinine 0.9 mg/dL (0.5-0.9) 07/27/24 04:05 GFR Calculation 65.0 mL/min (90-130) L 07/27/24 04:05 Glucose 89 mg/dL (65-115) 07/27/24 04:05 Calculated Osmolality 274 mOsm/kg (285-295) L 07/27/24 04:05 Calcium 7.8 mg/dL (8.5-10.5) L 07/27/24 04:05 Magnesium 1.9 mg/dL (1.7-2.3) 07/27/24 04:05 Total Bilirubin 0.4 mg/dL (0.15-1.2) 07/25/24 04:44 AST 137 U/L (0-32) H 07/25/24 04:44 ALT 101 U/L (0-33) H 07/25/24 04:44 Alkaline Phosphatase 180 U/L (35-105) H 07/25/24 04:44 Troponin T Baseline 8410 ng/L (0-10) H* 07/23/24 09:47 Total Protein 5.4 g/dL (6.6-8.7) L 07/25/24 04:44 Albumin 3.0 g/dL (3.5-5.2) L 07/25/24 04:44 Globulin 2.4 g/dL (1.3-4.6) 07/25/24 04:44 Lipase 14 U/L (13-60) 07/23/24 09:47 TSH 2.78 uIU/mL (0.27-4.20) 07/23/24 09:55 Random Cortisol 54.46 ug/dL (2.47-19.5) H 07/23/24 09:55 Urine Color Yellow (Yellow) 07/23/24 17:03 Urine Appearance Clear (CLEAR) 07/23/24 17:03 Urine pH 5.5 (5-7) 07/23/24 17:03 Ur Specific [place] >= 1.099 (1.005-1.030) H 07/23/24 17:03 Urine Protein 1+ (Negative) A 07/23/24 17:03 Urine Glucose (UA) Negative (Normal) 07/23/24 17:03 Urine Ketones Negative (Negative) 07/23/24 17:03 Urine Blood 1+ (Negative) A 07/23/24 17:03 Urine Nitrate Negative (Negative) 07/23/24 17:03 Urine Bilirubin Negative (Negative) 07/23/24 17:03 Urine Urobilinogen 1.0 mg/dL (Negative) 07/23/24 17:03 Ur Leukocyte Esterase Negative (Negative) 07/23/24 17:03 Urine RBC 0-2 /hpf (0-2) 07/23/24 17:03 Urine WBC 0-5 /hpf (0-5) 07/23/24 17:03 Ur Squamous Epith Cells 0-5 /hpf (0-5) 07/23/24 17:03 Amorphous Sediment Not Reportable 07/23/24 17:03 Urine Bacteria None seen /hpf (NONE) 07/23/24 17:03 Hyaline Casts 0.40 /lpf 07/23/24 17:03 Digoxin 1.0 ng/mL (0.6-1.2) 07/27/24 04:05 Procedures Performed left heart cath with coronary angiogram, drug-eluting stent placed to left main circumflex and acute LAD for left main ST elevation NE Vitals Last Vital Signs Temp 97.6 F 07/27/24 11:50 Pulse 106 H 07/27/24 14:00 Resp 22 H 07/27/24 11:50 BP 96/71 07/27/24 11:50 Pulse Ox 96 07/27/24 11:50 O2 Del Method Room Air 07/27/24 11:50 O2 Flow Rate 1 07/23/24 13:30 Discharge Plan Discharge Patient Disposition: Home Condition: Stable Prescriptions: New atorvastatin 40 mg Tablet 40 mg PO BEDTIME 90 Days Qty: 90 0RF clopidogrel 75 mg Tablet 75 mg PO DAILY 90 Days Qty: 90 3RF aspirin 81 mg Tablet,Delayed Release (Dr/Ec) 81 mg PO DAILY 90 Days Qty: 90 3RF digoxin 125 mcg (0.125 mg) Tablet 125 mcg PO DAILY 30 Days Qty: 30 0RF furosemide [Lasix] 20 mg tablet 20 mg PO PRN Qty: 30 0RF Rx Instructions: Take 1 tablet daily as needed for weight gain of 3 pounds in 1 day or 5 pounds in 1 week Continued diazepam [Valium] 5 mg tablet 5 mg PO Q8H PRN (Reason: anxiety) Qty: 30 0RF megestrol 400 mg/10 mL (10 mL) suspension 400 mg PO DAILY Qty: 300 2RF ondansetron HCl 8 mg tablet 8 mg PO Q8H PRN (Reason: nausea and vomiting) Qty: 30 3RF lorazepam 1 mg tablet 0.5 - 1 mg PO Q6H PRN (Reason: severe nausea) Qty: 30 3RF prochlorperazine maleate [Compazine] 10 mg tablet 10 mg PO Q4H PRN (Reason: mild nausea) Qty: 30 3RF ondansetron HCl 4 mg tablet 4 mg PO Q6H PRN (Reason: nausea and vomiting) Qty: 30 3RF diphenoxylate-atropine [Lomotil] 2.5-0.025 mg tablet 2 tab PO QID MDD 8 tab PRN (Reason: diarrhea) Qty: 60 3RF Rx Instructions: Take 2 tablets by mouth 4 times daily until control of diarrhea. lidocaine-prilocaine 2.5-2.5 % cream 1 applic topical .COMPLEX Qty: 30 3RF Rx Instructions: Apply quarter size amount 30-45 minutes prior to port access, cover with cellophane Discontinued lisinopril 10 mg tablet 10 mg PO DAILY Qty: 30 3RF Discharge Orders: Discharge Order (Routine); Ordered 07/27/24 Ordered By: Maria M Moralez Referrals: Maria M Moralez, TRIMMER AND BORER MACHINE OPERATOR [Nurse Practitioner] - 08/06/24 2:30 pm Kym Stearns DO [Primary Care Provider] - 08/29/24 3:30 pm () Discharge Diet: Advance as tolerated, Regular and Cardiac Patient Instructions: Heart Attack (DC), Heart Failure (DC), Coronary Angioplasty (DC), Acute Kidney Injury (DC), Syncope (DC), Opioid Safety, Post Angiogram Home Care Instructions Activity Restrictions/Additional Instructions: Only take your furosemide as needed if you have any swelling or weight gain. Plan of Treatment: Patient was fitted for a life vest. She will need this for at least 3 months with repeat echo. Continue dual antiplatelet therapy including aspirin and plavix x1 year. She was placed on digoxin as well for heart rate control. She will need another well check at her next visit. Discharge Attestations Time Spent in Discharge Care*: greater than 30 min Status at Discharge: Cognitive status at discharge: cognitively intact , Behavioral status at discharge: cooperative , Quality Metrics Clinical Quality Measures [ No reported AMI, CVA or VTE this stay] Coding Level of Care Code Acute Code for [facility] Diagnoses ST elevation myocardial infarction (STEMI) involving other coronary artery of anterior wall I21.09 Involved coronary artery: other anterior wall coronary artery Ischemic cardiomyopathy I25.5 Cardiomyopathy type: ischemic Metastatic colon cancer to liver C18.9; C78.7 Hyperkalemia E87.5 Hyponatremia E87.1 Acute kidney injury N17.9 Documented by User: Cristin Esquivel MD 07/27/24 16:23 Diagnoses at Discharge Discharge Diagnosis (1) ST elevation myocardial infarction (STEMI): Status: Acute Qualifiers: Involved coronary artery: other anterior wall coronary artery Qualified Code(s): I21.09 - ST elevation (STEMI) myocardial infarction involving other coronary artery of anterior wall (2) Cardiomyopathy: Status: Acute Qualifiers: Cardiomyopathy type: ischemic Qualified Code(s): I25.5 - Ischemic cardiomyopathy (3) Metastatic colon cancer to liver: Status: Acute (4) Hyperkalemia: Status: Acute (5) Hyponatremia: Status: Acute (6) Acute kidney injury: Status: Acute Other Information Additional DC diagnoses/information: Patient was evaluated and cared for in conjunction with an advanced practice practitioner. I personally examined the patient and reviewed the chart and all pertinent data including imaging, telemetry, and laboratory results. I discussed the patient in detail with the advanced practice practitioner. Please see their note for complete H&P testing result and agreed upon plan of care for the patient. GENERAL: Patient is alert, awake and oriented x3. HEART: Regular S1 and S2. No murmur, rub or gallop. LUNGS: Clear to auscultate bilaterally. CENTRAL NERVOUS SYSTEM: Grossly nonfocal. EXTREMITIES: Lower extremities with out edema bilaterally. #[address] elevation NE involving left main LAD and circumflex treated with 2 drug-eluting stent left main into circumflex and left main into LAD with excellent angiographic result and restorationist of AGNES-3 flow. #2 Newly onset of heart failure with severely depressed left ventricular ejection fraction. #3 Hypotension #4 History of metastatic liver cancer with poor prognosis #5 Cachexia Continue dual antiplatelet therapy Heart failure education advised Guideline medical therapy will be optimized as an outpatient once blood pressure get better LifeVest provided Reason for Visit Reason for Visit: n,v,chest pain, shoulder pain Hospital Course Hospital Course Patient was taken back for a left heart cath. She had a drug-eluting stent placed to left main circumflex and acute LAD for left main ST elevation NE severely depressed left ventricular ejection fraction 10 to 15%. She was fitted for a life vest. She will need this for at least 3 months with repeat echo. Continue dual antiplatelet therapy including aspirin and plavix x1 year. She was placed on digoxin as well for heart rate control. She will need another well check at her next visit. Discharge Plan Discharge Patient Disposition: Home Condition: Stable Prescriptions: New atorvastatin 40 mg Tablet 40 mg PO BEDTIME 90 Days Qty: 90 0RF clopidogrel 75 mg Tablet 75 mg PO DAILY 90 Days Qty: 90 3RF aspirin 81 mg Tablet,Delayed Release (Dr/Ec) 81 mg PO DAILY 90 Days Qty: 90 3RF digoxin 125 mcg (0.125 mg) Tablet 125 mcg PO DAILY 30 Days Qty: 30 0RF furosemide [Lasix] 20 mg tablet 20 mg PO PRN Qty: 30 0RF Rx Instructions: Take 1 tablet daily as needed for weight gain of 3 pounds in 1 day or 5 pounds in 1 week Continued diazepam [Valium] 5 mg tablet 5 mg PO Q8H PRN (Reason: anxiety) Qty: 30 0RF megestrol 400 mg/10 mL (10 mL) suspension 400 mg PO DAILY Qty: 300 2RF ondansetron HCl 8 mg tablet 8 mg PO Q8H PRN (Reason: nausea and vomiting) Qty: 30 3RF lorazepam 1 mg tablet 0.5 - 1 mg PO Q6H PRN (Reason: severe nausea) Qty: 30 3RF prochlorperazine maleate [Compazine] 10 mg tablet 10 mg PO Q4H PRN (Reason: mild nausea) Qty: 30 3RF ondansetron HCl 4 mg tablet 4 mg PO Q6H PRN (Reason: nausea and vomiting) Qty: 30 3RF diphenoxylate-atropine [Lomotil] 2.5-0.025 mg tablet 2 tab PO QID MDD 8 tab PRN (Reason: diarrhea) Qty: 60 3RF Rx Instructions: Take 2 tablets by mouth 4 times daily until control of diarrhea. lidocaine-prilocaine 2.5-2.5 % cream 1 applic topical .COMPLEX Qty: 30 3RF Rx Instructions: Apply quarter size amount 30-45 minutes prior to port access, cover with cellophane Discontinued lisinopril 10 mg tablet 10 mg PO DAILY Qty: 30 3RF Discharge Orders: Discharge Order (Routine); Ordered 07/27/24 Ordered By: Maria M Moralez Referrals: Maria M Moralez, TRIMMER AND BORER MACHINE OPERATOR [Nurse Practitioner] - 08/06/24 2:30 pm Kym Stearns DO [Primary Care Provider] - 08/29/24 3:30 pm () Discharge Diet: Advance as tolerated, Regular and Cardiac Patient Instructions: Heart Attack (DC), Heart Failure (DC), Coronary Angioplasty (DC), Acute Kidney Injury (DC), Syncope (DC), Opioid Safety, Post Angiogram Home Care Instructions Activity Restrictions/Additional Instructions: Only take your furosemide as needed if you have any swelling or weight gain. Plan of Treatment: Patient was fitted for a life vest. She will need this for at least 3 months with repeat echo. Continue dual antiplatelet therapy including aspirin and plavix x1 year. She was placed on digoxin as well for heart rate control. She will need another well check at her next visit. Coding Level of Care Code Acute Code for [facility] Fwd Diagnoses ST elevation myocardial infarction (STEMI) involving other coronary artery of anterior wall I21.09 Involved coronary artery: other anterior wall coronary artery Ischemic cardiomyopathy I25.5 Cardiomyopathy type: ischemic Metastatic colon cancer to liver C18.9; C78.7 Hyperkalemia E87.5 Hyponatremia E87.1 Acute kidney injury N17.9
--- NOTE | 2024-07-27 16:24 | PC.NURSE ---
Patient discharged to home. Instruction provided regarding follow up information and new medications. Patient verbalized complete understanding. Incision to right wrist is open to air without s/s of bleeding or hematoma formation observed. Medication received by meds to beds prior to discharge. Lifevest in place. Patient taken by wheelchair to private vehicle with spouse by side.
== END 2024-07-27 16:29 | disposition home or self-care (01) | DRG 321 ==
LOC: ER 10:06 → CSU 10:26 → ICU 10:28 → CSU 07-26 16:28
PROVIDERS: Internal Medicine; Nurse Practitioner Family; Physician Assistant; Admitting Provider Internal Medicine Cardiovascular Disease; Emergency Provider Family Medicine; PCP Family Medicine; Visit Provider Internal Medicine Cardiovascular Disease
PROC: 027135Z Dilation of Coronary Artery, Two Arteries with Two Drug-eluting Intraluminal Devices, Percutaneous Approach (ICD-10-PCS; principal; 2024-07-23 10:00)
DX: I21.09 ST elevation (STEMI) myocardial infarction involving other coronary artery of anterior wall (principal); E43 Unspecified severe protein-calorie malnutrition; C78.7 Secondary malignant neoplasm of liver and intrahepatic bile duct; E87.1 Hypo-osmolality and hyponatremia; I50.20 Unspecified systolic (congestive) heart failure; N17.9 Acute kidney failure, unspecified; E87.20 Acidosis, unspecified; Z68.1 Body mass index [BMI] 19.9 or less, adult; I25.5 Ischemic cardiomyopathy; E87.5 Hyperkalemia; I11.0 Hypertensive heart disease with heart failure; Z85.038 Personal history of other malignant neoplasm of large intestine; F17.210 Nicotine dependence, cigarettes, uncomplicated; I95.81 Postprocedural hypotension; D72.829 Elevated white blood cell count, unspecified; Z93.3 Colostomy status
CPT/HCPCS: 36415; 36591; 71045; 80048; 80053; 80162; 81001; 82533; 83690; 83735; 84443; 84484; 85025; 85347; 93005; 93306; 93458; 96372; 96374; 96376; 97110; 97161; 97530; 99152; 99153; 99285; C1725; C1769; C1874; C1887; C1894; C9600; J1644; J1650; J1940; J2250; J2270; J2405; J3010; J3490; J7030; Q9967

== ENCOUNTER 2024-08-01 08:48 | Oncology outpatient (recurring) (ONCR) | payer BC, MEDICAID, SELFPAY ==
[2024-07-18 09:45] LABS: Bilirubin Urine Negative (Negative); Blood Urine Negative (Negative); Glucose Urine UA Negative (Normal); Ketones Urine Negative (Negative); Leukocyte Esterase Urine Trace (Negative); Nitrate Urine Negative (Negative); Protein Urine Negative (Negative); Specific Gravity, Urine 1.014 (1.005-1.030); Urine Appearance Clear (CLEAR); Urine Color Yellow (Yellow)
[2024-07-18 09:50] LABS: Add Urine Microscopic? YES; Bacteria Urine None Seen /hpf; Hyaline Casts Urine 0-4 /lpf; RBC Urine 0-2 /hpf (0-2); Squamous Epithelial Cell Urine 0-5 /hpf (0-5); WBC Urine 0-5 /hpf (0-5)
[2024-07-18 09:57] LABS: Carcinoembryonic Antigen 474.3 ng/mL (0.0-4.7)
[2024-07-18 09:58] LABS: Basophils # 0.1 10^3/uL (0.0-0.1); Basophils % 0.6 %; Eosinophils # 0.1 10^3/uL (0.0-0.8); Eosinophils % 1.4 %; Hematocrit 42.7 % (36-47); Lymphocytes # 2.7 10^3/uL (0.8-4.8); Lymphocytes % 30.3 %; Mean Corpuscular HGB Conc 32.6 g/dL (30-55); Mean Corpuscular Hemoglobin 31.5 pg (27-33); Mean Corpuscular Volume 96.8 fl (85-98); Mean Platelet Volume 9.4 fL (7.4-10.4); Monocytes # 0.9 10^3/uL (0.2-0.9); Monocytes % 10.1 %; Neutrophils # 5.04 10^3/uL (1.8-7.7); Neutrophils % 57.1 %; Nucleated Red Blood Cells % 0 %; Platelet Count 336 10^3/cmm (157-399); Red Blood Count 4.41 10^6/uL (3.85-5.65); Red Cell Distribution Width 13.5 % (12.1-15.1); White Blood Count 8.81 10^3/uL (3.29-11.43)
[2024-07-18 10:08] LABS: Alanine Aminotransferase 41 U/L (0-33); Alkaline Phosphatase 236 U/L (35-105); Anion Gap 16.4 (5-19); Aspartate Amino Transferase 35 U/L (0-32); Blood Urea Nitrogen 8 mg/dL (6-20); Calcium 9.3 mg/dL (8.5-10.5); Carbon Dioxide 27 mmol/L (22-29); Chloride 95 mmol/L (98-107); Creatinine Clr Calc Pharmacy 80.6183; Globulin 2.8 g/dL (1.3-4.6); Glomerular Filtration Rate 103.8 mL/min (90-130); Glucose 99 mg/dL (65-115); Osmolality Calculated 276 mOsm/kg (285-295); Potassium 4.4 mmol/L (3.5-5.1); Sodium 134 mmol/L (136-145); Total Bilirubin 0.3 mg/dL (0.15-1.2); Total Protein 6.8 g/dL (6.6-8.7)
[2024-07-18] MEDS: sodium chloride 0.9% 250 ML 75 ML IV (11:21)
[2024-07-18] MEDS: dexamethasone 4 mg/mL INJ 5 mL 12 MG IVP (11:22)
[2024-07-18] MEDS: palonosetron 0.25 mg/5 mL SDV IVP (11:26)
[2024-07-18 11:29] VITALS: BP 105/72; PULSE 95; TEMP 36.9; O2SAT 93
[2024-07-18] MEDS: SODIUM CHLORIDE 0.9% IV (11:38)
[2024-07-18] MEDS: BEVACIZUMAB BVZR IV (11:38)
[2024-07-18] MEDS: atropine 1 mg/mL SDV 1 mL 0.4 MG IV (12:26)
[2024-07-18] MEDS: leucovorin 560 MG in dextrose 5% 250 ML 166.67 MG IV (12:41)
[2024-07-18] MEDS: IRINOTECAN IV (12:42)
[2024-07-18] MEDS: DEXTROSE 5% IV (12:42)
[2024-07-18] MEDS: aprepitant 130 mg/18 ml SDV IVP (15:01)
[2024-07-18] MEDS: fluorouraciL 50 mg/ml MDV 100 mL 570 MG IVP (15:10)
[2024-07-18] MEDS: SODIUM CHLORIDE IV (15:22)
[2024-07-18] MEDS: FLUOROURACIL IV (15:22)
[2024-07-18] MEDS: ELASTOMERIC PUMP PUMP IV (15:22)
[2024-07-18 15:31] VITALS: BP 145/90; PULSE 78; RESP 16; TEMP 36.8; O2SAT 96
--- NOTE | 2024-07-18 15:37 | XR_ITS ---
WS: [id number] XR abdomen 3V [id number] REASON FOR EXAM: abdominal pain FINDINGS: There is a cast-like branching opacity overlying the liver which has the configuration of the Right portal vein rather than bile ducts. There are additional occlusive devices overlying the centra l liver. Portal vein appeared normal on the previous CT scan of the abdomen 04/18/2024. No bile duct dilatation. Stable calcified hepatic metastases. Ostomy site in the left lower quadrant. Multiple small metallic like opacities in the right lower crow drant. Unremarkable bowel gas pattern. No free air or retroperitoneal air. No mass identified. XR/XR abdomen 3V [id number] IMPRESSION: Opacified cast of the right portal vein with additional central occlusive devic es. Presumably the right portal vein is occluded? CT scan of the abdomen would clarify this finding if needed.
[2024-07-20 11:14] VITALS: BP 135/83; PULSE 76; RESP 16; TEMP 36.8; O2SAT 97
[2024-08-01 09:20] LABS: Basophils % 0.4 %; Eosinophils # 0.1 10^3/uL (0.0-0.8); Eosinophils % 0.7 %; Lymphocytes # 1.8 10^3/uL (0.8-4.8); Lymphocytes % 25.1 %; Mean Corpuscular HGB Conc 33.5 g/dL (30-55); Mean Corpuscular Hemoglobin 31.7 pg (27-33); Mean Corpuscular Volume 94.6 fl (85-98); Mean Platelet Volume 9.8 fL (7.4-10.4); Monocytes # 0.8 10^3/uL (0.2-0.9); Monocytes % 11.4 %; Neutrophils # 4.52 10^3/uL (1.8-7.7); Neutrophils % 61.9 %; Nucleated Red Blood Cells % 0 %; Platelet Count 239 10^3/cmm (157-399); Red Blood Count 4.23 10^6/uL (3.85-5.65); Red Cell Distribution Width 15.4 % (12.1-15.1)
[2024-08-01 09:37] LABS: Alanine Aminotransferase 39 U/L (0-33); Albumin Level 3.4 g/dL (3.5-5.2); Alkaline Phosphatase 145 U/L (35-105); Anion Gap 15.6 (5-19); Aspartate Amino Transferase 29 U/L (0-32); Blood Urea Nitrogen 13 mg/dL (6-20); Calcium 8.1 mg/dL (8.5-10.5); Carbon Dioxide 22 mmol/L (22-29); Chloride 102 mmol/L (98-107); Creatinine Clr Calc Pharmacy 69.1014; Globulin 2.3 g/dL (1.3-4.6); Glomerular Filtration Rate 86.9 mL/min (90-130); Glucose 97 mg/dL (65-115); Osmolality Calculated 280 mOsm/kg (285-295); Potassium 4.6 mmol/L (3.5-5.1); Sodium 135 mmol/L (136-145); Total Bilirubin 0.6 mg/dL (0.15-1.2); Total Protein 5.7 g/dL (6.6-8.7)
== END 2024-08-11 23:59 | disposition home or self-care (01) ==
PROVIDERS: Nurse Practitioner Family; PCP Family Medicine; Visit Provider Internal Medicine Hematology & Oncology
DX: Z53.9 Procedure and treatment not carried out, unspecified reason (principal); C18.9 Malignant neoplasm of colon, unspecified
CPT/HCPCS: 74021; 80053; 81001; 82378; 85025; 96368; 96375; 96411; 96413; 96415; 96523; J0185; J0461; J0640; J1100; J2469; J7050; J7060; J9190; J9206; Q5118

== ENCOUNTER 2024-08-03 10:05 | Emergency (ER) | payer BC, MEDICAID, SELFPAY ==
[2024-08-03] VITALS (15 sets, daily range): BP systolic 99–128; BP diastolic 76–92; PULSE 115–131; RESP 16–19; O2SAT 90–98; BMI 16.2
--- NOTE | 2024-08-03 10:27 | XR_ITS ---
WS: [id number] Exam: XR chest 1V portable [id number] Date/Time of Exam: 08/03/2024 10:36 AM Reason For Exam: dyspnea/cough Comparison 07/23/2024. Large bibasal pleural effusions noted with compressive atelectasis of both lower lobes. Significant i nterval cardiac enlargement. Increased pulmonary vascularity. No pneumothorax. Left-sided subclavian port ends at the cavoatrial junction. Branching calcification noted in the liver that may be vascular or within the biliary tree. Bony structures are intact. XR/XR chest 1V portable [id number] IMPRESSION: 1. Interval cardiac enlargement with bibasal pleural effusions and compressive atelectasis of both lower lobes. This most likely represents congestive heart failure. Superimposed pneumonia also possible. 2. Additional nonacute findings as above.
--- NOTE | 2024-08-03 10:27 | ECG_ITS ---
[facility] Test Date: 2024-08-03 Pat Name: Chantale Wright Department: Room: Gender: Female Jde Developer: RICHIE: 1970 Requested By: Sj Gil Order Number: [id number] Blanca MD: Miguel A Cee M.D. Measurements Intervals [place] Rate: 130 P: 29 DE: 152 QRS: -78 QRSD: 62 T: -83 QT: 234 QTc: 344 Interpretive Statements SINUS TACHYCARDIA WITH OCCASIONAL VENTRICULAR PREMATURE COMPLEXES POSSIBLE ANTERIOR MYOCARDIAL INFARCTION , OF INDETERMINATE AGE [30 ms Q WAVE IN V3/V4, OR R < 0.2 mV IN V4] INFERIOR MYOCARDIAL INFARCTION , OF INDETERMINATE AGE [40+ ms Q WAVE AND/OR ST/T ABNORMALITY IN II/aVF] Compared to ECG 07/23/2024 17:30:07 Ventricular premature complex(es) now present Myocardial infarct finding still present Electronically Signed On 08-04-2024 10:24:18 LAPPING MACHINE SET UP OPERATOR by Miguel A Cee M.D. [email or web address]
[2024-08-03] MEDS: ondansetron 2 mg/ML SDV 2 mL 4 MG IVP (11:54)
[2024-08-03] MEDS: morphine 4 mg/mL SDV 1 mL IVP ×2 (11:57→17:01)
[2024-08-03] MEDS: sodium chloride 0.9% 1,000 ML 999 ML IV (11:58)
--- NOTE | 2024-08-03 12:09 | ECG_ITS ---
[facility] Test Date: 2024-08-03 Pat Name: Chantale Wright Department: Room: Gender: Female Knot Picker Cloth: : 1970 Requested By: Sj Gil Order Number: [id number] Blanca MD: Miguel A Cee M.D. Measurements Intervals [place] Rate: 118 P: 13 IA: 161 QRS: -73 QRSD: 63 T: 240 QT: 340 QTc: 477 Interpretive Statements SINUS TACHYCARDIA LOW QRS VOLTAGE IN EXTREMITY LEADS [QRS DEFLECTION < 0.5 mV IN LIMB LEADS] LEFT ANTERIOR FASCICULAR BLOCK [QRS AXIS <= -45, QR IN I, RS IN II] POSSIBLE ANTERIOR MYOCARDIAL INFARCTION , OF INDETERMINATE AGE [30 ms Q WAVE IN V3/V4, OR R < 0.2 mV IN V4] Compared to ECG 08/03/2024 11:13:53 Low QRS voltage now present Left anterior fascicular block now present Ventricular premature complex(es) no longer present Myocardial infarct finding still present Electronically Signed On 08-04-2024 10:35:33 CHERRY SORTER by Miguel A Cee M.D. [email or web address]
--- NOTE | 2024-08-03 12:27 | ED_ITS ---
HPI - SOB/Dyspnea General: Chief Complaint: Shortness of Breath/Dyspnea Stated Complaint: SOB Time Seen by Provider: 08/03/24 10:27 History of Present Illness: HPI Narrative: 54-year-old female with a known history of disseminated colon cancer presents to the emergency room complaining of weakness generalized abdominal pain significant shortness of breath and overall discomfort. She has known metastatic colon cancer at stage IV. She was seen 11 days ago with a acute myocardial infarction with a STEMI she had 2 stents placed ejection fraction after the STEMI was noted to be 10 to 15% she is continuing to deteriorate since. She has not restarted any chemotherapy and is unsure if they will be able to. Reviewed the oncology note from 08/01/2024. At that time the oncologist advised her she would not be a candidate for any chemotherapy unless she had some evidence of recovery from the myocardial infarction. Patient is requesting comfort cares at this time.. Associated symptoms: Deny abdominal pain, chest pain or fever(s) Related Data Previous Rx's Medication Instructions Recorded ondansetron HCl 8 mg tablet 8 mg PO Q8H PRN nausea and 04/17/24 vomiting #30 tabs diphenoxylate-atropine 2.5 2 tab PO QID PRN diarrhea #60 tabs 07/12/24 mg-0.025 mg tablet (Lomotil) lidocaine-prilocaine 2.5 %-2.5 % 1 applic topical .COMPLEX #30 grams 07/12/24 topical cream lorazepam 1 mg tablet 0.5 - 1 mg (0.5 - 1 x 1 mg) PO Q6H 07/12/24 PRN severe nausea #30 tabs ondansetron HCl 4 mg tablet 4 mg PO Q6H PRN nausea and 07/12/24 vomiting #30 tabs prochlorperazine maleate 10 mg 10 mg PO Q4H PRN mild nausea #30 07/12/24 tablet (Compazine) tabs megestrol 400 mg/10 mL (10 mL) 400 mg (10 mL) PO DAILY #300 mL 07/18/24 oral suspension aspirin 81 mg tablet,delayed 81 mg PO DAILY 90 days #90 tabs 07/27/24 release atorvastatin 40 mg tablet 40 mg PO BEDTIME 90 days #90 tabs 07/27/24 clopidogrel 75 mg tablet 75 mg PO DAILY 90 days #90 tabs 07/27/24 digoxin 125 mcg (0.125 mg) tablet 125 mcg PO DAILY 30 days #30 tabs 07/27/24 furosemide 20 mg tablet (Lasix) 20 mg PO PRN #30 tabs 07/27/24 amoxicillin 500 mg-potassium 1 tab PO BID 7 days #14 tabs 08/01/24 clavulanate 125 mg tablet (Augmentin) atropine 1 % eye drops 4 drp sublingual Q4H PRN 08/03/24 Secretions #5 mL bisacodyl 10 mg rectal suppository 10 mg CO DAILY PRN Constipation #5 08/03/24 (Dulcolax (bisacodyl)) ea diphenhydramine HCl 25 mg tablet 25 mg PO Q4H PRN Allergic Reaction 08/03/24 #5 tabs hydroxyzine HCl 25 mg tablet 25 mg PO TID PRN Itching #5 tabs 08/03/24 lorazepam 2 mg/mL oral concentrate 2 mg sublingual Q4H PRN 08/03/24 Anxiety/Seizure #30 mL morphine concentrate 100 mg/5 mL 20 mg sublingual DIRECTED PRN 08/03/24 (20 mg/mL) oral solution Pain/SOB 14 days #30 mL ondansetron 4 mg disintegrating 4 mg translingual Q4H PRN Nausea 08/03/24 tablet #5 tabs Allergies Allergy/AdvReac Type Severity Reaction Status Date / Time hydrocodone [From [facility]] Allergy ADR-Nausea Verified 07/18/24 08:54 Review of Systems Const: Denies: fever(s) or chills Card: Denies: chest pain Resp: Reports: dyspnea and non-productive cough GI: Denies: abdominal pain : Denies: dysuria, urinary frequency or urinary urgency Musc: Denies: neck pain or back pain Skin/Breast: Denies: rash PFSH ED PFSH: Medical History Cachexia ST elevation myocardial infarction (STEMI) Cardiomyopathy Tobacco use disorder Chemotherapy induced neutropenia Port-A-Cath in place left Colon cancer Metastatic cancer to liver Constipation Tobacco dependency Surgical History History of colostomy S/P left hemicolectomy Family History Other CAD (coronary artery disease) Social History Smoking and tobacco/nicotine status: current some day tobacco/nicotine user cigarettes Packs smoked per day: 0.05 Years cigarettes smoked: 40 Alcohol intake: never Substance/Drug Use: never Physical Exam Const: GENERAL APPEARANCE: cooperative ORIENTATION/CONSCIOUSNESS: Yes awake, Yes oriented to person, Yes oriented to place and Yes oriented to time HENMT: COMMON NORMALS: normocephalic, atraumatic and hearing grossly normal bilaterally HEAD & SCALP: normocephalic and atraumatic Resp: COMMON NORMALS: normal respiratory effort, No retractions and No use of accessory muscles AUSCULTATION: rales and wheezes Cardio: COMMON NORMALS: regular rate, regular rhythm and No murmurs present (Cardio) RATE: regular rate RHYTHM: regular rhythm GI: COMMON NORMALS: No hepatosplenomegaly present AUSCULTATION: Yes normoactive bowel sounds PALPATION: Yes Tenderness to palpation present (GI), No Guarding due to palpation present (GI) and Yes No hepatosplenomegaly present OTHER: Prominent nodule in the right upper quadrant consistent with the subcutaneous surgical stitch that is now becoming prominent through the skin. It is palpably identifiable as a surgical stitch. Extremity: COMMON NORMALS: normal to inspection, capillary refill normal, no clubbing, cyanosis or edema, no calf tenderness and no pedal edema Neuro: SENSORIUM/ORIENTATION: Yes oriented to person, Yes oriented to place and Yes oriented to time Skin: COMMON NORMALS: no rashes or lesions noted GENERAL SKIN EXAM: no rashes or lesions noted Course Vital Signs: Vital signs: Vital Signs Pulse Rate 124 H 08/03/24 10:20 Respiratory Rate 16 08/03/24 11:57 Blood Pressure 99/76 08/03/24 10:20 Pulse Oximetry 98 08/03/24 10:20 Oxygen Delivery Me thod Room Air 08/03/24 10:20 MDM - SOB/Dyspnea Medical Decision Making Patient at this point expresses wishes to go on hospice she says she just does not feel well she is in pain. She has a colostomy. She has stage IV cancer and so far has not been able to restart her chemotherapy given significant recent NE she is not likely to restart and she is expressing wish not to restart. Will make arrangements for her to go to the [facility] at her request and start her on hospice services. Case management is helping us make arrangements. Patient's troponin is markedly elevated discussed with the patient as well as consult with Dr. Cee on-call for cardiology. She does not wish to pursue this. Dr. Cee states he thinks it is probably just still residual in part from her antibiotic and also from cardiac strain from heart failure. Patient also does not wish to pursue anything that she is not having any chest pain now she is just generally having pain and short of breath she understands it is possible she had a heart attack but does not wish to pursue it instead wishes to stay on hospice. EKG did not show any acute changes Lab Data Labs/Radiology: Radiology Impressions Chest X-Ray 08/03/24 10:27 IMPRESSION: 1. Interval cardiac enlargement with bibasal pleural effusions and compressive atelectasis of both lower lobes. This most likely represents congestive heart f ailure. Superimposed pneumonia also possible. 2. Additional nonacute findings as above. Laboratory Results Troponin T Baseline 2629 ng/L (0-10) H* 08/03/24 12:00 Digoxin 0.8 ng/mL (0.6-1.2) 08/03/24 12:00 All radiology interpretation(s) finalized by discharge Discharge Plan Discharge Patient Disposition: Home Clinical Impression: Ischemic cardiomyopathy, Metastatic cancer to liver, CHF (NYHA class III, ACC/AHA stage C) Condition: Stable Prescriptions: New morphine concentrate 100 mg/5 mL (20 mg/mL) Solution 20 mg sublingual DIRECTED MDD N/A PRN (Reason: Pain/SOB) 14 Days Qty: 30 0RF Rx Instructions: 0.25ml-1ml q1H PRN may increase to 0.5ml-1ml Q1H PRN bisacodyl [Dulcolax (bisacodyl)] 10 mg Suppository 10 mg CO DAILY PRN (Reason: Constipation) Qty: 5 0RF Rx Instructions: 1 suppository per rectum every day PRN for constipation. diphenhydramine HCl 25 mg Tablet 25 mg PO Q4H PRN (Reason: Allergic Reaction) Qty: 5 0RF Rx Instructions: Take one tablet by mouth every 4 hours as needed for allergic reaction hydroxyzine HCl 25 mg Tablet 25 mg PO TID PRN (Reason: Itching) Qty: 5 0RF Rx Instructions: Take 1 tablet by mouth as needed three times a day for itching atropine 1 % Drops 4 drp sublingual Q4H PRN (Reason: Secretions) Qty: 5 0RF Rx Instructions: 4 drops SL q 4 hours PRN for terminal congestion/excessive secretions. ondansetron 4 mg Tablet,Disintegrating 4 mg translingual Q4H PRN (Reason: Nausea) Qty: 5 0RF Rx Instructions: Dissolve 1 tablet under tongue every 4 hours PRN for nausea lorazepam 2 mg/mL Concentrate 2 mg sublingual Q4H PRN (Reason: Anxiety/Seizure) Qty: 30 0RF Rx Instructions: 0.25ml-1ml q4H PRN Anxiety/Seizure Start 0.25ml may increase to 0.5ml-1ml q4H No Action megestrol 400 mg/10 mL (10 mL) suspension 400 mg PO DAILY Qty: 300 2RF amoxicillin-pot clavulanate [Augmentin] 500-125 mg tablet 1 tab PO BID 7 Days Qty: 14 0RF ondansetron HCl 8 mg tablet 8 mg PO Q8H PRN (Reason: nausea and vomiting) Qty: 30 3RF lorazepam 1 mg tablet 0.5 - 1 mg PO Q6H PRN (Reason: severe nausea) Qty: 30 3RF prochlorperazine maleate [Compazine] 10 mg tablet 10 mg PO Q4H PRN (Reason: mild nausea) Qty: 30 3RF ondansetron HCl 4 mg tablet 4 mg PO Q6H PRN (Reason: nausea and vomiting) Qty: 30 3RF diphenoxylate-atropine [Lomotil] 2.5-0.025 mg tablet 2 tab PO QID MDD 8 tab PRN (Reason: diarrhea) Qty: 60 3RF Rx Instructions: Take 2 tablets by mouth 4 times daily until control of diarrhea. lidocaine-prilocaine 2.5-2.5 % cream 1 applic topical .COMPLEX Qty: 30 3RF Rx Instructions: Apply quarter size amount 30-45 minutes prior to port access, cover with cellophane atorvastatin 40 mg Tablet 40 mg PO BEDTIME 90 Days Qty: 90 0RF clopidogrel 75 mg Tablet 75 mg PO DAILY 90 Days Qty: 90 3RF aspirin 81 mg Tablet,Delayed Release (Dr/Ec) 81 mg PO DAILY 90 Days Qty: 90 3RF digoxin 125 mcg (0.125 mg) Tablet 125 mcg PO DAILY 30 Days Qty: 30 0RF furosemide [Lasix] 20 mg tablet 20 mg PO PRN Qty: 30 0RF Rx Instructions: Take 1 tablet daily as needed for weight gain of 3 pounds in 1 day or 5 pounds in 1 week Discharge Orders: Discharge ED (Routine); Ordered 08/03/24 Ordered By: Sj Nunez Referrals: Mehul Gongora MD [Primary Care Provider] - Patient Instructions: Opioid Safety, Pain Management Activity Restrictions/Additional Instructions: Thank you for choosing [facility] for your healthcare needs today. It is very important that you follow up as instructed or that you return to the Emergency Department should you have concerns or if your condition changes or worsens in any way. You are seen for complaints of generally not feeling well and shortness of breath. After reviewing her chart and discussing with you you had opted for hospice care. You will be discharged home with hospice care. Coding Level of Care Code ED Manager Balance for Susan Mccarthy
[2024-08-03 12:39] LABS: Troponin(5th) Baseline 2629 ng/L (0-10)
[2024-08-03 12:42] LABS: Digoxin 0.8 ng/mL (0.6-1.2)
--- NOTE | 2024-08-03 16:09 | PC.SOCIAL ---
Colorer Machine Laureen from [facility] calls and reports that they are unable to accept patient @ this time. CM to room and spoke to patient and she is agreeable to [facility]. Referral faxed and called and spoke to Joann. Joann reviews referral calls back to CM and reports that it would be better if patient could go home and they could admit on Tuesday. CM called and spoke to Shira @ [facility] and she reports that they will have to obtain prior auth before they can admit and it will be at least Tuesday before they are able to admit. CM back to room and spoke to patient. Patient began to cry and reports that she cannot go back home. She states she would try to come up w/ some money if they could just accept her today. CM called back to Joann @ [facility] to discuss and explained that [facility] cannot admit until at least Tuesday and patient does not feel comfortable going home. She reports that they will accept patient today. CM to room and updated patient of acceptance w/ [facility] and updated Dr. Klein that patient can DC to [facility]. Faxed orders to [facility] @ this time.
== END 2024-08-03 17:20 | disposition hospice, inpatient (51) ==
PROVIDERS: Emergency Provider Family Medicine; PCP Family Medicine
DX: I25.5 Ischemic cardiomyopathy (principal); C18.9 Malignant neoplasm of colon, unspecified; C78.7 Secondary malignant neoplasm of liver and intrahepatic bile duct; Z79.82 Long term (current) use of aspirin; Z79.02 Long term (current) use of antithrombotics/antiplatelets; F17.210 Nicotine dependence, cigarettes, uncomplicated; I50.9 Heart failure, unspecified
CPT/HCPCS: 36591; 71045; 80162; 84484; 93005; 96361; 96374; 96375; 96376; 99285; J2270; J2405; J7030